=== PATIENT | male | born 1945 | race Caucasian/White ===

== ENCOUNTER 2022-12-11 10:58 | Outpatient (OUT) | payer OTHER, SELFPAY ==
[2022-12-11 12:28] LABS: Prostate Specific Antigen Dx <0.13 ng/mL (<=4.00)
== END 2022-12-11 10:59 | disposition home or self-care (01) ==
LOC: LAB 11:03
PROVIDERS: PCP Internal Medicine; Visit Provider Internal Medicine
DX: C61 Malignant neoplasm of prostate (principal)
CPT/HCPCS: 36415; 84153

== ENCOUNTER 2023-02-19 10:48 | Outpatient (OUT) | payer OTHER, SELFPAY ==
--- NOTE | 2023-02-19 | XR_ITS ---
The [address] [address] Patient Name: GRACIELA JULES MRN: [id number] date: 1945 Sex: M Assigned Patient Location: US Current Patient Location: US Accession/Order Number: [id number] Exam Date: 02/19/2023 11:08 Report Date: 02/19/2023 11:46 At the request of: SANDRA MORGAN Procedure: XR shoulder RT min 2V PROCEDURE: XR shoulder RT min 2V HISTORY: Mass Of Soft Tissue Of Shoulder M79.89 COMPARISON: None. FINDINGS: BONES:Narrowing of the acromioclavicular joint and small periarticular degenerative osteophytes. Mild degenerative changes of the glenohumeral joint. No fracture, dislocation, or bone lesion. SOFT TISSUES:No visible soft tissue swelling. EFFUSION:None visible. OTHER: Negative. XR/XR shoulder RT min 2V IMPRESSION: 1. Mild degenerative changes. No suspicious findings to account for patient's symptoms. Electronically authenticated by: JEREMIE KWONG Date: 02/19/2023 11:46
--- NOTE | 2023-02-19 10:55 | US_ITS ---
The [address] [address] Patient Name: GRACIELA JULES MRN: [id number] date: 1945 Sex: M Assigned Patient Location: US Current Patient Location: US Accession/Order Number: [id number] Exam Date: 02/19/2023 10:56 Report Date: 02/19/2023 11:41 At the request of: SANDRA MORGAN Procedure: US extremity nonvascular RT EXAMINATION: US extremity nonvascular RT HISTORY: Mass Of Soft Tissue Of Shoulder M79.89 COMPARISON: No relevant comparison available. FINDINGS: Ultrasound evaluation anterior to right shoulder in region of patient's palpable lump demonstrates a 4.2 x 3.8 x 0.6 cm fluid collection. No internal blood flow or appreciable soft tissue component. No appreciable connection to the joint capsule. US/US extremity nonvascular RT IMPRESSION: 1. Patient's palpable lump corresponds to a nonspecific fluid collection; seroma versus old hematoma versus extension from the joint capsule; no visible connection to the joint capsule. Consider MRI for further evaluation. Electronically authenticated by: JEREMIE KWONG Date: 02/19/2023 11:41
[2023-02-19 11:28] LABS: Basophils Percent Auto 0.6 % (0.2-2.0); Eosinophils Absolute Auto 0.2 10^3/uL (0.0-0.7); Eosinophils Percent Auto 4.3 % (0.9-7.0); Hematocrit 39.6 % (42.0-54.0); Immature Granulocytes Abs Auto 0.01 10^3/uL (0.00-0.03); Immature Granulocytes Pct Auto 0.2 % (0.0-0.5); Lymphocytes Absolute Auto 1.3 10^3/uL (1.2-3.8); Lymphocytes Percent Auto 23.6 % (20.5-60.0); Mean Corpuscular HGB Conc 32.8 g/dL (29.9-35.2); Mean Corpuscular Hemoglobin 30.9 pg (25.9-34.0); Mean Corpuscular Volume 94.1 fL (80.0-94.0); Mean Platelet Volume 9.6 fL (9.5-13.5); Monocytes Absolute Auto 0.5 10^3/uL (0.3-0.8); Monocytes Percent Auto 9.8 % (1.7-12.0); Neutrophils Absolute Auto 3.3 10^3/uL (1.4-6.5); Neutrophils Percent Auto 61.5 % (43.0-75.0); Platelet Count 277 10^3/uL (150-450); Red Blood Count 4.21 10^6/uL (4.70-6.10); Red Cell Distribution Width 13.3 % (11.0-15.0); White Blood Count 5.3 10^3/uL (4.0-11.0)
[2023-02-19 12:30] LABS: Anion Gap 11.9; BUN Creatinine Ratio 15.8; Calcium 8.8 mg/dL (8.5-10.1); Carbon Dioxide 29.1 mmol/L (21.0-32.0); Chloride 103 mmol/L (98-107); Estimated GFR (African America >60 (>=60); Estimated GFR (Non-African Ame >60 (>=60); Glucose 81 mg/dL (74-106); Sodium 140 mmol/L (136-145); Thyroid Stimulating Hormone 1.177 uIU/mL (0.358-3.740)
== END 2023-02-19 10:49 | disposition home or self-care (01) ==
LOC: US 10:48
PROVIDERS: PCP Internal Medicine; Visit Provider Internal Medicine
DX: M79.89 Other specified soft tissue disorders (principal); I10 Essential (primary) hypertension; R53.83 Other fatigue
CPT/HCPCS: 36415; 73030; 76882; 80048; 84443; 85025

== ENCOUNTER 2023-03-05 06:35 | Outpatient (OUT) | payer OTHER, SELFPAY ==
--- NOTE | 2023-03-05 06:40 | MR_ITS ---
The [address] [address] Patient Name: GRACIELA JULES MRN: [id number] date: 1945 Sex: M Assigned Patient Location: MRI Current Patient Location: MRI Accession/Order Number: [id number] Exam Date: 03/05/2023 07:05 Report Date: 03/05/2023 08:41 At the request of: SANDRA MORGAN Procedure: MR shoulder RT wo/w con EXAM: MR shoulder RT wo/w con REASON FOR EXAM: Mass Of Soft Tissue Of Shoulder M79.89. TECHNIQUE: Multiplanar, multisequence imaging of the right shoulder was performed before and after the uneventful intravenous administration of gadolinium contrast COMPARISON: Plain radiograph 02/19/2023. FINDINGS: The acromioclavicular joint is congruent with joint space narrowing, capsular hypertrophy and marginal osteophytes. Inferior marginal osteophytes mildly narrow the supraspinatus outlet. There is diffuse broad-based thickening and ossification the distal coracoacromial ligament consistent with subacromial spur, which also narrows the supraspinatus outlet. Moderate to large volume of fluid is present within the subacromial/subdeltoid bursa with synovial thickening consistent with synovitis. There is thickening and intermediate signal involving the supraspinatus and infraspinatus tendons consistent with tendinosis. Low-grade bursal sided fraying of the central cuff. No tear identified. The teres minor tendon is intact. The subscapularis tendon is thickened with intermediate signal consistent with tendinosis. No definite tear. The extracapsular biceps tendon is within the bicipital groove. There is significant thickening and intermediate signal involving the intracapsular and extracapsular biceps tendon. However, the biceps tendon appears thin and attenuated at the junction of the intracapsular and extracapsular tendon, given tendinopathy, this potentially reflects the intermediate to high-grade partial tear of the biceps tendon. A complete rupture is not confidently identified. Moderate amount of fluid within the extracapsular biceps tendon sheath, proportion the underlying joint likely reflects tenosynovitis. The humerus is centered on the glenoid. The articular cartilage demonstrates intermediate to high-grade chondrosis. Near circumferential labral degeneration/tearing. Small joint effusion. The bone marrow signal is without fracture. The quadrilateral space is patent. No axillary lymphadenopathy identified. No abnormal osseous or soft tissue enhancement identified. MR/MR shoulder RT wo/w con IMPRESSION: 1. Rotator cuff tendinosis without tear. 2. High-grade biceps tendinosis with intermediate to high-grade partial tear at the distal intracapsular proximal extracapsular junction. A complete rupture not identified. Probable extracapsular tenosynovitis 3. Mild acromioclavicular osteoarthritis with subacromial spur and moderate subacromial/subdeltoid bursitis. 4. 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 No acute or aggressive osseous abnormality identified. Electronically authenticated by: DEE MARTIN Date: 03/05/2023 08:41
== END 2023-03-05 06:36 | disposition home or self-care (01) ==
LOC: MRI 06:35
PROVIDERS: PCP Internal Medicine; Visit Provider Internal Medicine
DX: M79.89 Other specified soft tissue disorders (principal); M19.011 Primary osteoarthritis, right shoulder; M75.21 Bicipital tendinitis, right shoulder
CPT/HCPCS: 73223; A9575

== ENCOUNTER 2023-10-24 06:57 | Outpatient (OUT) | payer OTHER, SELFPAY ==
[2023-10-24 08:23] LABS: Prostate Specific Antigen Dx <0.13 ng/mL (<=4.00)
== END 2023-10-24 06:58 | disposition home or self-care (01) ==
LOC: LAB 06:59
PROVIDERS: PCP Internal Medicine; Visit Provider Internal Medicine
DX: C61 Malignant neoplasm of prostate (principal)
CPT/HCPCS: 36415; 84153

== ENCOUNTER 2024-01-30 07:33 | Outpatient (OUT) | payer OTHER, SELFPAY ==
--- NOTE | 2024-01-30 07:35 | CT_ITS ---
The [address] [address] Patient Name: GRACIELA JULES MRN: [id number] date: 1945 Sex: M Assigned Patient Location: CT Current Patient Location: CT Accession/Order Number: [id number] Exam Date: 01/30/2024 07:40 Report Date: 01/30/2024 08:46 At the request of: SANDRA MORGAN Procedure: CT abdomen pelvis wo con EXAM: CT abdomen pelvis wo con HISTORY: Low Back Pain, Renal Calculi COMPARISON: None. TECHNIQUE: Axial soft tissue windows of the abdomen and pelvis with coronal and sagittal reformats. CT dose reduction technique was used including Automated Exposure Control. Findings: Lack of intravenous contrast limits evaluation. ABDOMEN: The liver, gallbladder, spleen, pancreas, and adrenal glands are unremarkable. There are bilateral renal cysts. The largest is off the right kidney measuring approximately 4.3 cm. Nonobstructing bilateral renal stones. The largest is within the lower pole the right kidney measuring approximately 0.7 cm. No renal collecting system or ureteral dilatation. Evaluation of the bowel is limited given the absence of contrast. No bowel obstruction. The appendix is nondilated. The aorta is normal caliber. No enlarged abdominal lymph nodes or free abdominal fluid. Tiny fat-containing umbilicus hernia. Pelvis: Unremarkable bladder. No enlarged pelvic lymph nodes or free pelvic fluid. The prostate implants. No aggressive sclerotic or lytic osseous lesions. Multilevel degenerative spondylosis. Levoconvex scoliosis. CT/CT abdomen pelvis wo con IMPRESSION: 1. Nonobstructing bilateral renal stones. 2. Other nonemergent findings, as described above. Electronically authenticated by: SANDIE BROWN Date: 01/30/2024 08:46
--- OUTSIDE RECORDS SUMMARY | 2024-01-30 07:37 | XMS_ITS | CCD ---
Author Organization [facility] Care Team Providers Care Beverage Host Name Role Phone Joaquin Guzman DO Primary Care Provider JOAQUIN GUZMAN Primary Care Physician Joaquin Guzman Unavailable EDDIE, DR FLORES Admitting Unavailable BALL, DR FLORES Attending Unavailable BALL, DR FLORES Consulting Unavailable BALL, DR FLORES Primary Care Unavailable ENGELER, DR PEDRO Majano Admitting Unavailable ENGELER, DR PEDRO Majano Attending Unavailable ENGELER, DR PEDRO Majano Consulting Unavailable BALL, DR FLORES Primary Care Unavailable BALL, DR FLORES Admitting Unavailable BALL, DR FLORES Attending Unavailable BALL, DR FLORES Consulting Unavailable BALL, DR FLORES Primary Care Unavailable MARKER ., DR HOOD Admitting Unavailable MARKER ., DR HOOD Attending Unavailable MARKER ., DR HOOD Consulting Unavailable BALL, DR FLORES Primary Care Unavailable TIFFANIE, ESTRADA Consulting Unavailable Joaquin Guzman DO Primary Care Provider ERIKA SANCHEZ Attending Unavailable Joaquin Guzman DO Primary Care Provider GABRIELA BAH Attending Unavailab le Lydia MICHAELS Referring Unavailable JOAQUIN GUZMAN Primary Care Unavailable Lydia MICHAELS Attending Unavailable ENGELELydia Burrell Referring Unavailable JOAQUIN GUZMAN Primary Care Unavailable Lydia MICHAELS Attending Unavailable JOAQUIN GUZMAN Primary Care Unavailable Allergies Allergy Classification Reported Allergen(s) Allergy Type Date of Onset Reaction(s) Facility Sulfamethoxazole / Trimethoprim (1 source) Sulfamethoxazole / Trimethoprim Drug Allergy 12-06-19 17 Itching [facility] (12 sources) Sulfamethoxazole / Trimethoprim; Translations: [sulfamethoxazole-t rimethoprim] Drug Allergy 12-06-19 17 Itching, Itching (finding) [facility] (2 sources) Sulfamethoxazole / Trimethoprim; Translations: [Bactrim] Drug Allergy 10-31-19 16 [facility] Repository (1 source) No Known Medication Allergies; Translations: [No Known Medication Allergies] Propensity to adverse reactions (disorder) [facility] Repository (2 sources) Sulfamethoxazole Drug Allergy 08-16-19 24 Unknown Reaction [facility] (2 sources) Trimethoprim Drug Allergy 08-16-19 24 Unknown Reaction [facility] Medications Current Medications Medication Drug Class(es) Dates Sig (Normalized) Sig (Original) amLODIPine 5 mg oral tablet (20 sources) Dihydropyridine Calcium Channel Sancho Start: 06-06-2019 take 5 mg by mouth once daily Amlodipine Active 5 MG PO Daily August 15, 2023 12:00am amLODIPine Besyl ate Active Comment on above: Take 5 mg by mouth o nce daily. aspirin 81 mg delayed release oral tablet (14 sources) Platelet Aggregation Inhibitor, Nonsteroidal Anti-inflammatory Drug Start: 06-06-2019 Aspirin (Adult Low Dose Aspirin) 81 mg tablet,delayed release (DR/EC) Active 81 MG PO Daily August 15, 2023 12:00am Aspirin 81 Activ e Comment on above: Take 81 mg by mouth once daily. carvedilol 12.5 mg oral tablet (14 sources) alpha-Adrenergic Sancho, beta-Adrenergic Sancho Start: 08-15-2023 take 12.5 mg by mouth twice daily Carvedilol Active 12.5 MG PO Twice daily August 15, 2023 12:00am Start: 06-06-2019 carvedilol 6.2 5 mg, Oral, Refills(s) 0 Start Date: 06/06/19 Status: Ordered Carvedilol Activ e Comment on above: Take 12.5 mg by mout h twice daily with meals. lisinopril 20 mg oral tablet (15 sources) Angiotensin Converting Enzyme Inhibitor Start: 11-30-2023 take 20 mg by mouth once daily Lisinopril Active 20 MG PO Daily November 30, 2023 2:15pm Start: 08-15-2023 End: 11-30-2023 take 20 mg by mouth twice daily Lisinopril Discontinued 20 MG PO Twice daily August 15, 2023 12:00am November 30, 2023 2:15pm Start: 06-06-2019 take 20 mg by mouth once daily lisinopril 20 mg, Oral, Daily, Refills(s) 0 Start Date: 06/06/19 Status: Ordered Lisinopril Activ e Comment on above: Take 20 mg by mouth twice daily. Multi Vitamin+ (1 source) Start: 06-06-2019 Multi Vitamin+ Refill(s) 0 Start Date: 06/06/19 Status: Ordered Multivitamin preparation (6 sources) Multivitamin Act cristin multivitamin tablet (5 sources) take 1 tablet by mouth once daily multivitamin tablet Take 1 tablet by mouth once daily. Active take 1 tablet by mouth once vivian y multivitamin tablet Take 1 tablet by mouth once daily. 0 Active Comment on above: Take 1 tablet by eric th once daily. polyethylene glycol 3350 50404 mg powder for oral solution (14 sources) Osmotic Laxative Start: 08-15-2023 Polyethylene Glycol 3350 (Miralax) 17 gram/dose powder Active 17 GM PO August 15, 2023 12:00am Start: 06-12-2019 MiraLax gram, Oral, Daily, Refill(s) 0 Start Date: 06/12/19 Status: Ordered polyethylene gly col 3350 (MIRALAX) 17 gram/dose powder Take by mouth once daily. Active MiraLax Active Comment on above: Take by mouth once d aily. Stool Softener (6 sources) Stool Softener Active tamsulosin hydrochloride 0.4 mg oral capsule (8 sources) alpha-Adrenergic Sancho Start: 08-15-2023 take 0.4 mg by mouth once daily Tamsulosin Active 0.4 MG PO Daily August 15, 2023 12:00am Tamsulosin HCl A ctive Completed/Discontinued Medications Medication Drug Class(es) Dates Sig (Normalized) Sig (Original) hydrocortisone acetate 25 mg rectal suppository (2 sources) Corticosteroid Start: 10-25-2023 End: 12-20-2023 hydrocortisone (ANUSOL-HC) 25 mg suppository 1 Suppository by RECTAL route two times a day. 10 Suppository 2 10/25/2023 12/20/2023 Discontinued (Discontinued by another Health Care Provider) Problems Active Problems Problem Classification Problem Date Documented Da te Episodic/Chronic Abdominal pain (5 sources) Periumbilical pain; Translations: [Generalized abdominal pain] Onset: 07-25-2022 Episodic Anal and rectal conditions (20 sources) Rectal pain; Translations: [Other specified diseases of anus and rectum] Onset: 01-18-2024 Episodic Calculus of urinary tract (11 sources) History of calculus of kidney; Translations: [Personal history of urinary calculi] 08-14-2023 Episodic Cancer of prostate (20 sources) Malignant tumor of prostate; Translations: [Malignant neoplasm of prostate] Onset: 12-05-2016 Resolved: 12-14-2022 Chronic Deficiency and other anemia (8 sources) Anemia; Translations: [Anemia, unspecified] 08-15-2023 Episodic Diverticulosis and diverticulitis (9 sources) Diverticulum of duodenum; Translations: [Diverticulosis of small intestine without perforation or abscess without bleeding] Chronic Esophageal disorders (11 sources) Gastro-esophageal reflux disease with esophagitis; Translations: [Gastroesophageal reflux disease with esophagitis without hemorrhage] 08-15-2023 Chronic Essential hypertension (14 sources) Hypertensive disorder; Translations: [Essential hypertension] Onset: 07-27-2022 05-08-2019 Chronic Gastritis and duodenitis (1 source) Duodenitis without bleeding; Translations: [DUODENITIS WITHOUT BLEEDING] Onset: 07-27-2022 Episodic Gastrointestinal hemorrhage (6 sources) Rectal hemorrhage; Translations: [Hemorrhage of anus and rectum] Episodic Hyperplasia of prostate (12 sources) Benign prostatic hypertrophy with outflow obstruction; Translations: [Benign prostatic hyperplasia with lower urinary tract symptoms] Onset: 06-21-2022 Chronic Other aftercare (6 sources) H/O: high risk medication; Translations: [Other custodial (current) drug therapy] Episodic Other aftercare (1 source) Other custodial (current) drug therapy; Translations: [OTH ALF CURRENT DRUG THERAPY] Onset: 07-27-2022 Episodic Other aftercare (1 source) terminal gauger supervisor (current) use of aspirin; Translations: [SALES CLOSER CURRENT USE OF ASPIRIN] Onset: 07-27-2022 Episodic Other connective tissue disease (1 source) Other specified soft tissue disorders Episodic Other diseases of kidney and ureters (1 source) Urinary tract obstruction; Translations: [Other obstructive and reflux uropathy] Onset: 06-21-2022 Episodic Other screening for suspected conditions (not mental disorders or infectious disease) (3 sources) Raised prostate specific antigen; Translations: [Rising PSA following treatment for malignant neoplasm of prostate] Onset: 06-21-2022 Episodic Other skin disorders (5 sources) Vesicular eczema of hands and/or feet; Translations: [Dyshidrosis [pompholyx]] Episodic Other skin disorders (1 source) Dyshidrosis [pompholyx]; Translations: [Eczema, dyshidrotic] Episodic Other skin disorders (2 sources) Vesicular eczema; Translations: [Dyshidrosis [pompholyx]] 08-15-2023 Episodic Residual codes; unclassified (8 sources) Obstructive sleep apnea syndrome; Translations: [Obstructive sleep apnea (adult) (pediatric)] 08-14-2023 Chronic Residual codes; unclassified (2 sources) Obstructive sleep apnea (adult) (pediatric); Translations: [Obstructive sleep apnea (adult)(pediatric)] Chronic Residual codes; unclassified (5 sources) Family history of coronary arteriosclerosis; Translations: [Family history of ischemic heart disease and other diseases of the circulatory system] Episodic Residual codes; unclassified (1 source) Family history of ischemic heart disease and other diseases of the circulatory system; Translations: [Family history of early CAD] Episodic Spondylosis; intervertebral disc disorders; other back problems (20 sources) Lumbar spondylosis; Translations: [Spondylosis without myelopathy or radiculopathy, lumbar region] 08-14-2023 Chronic Spondylosis; intervertebral disc disorders; other back problems (2 sources) Low back pain; Translations: [Low back pain] 01-25-2024 Episodic Unclassified (1 source) Drug therapy finding 05-08-2019 Past or Other Problems Problem Classification Problem Date Documented Da te Episodic/Chronic Cancer of prostate (10 sources) History of malignant neoplasm of prostate; Translations: [Personal history of malignant neoplasm of prostate] Onset: 08-27-2017 08-27-2017 Episodic Deficiency and other anemia (4 sources) Anemia, unspecified; Translations: [ANEMIA UNSPECIFIED] Onset: 05-04-2022 Episodic Esophageal disorders (1 source) Esophageal disorders Results Test Name Value Interpretation Reference Range Facility OVon 01-18-2024 CNOV Office Visit (COAM ) MALCOLM PFEIFFER ([id number]) 1945 M Date Time Provider Department 01/18/24 9:30 AM GABRIELA BAH During your visit today, we recorded the following information about you: Pulse Blood pressure Weight Height 54/minute 118/65 68.9 kg 1.753 m Gabriela Bah MD 01/18/2024 9:49 AM Signed COLORECTAL SURGERY January 18, 2024 Malcolm Pfeiffer 78 year old This consult was requested by Dr. Miguel A Michaels and my final recommendations will be communicated to the requesting health care provider by way of the shared medical record for internal providers or letter via the [employer] for external providers. Chief Complaint: rectal pain/ rectal stricture History of Present Illness: Malcolm Pfeiffer is a 78 year old male presents to the office for evaluation of rectal pain and rectal stricture. He has a history of [id number] prostate adenocarcinoma. Colonoscopy in 2016 -normal Scan on 12/20/2023 8:16 AM by Erika Gotti: COLONOSCOPY 11/03/15 PAST MEDICAL HISTORY No date: HTN (hypertension) No date: Nephrolithiasis PAST SURGICAL HISTORY No date: F LITHOTRIPSY No date: HERNIA REPAIR HX Comment: x2 No date: SEPTOPLASTY/SUBMUCOUS RESECJ W/WO CARTILAGE GRF Current Outpatient Medications Medication Sig Dispense Refill polyethylene glycol 3350 (MIRALAX) 17 gram/dose powder Take by mouth once daily. amLODIPine (NORVASC) 5 mg tablet Take 5 mg by mouth once daily. lisinopril (ZESTRIL, PRINIVIL) 20 mg tablet Take 20 mg by mouth twice daily. carvedilol (COREG) 12.5 mg tablet Take 12.5 mg by mouth twice daily with meals. aspirin, enteric coated (ASPIRIN, ENTERIC COATED) 81 mg EC tablet Take 81 mg by mouth once daily. multivitamin tablet Take 1 tablet by mouth once daily. No current facility-administered medications for this visit. ALLERGIES Allergen Reactions Bactrim [Sulfametho* Itching FAMILY HISTORY Problem Relation Age of Onset Cancer Brother Bladder Social History Tobacco Use Smoking status: Never Smokeless tobacco: Never Physical Exam: There were no vitals taken for this visit. General Appearance: Well appearing, alert, in no acute distress, well-hydrated, well nourished. Skin: Skin color, texture, turgor normal Head: Normocephalic Oropharynx: Lips, mucosa, and tongue normal Neck: Supple Lungs: breathing unlabored on room air Extremities: No deformities, no weakness Neuro: Gait normal Abdomen: Normal abdominal exam Anorectal: External exam reveals: see below Ship Loader present: yes Assessment Assessment and Plan: Malcolm Pfeiffer is a 78 year old male with a history of prostate and rectal cancer s/p radiation. He had symptoms of an anal fissure after straining but is now better. On PE the fissure has healed and his anastomosis is narrow but soft. He will see me in 1 year for a surveillance colonoscopy. Medical Decision Making: Data Reviewed: Tests AND Documents Reviewed/ordered: Review of prior operative reports I have independently interpreted: CT Abdomen I have discussed Malcolm Pfeiffer's treatment plan and/or results with his pcp. Gabriela Bah MD Colorectal Surgery Referring Provider: Lydia MICHAELS [[id number]] Allergies As of Date: 01/18/2024 Noted Allergy Reaction BACTRIM (SULFAMETHOXAZOLE-TRIM ETH*12/05/2016 9 - Itching Date Reviewed: 01/18/2024 Reviewed by: Maryann Grajeda LPN - Fully Assessed Reason for Visit: Rectal Pain [787] Primary Visit Diagnosis:Anal or rectal pain [K62.89] Other Visit Diagnoses:Rectal stricture [K62.4] Rectal or anal pain [K62.89] Order(s):CONSULT TO COLO-RECTAL SURGERY [] Order #: [id number]: 1 COLONOSCOPY DIAGNOSTIC [GI11] Order #: [id number] FUTURE Prescriptions as of 01/18/2024 - polyethylene glycol 3350 (MIRALAX) 17 gram/dose powder Take by mouth once daily. - amLODIPine (NORVASC) 5 mg tablet Take 5 mg by mouth once daily. - lisinopril (ZESTRIL, PRINIVIL) 20 mg tablet Take 20 mg by mouth twice daily. - carvedilol (COREG) 12.5 mg tablet Take 12.5 mg by mouth twice daily with meals. - aspirin, enteric coated (ASPIRIN, ENTERIC COATED) 81 mg EC tablet Take 81 mg by mouth once daily. - multivitamin tablet Take 1 tablet by mouth once daily. Problem List As Of Date 01/18/2024 Noted Resolved Prostate cancer (HCC) [C61] 12/05/2016 12/14/2022 History of prostate cancer [Z85.46] 08/27/2017 Encounter Status:Closed by GABRIELA BAH on 01/18/24 [facility] CNOVon 12-13-2023 CNOV Office Visit (RADTSA ) MALCOLM PFEIFFER ([id number]) 1945 M Date Time Provider Department 12/13/23 10:00 AM Lydia MICHAELS During your visit today, we recorded the following information about you: Temperature Pulse Respiration Blood pressure 97.5 degrees 51/minute 16/minute 133/79 Weight 69.7 kg Nicolasa Faustin LPN 12/20/2023 12:38 PM Signed AUA= 3 Lydia Michaels MD 12/20/2023 12:38 PM Signed radiation Oncology - Follow Up Note PATIENT NAME: Malcolm Pfeiffer PATIENT DIAGNOSIS: Prostate adenocarcinoma, initial PSA 6.63, biopsy [place] score 3 + 3 = 6 (grade group 1), clinical stage T1c N0 M0. S/p I-125 brachytherapy January 24, 2017, dose 145 Gy. INTERVAL HISTORY: Patient still having on and off issues with rectal discomfort. Generally worse after he is having larger bowel movement. Still using fiber. Seems to be happening more often for him. 12/14/22:Doing well denies new problems. Denies rectal bleeding. States that he has occasional rectal discomfort less than 2 times per year. Bladder function good. 12/15/21:No further rectal complaints including bleeding. He does use MiraLAX and has had some discomfort if he stops. Appetite good. No bladder related issues. 12/16/20:No significant new problems. Still with occasional perirectal pain although less frequent. No blood per rectum. PSA 10/24/2023: <0.13 PSA (ng/mL) Date Value 04/24/2018 1.30 04/25/2017 3.49 02/28/2017 8.86 PSA. (no units) Date Value 10/24/2023 <0.13 12/11/2022 <0.13 12/13/2021 0.21 12/14/2020 0.56 07/10/19 4.05 ALLERGIES Allergen Reactions Bactrim [Sulfametho* Itching polyethylene glycol 3350 (MIRALAX) 17 gram/dose powder Take by mouth once daily. amLODIPine (NORVASC) 5 mg tablet Take 5 mg by mouth once daily. lisinopril (ZESTRIL, PRINIVIL) 20 mg tablet Take 20 mg by mouth twice daily. carvedilol (COREG) 12.5 mg tablet Take 12.5 mg by mouth twice daily with meals. aspirin, enteric coated (ASPIRIN, ENTERIC COATED) 81 mg EC tablet Take 81 mg by mouth once daily. multivitamin tablet Take 1 tablet by mouth once daily. hydrocortisone (ANUSOL-HC) 25 mg suppository 1 Suppository by RECTAL route two times a day. REVIEW OF SYSTEMS: D/N = 4-6/1-2 Hematuria: none Dysuria: Yes Incontinence: none Urgency: mild Catheter use: none Medications to aid urination: y Bowel movement frequency: 1/day Bowel movement quality: normal Blood per rectum: none Last colonoscopy: na Sexual activity: Not sexually active Androgen deprivation: Never. PHYSICAL EXAM: BP 133/79 Pulse (!) 51 Temp 36.4 ?C (97.5 ?F) Resp 16 Wt 69.7 kg (153 lb 10.6 oz) SpO2 99% BMI 22.68 kg/m? KPS: 100 General appearance: Alert and oriented. No acute distress. Rectal examna Extremities: No deformities, edema, skin discoloration, clubbing or cyanosis. Lymph Nodes: No cervical lymphadenopathy, No supraclavicular lymphadenopathy, No axillary lymphadenopathy. Skin: Skin color, texture, turgor normal, no suspicious rashes or lesions. ASSESSMENT/PLAN: Prostate cancer, with prior I-125 brachytherapy December 2016. 1. Prostate cancer doing well PSA remains undetectable. 2 Rectal discomfort. Recommend evaluation for rectal stenosis/pain. Likely related to prior treatment. Will refer patient to colorectal surgery for opinion regarding further diagnosis and management options for him. Signed by: Lydia Michaels MD cc: Joaquin Guzman MD ([facility]) [address] [place] [address] Referring Provider: Lydia MICHAELS [[id number]] Allergies As of Date: 12/13/2023 Noted Allergy Reaction BACTRIM (SULFAMETHOXAZOLE-TRIM ETH*12/05/2016 9 - Itching Date Reviewed: 12/13/2023 Reviewed by: Nicolasa Faustin LPN - Fully Assessed Reason for Visit: Prostate Cancer [590] Primary Visit Diagnosis:History of prostate cancer [Z85.46] Other Visit Diagnosis:Rectal or anal pain [K62.89] Order(s):PSA (OUTSIDE) [8824365] Order #: [id number] PROSTATE-SPECIFIC ANTIGEN DIAGNOSTIC [SQPSA] Order #: [id number] FUTURE CONSULT TO COLO-RECTAL SURGERY [] Order #: [id number]: 1 FUTURE Prescriptions as of 12/20/2023 - polyethylene glycol 3350 (MIRALAX) 17 gram/dose powder Take by mouth once daily. - amLODIPine (NORVASC) 5 mg tablet Take 5 mg by mouth once daily. - lisinopril (ZESTRIL, PRINIVIL) 20 mg tablet Take 20 mg by mouth twice daily. - carvedilol (COREG) 12.5 mg tablet Take 12.5 mg by mouth twice daily with meals. - aspirin, enteric coated (ASPIRIN, ENTERIC COATED) 81 mg EC tablet Take 81 mg by mouth once daily. - multivitamin tablet Take 1 tablet by mouth once daily. Problem List As Of Date 12/13/2023 Noted Resolved Prostate cancer (HCC) [C61] 12/05/2016 12/14/2022 History of prostate cancer [Z85.46] 08/27/2017 Visit Notes: >> Grav (more content not included)... Normal [facility] CNOVon 10-25-2023 CNOV Office Visit (RADTSA ) MALCOLM PFEIFFER ([id number]) 1945 M Date Time Provider Department 10/25/23 10:45 AM Lydia MICHAELS During your visit today, we recorded the following information about you: Temperature Pulse Respiration Blood pressure 97.6 degrees 52/minute 16/minute 147/68 Weight 70.5 kg Lydia Michaels MD 10/25/2023 11:24 AM Signed radiation Oncology - Follow Up Note PATIENT NAME: Malcolm Pfeiffer PATIENT DIAGNOSIS: Prostate adenocarcinoma, initial PSA 6.63, biopsy [place] score 3 + 3 = 6 (grade group 1), clinical stage T1c N0 M0. S/p I-125 brachytherapy January 24, 2017, dose 145 Gy. INTERVAL HISTORY: Patient still having on and off issues with rectal discomfort. Seems to occur every 3 to 4 months Lasting 1 to 3 weeks. Denies any recent bleeding. No bladder related issues. 12/14/22:Doing well denies new problems. Denies rectal bleeding. States that he has occasional rectal discomfort less than 2 times per year. Bladder function good. 12/15/21:No further rectal complaints including bleeding. He does use MiraLAX and has had some discomfort if he stops. Appetite good. No bladder related issues. 12/16/20:No significant new problems. Still with occasional perirectal pain although less frequent. No blood per rectum. PSA 10/24/2023: <0.13 PSA (ng/mL) Date Value 04/24/2018 1.30 04/25/2017 3.49 02/28/2017 8.86 PSA. (no units) Date Value 12/11/2022 <0.13 12/13/2021 0.21 12/14/2020 0.56 05/29/2020 0.77 07/10/19 4.05 ALLERGIES Allergen Reactions Bactrim [Sulfametho* Itching polyethylene glycol 3350 (MIRALAX) 17 gram/dose powder Take by mouth once daily. amLODIPine (NORVASC) 5 mg tablet Take 5 mg by mouth once daily. lisinopril (ZESTRIL, PRINIVIL) 20 mg tablet Take 20 mg by mouth twice daily. carvedilol (COREG) 12.5 mg tablet Take 12.5 mg by mouth twice daily with meals. aspirin, enteric coated (ASPIRIN, ENTERIC COATED) 81 mg EC tablet Take 81 mg by mouth once daily. multivitamin tablet Take 1 tablet by mouth once daily. REVIEW OF SYSTEMS: D/N = 4-6/1-2 Hematuria: none Dysuria: Yes Incontinence: none Urgency: mild Catheter use: none Medications to aid urination: y Bowel movement frequency: 1/day Bowel movement quality: normal Blood per rectum: none Last colonoscopy: na Sexual activity: Not sexually active Androgen deprivation: Never. PHYSICAL EXAM: BP 147/68 Pulse (!) 52 Temp 36.4 ?C (97.6 ?F) (Temporal) Resp 16 Wt 70.5 kg (155 lb 6.8 oz) SpO2 97% BMI 22.94 kg/m? KPS: 100 General appearance: Alert and oriented. No acute distress. Rectal exam no masses notable. Does appear to have mild stricture/stenosis. No obvious ulceration or bleeding. Extremities: No deformities, edema, skin discoloration, clubbing or cyanosis. Lymph Nodes: No cervical lymphadenopathy, No supraclavicular lymphadenopathy, No axillary lymphadenopathy. Skin: Skin color, texture, turgor normal, no suspicious rashes or lesions. ASSESSMENT/PLAN: Prostate cancer, with prior I-125 brachytherapy December 2016. 1. Prostate cancer doing well PSA remains undetectable. 2 rectal discomfort. Appears to have rectal stricture. Has seen GI in the past as well as general surgery. Recommend Anusol HC as needed. Discussed potential referral to colorectal surgery to see if any other interventions other than conservative interventions with stool softeners could be considered. He has planned follow-up in 1 month and we will discuss this depending on his level symptoms at that time. Signed by: Lydia Michaels MD cc: Joaquin Guzman MD ([facility]) [address] [place] [id number] Allergies As of Date: 10/25/2023 Noted Allergy Reaction BACTRIM (SULFAMETHOXAZOLE-TRIM ETH*12/05/2016 9 - Itching Date Reviewed: 10/25/2023 Reviewed by: Odilia Swain MA - Fully Assessed Reason for Visit: new problem [Other] Primary Visit Diagnosis:History of prostate cancer [Z85.46] Order(s):hydrocortison e (ANUSOL-HC) 25 mg suppository1 Suppository by RECTAL route two times a day.Disp: 10 SuppositoryRfl: 2 Prescriptions as of 10/25/2023 - hydrocortisone (ANUSOL-HC) 25 mg suppository 1 Suppository by RECTAL route two times a day. - polyethylene glycol 3350 (MIRALAX) 17 gram/dose powder Take by mouth once daily. - amLODIPine (NORVASC) 5 mg tablet Take 5 mg by mouth once daily. - lisinopril (ZESTRIL, PRINIVIL) 20 mg tablet Take 20 mg by mouth twice daily. - carvedilol (COREG) 12.5 mg tablet Take 12.5 mg by mouth twice daily with meals. - aspirin, enteric coated (ASPIRIN, ENTERIC COATED) 81 mg EC tablet Take 81 mg by mouth once daily. - multivitamin tablet Take 1 tablet by mouth once daily. Problem List As Of Date 10/25/2023 Noted Resolved Prostate cancer (HCC) [C61] 12/05/2016 12/14/2022 History of p (more content not included)... [facility] Consultation Noteon 01-24-20 Consultation Note [id number] 0CD:127 Normal [facility] AMYLASEon 07-25-2022 Amylase [Catalytic activity/Vol] 30 U/L Normal 25-115 [facility] Comment on above: Performed By: #### L IPA, CMP, EMILE, HSTROPN #### [facility] [address] [address] [address] Avery Khan CBC AUTO DIFFon 07-25-2022 BASO # 0.0 103/ul Normal 0.0-0.1 [facility] Comment on above: Performed By: #### C BC #### [facility] [address] [address] [address] Avery Khan Basophils/100 WBC (Bld) 0.3 % Normal 0.2-2.0 [facility] Comment on above: Performed By: #### C BC #### [facility] [address] [place] [address] Dr. Avery Khan EO # 0.2 103/ul Normal 0.0-0.7 [facility] Comment on above: Performed By: #### C BC #### [facility] [address] [place] [address] Dr. Avery Khan Eosinophils/100 WBC (Bld) 2.9 % Normal 0.9-7.0 [facility] Comment on above: Performed By: #### C BC #### [facility] [address] [place] [address] Dr. Avery Khan Erythrocyte distribution width (RBC) [Ratio] 13.7 % Normal 11.0-15.0 [facility] Comment on above: Performed By: #### C BC #### [facility] [address] [place] [address] Dr. Avery Khan Hematocrit (Bld) [Volume fraction] 38.5 % Critically low 42.0-54.0 [facility] Comment on above: Performed By: #### C BC #### [facility] [address] [place] [address] Dr. Avery Khan Hemoglobin (Bld) [Mass/Vol] 13.4 g/dL Critically low 14.0-18.0 [facility] Comment on above: Performed By: #### C BC #### [facility] [address] [place] [address] Dr. Avery Khan IG # 0.02 10e3/ul Normal 0.00-0.03 [facility] Comment on above: Performed By: #### C BC #### [facility] [address] [place] [address] Dr. Avery Kahn IG % 0.3 % Normal 0.0-0.5 [facility] Comment on above: Performed By: #### C BC #### [facility] [address] [place] [address] Dr. Avery Khan LYMPH # 1.3 103/ul Normal 1.2-3.8 [facility] Comment on above: Performed By: #### C BC #### [facility] [address] [place] [address] Dr. Avery Khan Lymphocytes/100 WBC (Bld) 22.8 % Normal 20.5-60.0 [facility] Comment on above: Performed By: #### C BC #### [facility] [address] [place] [address] Dr. Avery Khan MANUAL DIFF REQ NO Normal [facility] Comment on above: Performed By: #### C BC #### [facility] [address] [place] [address] Dr. Avery Khan MCH (RBC) [Entitic mass] 31.3 pg Normal 25.9-34.0 [facility] Comment on above: Performed By: #### C BC #### [facility] [address] [place] [address] Dr. Avery Khan MCHC (RBC) [Mass/Vol] 34.8 g/dL Normal 29.9-35.2 [facility] Comment on above: Performed By: #### C BC #### [facility] [address] [place] [address] Dr. Avery Khan MCV (RBC) [Entitic vol] 90.0 fL Normal 80.0-94.0 [facility] Comment on above: Performed By: #### C BC #### [facility] [address] [place] [address] Dr. Avery Khan MONO # 0.5 103/ul Normal 0.3-0.8 [facility] Comment on above: Performed By: #### C BC #### [facility] [address] [place] [address] Dr. Avery Khan Monocytes/100 WBC (Bld) 8.7 % Normal 1.7-12.0 [facility] Comment on above: Performed By: #### C BC #### [facility] [address] [place] [address] Dr. Avery Khan NEUT # 3.8 103/ul Normal 1.4-6.5 [facility] Comment on above: Performed By: #### C BC #### [facility] [address] [address] [address] Avery Khan Neutrophils/100 WBC (Bld) 65.0 % Normal 43.0-75.0 [facility] Comment on above: Performed By: #### C BC #### [facility] [address] [address] [address] Avery Khan Platelet mean volume (Bld) [Entitic vol] 9.8 fL Normal 9.5-13.5 [facility] Comment on above: Performed By: #### C BC #### [facility] [address] [place] [address] Dr. Avery Khan PLT 260 103/ul Normal 150-450 [facility] Comment on above: Performed By: #### C BC #### [facility] [address] [place] [address] Dr. Avery Khan RBC 4.28 106/ul Critically low 4.70-6.10 [facility] Comment on above: Performed By: #### C BC #### [facility] [address] [place] [address] Dr. Avery Khan WBC 5.9 103/ul Normal 4.0-11.0 [facility] Comment on above: Performed By: #### C BC #### [facility] [address] [place] [address] ABD/PELV W CONon 07-25-[address] ABD/PELV W CON EXAMINATION: CT ABD/PELV W CON HISTORY: ABDOMINAL DISTENSION (GASEOUS) . Umbilical pain and bloating since last bowel movement 24 hours ago. COMPARISON: None. TECHNIQUE: IV contrast enhanced CT imaging the abdomen and pelvis was performed using 100 mL of Omnipaque 300 intravenous contrast. Sagittal and coronal reconstructions are provided. Dose reduction techniques were achieved by using automated exposure control and/or adjustment of mA and/or kV according to patient size and/or use of iterative reconstruction technique. FINDINGS: CT ABDOMEN: There is bibasilar linear fibrotic scarring. The lung bases are otherwise clear. Cardiac size is normal. There is no pericardial effusion. The unremarkable gallbladder extends over the anterior liver, a normal variant. The liver, pancreas, spleen and adrenal glands appear within normal limits. Bilateral nonobstructing renal calculi measure up to 8 mm in the anterior lower pole of the right kidney. No hydronephrosis or ureterolithiasis is seen on either side. Bilateral renal cortical cysts measure up to 4.4 cm off the lateral mid to lower pole of the right kidney. The kidneys are otherwise unremarkable. There are minimal aortic calcifications without dissection or aneurysm. The stomach appears unremarkable. There is a 4.3 cm diverticulum off the third segment of the duodenum with mild nonspecific duodenal wall thickening. The remainder the small bowel is otherwise unremarkable. A fat-containing umbilical hernia is noted. CT PELVIS: The appendix is not visualized and may have been removed. No secondary findings of appendicitis are seen. Brachytherapy seeds are noted in the prostate. There is a dilated tortuous tubular lesion in the right seminal vesicle consistent with ectasia, not of clinical significance. There is mild wall thickening in the largely decompressed urinary bladder. The pelvic small bowel loops appear unremarkable. There is moderate stool and gas in the colon. No inflammatory fat stranding, free fluid, loculated fluid or free air is seen in the abdomen or pelvis. Multilevel spinal degenerative changes are present, with multilevel spinal canal stenosis, and a mild broad lumbar levoscoliosis. No acute osseous abnormality or suspicious bony lesion is seen. IMPRESSION: 1. Duodenal diverticulum with nonspecific mild duodenal wall thickening. Mild infectious/inflammator y duodenitis cannot be excluded. 2. Mild wall thickening in the largely decompressed bladder may reflect bladder decompression or cystitis. No other potential acute findings are seen in the abdomen or pelvis. 3. Nonobstructing bilateral renal calculi with bilateral renal cortical cysts. 4. Brachytherapy seeds in the prostate. No metastatic disease identified in the abdomen or pelvis. 5. Moderate volume of colonic stool and gas. Electronically authenticated by: ESTRADA MORENO Date: 2022-07-25 04:45 Normal [facility] URINE PROFILEon 3 Bilirubin Ql (U) Negative Normal NEGATIVE [facility] Comment on above: Performed By: #### F ETIBC, B12FOL, FERR #### [facility] [address] [place] [address] Dr. Avery Khan Clarity (U) CLEAR Normal CLEAR [facility] Comment on above: Performed By: #### F ETIBC, B12FOL, FERR #### [facility] [address] [place] [address] Dr. Avery Khan Color (U) YELLOW Normal YELLOW [facility] Comment on above: Performed By: #### F ETIBC, B12FOL, FERR #### [facility] [address] [place] [address] Dr. Avery ROMERO A micrscopic examination will be performed if indicated. Normal [facility] Comment on above: Performed By: #### F ETIBC, B12FOL, FERR #### [facility] [address] [place] [address] Dr. Avery Khan Glucose Ql (U) Negative Normal NEGATIVE [facility] Comment on above: Performed By: #### F ETIBC, B12FOL, FERR #### [facility] [address] [place] [address] Dr. Avery Khan Hemoglobin Ql (U) SMALL Abnormal NEGATIVE [facility] Comment on above: Performed By: #### F ETIBC, B12FOL, FERR #### [facility] [address] [place] [address] Dr. Avery Khan Ketones Ql (U) TRACE Abnormal NEGATIVE [facility] Comment on above: Performed By: #### F ETIBC, B12FOL, FERR #### [facility] [address] [place] [address] Dr. Avery Khan LEUKOCYTES Negative Normal NEGATIVE [facility] Comment on above: Performed By: #### F ETIBC, B12FOL, FERR #### [facility] [address] [place] [address] Dr. Avery Khan Nitrite Ql (U) Negative Normal NEGATIVE [facility] Comment on above: Performed By: #### F ETIBC, B12FOL, FERR #### [facility] [address] [place] [address] Dr. Avery Khan pH (U) 5.0 [pH] Normal 5-9 [facility] Comment on above: Performed By: #### F ETIBC, B12FOL, FERR #### [facility] [address] [place] [address] Dr. Avery Khan SPEC GRAVITY 1.020 Normal 1.005-<=1.025 [facility] Comment on above: Performed By: #### F ETIBC, B12FOL, FERR #### [facility] [address] [place] [address] Dr. Avery Khan UA PROTEIN Negative Normal NEGATIVE/ TRACE [facility] Comment on above: Performed By: #### F ETIBC, B12FOL, FERR #### [facility] [address] [place] [address] Dr. Avery Khan UR MICRO IND INDICATED Normal [facility] Comment on above: Performed By: #### F ETIBC, B12FOL, FERR #### [facility] [address] [place] [address] Dr. Avery Khan Urobilinogen Qn (U) 0.2 {Anna'U}/dL Normal 0.2 - 1. 0 [facility] Comment on above: Performed By: #### F ETIBC, B12FOL, FERR #### [facility] [address] [place] [address] Dr. Avery Khan LACTATE/LACTIC ACIDon 2022 Lactate [Moles/Vol] 1.0 mmol/L Normal 0.4-1.9 [facility] Comment on above: Performed By: #### F ETIBC, B12FOL, FERR #### [facility] [address] [place] [address] Dr. Avery Khan LIPASEon 07-25-2022 Lipase [Catalytic activity/Vol] 71.0 U/L Critically low 73.0-393.0 [facility] Comment on above: Performed By: #### L IPA, CMP, EMILE, HSTROPN #### [facility] [address] [place] [address] Dr. Avery Khan PROF 14(COMP METB)on 023 Albumin [Mass/Vol] 3.7 g/dL Normal 3.4-5.0 [facility] Comment on above: Performed By: #### L IPA, CMP, EMILE, HSTROPN #### [facility] [address] [place] [address] Dr. Avery Khan Albumin/Globulin [Mass ratio] 1.2 {ratio} Normal [facility] Comment on above: Performed By: #### L IPA, CMP, EMILE, HSTROPN #### [facility] [address] [address] [address] Avery Khan ALP [Catalytic activity/Vol] 89 U/L Normal 46-116 [facility] Comment on above: Performed By: #### L IPA, CMP, EMILE, HSTROPN #### [facility] [address] [place] [address] Dr. Avery Khan ALT [Catalytic activity/Vol] 21 U/L Normal 16-63 [facility] Comment on above: Performed By: #### L IPA, CMP, EMILE, HSTROPN #### [facility] [address] [place] [address] Dr. Avery Khan Anion gap [Moles/Vol] 11.2 mmol/L Normal [facility] Comment on above: Performed By: #### L IPA, CMP, EMILE, HSTROPN #### [facility] [address] [place] [address] Dr. Avery Khan AST [Catalytic activity/Vol] 21 U/L Normal 15-37 [facility] Comment on above: Performed By: #### L IPA, CMP, EMILE, HSTROPN #### [facility] [address] [place] [address] Dr. Avery Khan Bilirubin [Mass/Vol] 0.6 mg/dL Normal 0.2-1.0 [facility] Comment on above: Performed By: #### L IPA, CMP, EMILE, HSTROPN #### [facility] [address] [address] [address] Avery Khan Calcium [Mass/Vol] 8.7 mg/dL Normal 8.5-10.1 [facility] Comment on above: Performed By: #### L IPA, CMP, EMILE, HSTROPN #### [facility] [address] [address] [address] Avery Khan Chloride [Moles/Vol] 103 mmol/L Normal 98-107 [facility] Comment on above: Performed By: #### L IPA, CMP, EMILE, HSTROPN #### [facility] [address] [address] [address] Avery Khan CO2 [Moles/Vol] 27.7 mmol/L Normal 21.0-32.0 [facility] Comment on above: Performed By: #### L IPA, CMP, EMILE, HSTROPN #### [facility] [address] [place] [address] Dr. Avery Khan Creatinine [Mass/Vol] 1.03 mg/dL Normal 0.70-1.30 [facility] Comment on above: Performed By: #### L IPA, CMP, EMILE, HSTROPN #### [facility] [address] [place] [address] Dr. Avery Khan EGFR-AF NIGERIAN >60 Normal >=60 [facility] Comment on above: Performed By: #### L IPA, CMP, EMILE, HSTROPN #### [facility] [address] [place] [address] Dr. Avery Khan EGFR-NON AF NIGERIAN >60 Normal >=60 [facility] Comment on above: Performed By: #### L IPA, CMP, EMILE, HSTROPN #### [facility] [address] [place] [address] Dr. Avery Khan Globulin (S) [Mass/Vol] 3.0 g/dL Normal [facility] Comment on above: Performed By: #### L IPA, CMP, EMILE, HSTROPN #### [facility] [address] [place] [address] Dr. Avery Khan Glucose [Mass/Vol] 122 mg/dL Critically high 74-106 [facility] Comment on above: Performed By: #### L IPA, CMP, EMILE, HSTROPN #### [facility] [address] [place] [address] Dr. Avery Khan Potassium [Moles/Vol] 3.9 mmol/L Normal 3.5-5.1 [facility] Comment on above: Performed By: #### L IPA, CMP, EMILE, HSTROPN #### [facility] [address] [address] [address] Avery Khan Protein [Mass/Vol] 6.7 g/dL Normal 6.4-8.2 [facility] Comment on above: Performed By: #### L IPA, CMP, EMILE, HSTROPN #### [facility] [address] [address] [address] Avery Khan Sodium [Moles/Vol] 138 mmol/L Normal 136-145 [facility] Comment on above: Performed By: #### L IPA, CMP, EMILE, HSTROPN #### [facility] [address] [place] [address] Dr. Avery Khan Urea nitrogen [Mass/Vol] 17.0 mg/dL Normal 7.0-18.0 [facility] Comment on above: Performed By: #### L IPA, CMP, EMILE, HSTROPN #### [facility] [address] [place] [address] Dr. Avery Khan Urea nitrogen/Creatinine [Mass ratio] 16.5 mg/mg Normal [facility] Comment on above: Performed By: #### L IPA, CMP, EMILE, HSTROPN #### [facility] [address] [place] [address] Dr. Avery Khan TROPONIN, HIGH SENSITIVITYon 07-25-2022 HSTROP 9.0 pg/mL Normal 4.0-76.1 [facility] Comment on above: Result Comment: CUT- OFF POINTS HAVE BEEN ESTABLISHED BASED ON THE FOURTH UNIVERSAL DEFINITIONS OF MYOCARDIAL INFARCTION. THE UPPER REFERENCE LIMIT (URL) OF TROPONIN, DEFINED THE 99TH PERCENTILE OF cTnI DISTRIBUTION IN A REFERENCE POPULATION, HAS BEEN CONFIRMED THE DECISION THRESHOLD FOR [place] DIAGNOSIS. Performed By: #### L IPA, CMP, EMILE, HSTROPN #### [facility] [address] [place] [address] Dr. Avery Khan URINE MICROSCOPIC ONLYon BACTERIA TRACE Abnormal NONE SEEN [facility] Comment on above: Performed By: #### F ETIBC, B12FOL, FERR #### [facility] [address] [place] [address] Dr. Avery Khan Bacteria identified Cx Nom (U) NOT INDICATED Normal [facility] Comment on above: Performed By: #### F ETIBC, B12FOL, FERR #### [facility] [address] [place] [address] Dr. Avery Khan CAST NONE SEEN Normal NONE SEEN [facility] Comment on above: Performed By: #### F ETIBC, B12FOL, FERR #### [facility] [address] [place] [address] Dr. Avery Khan Crystals LM Nom (Urine sed) NONE SEEN Normal NONE SEEN [facility] Comment on above: Performed By: #### F ETIBC, B12FOL, FERR #### [facility] [address] [place] [address] Dr. Avery Khan Epithelial cells LM Ql (Urine sed) RARE Normal NONE SEEN /RARE [facility] Comment on above: Performed By: #### F ETIBC, B12FOL, FERR #### [facility] [address] [place] [address] Dr. Avery Khan MUCOUS NONE SEEN Normal NONE SEEN [facility] Comment on above: Performed By: #### F ETIBC, B12FOL, FERR #### [facility] [address] [place] [address] Dr. Avery Khan RBC 0-2 Normal 0-2 [facility] Comment on above: Performed By: #### F ETIBC, B12FOL, FERR #### [facility] [address] [place] [address] Dr. Avery Khan WBC NONE SEEN Normal NONE SEEN [facility] Comment on above: Performed By: #### F ETIBC, B12FOL, FERR #### [facility] [address] [place] [address] Dr. Avery Khan Screenson 06-22-2022 Screens [id number]. 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1945 Visit Date:06/21/2022 Ambulatory Visit Instructions Your Diagnosis Rising PSA following treatment for malignant neoplasm of prostate History of prostate cancer Tests Performed Urnls Dip Stick Auto w/o Microscopy POC 43521 Your Care Team Attending Physician - ERIKA SANCHEZ PA-C Primary Care Physician - JOAQUIN GUZMAN DO This Is Your Medications List Contact prescribing physician if questions or concerns amlodipine aspirin (aspirin 81 mg Oral EC Tab) carvedilol lisinopril multivitamin (Multi Vitamin+) polyethylene glycol 3350 (MiraLax) Procedures Performed Brachytherapy (01/24/2017), Transrectal biopsy of prostate using ultrasound (US) guidance (11/01/2016), Transrectal biopsy of prostate using ultrasound (US) guidance (02/20/2011), Repair of inguinal hernia. Discharge Vitals Heart Rate (Peripheral) 86 Respiratory Rate 16 Blood Pressure 128/74 Height 174 cm Height 69 in Weight 70 kg Weight 154 lb BMI 23.12 What to do next You Need to Schedule the Following Appointments Follow Up with ERIKA SANCHEZ PA-C, URL When: Only if needed Where: [address] [place] [address] Medications What How Much When Instructions Unchanged amlodipine 5 Milligram By Mouth Every day Contact prescribing physician if questions or concerns Unchanged aspirin (aspirin 81 mg Oral EC Tab) By Mouth Every day Contact prescribing physician if questions or concerns Unchanged carvedilol 6.25 Milligram By Mouth Contact prescribing physician if questions or concerns Unchanged lisinopril 20 Milligram By Mouth Every day Contact prescribing physician if questions or concerns Unchanged multivitamin (Multi Vitamin+) Contact prescribing physician if questions or concerns Unchanged polyethylene glycol 3350 (MiraLax) By Mouth Every day Contact prescribing physician if questions or concerns Test Results Urnls Dip Stick Auto w/o Microscopy POC 40304 (06/21/2022) Bilirubin Urine Dipstick - Negative Blood Urine Dipstick - Trace-intact Glucose Urine Dipstick - Negative Ketones Urine Dipstick - Negative Leukocytes Urine Dipstick - Negative Nitrite Urine Dipstick - Negative Protein Urine Dipstick - Negative Specific [place] Urine Dipstick - 1.020 Urine Appearance Urine Dipstick - Clear Urine Color Urine Dipstick - Yellow Urobilinogen Urine Dipstick - Normal 0.2-1 EU/dl pH Urine Dipstick - 5 Allergies Bactrim (Itching) Problems Ongoing - Any problem that you are currently receiving treatment for. Anticoagulated History of prostate cancer Hypertension Rising PSA following treatment for malignant neoplasm of prostate Historical - Any problem that you are no longer receiving treatment for. BPH - benign prostatic hyperplasia BPH with urinary obstruction Cancer of prostate Elevated PSA Education Materials Testicular Self-Exam A self-exam of your testicles (testicular self-exam) is looking at and feeling your testicles for unusual lumps or swelling. Swelling, lumps, or pain can be caused by: ? Injuries. ? Puffiness, redness, and soreness (inflammation). ? Infection. ? Extra fluids around your testicle (hydrocele). ? Twisted testicles (testicular torsion). ? Cancer of the testicle (testicular cancer). Why is it important to do a self-exam of testicles? You may need to do self-exams if you are at risk for cancer of the testicles. You may be at risk if you have: ? A testicle that has not descended (cryptorchidism). ? A history of cancer of the testicle. ? A family history of cancer of the testicle. How to do a self-exam of testicles It is easiest to do a self-exam after a warm bath or shower. Testicles are harder to examine when you are cold. A normal testicle is egg-shaped and feels firm. It is smooth, and it is not tender. At the back of your testicles, there is a firm cord that feels like spaghetti (spermatic cord). Look and feel for changes ? Stand and hold your penis away from your body. ? Look at each testicle to check for lumps or swelling. ? Roll each testicle between your thumb and finger. Feel the whole testicle. Feel for: ? Lumps. ? Swelling. ? Discomfort. ? Check for swelling or tender bumps in the groin area. Your groin is where your lower belly (abdomen) meets your upper thighs. Contact a health care provider if: ? You find a bump or lump. This may be like a small, hard bump that is the size of a pea. ? You find swelling. ? You find pain. ? You find soreness. ? You see or feel any other changes. Summary ? A self-exam of your testicles is looking at and feeling your testicles for lumps or swelling. ? You may need to do self-exams if you are at risk for cancer of the testicle. ? You should check each of your testicles for lumps, swelling, or discomfort. ? You should check f (more content not included)... Normal [facility] Patient Educationon 06-21-19 Patient Education Urology Testicular Self-Exam A self-exam of your testicles (testicular self-exam) is looking at and feeling your testicles for unusual lumps or swelling. Swelling, lumps, or pain can be caused by: ? Injuries. ? Puffiness, redness, and soreness (inflammation). ? Infection. ? Extra fluids around your testicle (hydrocele). ? Twisted testicles (testicular torsion). ? Cancer of the testicle (testicular cancer). Why is it important to do a self-exam of testicles? You may need to do self-exams if you are at risk for cancer of the testicles. You may be at risk if you have: ? A testicle that has not descended (cryptorchidism). ? A history of cancer of the testicle. ? A family history of cancer of the testicle. How to do a self-exam of testicles It is easiest to do a self-exam after a warm bath or shower. Testicles are harder to examine when you are cold. A normal testicle is egg-shaped and feels firm. It is smooth, and it is not tender. At the back of your testicles, there is a firm cord that feels like spaghetti (spermatic cord). Look and feel for changes ? Stand and hold your penis away from your body. ? Look at each testicle to check for lumps or swelling. ? Roll each testicle between your thumb and finger. Feel the whole testicle. Feel for: ? Lumps. ? Swelling. ? Discomfort. ? Check for swelling or tender bumps in the groin area. Your groin is where your lower belly (abdomen) meets your upper thighs. Contact a health care provider if: ? You find a bump or lump. This may be like a small, hard bump that is the size of a pea. ? You find swelling. ? You find pain. ? You find soreness. ? You see or feel any other changes. Summary ? A self-exam of your testicles is looking at and feeling your testicles for lumps or swelling. ? You may need to do self-exams if you are at risk for cancer of the testicle. ? You should check each of your testicles for lumps, swelling, or discomfort. ? You should check for swelling or tender bumps in the groin area. Your groin is where your lower belly (abdomen) meets your upper thighs. This information is not intended to replace advice given to you by your health care provider. Make sure you discuss any questions you have with your health care provider. Document Released: 08/10/2009 Document Revised: 09/04/2019 Document Reviewed: 04/09/2017 Phone2Action Patient Education ? 2019 [employer]. Damir Ann [facility] Urology Office/Clinic Noteon 06-21-2022 Urology Office/Clinic Note Chief Complaint 16m PSA HPI Staff 16m to rising PSA following Tx & Hx of Prostate Cancer. S/P Brachytherapy done 12/2016. Last PSA done 12/13/21- 0.[address] Michaels 12/15/21. Denies all urinary complaints at this time. History of Present Illness Pt is here for 16 month follow up w/PSA due to Hx of Prostate Cancer Reviewed UA, PSA and IPSS (2) Pt has no associated symptoms, no fever, no chills, no flank pain. I have reviewed the previous health record information and history for this patient from Erika Sanchez Review of Systems PHQ Score Initial Depression Screen Score: 0 no fever, chills, malaise, myalgia. no rash/lesions. no chest pain, palpitations, or SOB. no abdominal pain, nausea, vomiting. no unilateral calf swelling, redness, pain Physical Exam Vitals & Measurements HR: 86(Peripheral) RR: 16 BP: 128/74 HT: 69 in HT: 174 cm WT: 70 kg WT: 154 lb BMI: 23.12 General: nontoxic, NAD Mouth: moist mucosa Lungs: normal respiratory effort Cardio: regular rate, good distal perfusion Abdomen: nondistended, no suprapubic distention or tenderness, no CVA tenderness Neurologic: Grossly normal Skin: No rashes or suspicious lesions Assessment/Plan 1. Rising PSA following treatment for malignant neoplasm of prostate (R97.21: Rising PSA following treatment for malignant neoplasm of prostate) [facility] 6, initial PSA 6.63, treated with Brachytherapy Dec 2016, follows with Dr Michelle who does PSA q6mos. PSA did jump in Mar 2019 but has steadily decreased since that time (with no additional treatment). Nov 2021 - 0.15 Dec 2020 - 0.May - 0.Oct - 1.Jun - 4.01 Apr 2019 - 4.Mar - 1.26 Apr 2017 - 3.49 Ordered: E&M of Est. Patient Low 20-29 Min 88255 2. History of prostate cancer (Z85.46: Personal history of malignant neoplasm of prostate) Pt is S/P Brachytherapy 12/2016 Ordered: E&M of Est. Patient Low 20-29 Min 89621 Urnls Dip Stick Auto w/o Microscopy POC 90632 3. BPH with urinary obstruction (N40.1: Benign prostatic hyperplasia with lower urinary tract symptoms) IPSS (4). Pt is currently taking no bladder/prostate medication and is highly satisfied with overall symptom control. No indication for treatment at this time. Continue to monitor. UA completed in office today shows no microhematuria or signs of infection. Ordered: E&M of Est. Patient Low 20-29 Min 53301 Other obstructive and reflux uropathy (N13.8: Other obstructive and reflux uropathy) offered annual f/u. pt is 5 yrs out from [facility] and continues to see Dr Michaels annually. prefers to f/u w our office PRN. Follow-up With When Contact Information ERIKA SANCHEZ PA-C, URL Only if needed [id number] [place] [address] Additional Instructions: Patient Education Testicular Self-Exam, [id number] Documentation recorded by the scribblessing Aleman accurately reflects the services(s) I performed and decisions made by me. Authenticated by Erika Sanchez PA-C on 06/21/2022 13:51:53. Huma Romano, personally scribed for Erika Sanchez PA-C on 06/21/2022 13:37:54. . Problem List/Past Medical History Ongoing Anticoagulated History of prostate cancer Hypertension Rising PSA following treatment for malignant neoplasm of prostate Historical BPH - benign prostatic hyperplasia BPH with urinary obstruction Cancer of prostate Elevated PSA Procedure/Surgical History Brachytherapy (01/24/2017), Transrectal biopsy of prostate using ultrasound (US) guidance (11/01/2016), Transrectal biopsy of prostate using ultrasound (US) guidance (02/20/2011), Repair of inguinal hernia. Medications amlodipine, 5 mg, Oral, Daily aspirin 81 mg Oral EC Tab, Oral, Daily carvedilol, 6.25 mg, Oral lisinopril, 20 mg, Oral, Daily MiraLax, Oral, Daily Multi Vitamin+ Allergies Bactrim (Itching) Social History Tobacco Never (less than 100 in lifetime) Tobacco Use:. Never Smokeless Tobacco Use:., 06/21/2022 Family History Hypertension: Father. Leukemia: Father. Stroke: Father. Immunizations Vaccine Date Status Comments influenza virus vaccine, inactivated 02/13/2022 Recorded SARS-CoV-2 (COVID-19) mRNA-1273 vaccine 03/23/2021 Recorded influenza virus vaccine, inactivated 02/10/2021 Recorded SARS-CoV-2 (COVID-19) mRNA-1273 vaccine 07/21/2020 Given Other (see comment) SARS-CoV-2 (COVID-19) mRNA-1273 vaccine 06/23/2020 Given Other (see comment) influenza virus vaccine, live, trivalent 03/07/2019 Recorded influenza virus vaccine, inactivated 02/05/2019 Recorded influenza virus vaccine, inactivated 02/20/2018 Recorded influenza virus vaccine, inactivated 02/26/2017 Recorded zoster vaccine live 09/04/2016 Recorded influenza virus vaccine, inactivated 03/30/2016 Recorded pneumococcal 23-valent vaccine 09/12/2012 Recorded Lab Results Ambulatory Point of Care Results Bilirub (more content not included)... Normal [facility] Comment on above: Result Comment: Elec tronically Signed By: ERIKA SANCHEZ PA-C\.br\Date and Time Signed: 06/21/22 13:52 EST\.br\Electronically Co-Signed By: Ortman, Huma D\.br\Date and Time Co-Signed: 06/21/22 13:38 EST\.br\Electronically Co-Signed By: Marichuy Wallace MD CBC AUTO DIFFon 05-04-2022 BASO # 0.0 103/ul Normal 0.0-0.1 [facility] Comment on above: Performed By: #### C BC #### [facility] [address] [address] [address] Avery Khan Basophils/100 WBC (Bld) 0.7 % Normal 0.2-2.0 [facility] Comment on above: Performed By: #### C BC #### [facility] [address] [address] [address] Avery Khan EO # 0.3 103/ul Normal 0.0-0.7 [facility] Comment on above: Performed By: #### C BC #### [facility] [address] [address] [address] Avery Khan Eosinophils/100 WBC (Bld) 5.0 % Normal 0.9-7.0 [facility] Comment on above: Performed By: #### C BC #### [facility] [address] [address] [address] Avery Khan Erythrocyte distribution width (RBC) [Ratio] 13.8 % Normal 11.0-15.0 [facility] Comment on above: Performed By: #### C BC #### [facility] [address] [address] [address] Avery Khan Hematocrit (Bld) [Volume fraction] 36.9 % Critically low 42.0-54.0 [facility] Comment on above: Performed By: #### C BC #### [facility] [address] [address] [address] Avery Khan Hemoglobin (Bld) [Mass/Vol] 12.6 g/dL Critically low 14.0-18.0 [facility] Comment on above: Performed By: #### C BC #### [facility] [address] [address] [address] Avery Khan IG # 0.01 10e3/ul Normal 0.00-0.03 [facility] Comment on above: Performed By: #### C BC #### [facility] [address] [place] [address] Dr. Avery Khan IG % 0.2 % Normal 0.0-0.5 [facility] Comment on above: Performed By: #### C BC #### [facility] [address] [place] [address] Dr. Avery Khan LYMPH # 1.5 103/ul Normal 1.2-3.8 [facility] Comment on above: Performed By: #### C BC #### [facility] [address] [place] [address] Dr. Avery Khan Lymphocytes/100 WBC (Bld) 27.3 % Normal 20.5-60.0 [facility] Comment on above: Performed By: #### C BC #### [facility] [address] [place] [address] Dr. Avery Khan MANUAL DIFF REQ NO Normal [facility] Comment on above: Performed By: #### C BC #### [facility] [address] [place] [address] Dr. Avery Khan MCH (RBC) [Entitic mass] 31.3 pg Normal 25.9-34.0 [facility] Comment on above: Performed By: #### C BC #### [facility] [address] [place] [address] Dr. Avery Khan MCHC (RBC) [Mass/Vol] 34.1 g/dL Normal 29.9-35.2 [facility] Comment on above: Performed By: #### C BC #### [facility] [address] [place] [address] Dr. Avery Khan MCV (RBC) [Entitic vol] 91.6 fL Normal 80.0-94.0 [facility] Comment on above: Performed By: #### C BC #### [facility] [address] [place] [address] Dr. Avery Khan MONO # 0.6 103/ul Normal 0.3-0.8 [facility] Comment on above: Performed By: #### C BC #### [facility] [address] [place] [address] Dr. Avery Khan Monocytes/100 WBC (Bld) 10.4 % Normal 1.7-12.0 [facility] Comment on above: Performed By: #### C BC #### [facility] [address] [place] [address] Dr. Avery Khan NEUT # 3.0 103/ul Normal 1.4-6.5 [facility] Comment on above: Performed By: #### C BC #### [facility] [address] [place] [address] Dr. Avery Khan Neutrophils/100 WBC (Bld) 56.4 % Normal 43.0-75.0 [facility] Comment on above: Performed By: #### C BC #### [facility] [address] [place] [address] Dr. Avery Khan Platelet mean volume (Bld) [Entitic vol] 9.9 fL Normal 9.5-13.5 [facility] Comment on above: Performed By: #### C BC #### [facility] [address] [place] [address] Dr. Avery Khan PLT 281 103/ul Normal 150-450 [facility] Comment on above: Performed By: #### C BC #### [facility] [address] [place] [address] Dr. Avery Khan RBC 4.03 106/ul Critically low 4.70-6.10 [facility] Comment on above: Performed By: #### C BC #### [facility] [address] [place] [address] Dr. Avery Khan WBC 5.4 103/ul Normal 4.0-11.0 [facility] Comment on above: Performed By: #### C BC #### [facility] [address] [place] [address] Dr. Avery Khan FERRITINon 05-04-2022 Ferritin [Mass/Vol] 72.0 ng/mL Normal 26.0-388.0 [facility] Comment on above: Performed By: #### F ETIBC, B12FOL, FERR #### [facility] [address] [place] [address] Dr. Avery Khan IRON AND TIBCon 05-04-2022 % SATURATION 30.9 % Normal [facility] Comment on above: Performed By: #### F ETIBC, B12FOL, FERR #### [facility] [address] [place] [address] Dr. Avery Khan Iron [Mass/Vol] 92.0 ug/dL Normal 65.0-175.0 [facility] Comment on above: Performed By: #### F ETIBC, B12FOL, FERR #### [facility] [address] [place] [address] Dr. Avery Khan TIBC DIRECT 298.0 ug/dL Normal 250.0-450.0 [facility] Comment on above: Performed By: #### F ETIBC, B12FOL, FERR #### [facility] [address] [place] [address] Dr. Avery Khan VIT B12 AND FOLATEon 022 Cobalamin (Vitamin B12) [Mass/Vol] 524.0 pg/mL Normal 193.0-986.0 [facility] Comment on above: Performed By: #### F ETIBC, B12FOL, FERR #### [facility] [address] [place] [address] Dr. Avery Khan FOLATE 15.70 ng/mL Normal 8.60-58.90 [facility] Comment on above: Performed By: #### F ETIBC, B12FOL, FERR #### [facility] [address] [place] [address] Dr. Avery Khan CBC AUTO DIFFon 02-14-2022 BASO # 0.0 103/ul Normal 0.0-0.1 [facility] Comment on above: Performed By: #### F ETIBC, B12FOL, FERR #### [facility] [address] [place] [address] Dr. vAery Khan Basophils/100 WBC (Bld) 0.6 % Normal 0.2-2.0 [facility] Comment on above: Performed By: #### F ETIBC, B12FOL, FERR #### [facility] [address] [place] [address] Dr. Avery Khan EO # 0.3 103/ul Normal 0.0-0.7 [facility] Comment on above: Performed By: #### F ETIBC, B12FOL, FERR #### [facility] [address] [place] [address] Dr. Avery Khan Eosinophils/100 WBC (Bld) 4.2 % Normal 0.9-7.0 [facility] Comment on above: Performed By: #### F ETIBC, B12FOL, FERR #### [facility] [address] [place] [address] Dr. Avery Khan Erythrocyte distribution width (RBC) [Ratio] 14.3 % Normal 11.0-15.0 [facility] Comment on above: Performed By: #### F ETIBC, B12FOL, FERR #### [facility] [address] [place] [address] Dr. Avery Khan Hematocrit (Bld) [Volume fraction] 38.2 % Critically low 42.0-54.0 [facility] Comment on above: Performed By: #### F ETIBC, B12FOL, FERR #### [facility] [address] [place] [address] Dr. Avery Khan Hemoglobin (Bld) [Mass/Vol] 12.6 g/dL Critically low 14.0-18.0 [facility] Comment on above: Performed By: #### F ETIBC, B12FOL, FERR #### [facility] [address] [place] [address] Dr. Avery Khan IG # 0.02 10e3/ul Normal 0.00-0.03 [facility] Comment on above: Performed By: #### F ETIBC, B12FOL, FERR #### [facility] [address] [place] [address] Dr. Avery Khan IG % 0.3 % Normal 0.0-0.5 [facility] Comment on above: Performed By: #### F ETIBC, B12FOL, FERR #### [facility] [address] [place] [address] Dr. Avery Khan LYMPH # 1.3 103/ul Normal 1.2-3.8 [facility] Comment on above: Performed By: #### F ETIBC, B12FOL, FERR #### [facility] [address] [place] [address] Dr. Avery Khan Lymphocytes/100 WBC (Bld) 20.1 % Critically low 20.5-60.0 [facility] Comment on above: Performed By: #### F ETIBC, B12FOL, FERR #### [facility] [address] [place] [address] Dr. Avery Khan MANUAL DIFF REQ NO Normal [facility] Comment on above: Performed By: #### F ETIBC, B12FOL, FERR #### [facility] [address] [place] [address] Dr. Avery Khan MCH (RBC) [Entitic mass] 30.4 pg Normal 25.9-34.0 [facility] Comment on above: Performed By: #### F ETIBC, B12FOL, FERR #### [facility] [address] [place] [address] Dr. Avery Khan MCHC (RBC) [Mass/Vol] 33.0 g/dL Normal 29.9-35.2 [facility] Comment on above: Performed By: #### F ETIBC, B12FOL, FERR #### [facility] [address] [place] [address] Dr. Avery Khan MCV (RBC) [Entitic vol] 92.3 fL Normal 80.0-94.0 [facility] Comment on above: Performed By: #### F ETIBC, B12FOL, FERR #### [facility] [address] [place] [address] Dr. Avery Khan MONO # 0.5 103/ul Normal 0.3-0.8 [facility] Comment on above: Performed By: #### F ETIBC, B12FOL, FERR #### [facility] [address] [place] [address] Dr. Avery Khan Monocytes/100 WBC (Bld) 8.7 % Normal 1.7-12.0 [facility] Comment on above: Performed By: #### F ETIBC, B12FOL, FERR #### [facility] [address] [address] [address] Avery Khan NEUT # 4.1 103/ul Normal 1.4-6.5 [facility] Comment on above: Performed By: #### F ETIBC, B12FOL, FERR #### [facility] [address] [place] [address] Dr. Avery Khan Neutrophils/100 WBC (Bld) 66.1 % Normal 43.0-75.0 [facility] Comment on above: Performed By: #### F ETIBC, B12FOL, FERR #### [facility] [address] [place] [address] Dr. Avery Khan Platelet mean volume (Bld) [Entitic vol] 9.4 fL Critically low 9.5-13.5 [facility] Comment on above: Performed By: #### F ETIBC, B12FOL, FERR #### [facility] [address] [place] [address] Dr. Avery Khan PLT 265 103/ul Normal 150-450 [facility] Comment on above: Performed By: #### F ETIBC, B12FOL, FERR #### [facility] [address] [place] [address] Dr. Avery Khan RBC 4.14 106/ul Critically low 4.70-6.10 [facility] Comment on above: Performed By: #### F ETIBC, B12FOL, FERR #### [facility] [address] [place] [address] Dr. Avery Khan WBC 6.2 103/ul Normal 4.0-11.0 [facility] Comment on above: Performed By: #### F ETIBC, B12FOL, FERR #### [facility] [address] [place] [address] Dr. Avery Khan PROF 14(COMP METB)on 022 Albumin [Mass/Vol] 3.6 g/dL Normal 3.4-5.0 [facility] Comment on above: Performed By: #### F ETIBC, B12FOL, FERR #### [facility] [address] [place] [address] Dr. Avery Khan Albumin/Globulin [Mass ratio] 1.1 {ratio} Normal [facility] Comment on above: Performed By: #### F ETIBC, B12FOL, FERR #### [facility] [address] [place] [address] Dr. Avery Khan ALP [Catalytic activity/Vol] 80 U/L Normal 46-116 [facility] Comment on above: Performed By: #### F ETIBC, B12FOL, FERR #### [facility] [address] [place] [address] Dr. Avery Khan ALT [Catalytic activity/Vol] 28 U/L Normal 16-63 [facility] Comment on above: Performed By: #### F ETIBC, B12FOL, FERR #### [facility] [address] [place] [address] Dr. Avery Khan Anion gap [Moles/Vol] 7.7 mmol/L Normal [facility] Comment on above: Performed By: #### F ETIBC, B12FOL, FERR #### [facility] [address] [place] [address] Dr. Avery Khan AST [Catalytic activity/Vol] 21 U/L Normal 15-37 [facility] Comment on above: Performed By: #### F ETIBC, B12FOL, FERR #### [facility] [address] [place] [address] Dr. Avery Khan Bilirubin [Mass/Vol] 0.6 mg/dL Normal 0.2-1.0 [facility] Comment on above: Performed By: #### F ETIBC, B12FOL, FERR #### [facility] [address] [place] [address] Dr. Avery Khan Calcium [Mass/Vol] 8.4 mg/dL Critically low 8.5-10.[address] [facility] Comment on above: Performed By: #### F ETIBC, B12FOL, FERR #### [facility] [address] [address] [address] Avery Khan Chloride [Moles/Vol] 106 mmol/L Normal 98-107 [facility] Comment on above: Performed By: #### F ETIBC, B12FOL, FERR #### [facility] [address] [address] [address] Avery Khan CO2 [Moles/Vol] 30.4 mmol/L Normal 21.0-32.0 [facility] Comment on above: Performed By: #### F ETIBC, B12FOL, FERR #### [facility] [address] [address] [address] Avery Khan Creatinine [Mass/Vol] 1.02 mg/dL Normal 0.70-1.30 [facility] Comment on above: Performed By: #### F ETIBC, B12FOL, FERR #### [facility] [address] [place] [address] Dr. Avery Khan EGFR-AF NIGERIAN >60 Normal >=60 [facility] Comment on above: Performed By: #### F ETIBC, B12FOL, FERR #### [facility] [address] [address] [address] Avery Khan EGFR-NON AF NIGERIAN >60 Normal >=60 [facility] Comment on above: Performed By: #### F ETIBC, B12FOL, FERR #### [facility] [address] [place] [address] Dr. Avery Khan Globulin (S) [Mass/Vol] 3.4 g/dL Normal [facility] Comment on above: Performed By: #### F ETIBC, B12FOL, FERR #### [facility] [address] [address] [address] Avery Khan Glucose [Mass/Vol] 91 mg/dL Normal 74-106 [facility] Comment on above: Performed By: #### F ETIBC, B12FOL, FERR #### [facility] [address] [place] [address] Dr. Avery Khan Potassium [Moles/Vol] 4.1 mmol/L Normal 3.5-5.1 [facility] Comment on above: Performed By: #### F ETIBC, B12FOL, FERR #### [facility] [address] [address] [address] Avery Khan Protein [Mass/Vol] 7.0 g/dL Normal 6.4-8.2 [facility] Comment on above: Performed By: #### F ETIBC, B12FOL, FERR #### [facility] [address] [address] [address] Avery Khan Sodium [Moles/Vol] 140 mmol/L Normal 136-145 [facility] Comment on above: Performed By: #### F ETIBC, B12FOL, FERR #### [facility] [address] [place] [address] Dr. Avery Khan Urea nitrogen [Mass/Vol] 14.0 mg/dL Normal 7.0-18.0 [facility] Comment on above: Performed By: #### F ETIBC, B12FOL, FERR #### [facility] [address] [place] [address] Dr. Avery Khan Urea nitrogen/Creatinine [Mass ratio] 13.7 mg/mg Normal [facility] Comment on above: Performed By: #### F ETIBC, B12FOL, FERR #### [facility] [address] [place] [address] Dr. Avery Khan Provider Letteron 02-02-2022 Provider Letter February 02, 2022 MALCOLM PFEIFFER [address] [place], [place] [id number] MALCOLM PFEIFFER 1945 Dear Kimber Pfeiffer, We have been trying to reach you with no success. You have an appointment with Erika Sanchez PA-C on 02/16/2022 which will need to be rescheduled since she will not be in the [place] office that day. Please contact the office at the number listed below to get this appointment rescheduled at your earliest convenience. Thank you for your prompt attention to this matter. Sincerely, [facility] [address], [place] [address] Normal [facility] Vital Signs Date Time Vital Sign Value Performing Clinician Facility 01-25-2024 14:19-0400 Body height 175.26 cm [facility] 01-25-2024 14:19-0400 Body mass index (BMI) [Ratio] 22.9 kg/m2 [facility] 01-25-2024 14:19-0400 Body weight 70.47 kg [facility] 01-25-2024 14:19-0400 Diastolic blood pressure 64 mm[Hg] [facility] 01-25-2024 14:19-0400 Heart rate 59 /min [facility] 01-25-2024 14:19-0400 Respiratory rate 12 /min [facility] 01-25-2024 14:19-0400 Systolic blood pressure 133 mm[Hg] [facility] 01-18-2024 09:00-0400 Body height 175.3 cm Gabriela Bah MD Work Phone: [facility] 01-18-2024 09:00-0400 Body mass index (BMI) [Ratio] 22.43 kg/m2 Gabriela Bah MD Work Phone: [facility] 01-18-2024 09:00-0400 Body weight 68.9 kg Gabriela Bah MD Work Phone: [facility] 01-18-2024 09:00-0400 Diastolic blood pressure 65 mm[Hg] Gabriela Bah MD Work Phone: [facility] 01-18-2024 09:00-0400 Heart rate 54 /min Gabriela Bah MD Work Phone: [facility] 01-18-2024 09:00-0400 Systolic blood pressure 118 mm[Hg] Gabriela Bah MD Work Phone: [facility] 12-13-2023 09:32-0400 Body mass index (BMI) [Ratio] 22.68 kg/m2 MIHIR Michaels MD Work Phone: [facility] 12-13-2023 09:32-0400 Body temperature 97.5 [degF] MIHIR Michaels MD Work Phone: [facility] 12-13-2023 09:32-0400 Body weight 69.7 kg MIHIR Michaels MD Work Phone: [facility] 12-13-2023 09:32-0400 Diastolic blood pressure 79 mm[Hg] MIHIR Michaels MD Work Phone: [facility] 12-13-2023 09:32-0400 Heart rate 51 /min MIHIR Michaels MD Work Phone: [facility] 12-13-2023 09:32-0400 Respiratory rate 16 /min MIHIR Michaels MD Work Phone: [facility] 12-13-2023 09:32-0400 SaO2% (BldA) [Mass fraction] 99 % MIHIR Michaels MD Work Phone: [facility] 12-13-2023 09:32-0400 Systolic blood pressure 133 mm[Hg] MIHIR Michaels MD Work Phone: [facility] 10-25-2023 10:30-0400 Body mass index (BMI) [Ratio] 22.94 kg/m2 MIHIR Michaels MD Work Phone: [facility] 10-25-2023 10:30-0400 Body temperature 97.59 [degF] MIHIR Michaels MD Work Phone: [facility] 10-25-2023 10:30-0400 Body weight 70.5 kg MIHIR Michaels MD Work Phone: [facility] 10-25-2023 10:30-0400 Diastolic blood pressure 68 mm[Hg] MIHIR Michaels MD Work Phone: [facility] 10-25-2023 10:30-0400 Heart rate 52 /min MIHIR Michaels MD Work Phone: [facility] 10-25-2023 10:30-0400 Respiratory rate 16 /min MIHIR Michaels MD Work Phone: [facility] 10-25-2023 10:30-0400 SaO2% (BldA) [Mass fraction] 97 % MIHIR Michaels MD Work Phone: [facility] 10-25-2023 10:30-0400 Systolic blood pressure 147 mm[Hg] MIHIR Michaels MD Work Phone: [facility] 08-16-2023 08:32-0400 Body height 175.26 cm [facility] 08-16-2023 08:32-0400 Body mass index (BMI) [Ratio] 22.9 kg/m2 [facility] 08-16-2023 08:32-0400 Body weight 70.53 kg [facility] 08-16-2023 08:32-0400 Diastolic blood pressure 76 mm[Hg] [facility] 08-16-2023 08:32-0400 Heart rate 54 /min [facility] 08-16-2023 08:32-0400 Respiratory rate 12 /min [facility] 08-16-2023 08:32-0400 Systolic blood pressure 124 mm[Hg] [facility] 12-14-2022 08:48-0400 Body temperature 96.8 [degF] MIHIR Michaels MD Work Phone: [facility] 12-14-2022 08:48-0400 Body weight 68.86 kg MIHIR Michaels MD Work Phone: [facility] 12-14-2022 08:48-0400 Diastolic blood pressure 68 mm[Hg] MIHIR Michaels MD Work Phone: [facility] 12-14-2022 08:48-0400 Heart rate 54 /min MIHIR Michaels MD Work Phone: [facility] 12-14-2022 08:48-0400 Respiratory rate 18 /min MIHIR Michaels MD Work Phone: [facility] 12-14-2022 08:48-0400 SaO2% (BldA) [Mass fraction] 97 % MIHIR Michaels MD Work Phone: [facility] 12-14-2022 08:48-0400 Systolic blood pressure 103 mm[Hg] MIHIR Michaels MD Work Phone: [facility] 07-31-2022 08:30-0500 Body height 175.26 cm Joaquin Ball Other [employer] Other 07-31-2022 08:30-0500 Body mass index (BMI) [Ratio] 23.27 kg/m2 Joaquin Ball Other [employer] Other 07-31-2022 08:30-0500 Body weight 71.49 kg Joaquin Ball Other [employer] Other 07-31-2022 08:30-0500 Diastolic blood pressure 86 mm[Hg] Joaquin Ball Other [employer] Other 07-31-2022 08:30-0500 Respiratory rate 12 /min Joaquin Ball Other [employer] Other 07-31-2022 08:30-0500 Systolic blood pressure 122 mm[Hg] Joaquin Ball Other [employer] Other 07-26-2022 11:30-0500 Body height 175.26 cm Joaquin Ball Other [employer] Other 07-26-2022 11:30-0500 Body mass index (BMI) [Ratio] 23.48 kg/m2 Joaquin Ball Other [employer] Other 07-26-2022 11:30-0500 Body weight 72.12 kg Joaquin Ball Other [employer] Other 07-26-2022 11:30-0500 Diastolic blood pressure 82 mm[Hg] Joaquin Ball Other [employer] Other 07-26-2022 11:30-0500 Respiratory rate 12 /min Joaquin Ball Other [facility] Other 07-26-2022 11:30-0500 Systolic blood pressure 122 mm[Hg] Joaquin Ball Other [facility] Other 06-21-2022 13:20-0500 Blood Pressure Location ERIKA DANIEL [facility] 06-21-2022 13:20-0500 Diastolic blood pressure 74 mm[Hg] ERIKA DANIEL [facility] 06-21-2022 13:20-0500 Heart rate 86 /min ERIKA DANIEL [facility] 06-21-2022 13:20-0500 Respiratory rate 16 /min ERIKA DANIEL [facility] 06-21-2022 13:20-0500 Systolic blood pressure 128 mm[Hg] ERIKA DANIEL [facility] 12-15-2021 09:02-0400 Body temperature 97.11 [degF] MIHIR Michaels MD Work Phone: [facility] 12-15-2021 09:02-0400 Body weight 69.22 kg MIHIR Michaels MD Work Phone: [facility] 12-15-2021 09:02-0400 Diastolic blood pressure 65 mm[Hg] MIHIR Michaels MD Work Phone: [facility] 12-15-2021 09:02-0400 Heart rate 59 /min MIHIR Michaels MD Work Phone: [facility] 12-15-2021 09:02-0400 Respiratory rate 16 /min MIHIR Michaels MD Work Phone: [facility] 12-15-2021 09:02-0400 SaO2% (BldA) [Mass fraction] 99 % MIHIR Michaels MD Work Phone: [facility] 12-15-2021 09:02-0400 Systolic blood pressure 130 mm[Hg] MIHIR Michaels MD Work Phone: [facility] Encounters Encounter Date Encounter Type Care Provider Facility Start: 01-25-2024 End: 01-25-2024 ambulatory [facility] Work Phone: Start: 01-25-2024 End: 01-25-2024 Patient encounter procedure [facility] Work Phone: Start: 01-18-2024 End: 01-18-2024 ambulatory GABRIELA BAH Facility:[facility] Start: 01-18-2024 End: 01-18-2024 Patient encounter procedure Gabriela Bah MD Work Phone: Colorectal Surgery Comment on above: Anal or rectal pain (Primary Dx); Rectal stricture; Rectal or anal pain Start: 12-13-2023 End: 12-13-2023 Patient encounter procedure Lydia Michaels MD Work Phone: Radiation Oncology Comment on above: History of prostate cancer (Primary Dx); Rectal or anal pain Start: 12-13-2023 End: 12-13-2023 ambulatory Lydia MICHAELS Facility:[facility] Start: 10-25-2023 End: 10-25-2023 ambulatory Lydia MICHAELS Facility:[facility] Start: 10-25-2023 End: 10-25-2023 Patient encounter procedure Lydia Michaels MD Work Phone: Radiation Oncology Comment on above: History of prostate cancer (Primary Dx) Start: 08-16-2023 End: 08-16-2023 ambulatory [facility] Work Phone: Start: 08-16-2023 End: 08-16-2023 Patient encounter procedure [facility] Work Phone: Start: 02-20-2023 End: 02-20-2023 ambulatory Joaquin Guzman Other [employer] Other Start: 02-20-2023 Telephone encounter Joaquin GONZALEZ [facility] Start: 12-14-2022 End: 12-14-2022 Patient encounter procedure Lydia Michaels MD Work Phone: Radiation Oncology Comment on above: History of prostate cancer (Primary Dx); Proctitis, radiation Start: 12-13-2022 End: 12-13-2022 ambulatory Joaquin Guzman Other [employer] Other Start: 12-13-2022 Telephone encounter Joaquin GONZALEZ [facility] Start: 12-11-2022 End: 12-11-2022 ambulatory Joaquin Guzman Other [employer] Other Start: 12-11-2022 Telephone encounter Joaquin GONZALEZ [facility] Start: 07-31-2022 End: 07-31-2022 ambulatory Joaquin Guzman Other [employer] Other Start: 07-31-2022 Office outpatient vi sit 25 minutes Joaquin Guzman [facility] Start: 07-26-2022 End: 07-26-2022 ambulatory Joaquin Guzman Other [employer] Other Start: 07-26-2022 Office outpatient vi sit 15 minutes Joaquin Guzman [facility] Start: 07-25-2022 End: 07-25-[address] SANA BARRERA . Facility: Start: 07-18-2022 End: 07-18-2022 ambulatory Joaquin Guzman Other [employer] Other Start: 07-18-2022 Telephone encounter Joaquin Guzman FP [facility] Start: 06-21-2022 End: 06-22-2022 ambulatory ERIKA SANCHEZ Facility:[facility] Start: 06-21-2022 End: 06-21-2022 Patient encounter procedure ERIKA SANCHEZ [facility] Start: 05-04-2022 End: 05-05-[address] JOAQUIN GUZMAN Facility:[facility] Start: 02-15-2022 Encounter for genera l adult medical examination without abnormal findings DR JOAQUIN GUZMAN [facility] Start: 02-14-2022 End: 02-15-[address] JOAQUIN GUZMAN Facility:[facility] Start: 02-14-2022 End: 02-15-2022 Encounter for general adult medical examination without abnormal findings DR JOAQUIN GUZMAN Facility:[facility] Start: 12-15-2021 End: 12-15-2021 Patient encounter procedure Lydia Michaels MD Work Phone: Radiation Oncology Comment on above: Malignant neoplasm o f prostate (HCC) (Primary Dx) Start: 12-13-2021 End: 12-14-[address] PEDRO MICHAELS Facility:[facility] Procedures Date Procedure Procedure Detail Performing Clinician Start: 10-24-2023 PSA screening [facility] karlene Start: 12-11-2022 PSA screening [facility] Start: 12-13-2021 End: 12-13-2021 PSA screening [facility] Provider Comment on above: Performed By: #### F ETIBC, [id number], FERR #### [facility] [address] [place] [address] Dr. Avery Khan Start: 12-13-2021 Adult depression scr eening assessment MIHIR Michaels MD Work Phone: Start: 01-24-2017 Brachytherapy ERIKA SANCHEZ Start: 11-01-2016 Transrectal biopsy o f prostate using ultrasound guidance ERIKA SANCHEZ Start: 02-20-2011 Transrectal biopsy o f prostate using ultrasound guidance ERIKA SANCHEZ Repair of inguinal hernia LD SANCHEZ Plan of Treatment Date Care Activity Detail Author Start: 12-12-2024 End: 03-13-2025 Prostate specific Ag [Mass/volume] in Serum or Plasma PROSTATE-SPECIFIC ANTIGEN DIAGNOSTIC Lab Routine History of prostate cancer Expected: 12/12/2024, Expires: 03/13/2025 [facility] Work Phone: Comment on above: Expected: 12/12/2024 , Expires: 03/13/2025 Start: 03-13-2024 End: 03-13-2024 Patient encounter procedure 03/13/2024 9:15 AM EDT Office Visit Radiation Oncology [address] [place] [address] Lydia Michaels MD [address] [place] [place] [address] 3 month rv Radiation Oncology Comment on above: 3 month rv Start: 01-27-2024 Influenza vaccination C [facility] Start: 12-21-2023 End: 12-21-2023 Patient encounter procedure 12/21/2023 12:30 PM EDT Office Visit Colorectal Surgery [address] [place] [address] [place] [address] [place] [address] new patient, Rectal Pain, colonoscopy was 11/03/15, results scanned into [facility] Colorectal Surgery Comment on above: new patient, Rectal Pain, colonoscopy was 11/03/15, results scanned into [facility] Start: 12-13-2023 End: 12-13-2023 Patient encounter procedure 12/13/2023 10:00 AM EDT Office Visit Radiation Oncology [address] [place] [address] Lydia Michaels MD [address] [place] [address] 1 Yr Follow Up PSA done at [facility] Radiation Oncology Comment on above: 1 Yr Follow Up PSA d one at [facility] Start: 05-28-2023 Advance Directive Discussion Advance Directive Discussion [facility] Start: 05-28-2023 Behavioral Health Screening Behavioral Health Screening [facility] Start: 01-26-2023 Covid-19 Vaccine ( season) Covid-19 Vaccine ( season) [facility] Start: 01-26-2023 Influenza vaccination INFLUENZA (#1) [facility] Start: 12-15-2022 End: 02-14-2023 Prostate specific Ag [Mass/volume] in Serum or Plasma PSA/PROSTSPECAG DIAG Lab Routine Malignant neoplasm of prostate (HCC) Expected: 12/15/2022, Expires: 02/14/2023 [facility] Work Phone: Comment on above: Expected: 12/15/2022 , Expires: 02/14/2023 Start: 12-14-2022 End: 02-13-2023 Prostate specific Ag [Mass/volume] in Serum or Plasma PSA/PROSTSPECAG DIAG Lab Routine History of prostate cancer Expected: 12/14/2022, Expires: 02/13/2023 [facility] Work Phone: Comment on above: Expected: 12/14/2022 , Expires: 02/13/2023 Start: 12-13-2022 Adult depression screening assessment DEPRESSION SCREENING [facility] Start: 05-28-2022 ADVANCE DIRECTIVE DISCUSSION ADVANCE DIRECTIVE DISCUSSION [facility] Start: 05-28-2022 DEPRESSION ASSESSMENT DEPRESSION ASS ESSMENT [facility] Start: 01-26-2022 Influenza vaccination INFLUENZA (#1) [facility] Start: 07-24-2021 COVID-19 VACCINE (4 - Booster for Moderna series) COVID-19 VACCINE (4 - Booster for Moderna series) [facility] Start: 05-28-2021 ADVANCE DIRECTIVE DISCUSSION ADVANCE DIRECTIVE DISCUSSION [facility] Start: 05-18-2021 COVID-19 VACCINE (4 - Moderna series) COVID-19 VACCINE (4 - Moderna series) [facility] Start: 10-30-2016 SHINGRIX VACCINE (2 of 3) SHINGRIX VACCINE (2 of 3) [facility] Start: 09-12-2013 Pneumococcal Vaccine : 65+ (2 of 2 - PCV) Pneumococcal Vaccine: 65+ (2 of 2 - PCV) [facility] Start: 09-12-2013 PNEUMOCOCCAL: 65+ (2 - PCV) PNEUMOCOCCAL: 65+ (2 - PCV) [facility] Start: 2004 RSV Vaccine (1 - 1-d ose 60+ series) RSV Vaccine (1 - 1-dose 60+ series) [facility] Start: 1989 DIABET[facility] SCREEN [facility] Start: 1989 Diabetes Screening Diabetes Screenin g [facility] Start: 1963 Urine microalbumin profile [facility] Start: 1962 Anxiety Screening Anxiety Screening [facility] Start: 1962 Depression Screening Depression Scre ening [facility] Start: 1962 HEPATITIS C SCREENING HEPATITIS C [facility] CT Abdomen and Pelvi s WO contrast [facility] End: 01-17-2025 Flexible sigmoidoscopy study COLONOSCOPY DIAGNOSTIC Endoscopy Routine Rectal stricture 1 Occurrences starting 01/18/2024 until 01/17/2025 [facility] Work Phone: Comment on above: 1 Occurrences starti ng 01/18/2024 until 01/17/2025 Patient Education Low back pain in adults [facility] Work Phone: [facility] Immunizations Immunization Date Immunization Notes Care Provider Fa [facility] 02-14-2023 influenza virus vaccine, unspecified formulation [facility] 02-14-2023 influenza, high dose seasonal, preservative-free Joaquin Guzman Other [employer] Other 02-13-2022 influenza (aIIV4) vaccine, age 65+ yr, quadrivalent, PF (FLUAD QUAD) MIHIR Michaels MD Work Phone: [facility] 02-13-2022 influenza virus vaccine, split virus (incl. purified surface antigen) Joaquin Guzman Other [employer] Other 02-13-2022 influenza virus vaccine, unspecified formulation ERIKA SANCHEZ [facility] 03-23-2021 SARS-CoV-2 (COVID-19 ) [id number] vaccine ERIKA SANCHEZ [facility] 02-10-2021 influenza nasal, unspecified formulation MIHIR Michaels MD Work Phone: [facility] 02-10-2021 influenza virus vaccine, split virus (incl. purified surface antigen) Joaquin Guzman Other [employer] Other 02-10-2021 influenza virus vaccine, unspecified formulation ERIKA DANIEL [facility] 02-10-2021 Seasonal trivalent influenza vaccine, adjuvanted, preservative free MIHIR Michaels MD Work Phone: [facility] 07-21-2020 COVID-19, mRNA, LNP- S, PF, 100 mcg or 50 mcg dose ERIKA DANIEL [facility] Comment on above: Reason for Medicatio n: Other (see comment) 06-23-2020 COVID-19, mRNA, LNP- S, PF, 100 mcg or 50 mcg dose ERIKA DANIEL [facility] Comment on above: Reason for Medicatio n: Other (see comment) 02-10-2020 influenza virus vaccine, split virus (incl. purified surface antigen) Joaquin Guzman Other [employer] Other 02-10-2020 influenza virus vaccine, unspecified formulation [facility] 03-07-2019 influenza virus vaccine, live, attenuated, for intranasal use ERIKA DANIEL [facility] 02-05-2019 influenza nasal, unspecified formulation MIHIR Michaels MD Work Phone: [facility] 02-05-2019 influenza virus vaccine, unspecified formulation ERIKA DANIEL [facility] 02-05-2019 Seasonal trivalent influenza vaccine, adjuvanted, preservative free MIHIR Michaels MD Work Phone: [facility] 02-20-2018 influenza nasal, unspecified formulation MIHIR Michaels MD Work Phone: [facility] 02-20-2018 influenza virus vaccine, split virus (incl. purified surface antigen) Joaquin Guzman Other [employer] [facility] [employer] Other 02-20-2018 influenza virus vaccine, unspecified formulation ERIKA SANCHEZ [facility] 02-20-2018 Influenza, injectabl e, Madin Britt Canine Kidney, quadrivalent with preservative MIHIR Michaels MD Work Phone: [facility] 02-26-2017 influenza nasal, unspecified formulation MIHIR Michaels MD Work Phone: [facility] 02-26-2017 influenza virus vaccine, split virus (incl. purified surface antigen) Joaquin Guzman Other [facility] [employer] Other 02-26-2017 influenza virus vaccine, unspecified formulation ERIKA SANCHEZ [facility] 02-26-2017 influenza, high dose seasonal, preservative-free MIHIR Michaels MD Work Phone: [facility] 09-04-2016 zoster vaccine, live NA Hetal hernadez MD Work Phone: [facility] 08-30-2016 zoster vaccine, live Benjbinu Guzman Other [facility] 03-30-2016 influenza nasal, unspecified formulation MIHIR Michaels MD Work Phone: [facility] 03-30-2016 influenza virus vaccine, unspecified formulation ERIKA SANCHEZ [facility] 03-30-2016 influenza, injectabl e, quadrivalent, contains preservative MIHIR Michaels MD Work Phone: [facility] 03-08-2016 influenza virus vaccine, split virus (incl. purified surface antigen) Joaquin Guzman Other [employer] Other 03-08-2016 influenza virus vaccine, unspecified formulation [facility] 09-02-2015 pneumococcal conjuga te vaccine, 13 valent Joaquin Guzman Other [facility] 09-12-2012 pneumococcal polysaccharide vaccine, 23 valent MIHIR Michaels MD Work Phone: [facility] 07-28-1998 pneumococcal polysaccharide vaccine, 23 valent Joaquin Guzman Other [facility] Payers Date Payer Category Payer Medicare [employer] [facility] H[facility] [id number] 2022-Present [phone] [address] [place] [address] HMO [id number] 2022 Medicare [id number] 2022 Unknown [id number] 2020 Unknown [id number] 2016 Unknown [employer] MEDICARE SUPPLEMENT [id number] 2016-Present [phone] [id number] [employer] [place] [address] Indemnity [id number] 2009 Medicare MEDICARE MEDICAR E A AND B [id number] 2009-Present [phone] [address] [address] [place] [address] Medicare [id number] 1959 Medicare [id number] 1959 Unknown [id number] 1944 Unknown [id number] 3 1944 Unknown [id number] 3 1944 Unknown [id number] 3 1944 Unknown [id number] 3 1944 Unknown [id number] Social History Date Type Detail Facility Start: 12-05-2016 End: 08-16-2023 Tobacco smoking status WYIS Never smoked tobacco [facility] Start: 12-05-2016 End: 12-14-2022 Tobacco use and exposure Smokeless tobacco non-user [facility] Start: 1945 Sex Assigned At Not on file [facility] Tobacco smoking status Never [facility] Start: 12-14-2022 End: 10-23-2023 Sex Assigned At Male [facility] Start: 12-14-2022 End: 10-23-2023 History of Social function [facility] Start: 1945 Sex Assigned At Male F [facility] Functional Status Date Assessment Result Facility 06-21-2022 Functional Status N/A [facility] Clinical Notes 12-05-2016 to 01-18-2024 Gabriela Bah MD - 01/18/2024 9:30 AM Lydia Munoz MD - 12/13/2023 10:00 AM Nicolasa Whitehead LPN - 12/13/2023 9:34 AM Nicolasa Whitehead LPN - 12/13/2023 9:34 AM EDT Note Date & Type Note Facility 01-18-2024 History of Present illness Narrative COLORECTAL SURGERY January 18, 2024 Malcolm Pfeiffer 78 year old This consult was requested by Dr. Miguel A Michaels and my final recommendations will be communicated to the requesting health care provider by way of the shared medical record for internal providers or letter via the [employer] for external providers. Chief Complaint: rectal pain/ rectal stricture History of Present Illness: Malcolm Pfeiffer is a 78 year old male presents to the office for evaluation of rectal pain and rectal stricture. He has a history of [id number] prostate adenocarcinoma. Colonoscopy in 2016 -normal Scan on 12/20/2023 8:16 AM by Erika Gotti: COLONOSCOPY 11/03/15 PAST MEDICAL HISTORY No date: HTN (hypertension) No date: Nephrolithiasis PAST SURGICAL HISTORY No date: F LITHOTRIPSY No date: HERNIA REPAIR HX Comment: x2 No date: SEPTOPLASTY/SUBMUCOUS RESECJ W/WO CARTILAGE GRF Current Outpatient Medications Medication Sig Dispense Refill polyethylene glycol 3350 (MIRALAX) 17 gram/dose powder Take by mouth once daily. amLODIPine (NORVASC) 5 mg tablet Take 5 mg by mouth once daily. lisinopril (ZESTRIL, PRINIVIL) 20 mg tablet Take 20 mg by mouth twice daily. carvedilol (COREG) 12.5 mg tablet Take 12.5 mg by mouth twice daily with meals. aspirin, enteric coated (ASPIRIN, ENTERIC COATED) 81 mg EC tablet Take 81 mg by mouth once daily. multivitamin tablet Take 1 tablet by mouth once daily. No current facility-administered medications for this visit. ALLERGIES Allergen Reactions Bactrim [Sulfametho* Itching FAMILY HISTORY Problem Relation Age of Onset Cancer Brother Bladder Social History Tobacco Use Smoking status: Never Smokeless tobacco: Never Physical Exam: There were no vitals taken for this visit. General Appearance: Well appearing, alert, in no acute distress, well-hydrated, well nourished. Skin: Skin color, texture, turgor normal Head: Normocephalic Oropharynx: Lips, mucosa, and tongue normal Neck: Supple Lungs: breathing unlabored on room air Extremities: No deformities, no weakness Neuro: Gait normal Abdomen: Normal abdominal exam Anorectal: External exam reveals: see below Ship Loader present: yes Assessment Assessment and Plan: Malcolm Pfeiffer is a 78 year old male with a history of prostate and rectal cancer s/p radiation. He had symptoms of an anal fissure after straining but is now better. On PE the fissure has healed and his anastomosis is narrow but soft. He will see me in 1 year for a surveillance colonoscopy. Medical Decision Making: Data Reviewed: Tests & Documents Reviewed/ordered: Review of prior operative reports I have independently interpreted: CT Abdomen I have discussed Malcolm Pfeiffer's treatment plan and/or results with his pcp. Gabriela Bah MD Colorectal Surgery documented in this encounter [facility] 01-18-2024 Note HNO ID: [id number] Author: GABRIELA BAH MD Service: ? Author Type: Physician Type: Progress Notes Filed: 01/18/2024 09:49 Note Text: COLORECTAL SURGERY January 18, 2024 Malcolm Pfeiffer 78 year old This consult was requested by Dr. Miguel A Michaels and my final recommendations will be communicated to the requesting health care provider by way of the shared medical record for internal providers or letter via the [employer] for external providers. Chief Complaint: rectal pain/ rectal stricture History of Present Illness: Malcolm Pfeiffer is a 78 year old male presents to the office for evaluation of rectal pain and rectal stricture. He has a history of [id number] prostate adenocarcinoma. Colonoscopy in 2016 -normal Scan on 12/20/2023 8:16 AM by Erika Gotti: COLONOSCOPY 11/03/15 PAST MEDICAL HISTORY No date: HTN (hypertension) No date: Nephrolithiasis PAST SURGICAL HISTORY No date: F LITHOTRIPSY No date: HERNIA REPAIR HX Comment: x2 No date: SEPTOPLASTY/SUBMUCOUS RESECJ W/WO CARTILAGE GRF Current Outpatient Medications Medication Sig Dispense Refill polyethylene glycol 3350 (MIRALAX) 17 gram/dose powder Take by mouth once daily. amLODIPine (NORVASC) 5 mg tablet Take 5 mg by mouth once daily. lisinopril (ZESTRIL, PRINIVIL) 20 mg tablet Take 20 mg by mouth twice daily. carvedilol (COREG) 12.5 mg tablet Take 12.5 mg by mouth twice daily with meals. aspirin, enteric coated (ASPIRIN, ENTERIC COATED) 81 mg EC tablet Take 81 mg by mouth once daily. multivitamin tablet Take 1 tablet by mouth once daily. No current facility-administered medications for this visit. ALLERGIES Allergen Reactions Bactrim [Sulfametho* Itching FAMILY HISTORY Problem Relation Age of Onset Cancer Brother Bladder Social History Tobacco Use Smoking status: Never Smokeless tobacco: Never Physical Exam: There were no vitals taken for this visit. General Appearance: Well appearing, alert, in no acute distress, well-hydrated, well nourished. Skin: Skin color, texture, turgor normal Head: Normocephalic Oropharynx: Lips, mucosa, and tongue normal Neck: Supple Lungs: breathing unlabored on room air Extremities: No deformities, no weakness Neuro: Gait normal Abdomen: Normal abdominal exam Anorectal: External exam reveals: see below Ship Loader present: yes Assessment Assessment and Plan: Malcolm Pfeiffer is a 78 year old male with a history of prostate and rectal cancer s/p radiation. He had symptoms of an anal fissure after straining but is now better. On PE the fissure has healed and his anastomosis is narrow but soft. He will see me in 1 year for a surveillance colonoscopy. Medical Decision Making: Data Reviewed: Tests AND Documents Reviewed/ordered: Review of prior operative reports I have independently interpreted: CT Abdomen I have discussed Malcolm Pfeiffer's treatment plan and/or results with his pcp. Gabriela Bah MD Colorectal Surgery [facility] 12-13-2023 History of Present illness Narrative radiation Oncology - Follow Up Note PATIENT NAME: Malcolm Pfeiffer PATIENT DIAGNOSIS: Prostate adenocarcinoma, initial PSA 6.63, biopsy [place] score 3 + 3 = 6 (grade group 1), clinical stage T1c N0 M0. S/p I-125 brachytherapy January 24, 2017, dose 145 Gy. INTERVAL HISTORY: Patient still having on and off issues with rectal discomfort. Generally worse after he is having larger bowel movement. Still using fiber. Seems to be happening more often for him. 12/14/22:Doing well denies new problems. Denies rectal bleeding. States that he has occasional rectal discomfort less than 2 times per year. Bladder function good. 12/15/21:No further rectal complaints including bleeding. He does use MiraLAX and has had some discomfort if he stops. Appetite good. No bladder related issues. 12/16/20:No significant new problems. Still with occasional perirectal pain although less frequent. No blood per rectum. PSA 10/24/2023: <0.13 PSA (ng/mL) Date Value 04/24/2018 1.30 04/25/2017 3.49 02/28/2017 8.86 PSA. (no units) Date Value 10/24/2023 <0.13 12/11/2022 <0.13 12/13/2021 0.21 12/14/2020 0.56 07/10/19 4.05 ALLERGIES Allergen Reactions Bactrim [Sulfametho* Itching polyethylene glycol 3350 (MIRALAX) 17 gram/dose powder Take by mouth once daily. amLODIPine (NORVASC) 5 mg tablet Take 5 mg by mouth once daily. lisinopril (ZESTRIL, PRINIVIL) 20 mg tablet Take 20 mg by mouth twice daily. carvedilol (COREG) 12.5 mg tablet Take 12.5 mg by mouth twice daily with meals. aspirin, enteric coated (ASPIRIN, ENTERIC COATED) 81 mg EC tablet Take 81 mg by mouth once daily. multivitamin tablet Take 1 tablet by mouth once daily. hydrocortisone (ANUSOL-HC) 25 mg suppository 1 Suppository by RECTAL route two times a day. REVIEW OF SYSTEMS: D/N = 4-6/1-2 Hematuria: none Dysuria: Yes Incontinence: none Urgency: mild Catheter use: none Medications to aid urination: y Bowel movement frequency: 1/day Bowel movement quality: normal Blood per rectum: none Last colonoscopy: na Sexual activity: Not sexually active Androgen deprivation: Never. PHYSICAL EXAM: BP 133/79 Pulse (!) 51 Temp 36.4 C (97.5 F) Resp 16 Wt 69.7 kg (153 lb 10.6 oz) SpO2 99% BMI 22.68 kg/m KPS: 100 General appearance: Alert and oriented. No acute distress. Rectal examna Extremities: No deformities, edema, skin discoloration, clubbing or cyanosis. Lymph Nodes: No cervical lymphadenopathy, No supraclavicular lymphadenopathy, No axillary lymphadenopathy. Skin: Skin color, texture, turgor normal, no suspicious rashes or lesions. ASSESSMENT/PLAN: Prostate cancer, with prior I-125 brachytherapy December 2016. 1. Prostate cancer doing well PSA remains undetectable. 2 Rectal discomfort. Recommend evaluation for rectal stenosis/pain. Likely related to prior treatment. Will refer patient to colorectal surgery for opinion regarding further diagnosis and management options for him. Signed by: Lydia Michaels MD cc: Joaquin Guzman MD ([facility]) [address] [place] [address] documented in this encounter [facility] 12-13-2023 Note HNO ID: [id number] Author: Lydia MICHAELS MD Service: ? Author Type: Physician Type: Progress Notes Filed: 12/20/2023 12:38 Note Text: radiation Oncology - Follow Up Note PATIENT NAME: Malcolm Pfeiffer PATIENT DIAGNOSIS: Prostate adenocarcinoma, initial PSA 6.63, biopsy [place] score 3 + 3 = 6 (grade group 1), clinical stage T1c N0 M0. S/p I-125 brachytherapy January 24, 2017, dose 145 Gy. INTERVAL HISTORY: Patient still having on and off issues with rectal discomfort. Generally worse after he is having larger bowel movement. Still using fiber. Seems to be happening more often for him. 12/14/22:Doing well denies new problems. Denies rectal bleeding. States that he has occasional rectal discomfort less than 2 times per year. Bladder function good. 12/15/21:No further rectal complaints including bleeding. He does use MiraLAX and has had some discomfort if he stops. Appetite good. No bladder related issues. 12/16/20:No significant new problems. Still with occasional perirectal pain although less frequent. No blood per rectum. PSA 10/24/2023: <0.13 PSA (ng/mL) Date Value 04/24/2018 1.30 04/25/2017 3.49 02/28/2017 8.86 PSA. (no units) Date Value 10/24/2023 <0.13 12/11/2022 <0.13 12/13/2021 0.21 12/14/2020 0.56 07/10/19 4.05 ALLERGIES Allergen Reactions Bactrim [Sulfametho* Itching polyethylene glycol 3350 (MIRALAX) 17 gram/dose powder Take by mouth once daily. amLODIPine (NORVASC) 5 mg tablet Take 5 mg by mouth once daily. lisinopril (ZESTRIL, PRINIVIL) 20 mg tablet Take 20 mg by mouth twice daily. carvedilol (COREG) 12.5 mg tablet Take 12.5 mg by mouth twice daily with meals. aspirin, enteric coated (ASPIRIN, ENTERIC COATED) 81 mg EC tablet Take 81 mg by mouth once daily. multivitamin tablet Take 1 tablet by mouth once daily. hydrocortisone (ANUSOL-HC) 25 mg suppository 1 Suppository by RECTAL route two times a day. REVIEW OF SYSTEMS: D/N = 4-6/1-2 Hematuria: none Dysuria: Yes Incontinence: none Urgency: mild Catheter use: none Medications to aid urination: y Bowel movement frequency: 1/day Bowel movement quality: normal Blood per rectum: none Last colonoscopy: na Sexual activity: Not sexually active Androgen deprivation: Never. PHYSICAL EXAM: BP 133/79 Pulse (!) 51 Temp 36.4 ?C (97.5 ?F) Resp 16 Wt 69.7 kg (153 lb 10.6 oz) SpO2 99% BMI 22.68 kg/m? KPS: 100 General appearance: Alert and oriented. No acute distress. Rectal examna Extremities: No deformities, edema, skin discoloration, clubbing or cyanosis. Lymph Nodes: No cervical lymphadenopathy, No supraclavicular lymphadenopathy, No axillary lymphadenopathy. Skin: Skin color, texture, turgor normal, no suspicious rashes or lesions. ASSESSMENT/PLAN: Prostate cancer, with prior I-125 brachytherapy December 2016. 1. Prostate cancer doing well PSA remains undetectable. 2 Rectal discomfort. Recommend evaluation for rectal stenosis/pain. Likely related to prior treatment. Will refer patient to colorectal surgery for opinion regarding further diagnosis and management options for him. Signed by: Lydia Michaels MD cc: Joaquin Guzman MD ([facility]) [address] [place] [id number] [facility] 12-13-2023 Nurse Note AUA= 3 [facility] 12-13-2023 Nurse Note AUA= 3 documented in this encounter [facility] 10-25-2023 History of Present illness Narrative radiation Oncology - Follow Up Note PATIENT NAME: Malcolm Pfeiffer PATIENT DIAGNOSIS: Prostate adenocarcinoma, initial PSA 6.63, biopsy [place] score 3 + 3 = 6 (grade group 1), clinical stage T1c N0 M0. S/p I-125 brachytherapy January 24, 2017, dose 145 Gy. INTERVAL HISTORY: Patient still having on and off issues with rectal discomfort. Seems to occur every 3 to 4 months Lasting 1 to 3 weeks. Denies any recent bleeding. No bladder related issues. 12/14/22:Doing well denies new problems. Denies rectal bleeding. States that he has occasional rectal discomfort less than 2 times per year. Bladder function good. 12/15/21:No further rectal complaints including bleeding. He does use MiraLAX and has had some discomfort if he stops. Appetite good. No bladder related issues. 12/16/20:No significant new problems. Still with occasional perirectal pain although less frequent. No blood per rectum. PSA 10/24/2023: <0.13 PSA (ng/mL) Date Value 04/24/2018 1.30 04/25/2017 3.49 02/28/2017 8.86 PSA. (no units) Date Value 12/11/2022 <0.13 12/13/2021 0.21 12/14/2020 0.56 05/29/2020 0.77 07/10/19 4.05 ALLERGIES Allergen Reactions Bactrim [Sulfametho* Itching polyethylene glycol 3350 (MIRALAX) 17 gram/dose powder Take by mouth once daily. amLODIPine (NORVASC) 5 mg tablet Take 5 mg by mouth once daily. lisinopril (ZESTRIL, PRINIVIL) 20 mg tablet Take 20 mg by mouth twice daily. carvedilol (COREG) 12.5 mg tablet Take 12.5 mg by mouth twice daily with meals. aspirin, enteric coated (ASPIRIN, ENTERIC COATED) 81 mg EC tablet Take 81 mg by mouth once daily. multivitamin tablet Take 1 tablet by mouth once daily. REVIEW OF SYSTEMS: D/N = 4-6/1-2 Hematuria: none Dysuria: Yes Incontinence: none Urgency: mild Catheter use: none Medications to aid urination: y Bowel movement frequency: 1/day Bowel movement quality: normal Blood per rectum: none Last colonoscopy: na Sexual activity: Not sexually active Androgen deprivation: Never. PHYSICAL EXAM: BP 147/68 Pulse (!) 52 Temp 36.4 C (97.6 F) (Temporal) Resp 16 Wt 70.5 kg (155 lb 6.8 oz) SpO2 97% BMI 22.94 kg/m KPS: 100 General appearance: Alert and oriented. No acute distress. Rectal exam no masses notable. Does appear to have mild stricture/stenosis. No obvious ulceration or bleeding. Extremities: No deformities, edema, skin discoloration, clubbing or cyanosis. Lymph Nodes: No cervical lymphadenopathy, No supraclavicular lymphadenopathy, No axillary lymphadenopathy. Skin: Skin color, texture, turgor normal, no suspicious rashes or lesions. ASSESSMENT/PLAN: Prostate cancer, with prior I-125 brachytherapy December 2016. 1. Prostate cancer doing well PSA remains undetectable. 2 rectal discomfort. Appears to have rectal stricture. Has seen GI in the past as well as general surgery. Recommend Anusol HC as needed. Discussed potential referral to colorectal surgery to see if any other interventions other than conservative interventions with stool softeners could be considered. He has planned follow-up in 1 month and we will discuss this depending on his level symptoms at that time. Signed by: Lydia Michaels MD cc: Joaquin Guzman MD ([facility]) [address] [place] [address] documented in this encounter [facility] 10-25-2023 Note HNO ID: [id number] Author: Lydia MICHAELS MD Service: ? Author Type: Physician Type: Progress Notes Filed: 10/25/2023 11:24 Note Text: radiation Oncology - Follow Up Note PATIENT NAME: Malcolm Pfeiffer PATIENT DIAGNOSIS: Prostate adenocarcinoma, initial PSA 6.63, biopsy [place] score 3 + 3 = 6 (grade group 1), clinical stage T1c N0 M0. S/p I-125 brachytherapy January 24, 2017, dose 145 Gy. INTERVAL HISTORY: Patient still having on and off issues with rectal discomfort. Seems to occur every 3 to 4 months Lasting 1 to 3 weeks. Denies any recent bleeding. No bladder related issues. 12/14/22:Doing well denies new problems. Denies rectal bleeding. States that he has occasional rectal discomfort less than 2 times per year. Bladder function good. 12/15/21:No further rectal complaints including bleeding. He does use MiraLAX and has had some discomfort if he stops. Appetite good. No bladder related issues. 12/16/20:No significant new problems. Still with occasional perirectal pain although less frequent. No blood per rectum. PSA 10/24/2023: <0.13 PSA (ng/mL) Date Value 04/24/2018 1.30 04/25/2017 3.49 02/28/2017 8.86 PSA. (no units) Date Value 12/11/2022 <0.13 12/13/2021 0.21 12/14/2020 0.56 05/29/2020 0.77 07/10/19 4.05 ALLERGIES Allergen Reactions Bactrim [Sulfametho* Itching polyethylene glycol 3350 (MIRALAX) 17 gram/dose powder Take by mouth once daily. amLODIPine (NORVASC) 5 mg tablet Take 5 mg by mouth once daily. lisinopril (ZESTRIL, PRINIVIL) 20 mg tablet Take 20 mg by mouth twice daily. carvedilol (COREG) 12.5 mg tablet Take 12.5 mg by mouth twice daily with meals. aspirin, enteric coated (ASPIRIN, ENTERIC COATED) 81 mg EC tablet Take 81 mg by mouth once daily. multivitamin tablet Take 1 tablet by mouth once daily. REVIEW OF SYSTEMS: D/N = 4-6/1-2 Hematuria: none Dysuria: Yes Incontinence: none Urgency: mild Catheter use: none Medications to aid urination: y Bowel movement frequency: 1/day Bowel movement quality: normal Blood per rectum: none Last colonoscopy: na Sexual activity: Not sexually active Androgen deprivation: Never. PHYSICAL EXAM: BP 147/68 Pulse (!) 52 Temp 36.4 ?C (97.6 ?F) (Temporal) Resp 16 Wt 70.5 kg (155 lb 6.8 oz) SpO2 97% BMI 22.94 kg/m? KPS: 100 General appearance: Alert and oriented. No acute distress. Rectal exam no masses notable. Does appear to have mild stricture/stenosis. No obvious ulceration or bleeding. Extremities: No deformities, edema, skin discoloration, clubbing or cyanosis. Lymph Nodes: No cervical lymphadenopathy, No supraclavicular lymphadenopathy, No axillary lymphadenopathy. Skin: Skin color, texture, turgor normal, no suspicious rashes or lesions. ASSESSMENT/PLAN: Prostate cancer, with prior I-125 brachytherapy December 2016. 1. Prostate cancer doing well PSA remains undetectable. 2 rectal discomfort. Appears to have rectal stricture. Has seen GI in the past as well as general surgery. Recommend Anusol HC as needed. Discussed potential referral to colorectal surgery to see if any other interventions other than conservative interventions with stool softeners could be considered. He has planned follow-up in 1 month and we will discuss this depending on his level symptoms at that time. Signed by: Lydia Michaels MD cc: Joaquin Guzman MD ([facility]) [address] [place] [address] [facility] 02-20-2023 Evaluation note Encounter Date Diagnosis Assessment Notes Jan, Mass of soft tissue of shoulder (ICD-10 - M79.89) [facility] Other 07-20-2023 History of Present illness Narrative* Lydia Michaels MD - 12/14/2022 9:00 AM EDT Radiation Oncology - Follow Up Note PATIENT NAME: Malcolm Pfeiffer PATIENT DIAGNOSIS: 71 year old male with prostate adenocarcinoma, initial PSA 6.63, biopsy [place] score 3 + 3 = 6 (grade group 1), clinical stage T1c N0 M0. S/p I-125 brachytherapy January 24, 2017, dose 145 Gy. INTERVAL HISTORY: Doing well denies new problems. Denies rectal bleeding. States that he has occasional rectal discomfort less than 2 times per year. Bladder function good. 12/15/21:No further rectal complaints including bleeding. He does use MiraLAX and has had some discomfort if he stops. Appetite good. No bladder related issues. 7/22/21:No significant new problems. Still with occasional perirectal pain although less frequent. No blood per rectum. PSA (ng/mL) Date Value 04/24/2018 1.30 04/25/2017 3.49 02/28/2017 8.86 PSA. (no units) Date Value 12/11/2022 <0.13 12/13/2021 0.21 12/14/2020 0.56 05/29/2020 0.77 07/10/19 4.05 ALLERGIES Allergen Reactions Bactrim [Sulfametho* Itching polyethylene glycol 3350 (MIRALAX) 17 gram/dose powder Take by mouth once daily. amLODIPine (NORVASC) 5 mg tablet Take 5 mg by mouth once daily. lisinopril (ZESTRIL, PRINIVIL) 20 mg tablet Take 20 mg by mouth twice daily. carvedilol (COREG) 12.5 mg tablet Take 12.5 mg by mouth twice daily with meals. aspirin, enteric coated (ASPIRIN, ENTERIC COATED) 81 mg EC tablet Take 81 mg by mouth once daily. multivitamin tablet Take 1 tablet by mouth once daily. REVIEW OF SYSTEMS: D/N = 4-6/1-2 Hematuria: none Dysuria: Yes Incontinence: none Urgency: mild Catheter use: none Medications to aid urination: y - Total AUA Score: 2 Bowel movement frequency: 1/day Bowel movement quality: normal Blood per rectum: none Last colonoscopy: na Sexual activity: Not sexually active Androgen deprivation: Never. PHYSICAL EXAM: BP 103/68 Pulse (!) 54 Temp 36 C (96.8 F) (Temporal) Resp 18 Wt 68.9 kg (151 lb 12.8 oz) SpO2 97% BMI 22.41 kg/m KPS: 100 General appearance: Alert and oriented. No acute distress. Rectal exam def Extremities: No deformities, edema, skin discoloration, clubbing or cyanosis. Lymph Nodes: No cervical lymphadenopathy, No supraclavicular lymphadenopathy, No axillary lymphadenopathy. Skin: Skin color, texture, turgor normal, no suspicious rashes or lesions. ASSESSMENT/PLAN: Prostate cancer, with prior I-125 brachytherapy December 2016. Patient is doing well with now undetectable PSA. No significant post radiation issues and mild intermittent proctitis which has improved. Plan follow-up in 1 year with repeat PSA. Signed by: Lydia Michaels MD cc: Joaquin Guzman MD ([facility]) [address] [place] [address] Dr. Swain [facility]* Encounter Date Diagnosis Assessment Notes Treatment Notes Treatment Clinical Notes Nov, Adenocarcinoma of prostate (ICD-10 - C61) [facility] Other 04-20-2023 Nurse Note* Wiliam August - 12/14/2022 8:51 AM EDT AUA=2 [facility]* Encounter Date Diagnosis Assessment Notes Treatment Notes Treatment Clinical Notes Jul, Essential hypertensi on (ICD-10 - I10) This patient is instructed to consume a healthy, low-fat, low-salt diet. They are also encouraged to continue exercise to achieve/maintain a normal BMI. Jul, Enlarged prostate wi th lower urinary tract symptoms (LUTS) (ICD-10 - N40.1) Symptoms tolerable Jul, Obstructive sleep apnea (ICD-10 - G47.33) This patient is aware of the benefits associated with KATHERIN: With continued use, the patient reduces the risk for MN, CVA, HTN, cardiac dysrhythmias and sudden cardiac deaths.The patient is also aware of the association between KATHERIN and morning headaches, daytime somnolence, fatigue and obesity Noncompliant AHI 5-6 Denies morning headaches, daytime somnolence Jul, Gastroesophageal reflux disease with esophagitis without hemorrhage (ICD-10 - K21.00) Diet instructions: Smaller portions, avoid eating and laying flat, avoid eating or drinking prior to bedtime. Continue Tums as needed. Call if increases frequency or associated w/ dysphagia Jul, Adenocarcinoma of prostate (ICD-10 - C61) Yearly evaluation w/ Radiation Oncology. s/p Brachytherapy. 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 Monitor for now. Continue healthy, high fiber diet. Notify office w/ any recurrence of pain Jul, Duodenal diverticulu m (ICD-10 - K57.10) Unlikely etiology for pain. No treatment necessary. Jul, Adenocarcinoma of prostate (ICD-10 - C61) Stable w/o s/s recurrence. [facility]tentive Other 01-25-2023 Hospital Discharge instructions Patient Education 06/21/2022 13:37:37 Testicular Self-Exam, [id number] Testicular Self-Exam A self-exam of your testicles (testicular self-exam) is looking at and feeling your testicles for unusual lumps or swelling. Swelling, lumps, or pain can be caused by: Injuries. Puffiness, redness, and soreness (inflammation). Infection. Extra fluids around your testicle (hydrocele). Twisted testicles (testicular torsion). Cancer of the testicle (testicular cancer). Why is it important to do a self-exam of testicles? You may need to do self-exams if you are at risk for cancer of the testicles. You may be at risk ifyou have: A testicle that has not descended (cryptorchidism). A history of cancer of the testicle. A family history of cancer of the testicle. How to do a self-exam of testicles It is easiest to do a self-exam after a warm bath or shower. Testicles are harder to examine when you are cold. A normal testicle is egg-shaped and feels firm. It is smooth, and it is not tender. At the back of your testicles, there is a firm cord that feels like spaghetti (spermatic cord). Look and feel for changes Stand and hold your penis away from your body. Look at each testicle to check for lumps or swelling. Roll each testicle between your thumb and finger. Feel the whole testicle. Feel for: ?Lumps. ?Swelling. ?Discomfort. Check for swelling or tender bumps in the groin area. Your groin is where your lower belly (abdomen) meets your upper thighs. Contact a health care provider if: You find a bump or lump. This may be like a small, hard bump that is the size of a pea. You find swelling. You find pain. You find soreness. You see or feel any other changes. Summary A self-exam of your testicles is looking at and feeling your testicles for lumps or swelling. You may need to do self-exams if you are at risk for cancer of the testicle. You should check each of your testicles for lumps, swelling, or discomfort. You should check for swelling or tender bumps in the groin area. Your groin is where your lower belly (abdomen) meets your upper thighs. This information is not intended to replace advice given to you by your health care provider. Make sure you discuss any questions you have with your health care provider. Document Released: 08/10/2009 Document Revised: 09/04/2019 Document Reviewed: 04/09/2017 [employer] Patient Education 2020 [employer]. Follow Up Care 02/15/2021 08:56:21 With:DANIEL FLORES, ERIKA Jon, URL Address: [facility] Mario Calderon [facility] [place] [address] When: only if needed [facility] 07-21-2022 History of Present illness Narrative* G Miguel A Michaels MD - 12/15/2021 8:49 AM EDT Radiation Oncology - Follow Up Note PATIENT NAME: Malcolm Pfeiffer PATIENT DIAGNOSIS: 71 year old male with prostate adenocarcinoma, initial PSA 6.63, biopsy [place] score 3 + 3 = 6 (grade group 1), clinical stage T1c N0 M0. S/p I-125 brachytherapy January 24, 2017, dose 145 Gy. INTERVAL HISTORY: No further rectal complaints including bleeding. He does use MiraLAX and has had some discomfort if he stops. Appetite good. No bladder related issues. 12/16/20:No significant new problems. Still with occasional perirectal pain although less frequent. No blood per rectum. PSA (ng/mL) Date Value 04/24/2018 1.30 04/25/2017 3.49 02/28/2017 8.86 PSA. (no units) Date Value 12/13/2021 0.21 12/14/2020 0.56 05/29/2020 0.77 11/12/2019 1.51 07/10/19 4.05 ALLERGIES Allergen Reactions Bactrim [Sulfametho* Itching polyethylene glycol 3350 (MIRALAX) 17 gram/dose powder Take by mouth once daily. amLODIPine (NORVASC) 5 mg tablet Take 5 mg by mouth once daily. lisinopril (ZESTRIL, PRINIVIL) 20 mg tablet Take 20 mg by mouth twice daily. carvedilol (COREG) 12.5 mg tablet Take 12.5 mg by mouth twice daily with meals. aspirin, enteric coated (ASPIRIN, ENTERIC COATED) 81 mg EC tablet Take 81 mg by mouth once daily. multivitamin tablet Take 1 tablet by mouth once daily. REVIEW OF SYSTEMS: D/N = 4-6/1-2 Hematuria: none Dysuria: Yes Incontinence: none Urgency: mild Catheter use: none Medications to aid urination: y - Total AUA Score: 1 Bowel movement frequency: 1/day Bowel movement quality: normal Blood per rectum: none Last colonoscopy: na Sexual activity: Not sexually active Androgen deprivation: Never. PHYSICAL EXAM: BP 130/65 Pulse (!) 59 Temp 36.2 C (97.1 F) (Temporal) Resp 16 Wt 69.2 kg (152 lb 9.6 oz) SpO2 99% BMI 22.52 kg/m KPS: 100 General appearance: Alert and oriented. No acute distress. Rectal exam def Extremities: No deformities, edema, skin discoloration, clubbing or cyanosis. Lymph Nodes: No cervical lymphadenopathy, No supraclavicular lymphadenopathy, No axillary lymphadenopathy. Skin: Skin color, texture, turgor normal, no suspicious rashes or lesions. ASSESSMENT/PLAN: Prostate cancer, with prior I-125 brachytherapy December 2016. Patient is doing well without evidence of recurrence and a stable low PSA. Recommend repeat PSA in 1 year. Signed by: Lydia Michaels MD cc: Joaquin Guzman MD ([facility]) [address] [place] [address] Dr. Swain [facility]* Odilia Swain - 12/15/2021 9:03 AM EDT AUA=1 [facility] History of Past illness Narrative* Problem Noted Date Diagnosed Date Resolved Date Prostate cancer 12/05/2016 12/14/2022 documented as of this encounter (statuses as of 12/14/2022) [facility] + Plan note No data available for this section [facility] evaluation note* Diagnosis Malignant neoplasm of prostate (HCC)- Primary Malignant neoplasm of prostate documented in this encounter [facility] noteNo [employer] Other Evaluation note* Diagnosis History of prostate cancer- Primary Personal history of malignant neoplasm of prostate Proctitis, radiation Other specified disorder of rectum and anus documented in this encounter [facility] note* Diagnosis Onset Date Resolution Status Cervical spondylosis acute GERD (gastroesophageal reflux disease) acute Hypertension acute Lumbar spondylosis acute Nephrolithiasis acute KATHERIN (obstructive sleep apnea) acute Prostate cancer acute Radiation proctitis acute [facility] Work Phone: Evaluation note* Diagnosis History of prostate cancer- Primary Personal history of malignant neoplasm of prostate documented in this encounter [facility] note* Diagnosis History of prostate cancer- Primary Personal history of malignant neoplasm of prostate Rectal or anal pain Anal or rectal pain Anal or rectal pain- Primary documented in this encounter [facility] note* Diagnosis Anal or rectal pain- Primary Rectal stricture Stenosis of rectum and anus Rectal or anal pain Anal or rectal pain documented in this encounter [facility] note* Diagnosis Onset Date Resolution Status History of nephrolithiasis a cute Low back pain acute Lumbar spondylosis acute [facility] Work Phone: History general Narrative - Reported* Type Description Date Medical History Rectal bleeding Medical History Rectal pain Medical History Adenocarcinoma of prostate Medical History Anemia Medical History High risk medication use Medical History Radiation proctitis Medical History Lumbar spondylosis Medical History Obstructive sleep apnea Medical History Essential hypertension Medical History Eczema, dyshidrotic Medical History History of nephrolithiasis Medical History Family history of early CAD Medical History Enlarged prostate wi th lower urinary tract symptoms (LUTS) Medical History Cervical spondylosis Surgical History HERNIA REPAIR Surgical History LEFT RETROGRADE URETEROSCOPY/ST ENT 1967 Surgical History ESWL 1995 Surgical History COLONOSCOPY 1995 Surgical History LHC 2009,2015 Surgical History CYSTOSCOPY 2016 Surgical History TRUS/BX Surgical History SEPTOPLASTY 2009 Hospitalization History SEE SURGICAL HX Apptentive Other Progress note No data available for this section [facility] Kyle reason for referral (narrative)* Outpatient Procedure (Routine) - New Request Specialty Diagnoses / Procedures Referred By Annalee t Referred To Contact [facility] Diagnoses Rectal stricture Procedures COLONOSCOPY DIAGNOSTIC COLONOSCOPY FLX DX W/COLLJ SPEC WHEN PFRMPricila Bah, [place] [address] [place] [address] [facility] [address] [place] [address] Referral ID Status Reason Start Date Expiration Date Visits Requested Visits Authorized [id number] New Request Auto-Generat ed Referral 01/18/2024 01/17/2025 1 1 [facility] Summary Purpose Family History Relationship Condition Age at Onset Recorded Date/T deni brother Malignant neoplasm Unknown Hypertension Unknown father Unknown Not Specified Unknown Relationship Condition Age at Onset Recorded Date/T deni brother Malignant neoplasm Unknown Hypertension Unknown father Unknown mother Unknown Advance Directives Advance Directive Response Recorded Date/ Time Advance Directives No June 19, 2023 4:03pm Chief Complaint and Reason for Visit Chief Complaint 6 MONTH FOLLOW UP Reason for Visit Cervical spondylosis GERD (gastroesophageal reflux disease) Hypertension Lumbar spondylosis Nephrolithiasis KATHERIN (obstructive sleep apnea) Prostate cancer Radiation proctitis Chief Complaint lower left back pain Reason for Visit History of nephrolit hiasis Low back pain Lumbar spondylosis Reason for Referral Specialty Diagnoses / Procedures Referred By Contsubhash t Referred To Contact Colon and Rectal Surgery Diagnoses Rectal or anal pain Procedures CONSULT TO COLO-RECTAL SURGERY OFFICE/OUTPATIENT [facility] 60 MINUTES Lydia Michaels MD [address] [place] [address] [place] [address] Referral ID Status Reason Start Date Expiration Date Visits Requested Visits Authorized [id number] Authorized PCP Requested Referral 12/13/2023 12/12/2024 1 1 Additional Source Comments Source Comments (unrecognize d section and content) In the event this informatio n is protected by the Federal Confidentiality of Alcohol and Drug Abuse Patient Records regulations: The Federal rules restrict any use of the information to criminally investigate or prosecute any alcohol or drug abuse patient.[facility] the event this information is protected by the Federal Confidentiality of Alcohol and Drug Abuse Patient Records regulations: The Federal rules restrict any use of the information to criminally investigate or prosecute any alcohol or drug abuse patient.[facility] Hospital[facility] the event this information is protected by the Federal Confidentiality of Alcohol and Drug Abuse Patient Records regulations: The Federal rules restrict any use of the information to criminally investigate or prosecute any alcohol or drug abuse patient.[facility] Hospital[facility] the event this information is protected by the Federal Confidentiality of Alcohol and Drug Abuse Patient Records regulations: The Federal rules restrict any use of the information to criminally investigate or prosecute any alcohol or drug abuse patient.[facility] Hospital[facility] the event this information is protected by the Federal Confidentiality of Alcohol and Drug Abuse Patient Records regulations: The Federal rules restrict any use of the information to criminally investigate or prosecute any alcohol or drug abuse patient.[facility] Reason for Visit (unrecogniz ed section and content) Reason Comments Prostate Cancer follow up Reason Comments Prostate Cancer Follow up Reason Comments new problem Reason Comments Prostate Cancer Reason Comments Rectal Pain Specialty Diagnoses / Procedures Referred By Contac t Referred To Contact Colon and Rectal Surgery Diagnoses Rectal or anal pain Procedures CONSULT TO COLO-RECTAL SURGERY OFFICE/OUTPATIENT NEW HIGH MDM 60 MINUTES Lydia Michaels MD [address] [place] [address] [place] [address] Referral ID Status Reason Start Date Expiration Date V isits Requested Visits Authorized [id number] Closed PCP Requested Referral 12/13/2023 12/12/2024 1 1 Care Teams (unrecognized sec tion and content) Beverage Host Relationship Specialty Start Date End Date Joaquin Guzman DO PCP - General Internal Medicine 11/24/16 Beverage Host Relationship Specialty Start Date End Date Joaquin Guzman DO PCP - General Internal Medicine 11/24/16 Team Status: Active Member Role Status Dates Joaquin Guzman DO Primary Care Provider Active Team Status: Inactive Member Role Status Dates Joaquin Guzman DO Primary Care Provide r, Attending Provider Active Start: August 16, 2023 End: August 16, 2023 Beverage Host Relationship Specialty Start Date End Date Joaquin Guzman DO PCP - General Internal Medicine 11/24/16 Beverage Host Relationship Specialty Start Date End Date Joaquin Guzman DO PCP - General Internal Medicine 11/24/16 Beverage Host Relationship Specialty Start Date End Date Joaquin Guzman DO PCP - General Internal Medicine 11/24/16 Team Status: Inactive Member Role Status Dates Joaquin Guzman DO Primary Care Provide r, Attending Provider Active Start: January 25, 2024 End: January 25, 2024 (unrecognized sect ion and content) No Status Records FoundNo Status Records FoundNo Status Records Found INFORMATION SOURCE (unrecogn ized section and content) DATE CREATED AUTHOR 08/26/2022 [facility]issa [facility] DATE CREATED AUTHOR AUTHOR'S ORGANIZ ATION 01/24/2023 [facility] DATE CREATED AUTHOR AUTHOR'S ORGANIZ ATION 01/20/2024 [facility] Goals (unrecognized section and content) Goals may be documented in a n alternate section FOR RECORDS PERTAINING TO PATIENTS WHO ARE OR HAVE BEEN ENROLLED IN A CHEMICAL DEPENDENCY/SUBSTANCEABUSE PROGRAM, SOME INFORMATION MAY BE OMITTED. This clinical summary was aggregated from multiple sources. Caution should be exercised in using it in the provision of clinical care. This summary normalizes information from multiple sources, and as a consequence, information in this document may materially change the coding, format and clinical context of patient data. In addition, data may be omitted in some cases. CLINICAL DECISIONS SHOULD BE BASED ON THE PRIMARY CLINICAL RECORDS. [facility] [employer] provides no warranty or guarantee of the accuracy or completeness of information in this document.
== END 2024-01-30 07:34 | disposition home or self-care (01) ==
LOC: CT 07:34
PROVIDERS: PCP Internal Medicine; Visit Provider Internal Medicine
DX: M54.50 Low back pain, unspecified (principal); Z87.442 Personal history of urinary calculi; N20.0 Calculus of kidney
CPT/HCPCS: 74176

== ENCOUNTER 2024-02-06 08:11 | Outpatient (RCR) | payer OTHER, SELFPAY | END 2024-02-28 08:38 | disposition home or self-care (01) | LOC: PT 08:11 | PROVIDERS: PCP Internal Medicine; Visit Provider Internal Medicine | DX: M54.50 Low back pain, unspecified (principal); M47.9 Spondylosis, unspecified | CPT/HCPCS: 97012; 97110; 97161 ==

== ENCOUNTER 2024-02-18 09:19 | Outpatient (OUT) | payer OTHER, SELFPAY ==
--- OUTSIDE RECORDS SUMMARY | 2024-02-18 09:28 | XMS_ITS | CCD ---
Author Organization [facility] Care Team Providers Care Telephone Worker Name Role Phone Joaquin Guzman DO Primary Care Provider JOAQUIN GUZMAN Primary Care Physician [phone] Joaquin Guzman Unavailable EDDIE, DR FLORES Admitting [...] / Trimethoprim Drug Allergy 12-06-19 17 Itching [facility] (12 sources) Sulfamethoxazole / Trimethoprim; Translations: [sulfamethoxazole-t rimethoprim] Drug Allergy 12-06-19 17 Itching, Itching (finding) [facility] (2 sources) Sulfamethoxazole / Trimethoprim; Translations: [Bactrim] Drug Allergy 10-31-19 16 [facility] Repository (1 source) No Known Medication Allergies; Translations: [No Known Medication Allergies] Propensity to adverse reactions (disorder) [facility] Repository (2 sources) Sulfamethoxazole Drug Allergy 08-16-19 Unknown Reaction [facility] (2 sources) Trimethoprim Drug Allergy 08-16-19 Unknown Reaction [facility] Medications Current Medications Medication Drug Class(es) [...] aspirin 81 mg delayed release oral tablet (15 sources) Platelet Aggregation Inhibitor, Nonsteroidal Anti-inflammatory Drug Start: 06-06-2019 Aspirin (Adult Low Dose Aspirin) 81 mg tablet,delayed release (DR/EC) Active 81 MG PO Daily August 15, 2023 12:00am Aspirin 81 Activ e Comment on above: Take 81 mg by mouth once daily. carvedilol 12.5 mg oral tablet (16 sources) alpha-Adrenergic Sancho, beta-Adrenergic Sancho Start: 01-28-2024 take 1 tablet by mouth twice daily Carvedilol Active 0 .ROUTE .COMPLEX 180 January 28, 2024 8:40am TAKE 1 TABLET BY MOUTH TWICE A DAY Start: 08-15-2023 End: 01-28-2024 take 12.5 mg by mouth twice daily Carvedilol Discontinued 12.5 MG PO Twice daily August 15, 2023 12:00am January 28, 2024 8:40am Start: 06-06-2019 carvedilol 6.2 5 mg, Oral, Refills(s) 0 Start Date: 06/06/19 Status: Ordered Carvedilol Activ e Comment on above: Take 12.5 mg by mout h twice daily with meals. lisinopril 20 mg oral tablet (19 sources) Angiotensin Converting Enzyme Inhibitor Start: 02-18-2024 take 20 mg by mouth once daily Lisinopril Active 20 MG PO Daily February 18, 2024 8:31am Start: 01-28-2024 End: 02-18-2024 take 1 tablet by mouth twice daily Lisinopril Discontinued 0 .ROUTE .COMPLEX 180 January 28, 2024 8:40am February 18, 2024 8:32am TAKE 1 TABLET BY MOUTH TWICE A DAY Start: 11-30-2023 End: 01-28-2024 take 20 mg by mouth once daily Lisinopril Discontinued 20 MG PO Daily November 30, 2023 2:15pm January 28, 2024 8:40am Start: 08-15-2023 End: 11-30-2023 take 20 mg by mouth twice daily Lisinopril Discontinue d 20 MG PO Twice daily August 15, [...] on above: Take 1 tablet by eric once daily. polyethylene glycol 3350 [id number] mg powder for oral solution (15 sources) Osmotic Laxative Start: 08-15-2023 Polyethylene Glycol [...] aily. Stool Softener (6 sources) Stool Softener A ctive Completed/Discontinued Medications Medication Drug Class(es) Dates Sig (Normalized) Sig (Original) hydrocortisone acetate 25 mg rectal suppository (2 sources) Corticosteroid Start: 10-25-2023 End: 12-20-2023 hydrocortisone (ANUSOL-HC) 25 mg suppository 1 Suppository by RECTAL route two times a day. 10 Suppository 2 10/25/2023 12/20/2023 Discontinued (Discontinued by another Health Care Provider) tamsulosin hydrochloride 0.4 mg oral capsule (9 sources) alpha-Adrenergic Sancho Start: 08-15-2023 End: 02-18-2024 take 0.4 mg by mouth once daily Tamsulosin Discontinued 0.4 MG PO Daily August 15, 2023 12:00am February 18, 2024 8:31am Tamsulosin HCl A ctive Problems Active Problems Problem Classification Problem Date Documented Da te Episodic/Chronic Abdominal pain (5 sources) Periumbilical pain; Translations: [Generalized abdominal pain] Onset: 07-25-2022 Episodic Anal and rectal conditions (20 sources) Rectal pain; Translations: [Other specified diseases of anus and rectum] Onset: 01-18-2024 Episodic Calculus of urinary tract (15 sources) History of calculus of kidney; Translations: [Personal history of urinary calculi] 08-14-2023 Episodic Cancer of prostate (20 sources) Malignant tumor of prostate; Translations: [Malignant neoplasm of prostate] Onset: 12-05-2016 Resolved: 12-14-2022 Chronic Deficiency and other anemia (9 sources) Anemia; Translations: [Anemia, unspecified] 08-15-2023 Episodic Disorders of lipid metabolism (1 source) Hypercholesterolemi a; Translations: [Pure hypercholesterolemi a, unspecified] 02-18-2024 Chronic Diverticulosis and diverticulitis (10 sources) Diverticulum of duodenum; Translations: [Diverticulosis of small intestine without perforation or abscess without bleeding] Chronic Esophageal disorders (14 sources) Gastro-esophageal reflux disease with esophagitis; Translations: [Gastroesophageal reflux disease with esophagitis without hemorrhage] 08-15-2023 Chronic Essential hypertension (17 sources) Hypertensive disorder; Translations: [Essential hypertension] Onset: 07-27-2022 05-08-2019 Chronic Gastritis and duodenitis (1 source) Duodenitis without bleeding; Translations: [DUODENITIS WITHOUT BLEEDING] Onset: 07-27-2022 Episodic Gastrointestinal hemorrhage (6 sources) Rectal hemorrhage; Translations: [Hemorrhage of anus and rectum] Episodic Hyperplasia of prostate (13 sources) Benign prostatic hypertrophy with outflow obstruction; Translations: [Benign prostatic hyperplasia with lower urinary tract symptoms] Onset: 06-21-2022 Chronic Other aftercare (6 sources) H/O: high risk medication; Translations: [Other [facility] (current[facility] drug therapy] Episodic Other aftercare (1 source) Other long term care phlebotomist (current) drug therapy; Translations: [OTH HALF-WAY CURRENT DRUG THERAPY] Onset: 07-27-2022 Episodic Other aftercare (1 source) [facility] (current) use of aspirin; Translations: [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] Onset: 07-27-2022 Episodic [...] Translations: [Eczema, dyshidrotic] Episodic Other skin disorders (3 sources) Vesicular eczema; Translations: [Dyshidrosis [pompholyx]] 08-15-2023 Episodic Residual codes; unclassified (9 sources) Obstructive sleep apnea syndrome; Translations: [Obstructive sleep apnea (adult) (pediatric)] 08-14-2023 Chronic Residual codes; unclassified (3 sources) Obstructive sleep apnea (adult) (pediatric); Translations: [...] Spondylosis; intervertebral disc disorders; other back problems (4 sources) Low back pain; Translations: [Low back pain] 08-30-2024 Episodic Unclassified (1 source) Drug therapy finding [...] Test Name Value Interpretation Reference Range Facility CNOVon 01-18-2024 CNOV Office Visit (COFHAM ) MALCOLM PFEIFFER ([id number]) 1945 M Date Time Provider Department 01/18/24 9:30 AM GABRIELA BAH [facility] During your visit today, we recorded the [...] for internal providers or letter via the [employer] for external providers. Chief Complaint: rectal pain/ rectal stricture History of Present Illness: Malcolm Pfeiffer is a 78 year old male presents to the office for evaluation of rectal pain and rectal stricture. He has a history of [id number] prostate adenocarcinoma. Colonoscopy in 2016 -normal Scan [...] exam Anorectal: External exam reveals: see below Video Editor present: yes Assessment Assessment and Plan: Malcolm [...] MD Colorectal Surgery Referring Provider: Lydia MICHAELS [[id number]] Allergies As of Date: 01/18/2024 Noted Allergy Reaction BACTRIM (SULFAMETHOXAZOLE-TRIM ETH*12/05/2016 9 - Itching Date Reviewed: 01/18/2024 Reviewed by: Maryann Grajeda LPN - Fully Assessed Reason for Visit: Rectal Pain [787] Primary Visit Diagnosis:Anal or rectal pain [K62.89] Other Visit Diagnoses:Rectal stricture [K62.4] Rectal or anal pain [K62.89] Order(s):CONSULT TO COLO-RECTAL SURGERY [] Order #: [id number]: 1 COLONOSCOPY DIAGNOSTIC [GI11] Order #: [id number] FUTURE Prescriptions as of 01/18/2024 - polyethylene [...] Encounter Status:Closed by GABRIELA BAH on 01/18/24 [facility] Kristyn 12-13-2023 CNOV Office Visit (RADTSA ) MALCOLM PFEIFFER ([id number]) 1945 M Date Time Provider Department 12/13/23 [...] Lydia Michaels MD cc: Joaquin Guzman MD ([facility]) [address] [place] [address] Referring Provider: Lydia MICHAELS [[id number]] Allergies As of Date: 12/13/2023 Noted Allergy Reaction BACTRIM (SULFAMETHOXAZOLE-TRIM ETH*12/05/2016 9 - Itching Date Reviewed: 12/13/2023 Reviewed by: Nicolasa Faustin LPN - Fully Assessed Reason for Visit: Prostate Cancer [590] Primary Visit Diagnosis:History of prostate cancer [Z85.46] Other Visit Diagnosis:Rectal or anal pain [K62.89] Order(s):PSA (OUTSIDE) [[id number]] Order #: [id number] PROSTATE-SPECIFIC ANTIGEN DIAGNOSTIC [SQPSA] Order #: [id number] FUTURE CONSULT TO COLO-RECTAL SURGERY [] Order #: [id number]: 1 FUTURE Prescriptions as of 12/20/2023 - [...] >> Grav (more content not included)... Normal [facility] CNOVon 10-25-2023 CNOV Office Visit (RADTSA ) MALCOLM PFEIFFER ([id number]) 1945 M Date Time Provider Department 10/25/23 [...] Lydia Michaels MD cc: Joaquin Guzman MD ([facility]) [address] [place] [address] Allergies As of Date: 10/25/2023 Noted Allergy [...] of p (more content not included)... Normal [facility] PSA (OUTSIDE)on 10-24-2023 [facility] Consultation Noteon 01-24-20 Consultation Note [id number]:[id number] [facility] AMYLASEon 07-25-2022 Amylase [Catalytic activity/Vol] 30 U/L Normal 25-115 [facility] Comment on above: Performed By: #### L IPA, CMP, EMILE, HSTROPN #### [facility] [address] [place] [address] Dr. Avery Khan CBC AUTO DIFFon 07-25-2022 BASO # 0.0 103/ul Normal 0.0-0.1 [facility] Comment on above: Performed By: #### C BC #### [facility] [address] [place] [address] Dr. Avery Khan Basophils/100 WBC (Bld) 0.3 % Normal 0.2-2.0 [facility] Comment on above: Performed By: #### C BC #### [facility] [address] [place] [address] Dr. Avery Khan EO # 0.2 103/ul Normal 0.0-0.7 [facility] Comment on above: Performed By: #### C BC #### [facility] [address] [place] [address] Dr. Avery Khan Eosinophils/100 WBC (Bld) 2.9 % Normal 0.9-7.0 [facility] Comment on above: Performed By: #### C BC #### [facility] [address] [place] [address] Dr. Avery Khan Erythrocyte distribution width (RBC) [Ratio] 13.7 % Normal 11.0-15.0 [facility] Comment on above: Performed By: #### C BC #### [facility] [address] [place] [address] Dr. Avery Khan Hematocrit (Bld) [Volume fraction] 38.5 % Critically low 42.0-54.0 [facility] Comment on above: Performed By: #### C BC #### [facility] [address] [place] [address] Dr. Avery Khan Hemoglobin (Bld) [Mass/Vol] 13.4 g/dL Critically low 14.0-18.0 [facility] Comment on above: Performed By: #### C BC #### [facility] [address] [address] [address] Avery Khan IG # 0.02 10e3/ul Normal 0.00-0.03 [facility] Comment on above: Performed By: #### C BC #### [facility] [address] [place] [address] Dr. Avery Khan IG % 0.3 % Normal 0.0-0.5 [facility] Comment on above: Performed By: #### C BC #### [facility] [address] [place] [address] Dr. Avery Khan LYMPH # 1.3 103/ul Normal 1.2-3.8 [facility] Comment on above: Performed By: #### C BC #### [facility] [address] [place] [address] Dr. Avery Khan Lymphocytes/100 WBC (Bld) 22.8 % Normal 20.5-60.0 [facility] Comment on above: Performed By: #### C BC #### [facility] [address] [place] [address] Dr. Avery Khan MANUAL DIFF REQ NO Normal [facility] Comment on above: Performed By: #### C BC #### [facility] [address] [place] [address] Dr. Avery Khan MCH (RBC) [Entitic mass] 31.3 pg Normal 25.9-34.0 [facility] Comment on above: Performed By: #### C BC #### [facility] [address] [place] [address] Dr. Avery Khan MCHC (RBC) [Mass/Vol] 34.8 g/dL Normal 29.9-35.2 [facility] Comment on above: Performed By: #### C BC #### [facility] [address] [place] [address] Dr. Avery Khan MCV (RBC) [Entitic vol] 90.0 fL Normal 80.0-94.0 [facility] Comment on above: Performed By: #### C BC #### [facility] [address] [place] [address] Dr. Avery Khan MONO # 0.5 103/ul Normal 0.3-0.8 [facility] Comment on above: Performed By: #### C BC #### [facility] [address] [place] [address] Dr. Avery Khan Monocytes/100 WBC (Bld) 8.7 % Normal 1.7-12.0 [facility] Comment on above: Performed By: #### C BC #### [facility] [address] [place] [address] Dr. Avery Khan NEUT # 3.8 103/ul Normal 1.4-6.5 [facility] Comment on above: Performed By: #### C BC #### [facility] [address] [place] [address] Dr. Avery Khan Neutrophils/100 WBC (Bld) 65.0 % Normal 43.0-75.0 [facility] Comment on above: Performed By: #### C BC #### [facility] [address] [place] [address] Dr. Avery Khan Platelet mean volume (Bld) [Entitic vol] 9.8 fL Normal 9.5-13.5 [facility] Comment on above: Performed By: #### C BC #### [facility] [address] [place] [address] Dr. Avery Khan PLT 260 103/ul Normal 150-450 [facility] Comment on above: Performed By: #### C BC #### [facility] [address] [place] [address] Dr. Avery Khan RBC 4.28 106/ul Critically low 4.70-6.10 [facility] Comment on above: Performed By: #### C BC #### [facility] [address] [place] [address] Dr. Avery Khan WBC 5.9 103/ul Normal 4.0-11.0 [facility] Comment on above: Performed By: #### C #### [facility] [address] [address] [address] ABD/PELV W CONon 07-25-19 CT ABD/PELV W CON EXAMINATION: CT ABD/PELV [...] ESTRADA MORENO Date: 2022-07-25 04:45 Normal [facility] ER URINE PROFILEon 3 Bilirubin Ql (U) Negative Normal NEGATIVE [facility] Comment on above: Performed By: #### F ETIBC, B12FOL, FERR #### [facility] [address] [place] [address] Dr. Avery Khan Clarity (U) CLEAR Normal CLEAR [facility] Comment on above: Performed By: #### F ETIBC, B12FOL, FERR #### [facility] [address] [place] [address] Dr. Avery Khan Color (U) YELLOW Normal YELLOW [facility] Comment on above: Performed By: #### F ETIBC, B12FOL, FERR #### [facility] [address] [place] [address] Dr. Avery Khan ERUONEALD A micrscopic examination will be performed if indicated. Normal [facility] Comment on above: Performed By: #### F ETIBC, B12FOL, FERR #### [facility] [address] [place] [address] Dr. Avery Khan Glucose Ql (U) Negative Normal NEGATIVE [facility] Comment on above: Performed By: #### F ETIBC, B12FOL, FERR #### [facility] [address] [place] [address] Dr. Avery Khan Hemoglobin Ql (U) SMALL Abnormal NEGATIVE [facility] Comment on above: Performed By: #### F ETIBC, B12FOL, FERR #### [facility] [address] [place] [address] Dr. Avery Khan Ketones Ql (U) TRACE Abnormal NEGATIVE [facility] Comment on above: Performed By: #### F ETIBC, B12FOL, FERR #### [facility] [address] [address] [address] Avery Khan LEUKOCYTES Negative Normal NEGATIVE [facility] Comment on above: Performed By: #### F ETIBC, B12FOL, FERR #### [facility] [address] [address] [address] Avery Khan Nitrite Ql (U) Negative Normal NEGATIVE [facility] Comment on above: Performed By: #### F ETIBC, B12FOL, FERR #### [facility] [address] [address] [address] Avery Khan pH (U) 5.0 [pH] Normal 5-9 [facility] Comment on above: Performed By: #### F ETIBC, B12FOL, FERR #### [facility] [address] [place] [address] Dr. Avery Khan SPEC GRAVITY 1.020 Normal 1.005-<=1.025 [facility] Comment on above: Performed By: #### F ETIBC, B12FOL, FERR #### [facility] [address] [address] [address] Avery Khan UA PROTEIN Negative Normal NEGATIVE/ TRACE [facility] Comment on above: Performed By: #### F ETIBC, B12FOL, FERR #### [facility] [address] [place] [address] Dr. Avery Khan UR MICRO IND INDICATED Normal [facility] Comment on above: Performed By: #### F ETIBC, B12FOL, FERR #### [facility] [address] [address] [address] Avery Khan Urobilinogen Qn (U) 0.2 {Anna'U}/dL Normal 0.2 - 1. 0 [facility] Comment on above: Performed By: #### F ETIBC, B12FOL, FERR #### [facility] [address] [place] [address] Dr. Avery Khan LACTATE/LACTIC ACIDon 2022 Lactate [Moles/Vol] 1.0 mmol/L Normal 0.4-1.9 [facility] Comment on above: Performed By: #### F ETIBC, B12FOL, FERR #### [facility] [address] [place] [address] Dr. Avery Khan LIPASEon 07-25-2022 Lipase [Catalytic activity/Vol] 71.0 U/L Critically low 73.0-393.0 [facility] Comment on above: Performed By: #### L IPA, CMP, EMILE, HSTROPN #### [facility] [address] [place] [address] Dr. Avery Khan PROF 14(COMP METB)on 023 Albumin [Mass/Vol] 3.7 g/dL Normal 3.4-5.0 [facility] Comment on above: Performed By: #### L IPA, CMP, EMILE, HSTROPN #### [facility] [address] [place] [address] Dr. vAery Khan Albumin/Globulin [Mass ratio] 1.2 {ratio} Normal [facility] Comment on above: Performed By: #### L IPA, CMP, EMILE, HSTROPN #### [facility] [address] [place] [address] Dr. Avery Khan ALP [Catalytic activity/Vol] 89 U/L Normal 46-116 [facility] Comment on above: Performed By: #### L IPA, CMP, EMILE, HSTROPN #### [facility] [address] [place] [address] Dr. Avery Khan ALT [Catalytic activity/Vol] 21 U/L Normal 16-63 [facility] Comment on above: Performed By: #### L IPA, CMP, EMILE, HSTROPN #### [facility] [address] [place] [address] Dr. Avery Khan Anion gap [Moles/Vol] 11.2 mmol/L Normal [facility] Comment on above: Performed By: #### L IPA, CMP, EMILE, HSTROPN #### [facility] [address] [place] [address] Dr. Avery Khan AST [Catalytic activity/Vol] 21 U/L Normal 15-37 [facility] Comment on above: Performed By: #### L IPA, CMP, EMILE, HSTROPN #### [facility] [address] [address] [address] Avery Khan Bilirubin [Mass/Vol] 0.6 mg/dL Normal 0.2-1.0 [facility] Comment on above: Performed By: #### L IPA, CMP, EMILE, HSTROPN #### [facility] [address] [address] [address] Avery Khan Calcium [Mass/Vol] 8.7 mg/dL Normal 8.5-10.1 [facility] Comment on above: Performed By: #### L IPA, CMP, EMILE, HSTROPN #### [facility] [address] [place] [address] Dr. Avery Khan Chloride [Moles/Vol] 103 mmol/L Normal 98-107 [facility] Comment on above: Performed By: #### L IPA, CMP, EMILE, HSTROPN #### [facility] [address] [address] [address] Avery Khan CO2 [Moles/Vol] 27.7 mmol/L Normal 21.0-32.0 [facility] Comment on above: Performed By: #### L IPA, CMP, EMILE, HSTROPN #### [facility] [address] [address] [address] Avery Khan Creatinine [Mass/Vol] 1.03 mg/dL Normal 0.70-1.30 [facility] Comment on above: Performed By: #### L IPA, CMP, EMILE, HSTROPN #### [facility] [address] [address] [address] Avery Khan EGFR-AF ANDORRAN >60 Normal >=60 [facility] Comment on above: Performed By: #### L IPA, CMP, EMILE, HSTROPN #### [facility] [address] [address] [address] Avery Khan EGFR-NON AF ANDORRAN >60 Normal >=60 [facility] Comment on above: Performed By: #### L IPA, CMP, EMILE, HSTROPN #### [facility] [address] [address] [address] Avery Khan Globulin (S) [Mass/Vol] 3.0 g/dL Normal [facility] Comment on above: Performed By: #### L IPA, CMP, EMILE, HSTROPN #### [facility] [address] [address] [address] Avery Khan Glucose [Mass/Vol] 122 mg/dL Critically high 74-106 [facility] Comment on above: Performed By: #### L IPA, CMP, EMILE, HSTROPN #### [facility] [address] [place] [address] Dr. Avery Khan Potassium [Moles/Vol] 3.9 mmol/L Normal 3.5-5.1 [facility] Comment on above: Performed By: #### L IPA, CMP, EMILE, HSTROPN #### [facility] [address] [place] [address] Dr. Avery Khan Protein [Mass/Vol] 6.7 g/dL Normal 6.4-8.2 [facility] Comment on above: Performed By: #### L IPA, CMP, EMILE, HSTROPN #### [facility] [address] [place] [address] Dr. Avery Khan Sodium [Moles/Vol] 138 mmol/L Normal 136-145 [facility] Comment on above: Performed By: #### L IPA, CMP, EMILE, HSTROPN #### [facility] [address] [place] [address] Dr. Avery Khan Urea nitrogen [Mass/Vol] 17.0 mg/dL Normal 7.0-18.0 [facility] Comment on above: Performed By: #### L IPA, CMP, EMILE, HSTROPN #### [facility] [address] [place] [address] Dr. Avery Khan Urea nitrogen/Creatinine [Mass ratio] 16.5 mg/mg Normal [facility] Comment on above: Performed By: #### L IPA, CMP, EMILE, HSTROPN #### [facility] [address] [place] [address] Dr. Avery Khan TROPONIN, HIGH SENSITIVITYon 07-25-2022 HSTROP 9.0 pg/mL Normal 4.0-76.1 [facility] Comment on above: Result Comment: CUT- OFF POINTS HAVE BEEN ESTABLISHED BASED ON THE FOURTH UNIVERSAL DEFINITIONS OF MYOCARDIAL INFARCTION. THE UPPER REFERENCE LIMIT (URL) OF TROPONIN, DEFINED THE 99TH PERCENTILE OF cTnI DISTRIBUTION IN A REFERENCE POPULATION, HAS BEEN CONFIRMED THE DECISION THRESHOLD FOR [place] DIAGNOSIS. Performed By: #### L IPA, CMP, EMILE, HSTROPN #### [facility] [address] [place] [address] Dr. Avery Khan URINE MICROSCOPIC ONLYon BACTERIA TRACE Abnormal NONE SEEN [facility] Comment on above: Performed By: #### F ETIBC, B12FOL, FERR #### [facility] [address] [place] [address] Dr. Avery Khan Bacteria identified Cx Nom (U) NOT INDICATED Normal [facility] Comment on above: Performed By: #### F ETIBC, B12FOL, FERR #### [facility] [address] [place] [address] Dr. Avery Khan CAST NONE SEEN Normal NONE SEEN [facility] Comment on above: Performed By: #### F ETIBC, B12FOL, FERR #### [facility] [address] [place] [address] Dr. Avery Khan Crystals LM Nom (Urine sed) NONE SEEN Normal NONE SEEN [facility] Comment on above: Performed By: #### F ETIBC, B12FOL, FERR #### [facility] [address] [place] [address] Dr. Avery Khan Epithelial cells LM Ql (Urine sed) RARE Normal NONE SEEN /RARE [facility] Comment on above: Performed By: #### F ETIBC, B12FOL, FERR #### [facility] [address] [place] [address] Dr. Avery Khan MUCOUS NONE SEEN Normal NONE SEEN [facility] Comment on above: Performed By: #### F ETIBC, B12FOL, FERR #### [facility] [address] [place], [place] [address] Dr. Avery Khan RBC 0-2 Normal 0-2 [facility] Comment on above: Performed By: #### F ETIBC, B12FOL, FERR #### [facility] [address] [place], [place] [address] Dr. Avery Khan WBC NONE SEEN Normal NONE SEEN [facility] Comment on above: Performed By: #### F ETIBC, B12FOL, FERR #### [facility] [address] [place], [place] [address] Dr. Avery Khan Screenson 06-22-2022 Screens [id number]. [id number] [facility] Ambulatory Visit Summaryon 0 06-21-2022 Ambulatory Visit Summary MALCOLM PFEIFFER :1945 Visit Date:06/21/2022 Ambulatory Visit Instructions Your Diagnosis Rising PSA following treatment for malignant neoplasm of prostate History of prostate cancer Tests Performed Urnls Dip Stick Auto w/o Microscopy POC 55350 Your Care Team Attending Physician - ERIKA [...] URL When: Only if needed Where: [address] [place] [address] Medications What How Much When Instructions Unchanged [...] Urnls Dip Stick Auto w/o Microscopy POC 36678 (06/21/2022) Bilirubin Urine Dipstick - Negative Blood Urine Dipstick - Trace-intact Glucose Urine Dipstick - Negative Ketones Urine Dipstick - Negative Leukocytes Urine Dipstick - Negative Nitrite Urine Dipstick - Negative Protein Urine Dipstick - Negative Specific [place] Urine Dipstick - 1.020 Urine Appearance Urine [...] f (more content not included)... Normal [facility] Patient Educationon 06-21-19 Patient Education Urology Testicular [...] 08/10/2009 Document Revised: 09/04/2019 Document Reviewed: 04/09/2017 Elsevier Patient Education ? 2019 [employer] Normal [facility] Urology Office/Clinic Noteon 06-21-2022 Urology Office/Clinic Note [...] following treatment for malignant neoplasm of prostate) [place] 6, initial PSA 6.63, treated with Brachytherapy [...] E&M of Est. Patient Low 20-29 Min 38222 2. History of prostate cancer (Z85.46: Personal history of malignant neoplasm of prostate) Pt is S/P Brachytherapy 12/2016 Ordered: E&M of Est. Patient Low 20-29 Min 85360 Urnls Dip Stick Auto w/o Microscopy POC 58920 3. BPH with urinary obstruction (N40.1: Benign prostatic hyperplasia with lower urinary tract symptoms) IPSS (4). Pt is currently taking no bladder/prostate medication and is highly satisfied with overall symptom control. No indication for treatment at this time. Continue to monitor. UA completed in office today shows no microhematuria or signs of infection. Ordered: E&M of Est. Patient Low 20-29 Min 67655 Other obstructive and reflux uropathy (N13.8: Other obstructive and reflux uropathy) offered annual f/u. pt is 5 yrs out from [facility] and continues to see Dr Michaels annually. prefers to f/u w our office PRN. Follow-up With When Contact Information DANIEL FLORES, ERIKA Jon, URL Only if needed [address] [place] [address] Additional Instructions: Patient Education Testicular Self-Exam, [id number] Documentation recorded by the scribblessing Aleman accurately reflects the services(s) I performed and decisions made by me. Authenticated by Erika Sanchez PA-C on 06/21/2022 13:51:53. IHuma, personally scribed for Erika Sanchez PA-C on [...] Results Bilirub (more content not included)... Normal [facility] Comment on above: Result Comment: Elec tronically Signed By: ERIKA SANCHEZ PA-C\.br\Date and Time Signed: 06/21/22 13:52 EST\.br\Electronically Co-Signed By: Huma Aleman\.br\Date and Time Co-Signed: 06/21/22 13:38 EST\.br\Electronically Co-Signed By: Rodrigo MCINTYRE, Marichuy Chung CBC AUTO DIFFon 05-04-2022 BASO # 0.0 103/ul Normal 0.0-0.1 [facility] Comment on above: Performed By: #### C BC #### [facility] [address] [place] [address] Dr. Avery Khan Basophils/100 WBC (Bld) 0.7 % Normal 0.2-2.0 [facility] Comment on above: Performed By: #### C BC #### [facility] [address] [place] [address] Dr. Avery Khan EO # 0.3 103/ul Normal 0.0-0.7 [facility] Comment on above: Performed By: #### C BC #### [facility] [address] [place] [address] Dr. Avery Khan Eosinophils/100 WBC (Bld) 5.0 % Normal 0.9-7.0 [facility] Comment on above: Performed By: #### C BC #### [facility] [address] [place] [address] Dr. Avery Khan Erythrocyte distribution width (RBC) [Ratio] 13.8 % Normal 11.0-15.0 [facility] Comment on above: Performed By: #### C BC #### [facility] [address] [place] [address] Dr. Avery Khan Hematocrit (Bld) [Volume fraction] 36.9 % Critically low 42.0-54.0 [facility] Comment on above: Performed By: #### C BC #### [facility] [address] [place] [address] Dr. Avery Khan Hemoglobin (Bld) [Mass/Vol] 12.6 g/dL Critically low 14.0-18.0 [facility] Comment on above: Performed By: #### C BC #### [facility] [address] [place] [address] Dr. Avery Khan IG # 0.01 10e3/ul Normal 0.00-0.03 [facility] Comment on above: Performed By: #### C BC #### [facility] [address] [place] [address] Dr. Avery Khan IG % 0.2 % Normal 0.0-0.5 [facility] Comment on above: Performed By: #### C BC #### [facility] [address] [place] [address] Dr. Avery Khan LYMPH # 1.5 103/ul Normal 1.2-3.8 [facility] Comment on above: Performed By: #### C BC #### [facility] [address] [place] [address] Dr. Avery Khan Lymphocytes/100 WBC (Bld) 27.3 % Normal 20.5-60.0 [facility] Comment on above: Performed By: #### C BC #### [facility] [address] [place] [address] Dr. Avery Khan MANUAL DIFF REQ NO Normal [facility] Comment on above: Performed By: #### C BC #### [facility] [address] [place] [address] Dr. Avery Khan MCH (RBC) [Entitic mass] 31.3 pg Normal 25.9-34.0 [facility] Comment on above: Performed By: #### C BC #### [facility] [address] [place] [address] Dr. Avery Khan MCHC (RBC) [Mass/Vol] 34.1 g/dL Normal 29.9-35.2 [facility] Comment on above: Performed By: #### C BC #### [facility] [address] [place] [address] Dr. Avery Khan MCV (RBC) [Entitic vol] 91.6 fL Normal 80.0-94.0 [facility] Comment on above: Performed By: #### C BC #### [facility] [address] [place] [address] Dr. Avery Khan MONO # 0.6 103/ul Normal 0.3-0.8 [facility] Comment on above: Performed By: #### C BC #### [facility] [address] [place] [address] Dr. Avery Khan Monocytes/100 WBC (Bld) 10.4 % Normal 1.7-12.0 [facility] Comment on above: Performed By: #### C BC #### [facility] [address] [place] [address] Dr. Avery Khan NEUT # 3.0 103/ul Normal 1.4-6.5 [facility] Comment on above: Performed By: #### C BC #### [facility] [address] [place] [address] Dr. Avery Kahn Neutrophils/100 WBC (Bld) 56.4 % Normal 43.0-75.0 [facility] Comment on above: Performed By: #### C BC #### [facility] [address] [place] [address] Dr. Avery Khan Platelet mean volume (Bld) [Entitic vol] 9.9 fL Normal 9.5-13.5 [facility] Comment on above: Performed By: #### C BC #### [facility] [address] [place] [address] Dr. Avery Khan PLT 281 103/ul Normal 150-450 [facility] Comment on above: Performed By: #### C BC #### [facility] [address] [place] [address] Dr. Avery Khan RBC 4.03 106/ul Critically low 4.70-6.10 [facility] Comment on above: Performed By: #### C BC #### [facility] [address] [place] [address] Dr. Avery Khan WBC 5.4 103/ul Normal 4.0-11.0 [facility] Comment on above: Performed By: #### C BC #### [facility] [address] [place] [address] Dr. Avery Khan FERRITINon 05-04-2022 Ferritin [Mass/Vol] 72.0 ng/mL Normal 26.0-388.0 [facility] Comment on above: Performed By: #### F ETIBC, B12FOL, FERR #### [facility] [address] [place] [address] Dr. Avery Khan IRON AND TIBCon 05-04-2022 % SATURATION 30.9 % Normal [facility] Comment on above: Performed By: #### F ETIBC, B12FOL, FERR #### [facility] [address] [place] [address] Dr. Avery Khan Iron [Mass/Vol] 92.0 ug/dL Normal 65.0-175.0 [facility] Comment on above: Performed By: #### F ETIBC, B12FOL, FERR #### [facility] [address] [place] [address] Dr. Avery Khan TIBC DIRECT 298.0 ug/dL Normal 250.0-450.0 [facility] Comment on above: Performed By: #### F ETIBC, B12FOL, FERR #### [facility] [address] [place] [address] Dr. Avery Khan VIT B12 AND FOLATEon 022 Cobalamin (Vitamin B12) [Mass/Vol] 524.0 pg/mL Normal 193.0-986.0 [facility] Comment on above: Performed By: #### F ETIBC, B12FOL, FERR #### [facility] [address] [place] [address] Dr. Avery Khan FOLATE 15.70 ng/mL Normal 8.60-58.90 [facility] Comment on above: Performed By: #### F ETIBC, B12FOL, FERR #### [facility] [address] [place] [address] Dr. Avery Khan CBC AUTO DIFFon 02-14-2022 BASO # 0.0 103/ul Normal 0.0-0.1 [facility] Comment on above: Performed By: #### F ETIBC, B12FOL, FERR #### [facility] [address] [place] [address] Dr. Avery Khan Basophils/100 WBC (Bld) 0.6 % Normal 0.2-2.0 [facility] Comment on above: Performed By: #### F ETIBC, B12FOL, FERR #### [facility] [address] [place] [address] Dr. Avery Khan EO # 0.3 103/ul Normal 0.0-0.7 [facility] Comment on above: Performed By: #### F ETIBC, B12FOL, FERR #### [facility] [address] [place] [address] Dr. Avery Khan Eosinophils/100 WBC (Bld) 4.2 % Normal 0.9-7.0 [facility] Comment on above: Performed By: #### F ETIBC, B12FOL, FERR #### [facility] [address] [place] [address] Dr. Avery Khan Erythrocyte distribution width (RBC) [Ratio] 14.3 % Normal 11.0-15.0 [facility] Comment on above: Performed By: #### F ETIBC, B12FOL, FERR #### [facility] [address] [place] [address] Dr. Avery Khan Hematocrit (Bld) [Volume fraction] 38.2 % Critically low 42.0-54.0 [facility] Comment on above: Performed By: #### F ETIBC, B12FOL, FERR #### [facility] [address] [place] [address] Dr. Avery Khan Hemoglobin (Bld) [Mass/Vol] 12.6 g/dL Critically low 14.0-18.0 [facility] Comment on above: Performed By: #### F ETIBC, B12FOL, FERR #### [facility] [address] [place] [address] Dr. Avery Khan IG # 0.02 10e3/ul Normal 0.00-0.03 [facility] Comment on above: Performed By: #### F ETIBC, B12FOL, FERR #### [facility] [address] [place] [address] Dr. Avery Khan IG % 0.3 % Normal 0.0-0.5 [facility] Comment on above: Performed By: #### F ETIBC, B12FOL, FERR #### [facility] [address] [place] [address] Dr. Avery Khan LYMPH # 1.3 103/ul Normal 1.2-3.8 [facility] Comment on above: Performed By: #### F ETIBC, B12FOL, FERR #### [facility] [address] [place] [address] Dr. Avery Khan Lymphocytes/100 WBC (Bld) 20.1 % Critically low 20.5-60.0 [facility] Comment on above: Performed By: #### F ETIBC, B12FOL, FERR #### [facility] [address] [place] [address] Dr. Avery Khan MANUAL DIFF REQ NO Normal [facility] Comment on above: Performed By: #### F ETIBC, B12FOL, FERR #### [facility] [address] [place] [address] Dr. Avery Khan MCH (RBC) [Entitic mass] 30.4 pg Normal 25.9-34.0 [facility] Comment on above: Performed By: #### F ETIBC, B12FOL, FERR #### [facility] [address] [place] [address] Dr. Avery Khan MCHC (RBC) [Mass/Vol] 33.0 g/dL Normal 29.9-35.2 [facility] Comment on above: Performed By: #### F ETIBC, B12FOL, FERR #### [facility] [address] [place] [address] Dr. Avery Khan MCV (RBC) [Entitic vol] 92.3 fL Normal 80.0-94.0 [facility] Comment on above: Performed By: #### F ETIBC, B12FOL, FERR #### [facility] [address] [place] [address] Dr. Avery Khan MONO # 0.5 103/ul Normal 0.3-0.8 [facility] Comment on above: Performed By: #### F ETIBC, B12FOL, FERR #### [facility] [address] [place] [address] Dr. Avery Khan Monocytes/100 WBC (Bld) 8.7 % Normal 1.7-12.0 [facility] Comment on above: Performed By: #### F ETIBC, B12FOL, FERR #### [facility] [address] [place] [address] Dr. Avery Khan NEUT # 4.1 103/ul Normal 1.4-6.5 [facility] Comment on above: Performed By: #### F ETIBC, B12FOL, FERR #### [facility] [address] [place] [address] Dr. Avery Khan Neutrophils/100 WBC (Bld) 66.1 % Normal 43.0-75.0 [facility] Comment on above: Performed By: #### F ETIBC, B12FOL, FERR #### [facility] [address] [place] [address] Dr. Avery Khan Platelet mean volume (Bld) [Entitic vol] 9.4 fL Critically low 9.5-13.5 [facility] Comment on above: Performed By: #### F ETIBC, B12FOL, FERR #### [facility] [address] [place] [address] Dr. Avery Khan PLT 265 103/ul Normal 150-450 [facility] Comment on above: Performed By: #### F ETIBC, B12FOL, FERR #### [facility] [address] [place] [address] [address] Avery Khan RBC 4.14 106/ul Critically low 4.70-6.10 [facility] Comment on above: Performed By: #### F ETIBC, B12FOL, FERR #### [facility] [address] [place] [address] [address] Avery Khan WBC 6.2 103/ul Normal 4.0-11.0 [facility] Comment on above: Performed By: #### F ETIBC, B12FOL, FERR #### [facility] [address] [place] [address] Dr. Avery Khan PROF 14(COMP METB)on 022 Albumin [Mass/Vol] 3.6 g/dL Normal 3.4-5.0 [facility] Comment on above: Performed By: #### F ETIBC, B12FOL, FERR #### [facility] [address] [place] [address] Dr. Avery Khan Albumin/Globulin [Mass ratio] 1.1 {ratio} Normal [facility] Comment on above: Performed By: #### F ETIBC, B12FOL, FERR #### [facility] [address] [place] [address] Dr. Avery Khan ALP [Catalytic activity/Vol] 80 U/L Normal 46-116 [facility] Comment on above: Performed By: #### F ETIBC, B12FOL, FERR #### [facility] [address] [place] [address] Dr. Avery Khan ALT [Catalytic activity/Vol] 28 U/L Normal 16-63 [facility] Comment on above: Performed By: #### F ETIBC, B12FOL, FERR #### [facility] [address] [place] [address] Dr. Avery Khan Anion gap [Moles/Vol] 7.7 mmol/L Normal [facility] Comment on above: Performed By: #### F ETIBC, B12FOL, FERR #### [facility] [address] [place] [address] Dr. Avery Khan AST [Catalytic activity/Vol] 21 U/L Normal 15-37 [facility] Comment on above: Performed By: #### F ETIBC, B12FOL, FERR #### [facility] [address] [place] [address] Dr. Avery Khan Bilirubin [Mass/Vol] 0.6 mg/dL Normal 0.2-1.0 [facility] Comment on above: Performed By: #### F ETIBC, B12FOL, FERR #### [facility] [address] [place] [address] Dr. Avery Khan Calcium [Mass/Vol] 8.4 mg/dL Critically low 8.5-10.[address] [facility] Comment on above: Performed By: #### F ETIBC, B12FOL, FERR #### [facility] [address] [place] [address] Dr. Avery Khan Chloride [Moles/Vol] 106 mmol/L Normal 98-107 [facility] Comment on above: Performed By: #### F ETIBC, B12FOL, FERR #### [facility] [address] [place] [address] Dr. Avery Khan CO2 [Moles/Vol] 30.4 mmol/L Normal 21.0-32.0 [facility] Comment on above: Performed By: #### F ETIBC, B12FOL, FERR #### [facility] [address] [place] [address] Dr. Avery Khan Creatinine [Mass/Vol] 1.02 mg/dL Normal 0.70-1.30 [facility] Comment on above: Performed By: #### F ETIBC, B12FOL, FERR #### [facility] [address] [place] [address] Dr. Avery Khan EGFR-AF ANDORRAN >60 Normal >=60 [facility] Comment on above: Performed By: #### F ETIBC, B12FOL, FERR #### [facility] [address] [place] [address] [address] Avery Khan EGFR-NON AF ANDORRAN >60 Normal >=60 [facility] Comment on above: Performed By: #### F ETIBC, B12FOL, FERR #### [facility] [address] [place] [address] Dr. Avery Khan Globulin (S) [Mass/Vol] 3.4 g/dL Normal [facility] Comment on above: Performed By: #### F ETIBC, B12FOL, FERR #### [facility] [address] [place] [address] Dr. Avery Kahn Glucose [Mass/Vol] 91 mg/dL Normal 74-106 [facility] Comment on above: Performed By: #### F ETIBC, B12FOL, FERR #### [facility] [address] [place] [address] Dr. Avery Khan Potassium [Moles/Vol] 4.1 mmol/L Normal 3.5-5.1 [facility] Comment on above: Performed By: #### F ETIBC, B12FOL, FERR #### [facility] [address] [place] [address] Dr. Avery Khan Protein [Mass/Vol] 7.0 g/dL Normal 6.4-8.2 [facility] Comment on above: Performed By: #### F ETIBC, B12FOL, FERR #### [facility] [address] [place] [address] Dr. Avery Khan Sodium [Moles/Vol] 140 mmol/L Normal 136-145 [facility] Comment on above: Performed By: #### F ETIBC, B12FOL, FERR #### [facility] [address] [address] [address] Avery Khan Urea nitrogen [Mass/Vol] 14.0 mg/dL Normal 7.0-18.0 [facility] Comment on above: Performed By: #### F ETIBC, B12FOL, FERR #### [facility] [address] [place] [address] Dr. Avery Khan Urea nitrogen/Creatinine [Mass ratio] 13.7 mg/mg Normal [facility] Comment on above: Performed By: #### F ETIBC, B12FOL, FERR #### [facility] [address] [address] [address] Avery Khan Provider Letteron 02-02-2022 Provider Letter February 02, 2022 MALCOLM PFEIFFER [address] [place], [place] [id number] MALCOLM PFEIFFER 1945 Dear Mr. Pfeiffer, We have been trying to reach you with no success. You have an appointment with Erika Sanchez PA-C on 02/16/2022 which will need to be rescheduled since she will not be in the [place] office that day. Please contact the office at the number listed below to get this appointment rescheduled at your earliest convenience. Thank you for your prompt attention to this matter. Sincerely, [facility] [address] [place] [address] [facility] Vital Signs Date Time Vital Sign Value Performing Clinician Facility 02-18-2024 08:29-0400 Body height 175.26 cm [facility] 02-18-2024 08:29-0400 Body mass index (BMI) [Ratio] 22.7 kg/m2 [facility] 02-18-2024 08:290400 Body weight 69.85 kg [facility] 02-18-2024 08:29-0400 Diastolic blood pressure 78 mm[Hg] [facility] 02-18-2024 08:29-0400 Heart rate 55 /min [facility] 02-18-2024 08:29-0400 SaO2% (BldA) [Mass fraction] 97 % [facility] 02-18-2024 08:29-0400 Systolic blood pressure 124 mm[Hg] [facility] 01-25-2024 14:190400 Body height 175.26 cm [facility] 01-25-2024 14:19-0400 Body mass index (BMI) [Ratio] 22.9 kg/m2 [facility] 01-25-2024 14:190400 Body weight 70.47 kg [facility] 01-25-2024 14:19-0400 Diastolic blood pressure 64 mm[Hg] [facility] 01-25-2024 14:19-0400 Heart rate 59 /min [facility] 01-25-2024 14:19-0400 Respiratory rate 12 /min [facility] 01-25-2024 14:19-0400 Systolic blood pressure 133 mm[Hg] [facility] 01-18-2024 09:00-0400 Body height 175.3 cm Gabriela Bah MD Work Phone: [facility] 01-18-2024 09:00-0400 Body mass index (BMI) [Ratio] 22.43 kg/m2 Gabriela Bah MD Work Phone: [facility] 01-18-2024 09:00-0400 Body weight 68.9 kg Gabriela Bah MD Work Phone: [facility] 01-18-2024 09:00-0400 Diastolic blood pressure 65 mm[Hg] Gabriela Bah MD Work Phone: [facility] 01-18-2024 09:00-0400 Heart rate 54 /min Gabriela Bah MD Work Phone: [facility] 01-18-2024 09:00-0400 Systolic blood pressure 118 mm[Hg] Gabriela Bah MD Work Phone: [facility] 12-13-2023 09:32-0400 Body mass index (BMI) [Ratio] 22.68 kg/m2 [facility] Michaels MD Work Phone: [facility] 12-13-2023 09:32-0400 Body temperature 97.5 [degF] MIHIR Michaels MD Work Phone: [facility] 12-13-2023 09:32-0400 Body weight 69.7 kg MIHIR Michaels MD Work Phone: [facility] 12-13-2023 09:32-0400 Diastolic blood pressure 79 mm[Hg] MIHIR Michaels MD Work Phone: [facility] 12-13-2023 09:32-0400 Heart rate 51 /min MIHIR Michaels MD Work Phone: [facility] 12-13-2023 09:32-0400 Respiratory rate 16 /min MIHIR Michaels MD Work Phone: [facility] 12-13-2023 09:32-0400 SaO2% (BldA) [Mass fraction] 99 % MIHIR Michaels MD Work Phone: [facility] 12-13-2023 09:32-0400 Systolic blood pressure 133 mm[Hg] MIHIR Michaels MD Work Phone: [facility] 10-25-2023 10:30-0400 Body mass index (BMI) [Ratio] 22.94 kg/m2 MIHIR Michaels MD Work Phone: [facility] 10-25-2023 10:30-0400 Body temperature 97.59 [degF] MIHIR Michaels MD Work Phone: [facility] 10-25-2023 10:30-0400 Body weight 70.5 kg MIHIR Michaels MD Work Phone: [facility] 10-25-2023 10:30-0400 Diastolic blood pressure 68 mm[Hg] MIHIR Michaels MD Work Phone: [facility] 10-25-2023 10:30-0400 Heart rate 52 /min MIHIR Michaels MD Work Phone: [facility] 10-25-2023 10:30-0400 Respiratory rate 16 /min MIHIR Michaels MD Work Phone: [facility] 10-25-2023 10:30-0400 SaO2% (BldA) [Mass fraction] 97 % MIHIR Michaels MD Work Phone: [facility] 10-25-2023 10:30-0400 Systolic blood pressure 147 mm[Hg] MIHIR Michaels MD Work Phone: [facility] 08-16-2023 08:32-0400 Body height 175.26 cm [facility] 08-16-2023 08:32-0400 Body mass index (BMI) [Ratio] 22.9 kg/m2 [facility] 08-16-2023 08:32-0400 Body weight 70.53 kg [facility] 08-16-2023 08:32-0400 Diastolic blood pressure 76 mm[Hg] [facility] 08-16-2023 08:32-0400 Heart rate 54 /min [facility] 08-16-2023 08:32-0400 Respiratory rate 12 /min [facility] 08-16-2023 08:32-0400 Systolic blood pressure 124 mm[Hg] [facility] 12-14-2022 08:48-0400 Body temperature 96.8 [degF] MIHIR Michaels MD Work Phone: [facility] 12-14-2022 08:48-0400 Body weight 68.86 kg MIHIR Michaels MD Work Phone: [facility] 12-14-2022 08:48-0400 Diastolic blood pressure 68 mm[Hg] MIHIR Michaels MD Work Phone: [facility] 12-14-2022 08:48-0400 Heart rate 54 /min MIHIR Michaels MD Work Phone: [facility] 12-14-2022 08:48-0400 Respiratory rate 18 /min MIHIR Michaels MD Work Phone: [facility] 12-14-2022 08:48-0400 SaO2% (BldA) [Mass fraction] 97 % MIHIR Michaels MD Work Phone: [facility] 12-14-2022 08:48-0400 Systolic blood pressure 103 mm[Hg] MIHIR Michaels MD Work Phone: [facility] 07-31-2022 08:30-0500 Body height 175.26 cm Joaquin Ball Other [facility] Other 07-31-2022 08:30-0500 Body mass index (BMI) [Ratio] 23.27 kg/m2 Joaquin Ball Other [facility] Other 07-31-2022 08:30-0500 Body weight 71.49 kg Joaquin Ball Other [facility] Other 07-31-2022 08:30-0500 Diastolic blood pressure 86 mm[Hg] Joaquin Ball Other [facility] Other 07-31-2022 08:30-0500 Respiratory rate 12 /min Joaquin Ball Other [facility] Other 07-31-2022 08:30-0500 Systolic blood pressure 122 mm[Hg] Joaquin Ball Other [facility] Other 07-26-2022 11:30-0500 Body height 175.26 cm Joaquin Ball Other [facility] Other 07-26-2022 11:30-0500 Body mass index (BMI) [Ratio] 23.48 kg/m2 Joaquin Ball Other [facility] Other 07-26-2022 11:30-0500 Body weight 72.12 kg Joaquin Ball Other [facility] Other 07-26-2022 11:30-0500 Diastolic blood pressure 82 mm[Hg] Joaquin Ball Other [facility] Other 07-26-2022 11:30-0500 Respiratory rate 12 /min Joaquin Ball Other [facility] Other 07-26-2022 11:30-0500 Systolic blood pressure 122 mm[Hg] Joaquin Ball Other [facility] Other 06-21-2022 13:20-0500 Blood Pressure Location ERIKA SANCHEZ [facility] 06-21-2022 13:20-0500 Diastolic blood pressure 74 mm[Hg] ERIKA SANCEHZ [facility] 06-21-2022 13:20-0500 Heart rate 86 /min ERIKA SANCHEZ [facility] 06-21-2022 13:20-0500 Respiratory rate 16 /min ERIKA SANCHEZ [facility] 06-21-2022 13:20-0500 Systolic blood pressure 128 mm[Hg] ERIKA SANCHEZ [facility] 12-15-2021 09:02-0400 Body temperature 97.11 [degF] MIHIR Michaels MD Work Phone: [facility] 12-15-2021 09:02-0400 Body weight 69.22 kg MIHIR Michaels MD Work Phone: [facility] 12-15-2021 09:02-0400 Diastolic blood pressure 65 mm[Hg] MIHIR Michaels MD Work Phone: [facility] 12-15-2021 09:02-0400 Heart rate 59 /min MIHIR Michaels MD Work Phone: [facility] 12-15-2021 09:02-0400 Respiratory rate 16 /min MIHIR Michaels MD Work Phone: [facility] 12-15-2021 09:02-0400 SaO2% (BldA) [Mass fraction] 99 % MIHIR Michaels MD Work Phone: [facility] 12-15-2021 09:02-0400 Systolic blood pressure 130 mm[Hg] MIHIR Michaels MD Work Phone: [facility] Encounters Encounter Date Encounter Type Care Provider Facility Start: 02-18-2024 End: 02-18-2024 ambulatory [facility] Work Phone: Start: 02-18-2024 End: 02-18-2024 Patient encounter procedure [facility] Work Phone: Start: 02-14-2024 Patient encounter procedure [facility] Start: 01-25-2024 End: 01-25-2024 ambulatory [facility] Work Phone: Start: 01-25-2024 End: 01-25-2024 Patient encounter procedure [facility] Work Phone: Start: 01-18-2024 End: 01-18-2024 ambulatory GABRIELA BAH Facility:[facility] Start: 01-18-2024 End: 01-18-2024 Patient encounter procedure Gabriela Bah MD Work Phone: Colorectal Surgery Comment on above: Anal or rectal pain (Primary Dx); Rectal stricture; Rectal or anal pain Start: 12-13-2023 End: 12-13-2023 Patient encounter procedure Lydia Michaels MD Work Phone: Radiation Oncology Comment on above: History of prostate cancer (Primary Dx); Rectal or anal pain Start: 12-13-2023 End: 12-13-2023 ambulatory Lydia MICHAELS Facility:[facility] Start: 10-25-2023 End: 10-25-2023 ambulatory Lydia MICHAELS Facility:[facility] Start: 10-25-2023 End: 10-25-2023 Patient encounter procedure Lydia Michaels MD Work Phone: Radiation Oncology Comment on above: History of prostate cancer (Primary Dx) Start: 08-16-2023 End: 08-16-2023 ambulatory [facility] Work Phone: Start: 08-16-2023 End: 08-16-2023 Patient encounter procedure [facility] Work Phone: Start: 02-20-2023 End: 02-20-2023 ambulatory Joaquin Guzman Other [facility] Other Start: 02-20-2023 Telephone encounter Joaquin GONZALEZ [facility] Start: 12-14-2022 End: 12-14-2022 Patient encounter procedure Lydia Michaels MD Work Phone: Radiation Oncology Comment on above: History of prostate cancer (Primary Dx); Proctitis, radiation Start: 12-13-2022 End: 12-13-2022 ambulatory Joaquin Guzman Other [facility] Other Start: 12-13-2022 Telephone encounter Joaquin GONZALEZ [facility] Start: 12-11-2022 End: 12-11-2022 ambulatory Joaquin Guzman Other [facility] Other Start: 12-11-2022 Telephone encounter Joaquin GONZALEZ [facility] Start: 07-31-2022 End: 07-31-2022 ambulatory Joaquin Guzman Other [facility] Other Start: 07-31-2022 Office outpatient vi sit 25 minutes Joaquin Guzman [facility] Start: 07-26-2022 End: 07-26-2022 ambulatory Joaquin Guzman Other [facility] Other Start: 07-26-2022 Office outpatient vi sit 15 minutes Joaquin Guzman [facility] Start: 07-25-2022 End: 07-25-[address] SANA BARRERA . Facility: Start: 07-18-2022 End: 07-18-2022 ambulatory Joaquin Guzman Other [facility] Other Start: 07-18-2022 Telephone encounter Joaquin Guzman FP [facility] Start: 06-21-2022 End: 06-22-2022 ambulatory ERIKA SANCHEZ Facility:[facility] Start: 06-21-2022 End: 06-21-2022 Patient encounter procedure ERIKA SANCHEZ [facility] Start: 05-04-2022 End: 05-05-[address] JOAQUIN GUZMAN Facility:[facility] Start: 02-15-2022 Encounter for genera l adult medical examination without abnormal findings DR JOAQUIN GUZMAN [facility] Start: 02-14-2022 End: 02-15-[address] JOAQUIN [...] By: #### F ETIBC, [id number], FERR #### [facility] [address] [place] [address] Dr. Avery Khan Start: 12-13-2021 Adult depression [...] of prostate cancer Expected: 12/12/2024, Expires: 03/13/2025 [facility] Work Phone: Comment on above: Expected: 12/12/2024 , Expires: 03/13/2025 Start: 03-13-2024 End: 03-13-2024 Patient encounter procedure 03/13/2024 9:15 AM EDT Office Visit Radiation Oncology [address] [place] [address] Lydia Michaels MD [address] [place] [address] 3 month rv Radiation Oncology Comment on above: 3 month rv Start: 01-27-2024 Influenza vaccination C [facility] Start: 12-21-2023 End: 12-21-2023 Patient encounter procedure 12/21/2023 12:30 PM EDT Office Visit Colorectal Surgery [address] [place] [id number] [place] [address] [place] [address] new patient, Rectal Pain, colonoscopy was 11/03/15, results scanned into [facility] Colorectal Surgery Comment on above: new patient, Rectal Pain, colonoscopy was 11/03/15, results scanned into [facility] Start: 12-13-2023 End: 12-13-2023 Patient encounter procedure 12/13/2023 10:00 AM EDT Office Visit Radiation Oncology [address] [place] [address] Lydia Michaels MD [address] [place] [address] 1 Yr Follow Up PSA done at [facility] Radiation Oncology Comment on above: 1 Yr Follow Up PSA d one at [facility] Start: 05-28-2023 Advance Directive Discussion Advance Directive Discussion [facility] Start: 05-28-2023 Behavioral Health Screening Behavioral Health Screening [facility] Start: 01-26-2023 Covid-19 Vaccine ( season) Covid-19 Vaccine ( season) [facility] Start: 01-26-2023 Influenza vaccination INFLUENZA (#1) [facility] Start: 12-15-2022 End: 02-14-2023 Prostate specific Ag [Mass/volume] in Serum or Plasma PSA/PROSTSPECAG DIAG Lab Routine Malignant neoplasm of prostate (HCC) Expected: 12/15/2022, Expires: 02/14/2023 [facility] Work Phone: Comment on above: Expected: 12/15/2022 , Expires: 02/14/2023 Start: 12-14-2022 End: 02-13-2023 Prostate specific Ag [Mass/volume] in Serum or Plasma PSA/PROSTSPECAG DIAG Lab Routine History of prostate cancer Expected: 12/14/2022, Expires: 02/13/2023 [facility] Work Phone: Comment on above: Expected: 12/14/2022 , Expires: 02/13/2023 Start: 12-13-2022 Adult depression screening assessment DEPRESSION SCREENING [facility] Start: 05-28-2022 ADVANCE DIRECTIVE DISCUSSION ADVANCE DIRECTIVE DISCUSSION [facility] Start: 05-28-2022 DEPRESSION ASSESSMENT DEPRESSION ASS ESSMENT [facility] Start: 01-26-2022 Influenza vaccination INFLUENZA (#1) [facility] Start: 07-24-2021 COVID-19 VACCINE (4 - Booster for Moderna series) COVID-19 VACCINE (4 - Booster for Moderna series) [facility] Start: 05-28-2021 ADVANCE DIRECTIVE DISCUSSION ADVANCE DIRECTIVE DISCUSSION [facility] Start: 05-18-2021 COVID-19 VACCINE (4 - Moderna series) COVID-19 VACCINE (4 - Moderna series) [facility] Start: 10-30-2016 SHINGRIX VACCINE (2 of 3) SHINGRIX VACCINE (2 of 3) [facility] Start: 09-12-2013 Pneumococcal Vaccine : 65+ (2 of 2 - PCV) Pneumococcal Vaccine: 65+ (2 of 2 - PCV) [facility] Start: 09-12-2013 PNEUMOCOCCAL: 65+ (2 - PCV) PNEUMOCOCCAL: 65+ (2 - PCV) [facility] Start: 2004 RSV Vaccine (1 - 1-d ose 60+ series) RSV Vaccine (1 - 1-dose 60+ series) [facility] Start: 1989 DIABETES SCREEN DIABETES SCREEN [facility] Start: 1989 Diabetes Screening Diabetes Screenin g [facility] Start: 1963 Urine microalbumin profile [facility] Start: 1962 Anxiety Screening Anxiety Screening [facility] Start: 1962 Depression Screening Depression Scre ening [facility] Start: 1962 HEPATITIS C SCREENING HEPATITIS C SC [facility] Comprehensive metabo lic 2000 panel - Serum or Plasma [facility] CT Abdomen and Pelvi s WO contrast [facility] End: 01-17-2025 Flexible sigmoidoscopy study COLONOSCOPY DIAGNOSTIC Endoscopy Routine Rectal stricture 1 Occurrences starting 01/18/2024 until 01/17/2025 [facility] Work Phone: Comment on above: 1 Occurrences starti ng 01/18/2024 until 01/17/2025 Patient Education Low back pain in adults [facility] Work Phone: [facility] Immunizations Immunization Date Immunization Notes Care Provider Nancy lynn 02-18-2024 influenza, high dose seasonal, preservative-free [facility] 02-14-2023 influenza virus vaccine, unspecified formulation [facility] 02-14-2023 influenza, high dose seasonal, preservative-free Joaquin Guzman Other [facility] Other 02-13-2022 influenza (aIIV4) vaccine, age 65+ yr, quadrivalent, PF (FLUAD QUAD) MIHIR Michaels MD Work Phone: [facility] 02-13-2022 influenza virus vaccine, split virus (incl. purified surface antigen) Joaquin Guzman Other [facility] Other 02-13-2022 influenza virus vaccine, unspecified formulation ERIKA SANCHEZ [facility] 03-23-2021 SARS-CoV-2 (COVID-19 ) mRNA-1273 vaccine ERIKAEMILY SANCHEZ [facility] 02-10-2021 influenza nasal, unspecified formulation MIHIR Michaels MD Work Phone: [facility] 02-10-2021 influenza virus vaccine, split virus (incl. purified surface antigen) Joaquin Guzman Other [facility] Other 02-10-2021 influenza virus vaccine, unspecified formulation ERIKA SANCHEZ [facility] 02-10-2021 Seasonal trivalent influenza vaccine, adjuvanted, preservative free MIHIR Michaels MD Work Phone: [facility] 07-21-2020 COVID-19, mRNA, LNP- S, PF, 100 mcg or 50 mcg dose ERIKA DANIEL [facility] Comment on above: Reason for Medicatio n: Other (see comment) 06-23-2020 COVID-19, mRNA, LNP- S, PF, 100 mcg or 50 mcg dose ERIKA DANIEL [facility] Comment on above: Reason for Medicatio n: Other (see comment) 02-10-2020 influenza virus vaccine, split virus (incl. purified surface antigen) Joaquin Guzman Other [facility] Other 02-10-2020 influenza virus vaccine, unspecified formulation [facility] 03-07-2019 influenza virus vaccine, live, attenuated, for intranasal use ERIKA DANIEL [facility] 02-05-2019 influenza nasal, unspecified formulation MIHIR Michaels MD Work Phone: [facility] 02-05-2019 influenza virus vaccine, unspecified formulation ERIKA DANIEL [facility] 02-05-2019 Seasonal trivalent influenza vaccine, adjuvanted, preservative free MIHIR Michaels MD Work Phone: [facility] 02-20-2018 influenza nasal, unspecified formulation MIHIR Michaels MD Work Phone: [facility] 02-20-2018 influenza virus vaccine, split virus (incl. purified surface antigen) Joaquin Guzman Other [facility] Other 02-20-2018 influenza virus vaccine, unspecified formulation ERIKA SANCHEZ [facility] 02-20-2018 Influenza, injectabl e, Madin Britt Canine Kidney, quadrivalent with preservative MIHIR Michaels MD Work Phone: [facility] 02-26-2017 influenza nasal, unspecified formulation MIHIR Michaels MD Work Phone: [facility] 02-26-2017 influenza virus vaccine, split virus (incl. purified surface antigen) Joaquin Guzman Other [facility] Other 02-26-2017 influenza virus vaccine, unspecified formulation ERIKA SANCHEZ [facility] 02-26-2017 influenza, high dose seasonal, preservative-free MIHIR Michaels MD Work Phone: [facility] 09-04-2016 zoster vaccine, live NA Hetal hernadez MD Work Phone: [facility] 08-30-2016 zoster vaccine, live Georgiana Guzman Other [facility] 03-30-2016 influenza nasal, unspecified formulation MIHIR Michaels MD Work Phone: [facility] 03-30-2016 influenza virus vaccine, unspecified formulation ERIKA SANCHEZ [facility] 03-30-2016 influenza, injectabl e, quadrivalent, contains preservative NA Xenia MCINTYRE Work Phone: [facility] 03-08-2016 influenza virus vaccine, split virus (incl. purified surface antigen) Joaquin Guzman Other [facility] Other 03-08-2016 influenza virus vaccine, unspecified formulation [facility] 09-02-2015 pneumococcal conjuga te vaccine, 13 valent Joaquin Guzman Other [facility] 09-12-2012 pneumococcal polysaccharide vaccine, 23 valent NA Xenia MCINTYRE Work Phone: [facility] 07-28-1998 pneumococcal polysaccharide vaccine, 23 valent Joaquin Guzman Other [facility] Payers Date Payer Category Payer Medicare DEVOTED MEDICARE [facility] HMO [id number] 2022-Present [phone] [address] [place] [address] HMO [id number] 2022 Medicare [id number] 2022 Unknown [id number] 2020 Unknown [id number] 2016 Unknown [employer]IC[employer] SUPPLEMENT [id number] 2016-Present [phone] [id number] [place] [address] Indemnity [id number] 2009 Medicare MEDICARE MEDICAR E A AND B [id number] 2009-Present [phone] [place] [address] Medicare [id number] 1959 Medicare [id number] 1959 Unknown [id number] 1944 Unknown [id number] 3 1944 Unknown [id number] 3 1944 Unknown [id number] 3 1944 Unknown [id number] 3 1944 Unknown [id number] Social History Date Type Detail Facility Start: 12-05-2016 End: 08-16-2023 Tobacco smoking status NHIS Never smoked tobacco [facility] Start: 12-05-2016 End: 12-14-2022 Tobacco use and exposure Smokeless tobacco non-user [facility] Start: 1945 Sex Assigned At Not on file C [facility] Tobacco smoking status Never [facility] Start: 12-14-2022 End: 10-23-2023 Sex Assigned At Male [facility] Start: 12-14-2022 End: 10-23-2023 History of Social function [facility] Start: 1945 Sex Assigned At Male F [facility] Functional Status Date Assessment Result Facility 06-21-2022 Functional Status N/A [facility] Clinical Notes 12-05-2016 to 01-18-2024 Gabriela Bah [...] for internal providers or letter via the [employer] for external providers. Chief Complaint: rectal pain/ rectal stricture History of Present Illness: Malcolm Pfeiffer is a 78 year old male presents to the office for evaluation of rectal pain and rectal stricture. He has a history of [id number] prostate adenocarcinoma. Colonoscopy in 2016 -normal Scan [...] exam Anorectal: External exam reveals: see below Video Editor present: yes Assessment Assessment and Plan: Malcolm [...] MD Colorectal Surgery documented in this encounter [facility] 01-18-2024 Note HNO ID: [id number] Author: GABRIELA BAH MD Service: ? Author Type: Physician Type: Progress Notes Filed: 01/18/2024 09:49 Note Text: COLORECTAL SURGERY January 18, 2024 Malcolm Pfeiffer 78 year old This consult was requested by Dr. Miguel A Michaels and my final recommendations will be communicated to the requesting health care provider by way of the shared medical record for internal providers or letter via the [employer] Postal [employer] for external providers. Chief Complaint: rectal pain/ rectal stricture History of Present Illness: Malcolm Pfeiffer is a 78 year old male presents to the office for evaluation of rectal pain and rectal stricture. He has a history of [id number] prostate adenocarcinoma. Colonoscopy in 2016 -normal Scan [...] exam Anorectal: External exam reveals: see below Video Editor present: yes Assessment Assessment and Plan: Malcolm [...] his pcp. Gabriela Bah MD Colorectal Surgery [facility] 12-13-2023 History of Present illness Narrative radiation [...] Lydia Michaels MD cc: Joaquin Guzman MD ([facility]) [address] [place] [address] documented in this encounter [facility] 12-13-2023 Note HNO ID: [id number] Author: Lydia MICHAELS MD Service: ? Author [...] Lydia Michaels MD cc: Joaquin Guzman MD ([facility]) [address] [place] [id number] [facility] 12-13-2023 Nurse Note AUA= 3 [facility] 12-13-2023 Nurse Note AUA= 3 documented in this encounter [facility] 10-25-2023 History of Present illness Narrative radiation [...] Lydia Michaels MD cc: Joaquin Guzman MD ([facility]) [address] [place] [address] documented in this encounter [facility] 10-25-2023 Note HNO ID: [id number] Author: Lydia MICHAELS MD Service: ? Author Type: Physician Type: Progress Notes Filed: 10/25/2023 11:24 Note Text: radiation Oncology - Follow Up Note PATIENT NAME: Malcolm Pfeiffer PATIENT DIAGNOSIS: Prostate adenocarcinoma, initial PSA 6.63, biopsy [place] score 3 + 3 = 6 (grade [...] Lydia Michaels MD cc: Joaquin Guzman MD ([facility]) [address] [place] [address] [facility] 02-20-2023 Evaluation note Encounter Date Diagnosis Assessment Notes Jan, Mass of soft tissue of shoulder (ICD-10 - M79.89) [facility] Other 07-20-2023 History of Present illness Narrative* [...] Lydia Michaels MD cc: Joaquin Guzman MD ([facility]) [address] [place] [address] Dr. Swain [facility]* Encounter Date Diagnosis Assessment Notes Treatment Notes Treatment Clinical Notes Nov, Adenocarcinoma of prostate (ICD-10 - C61) [facility] Other 04-20-2023 Nurse Note* Wiliam August - 12/14/2022 8:51 AM EDT AUA=2 documented in this encounterF[facility] Evaluation [facility]* Encounter Date Diagnosis Assessment Notes [...] use, the patient reduces the risk for VT, CVA, HTN, cardiac dysrhythmias and sudden cardiac [...] keep bowel function normal and reduces pain [employer] Other 03-01-2023 Evaluation note* Encounter Date Diagnosis [...] (ICD-10 - C61) Stable w/o s/s recurrence. [employer] Other 01-25-2023 Hospital Discharge instructions Patient Education 06/21/2022 13:37:37 Testicular Self-Exam, Bavd-zy-[id number] Testicular Self-Exam A self-exam of your testicles [...] 08/10/2009 Document Revised: 09/04/2019 Document Reviewed: 04/09/2017 [employer] Patient Education 2020 [employer]. Follow Up Care 02/15/2021 08:56:21 With:ERIKA SANCHEZ PA-C, URL Address: [address] [place] [address] [address] When: only if needed [facility] 07-21-2022 History of Present illness Narrative* G Miguel A Michaels MD - 12/15/2021 8:49 AM EDT Radiation Oncology - Follow Up Note PATIENT NAME: Malcolm Pfeiffer PATIENT DIAGNOSIS: 71 year old male with prostate adenocarcinoma, initial PSA 6.63, biopsy Alexandria score 3 + 3 = 6 (grade [...] Lydia Michaels MD cc: Joaquin Guzman MD ([facility]) [address] [place] [address] Dr. Swain documented in this encounterF[facility]04-[facility]22 Nurse Note* Odilia Swain - 12/15/2021 9:03 AM EDT AUA=1 documented in this encounterF[facility]07-11-2017 History of Past illness Narrative* Problem Noted Date Diagnosed Date Resolved Date Prostate cancer 12/05/2016 12/14/2022 documented as of this encounter (statuses as of 12/14/2022) [facility] No data available for this section [facility] evaluation note* Diagnosis Malignant neoplasm of prostate (HCC)- Primary Malignant neoplasm of prostate documented in this encounter [facility] noteNo [employer] Other Evaluation note* Diagnosis History of prostate cancer- Primary Personal history of malignant neoplasm of prostate Proctitis, radiation Other specified disorder of rectum and anus documented in this encounter [facility]* Diagnosis Onset Date Resolution Status Cervical spondylosis acute GERD (gastroesophageal reflux disease) acute Hypertension acute Lumbar spondylosis acute Nephrolithiasis acute KATHERIN (obstructive sleep apnea) acute Prostate cancer acute Radiation proctitis acute [facility] Work Phone: Evaluation note* Diagnosis History of prostate cancer- Primary Personal history of malignant neoplasm of prostate documented [facility] this encounter [facility]* Diagnosis History of prostate cancer- Primary Personal history of malignant neoplasm of prostate Rectal or anal pain Anal or rectal pain Anal or rectal pain- Primary documented [facility]* Diagnosis Anal or rectal pain- Primary Rectal stricture Stenosis of rectum and anus Rectal or anal pain Anal or rectal pain [facility] Diagnosis Onset Date Resolution Status History of nephrolithiasis a cute Low back pain acute Lumbar spondylosis acute [facility] Work Phone: Evaluation note* Diagnosis Onset Date Resolution Status History of nephrolithiasis a cute Low back pain acute Lumbar spondylosis acute Cervical spondylosis acute GERD (gastroesophageal reflux disease) acute Hypertension acute Lumbar spondylosis acute Medicare annual wellness visit, subsequent acute Nephrolithiasis acute KATHERIN (obstructive sleep apnea) acute Prostate cancer acute Radiation proctitis acute [facility] Work Phone: History general Narrative - Reported* [...] 1995 Surgical History COLONOSCOPY 1995 Surgical History [facility] 2009,2015 Surgical History CYSTOSCOPY 2016 Surgical History TRUS/BX Surgical History SEPTOPLASTY 2009 Hospitalization History SEE SURGICAL HX [employer] Other Progress note No data available for this section [facility] reason for referral (narrative)* Outpatient Procedure (Routine) - New Request Specialty Diagnoses / Procedures Referred By Annalee mccall Referred To Contact [facility] Diagnoses Rectal stricture Procedures COLONOSCOPY DIAGNOSTIC COLONOSCOPY FLX DX W/[place] [address] [place] [address] [facility] [address] [place] [address] Referral ID Status Reason Start Date Expiration Date Visits Requested Visits Authorized [id number] New Request Auto-Generat ed Referral 01/18/2024 01/17/2025 1 1 [facility] Summary Purpose Family History Relationship Condition Age [...] nephrolit hiasis Low back pain Lumbar spondylosis Chief Complaint lower left back pain WELLNESS Reason for Visit History of nephrolit hiasis Low back pain Lumbar spondylosis Cervical spondylosis GERD (gastroesophageal reflux disease) Hypertension Lumbar spondylosis Medicare annual wellness visit, subsequent Nephrolithiasis KATHERIN (obstructive sleep apnea) Prostate cancer Radiation proctitis Reason for Referral Specialty Diagnoses / Procedures Referred By Contac t Referred To Contact Colon and Rectal Surgery Diagnoses Rectal or anal pain Procedures CONSULT TO COLO-RECTAL SURGERY OFFICE/OUTPATIENT [facility] 60 MINUTES Lydia Michaels MD [address] [place] [address] [place] [address] Referral ID Status Reason Start Date Expiration Date Visits Requested Visits Authorized [id number] Authorized PCP Requested Referral 12/13/2023 12/12/2024 1 1 Additional Source Comments Source Comments (unrecognize d section and content) In the event this informatio n is protected by the Federal Confidentiality of Alcohol and Drug Abuse Patient Records regulations: The Federal rules restrict any use of the information to criminally investigate or prosecute any alcohol or drug abuse patient.[facility] CenterIn the event this information is protected by the Federal Confidentiality of Alcohol and Drug Abuse Patient Records regulations: The Federal rules restrict any use of the information to criminally investigate or prosecute any alcohol or drug abuse patient.[facility] CenterIn the event this information is protected by the Federal Confidentiality of Alcohol and Drug Abuse Patient Records regulations: The Federal rules restrict any use of the information to criminally investigate or prosecute any alcohol or drug abuse patient.[facility] CenterIn the event this information is protected by the Federal Confidentiality of Alcohol and Drug Abuse Patient Records regulations: The Federal rules restrict any use of the information to criminally investigate or prosecute any alcohol or drug abuse patient.[facility] CenterIn the event this information is protected by the Federal Confidentiality of Alcohol and Drug Abuse Patient Records regulations: The Federal rules restrict any use of the information to criminally investigate or prosecute any alcohol or drug abuse patient.[facility] Reason for Visit (unrecogniz ed section and [...] HIGH MDM 60 MINUTES Lydia Michaels MD [address] [place] [address] [place] [address] Referral ID Status Reason Start Date Expiration Date V isits Requested Visits Authorized [id number] Closed PCP Requested Referral 12/13/2023 12/12/2024 1 1 Care Teams (unrecognized sec tion and content) Telephone Worker Relationship Specialty Start Date End Date Joaquin Guzman DO PCP - General Internal Medicine 11/24/16 Telephone Worker Relationship Specialty Start Date End Date Joaquin Guzman DO PCP - General Internal Medicine 11/24/16 Team Status: Active Member Role Status Dates Joaquin Guzman DO Primary Care Provider Active Team Status: Inactive Member Role Status Dates Joaquin Guzman DO Primary Care Provide r, Attending Provider Active Start: August 16, 2023 End: August 16, 2023 Telephone Worker Relationship Specialty Start Date End Date Joaquin Guzman DO PCP - General Internal Medicine 11/24/16 Telephone Worker Relationship Specialty Start Date End Date Joaquin Guzman DO PCP - General Internal Medicine 11/24/16 Telephone Worker Relationship Specialty Start Date End Date Joaquin Guzman DO PCP - General Internal Medicine 11/24/16 Team Status: Inactive Member Role Status Dates Joaquin Guzmna DO Primary Care Provide r, Attending Provider Active Start: January 25, 2024 End: January 25, 2024 Team Status: Inactive Member Role Status Dates Joaquin Guzman DO Primary Care Provide r, Attending Provider Active Start: February 18, 2024 End: February 18, 2024 (unrecognized sect ion and content) No Status Records FoundNo Status Records FoundNo Status Records Found INFORMATION SOURCE (unrecogn ized section and content) DATE CREATED AUTHOR 08/26/2022 Jas Swanson pitnaomi DATE CREATED AUTHOR AUTHOR'S ORGANIZ ATION 01/24/2023 Seth Patel [facility] DATE CREATED AUTHOR AUTHOR'S ORGANIZ ATION 01/20/2024 [facility] Goals (unrecognized section and content) Goals may [...] BE BASED ON THE PRIMARY CLINICAL RECORDS. [facility] [employer] provides no warranty or guarantee of the accuracy or completeness of information in this document.
[2024-02-18 09:42] LABS: Basophils Percent Auto 0.5 % (0.2-2.0); Eosinophils Absolute Auto 0.2 10^3/uL (0.0-0.7); Eosinophils Percent Auto 4.3 % (0.9-7.0); Hematocrit 39.7 % (42.0-54.0); Hemoglobin 13.3 g/dL (14.0-18.0); Immature Granulocytes Abs Auto 0.01 10^3/uL (0.00-0.03); Immature Granulocytes Pct Auto 0.2 % (0.0-0.5); Lymphocytes Absolute Auto 1.2 10^3/uL (1.2-3.8); Lymphocytes Percent Auto 21.9 % (20.5-60.0); Mean Corpuscular HGB Conc 33.5 g/dL (29.9-35.2); Mean Corpuscular Hemoglobin 30.8 pg (25.9-34.0); Mean Corpuscular Volume 91.9 fL (80.0-94.0); Mean Platelet Volume 9.6 fL (9.5-13.5); Monocytes Absolute Auto 0.6 10^3/uL (0.3-0.8); Monocytes Percent Auto 10.1 % (1.7-12.0); Neutrophils Absolute Auto 3.5 10^3/uL (1.4-6.5); Platelet Count 264 10^3/uL (150-450); Red Blood Count 4.32 10^6/uL (4.70-6.10); Red Cell Distribution Width 13.6 % (11.0-15.0); White Blood Count 5.6 10^3/uL (4.0-11.0)
[2024-02-18 10:11] LABS: Alanine Aminotransferase 37 U/L (16-63); Albumin Globulin Ratio 1.1; Albumin Level 3.6 g/dL (3.4-5.0); Alkaline Phosphatase 91 U/L (46-116); Anion Gap 10.5; Aspartate Amino Transferase 27 U/L (15-37); BUN Creatinine Ratio 16.8; Bilirubin Total 0.7 mg/dL (0.2-1.0); Calcium 8.7 mg/dL (8.5-10.1); Carbon Dioxide 28.5 mmol/L (21.0-32.0); Chloride 103 mmol/L (98-107); Chol HDL Ratio 2.3; Cholesterol 175 mg/dL (<=200); Estimated GFR (African America >60 (>=60); Estimated GFR (Non-African Ame >60 (>=60); Globulin 3.4 g/dL; Glucose 96 mg/dL (74-106); HDL Cholesterol 75 mg/dL (40-60); Sodium 138 mmol/L (136-145); Triglycerides 62 mg/dL (<=150); VLDL CHOLESTEROL 12.4 mg/dL
== END 2024-02-18 09:20 | disposition home or self-care (01) ==
LOC: LAB 09:20
PROVIDERS: PCP Internal Medicine; Visit Provider Internal Medicine
DX: I10 Essential (primary) hypertension (principal); K62.7 Radiation proctitis; N20.0 Calculus of kidney; E78.00 Pure hypercholesterolemia, unspecified
CPT/HCPCS: 36415; 80053; 80061; 85025

== ENCOUNTER 2024-03-31 11:09 | Outpatient (OUT) | payer OTHER, SELFPAY ==
[2024-03-31 12:45] LABS: Prostate Specific Antigen Dx <0.13 ng/mL (<=4.00)
== END 2024-03-31 11:10 | disposition home or self-care (01) ==
LOC: LAB 11:12
PROVIDERS: PCP Internal Medicine; Visit Provider Radiology Radiation Oncology
DX: Z85.46 Personal history of malignant neoplasm of prostate (principal)
CPT/HCPCS: 36415; 84153

== ENCOUNTER 2025-03-25 07:36 | Outpatient (OUT) | payer MEDICARE, SELFPAY ==
--- OUTSIDE RECORDS SUMMARY | 2025-03-25 07:45 | XMS_ITS | Clinical Summary ---
Author Organization [facility] Address [address] [place], [place] [address] Care Team Providers Care Jewel Hole Rough Opener Name Role Phone Joaquin Guzman DO Primary Care Provider [phone] Allergies Active AllergyReactionsCriticalityNoted DateComments Sulfamethoxazole-YefqclnmsbajFrmuyzx80/11/2017 Medications MedicationSigDispense QuantityRefillsLast FilledStart DateEnd DateStatus amLODIPine (NORVASC) 5 mg tablet Take 5 mg by mouth once daily.Active lisinopril (ZESTRIL, PRINIVIL) 20 mg tablet Take 20 mg by mouth twice daily. Active carvedilol (COREG) 12.5 mg tablet Take 12.5 mg by mouth twice daily with meals.Active aspirin, enteric coated (ASPIRIN, ENTERIC COATED) 81 mg EC tablet Take 81 mg by mouth once daily.Active multivitamin tablet Take 1 tablet by mouth once daily.Active polyethylene glycol 3350 (MIRALAX) 17 gram/dose powder Take by mouth once daily.Active Active Problems ProblemNoted DateDiagnosed DateHistory of prostate hroqrs9308/27/2017 Resolved Problems ProblemNoted DateDiagnosed DateResolved DateProstate wrolny90 Encounters DateTypeDepartmentCare UhrhItyjpmwfsiy22/28/2025Telephone Radiation Oncology [address] [place] [address] [place] [address] Lydia Michaels MD Ordersfrom Last 3 Months Immunizations ImmunizationAdministration DatesNext Dueinfluenza (HD-IIV3) vaccine, age 65+ yr, high dose, trivalent, PF (FLUZONE HIGH-DOSE)02/26/2017influenza (IIV4) vaccine, quadrivalent (AFLURIA, FLULAVAL, FLUZONE)03/30/2016influenza (LAIV) vaccine, nasal, unspecified yrpurwmrolc59/16/2021,02/05/2019,02/20/2018,02/26/2017, 03/30/2016influenza (LAIV3) vaccine, trivalent, live, intranasal (FLUMIST) 03/07/2019influenza (aIIV3) vaccine, age 65+ yr, trivalent, PF (FLUAD)02/10/2021 ,02/05/2019influenza (aIIV4) vaccine, age 65+ yr, quadrivalent, PF (FLUAD QUAD) 02/13/2022influenza (ccIIV4) vaccine, age 6+ mo, quadrivalent (FLUCELVAX) 02/20/2018pneumococcal polysaccharide (PPV23) vaccine, 23 valent (PNEUMOVAX 23) 09/12/2012zoster (ZVL) vaccine, live (ZOSTAVAX)09/04/2016 Family History Medical HistoryRelationCommentsCancerBrotherBladderRelationStatusCommentsBrother Social History Tobacco UseTypesPacks/DayYears UsedDateSmoking Tobacco: NeverSmokeless Tobacco: Never Tobacco Cessation:Counseling Given: Not Answered PHQ-2AnswerDate RecordedPHQ-2 /05/2024Area Deprivation IndexAnswerDate RecordedNational Score (1-100), lower number is lower vout487612/14/2022State Score (1-10), lower number is lower oasn6883Data from: https://www.neighborhoodatlas.medicine.[facility].edu/. Last address used for ev[address] [place] [address]012/14/2022Sex and Gender InformationValueDate RecordedSex Assigned at BirthNot on fileLegal ZszPczi7111/24/2016 9:01 AM EDTGender Identity Not on fileSexual OrientationNot on file Last Filed Vital Signs Vital SignReadingTime TakenCommentsBlood Hblmjueb528/7011 10:10 AM EST Flosi5339 10:10 AM QRERqnpvugxfdu07.8 ??C (98.2 ??F)04/01/2024 10:10 AM ESTRespiratory Opax179906/01/2023 10:10 AM ESTOxygen Jppamguyjz11%04/01/2024 10:10 AM ESTInhaled Oxygen Concentration--Fwlpha28 kg (152 lb 1.9 oz)04/01/2024 10:10 AM MMMErmzdt622.3 cm (5' 9 )01/18/2024 9:00 AM EDTBody Mass Index22.46001/18/2024 9:00 AM EDT Plan of Treatment DateTypeDepartmentCare Team (Latest Contact Info)Qurlgpqaphq92/05/2025 9:15 AM ESTOffice Visit Radiation Oncology [address] [facility] [place] [address] Lydia Michaels MD [address] [place] [address] [place] [address] 1 year follow upHealth MaintenanceDue DateLast DoneCommentsAnxiety Screening 2Depression Yazhfgrbq65/21/1962DTaP,Tdap,Td Vaccine (1 - Tdap) 1963Diabetes Nmcjddufe14/21/1989Shingrix Vaccine (2 of 3)10/30/2016 09/04/2016RSV Vaccine (1 - 1-dose 75+ series)2019Advance Directive Ooziqxggjd24/01/2025Medicare Advantage Annual Wellness Visit5Covid-19 Vaccine ( season), 07/21/2020, 06/23/2020 Influenza Vaccine (#1)509/, 02/14/2023, 02/13/2022, Additional history existsPneumococcal Vaccine: 50+Xodncrmzg69/07/2016, 09/12/2012, 07/28/1998 Insurance [facility] Address: [facility] [address] [place] [address] [facility] Address: [facility] [address] [place] [address] Care Teams Team MemberRelationshipSpecialtyStart DateEnd Date Joaquin Guzman DO PCP - GeneralInternal Medicine11/24/16
--- OUTSIDE RECORDS SUMMARY | 2025-03-25 07:45 | XMS_ITS | Encounter Summary ---
Author Organization [facility] Address [address] [place], [place] [address] Care Team Providers Care Blasting Worker Name Role Phone Joaquin Guzman DO Primary Care Provider [phone] Source Comments In the event this information is protected by the Federal Confidentiality of Alcohol and Drug AbusePatient Records regulations: The Federal rules restrict any use of the information to criminally investigate or prosecute any alcohol or drug abuse patient.[facility] Reason for Visit * ReasonCommentsOrders Encounter Details DateTypeDepartmentCare Team (Latest Contact Info)Nfnfmmsauhc46/28/2025Telephone Radiation Oncology [address] [place] [address] [place] [address] Lydia Michaels MD [address] [place] [address] [place] [address] Orders Social History Tobacco UseTypesPacks/DayYears UsedDateSmoking Tobacco: NeverSmokeless Tobacco: NeverPHQ-2AnswerDate RecordedPHQ-2 /05/2024Area Deprivation IndexAnswer Date RecordedNational Score (1-100), lower number is lower tjui7901State Score (1-10), lower number is lower ahkz1383Data from: https://www.neighborhoodatlas.[facility]/. Last address used for vcgworvgske[address] [place] 2460212/14/2022Sex and Gender InformationValueDate RecordedSex Assigned at BirthNot on fileLegal VgmIfbi8511/24/2016 9:01 AM EDTGender Identity Not on fileSexual OrientationNot on filedocumented as of this encounter Miscellaneous Notes * Telephone Encounter - Nicolasa Faustin RN - 03/24/2025 1:53 PM EDT Order faxed to [facility] per patient request. Nicolasa Faustin RN * Telephone Encounter - Nicolasa Faustin RN - 03/24/2025 12:28 PM EDT Please sign pended PSA order and fax to [facility]. Nicolasa Faustin RN documented in this encounter Plan of Treatment DateTypeDepartmentCare Team (Latest Contact Info)Tiemqkbcmvf63/05/2025 9:15 AM ESTOffice Visit Radiation Oncology [address] [place] [address] [place] [address] Lydia Michaels MD [address] [place] [address] [place] [address] 1 year follow upNameTypePriorityAssociated DiagnosesOrder SchedulePROSTATE- SPECIFIC ANTIGEN DIAGNOSTICLabRoutine History of prostate cancer Expected: 03/25/2025, Expires: 06/24/2025documented as of this encounter Visit Diagnoses Diagnosis History of prostate cancer- Primary Personal history of malignant neoplasm of prostate documented in this encounter Care Teams Team MemberRelationshipSpecialtyStart DateEnd Date Joaquin Guzman DO PCP - GeneralInternal Medicine11/24/16documented as of this encounter
--- OUTSIDE RECORDS SUMMARY | 2025-03-25 07:45 | XMS_ITS ---
Author Organization [facility] Address [address] [place] [address] Care Team Providers Care Fruit Vendor Name Role Phone Joaquin Guzman DO Primary Care Provider [phone] Active Problems ProblemNoted DateDiagnosed DateHistory of prostate gueyce8908/27/2017 Current Treatment and Therapy Plans No current plan information found. Past Treatment and Therapy Plans No past plan information found. Treatment Summaries Prostate cancer (HCC)* Treatment Summary and Survivorship Care Plan for Prostate Cancer Provided by: Carmela Bronson CNP General Information Patient Name: Malcolm Pfeiffer Patient : 1945 Patient phone: (VocalizeLocal) Email: [email or web address] Care Providers Primary Care Provider: Dr. Joaquin Guzman Urologic Surgeon: Dr. Gian Swain Radiation Oncologist: Dr. Svetlana Michaels Other Providers: Carmela Bronson CNP Treatment Summary Diagnosis Cancer Type: Adenocarcinoma of the Prostate Location: Left mid (possible right apex - the possibility of an incidental focus of prostatic adenocarcinoma cannot be excluded) Diagnosis Date (year): November 01, 2016 Histology Subtype: Prostate Cancer Stage:I Clinical stage T1c N0 M0 Hazen Score: 3 + 3 = 6 PSA at Diagnosis: 6.63 September 06, 2016 Clinical Trial: No Treatment Completed Surgery: Transrectal ultrasound-guided biopsy Surgery Date(s) (year): November 01, 2016 Surgical procedure/location/findings: Transrectal ultrasound-guided biopsy - Left mid (possible right apex - the possibility of an incidental focus of prostatic adenocarcinoma cannot be excluded) External beam radiation: No Brachytherapy to prostate: Yes: End Date (year): January 24, 2017 68 seeds Systemic Therapy (chemotherapy, hormonal therapy, other): No Presistent symptoms or side effects at completion of treatment: Yes Slow urinary stream Hemorrhoids Follow-up Care Plan Schedule of clinical visits Coordinating Provider When/How often Dr. Svetlana Michaels Every 6 months x2, then once yearly Dr. Gian Swain Per Dr. Swain Cancer surveillance or other recommended related tests Coordinating Provider Test How Often Dr. Svetlana Michaels PSA (Prostate Specific Antigen) Every 6 months x 2 years, then once yearly Dr. Gian Swain PSA (Prostate Specific Antigen) Per Dr. Swain Please continue to see your primary care provider for all general health care recommended for a (man) (women) your age, including cancer screening tests. Any symptoms should be brought to the attention of your provider: 1. Anything that represents a brand new symptom; 2. Anything that represents a persistent symptom; 3. Anything you are worried about that might be related to the cancer coming back. Possible late- and long-term effects that someone with this type of cancer and treatment may experience: Erectile dysfunction, Incontinence, Painful urination, Rectal pain, Shortening of the penis, Skin irritation or darkening, Sterility, Trouble voiding or passing uring (urinary retention) and Urinary frequency Cancer survivors may experience issues with the areas listed below. If you have any concerns in these or other areas, please speak with your doctors or nurses to find out how you can get help with them: anxiety or depression , emotional or mental health, fatigue, fertility, financial advice or assistance, insurance, memory or concentration loss, parenting, physicial functioning, school/work and sexual functioning A number of lifestyle/behaviors can affect your ongoing health, including the risk for the cancer coming back or developing another cancer. Discuss these recommendations with your doctor or nurse: alcohol use, diet, management of medications, management of other illnesses, physical activity, sun screen use, tobacco use/cessation and weight management (loss/gain) Resources you may be interested in: www.cancer.net www.chemocare.com spring floor service worker [employer] Other: PSA ([employer]) - Support group that meets the Sunday of every month from 7-8 pm at at [address] [place] [address] Dr Malcolm Prepared by: Carmela Bronson CNP Delivered on: February 28, 2017 - This Survivorship Care Plan is a cancer treatment summary and follow-up plan is provided to you to keep with your health care records and to share with your primary care provider. - This summary is a brief record of major aspects of your cancer treatment. You can share your copywith any of your doctors or nurses. However, this is not a detailed or comprehensive record of yourcare. Resolved Problems ProblemNoted DateDiagnosed DateResolved DateProstate nevmmi42
--- OUTSIDE RECORDS SUMMARY | 2025-03-25 07:46 | XMS_ITS | CCD ---
Author Organization [facility] Care Team Providers Care Counseling Services Manager Name Role Phone Joaquin Morgan DO Primary Care Provider JOAQUIN MORGAN Primary Care Physician [phone] Joaquin Morgan THOMAS, DR FLORES Admitting Unavailable BALL, DR FLORES [...] Care Unavailable TIFFANIE, ESTRADA Consulting Unavailable Joaquin Morgan DO Primary Care Provider ERIKA BOND Attending Unavailable Joaquin Morgan DO Primary Care Provider Lydia GONZALEZ Attending Unavailable JOAQUIN MORGAN Primary Care Unavailable Lydia GONZALEZ Referring Unavailable JOAQUIN MORGAN Primary Care Unavailable GABRIELA RAMSEY Attending Unavailab le Lydia GONZALEZ Referring Unavailable ENGELERLydia Attending Unavailable JOAQUIN MORGAN Primary Care Unavailable Lydia GONZALEZ Referring Unavailable JOAQUIN MORGAN Primary Care Unavailable Lydia GONZALEZ Attending Unavailable Joaquin Morgan DO Primary Care Provider Joaquin Morgan DO Attending Provider Allergies Allergy ClassificationReported Allergen(s)Allergy TypeDate of OnsetReaction(s) FacilitySulfamethoxazole / Trimethoprim (1 source)Sulfamethoxazole / TrimethoprimDrug Ntwoapp62-84-8298[facility] (14 sources)Sulfamethoxazole / Trimethoprim; Translations: [sulfamethoxazole-trimethoprim]Drug Sjbrmye08-43-7690Dplfbpq, Itching (finding) [facility] (2 sources)Sulfamethoxazole / Trimethoprim; Translations: [Bactrim]Drug Allergy 86-20-5372[facility] (1 source)No Known Medication Allergies; Translations: [No Known Medication Allergies]Propensity to adverse reactions (disorder)[facility] (2 sources)SulfamethoxazoleDrug Xixdier40-52-7273Wgvnaih ReactionAccess Hospital Dayton (2 sources)TrimethoprimDrug Blonosa98-64-1306Cbhcyjy ReactionAccess Hospital Dayton Medications Current Medications MedicationDrug Class(es)DatesSig (Normalized)Sig (Original)amLODIPine 5 mg oral tablet (20 sources)Dihydropyridine Calcium Channel BlockerStart: 35-75-2877avig 1 tablet by mouth once dailyAmlodipine 5 mg tablet Active 0 .ROUTE .COMPLEX 90 May 30, 2024 2:07pm TAKE 1 TABLET BY MOUTH EVERY DAY Complies with drug therapyStart: 06-06-2019 End: 11-55-8344sukx 1 tablet by mouth once dailyAmlodipine 5 mg tablet Discontinued 5 MG PO Daily August 15, 2023 12:00am May 30, 2024 2:07pm amLODIPine Besylate ActiveComment on above:Take 5 mg by mouth once daily.aspirin 81 mg delayed release oral tablet (20 sources)Platelet Aggregation Inhibitor, Nonsteroidal Anti-inflammatory Drug Start: 91-43-4361Xslozrk (Adult Low Dose Aspirin) 81 mg tablet,delayed release (DR/EC) Active 81 MG PO Daily August 15, 2023 12:00am Complies with drug therapyAspirin 81 ActiveComment on above:Take 81 mg by mouth once daily. carvedilol 12.5 mg oral tablet (20 sources)alpha-Adrenergic Sancho, beta-Adrenergic BlockerStart: 01-28-2024 take 1 tablet by mouth twice dailyCarvedilol 12.5 mg tablet Active 0 .ROUTE .COMPLEX 180 January 28, 2024 8:40am TAKE 1 TABLET BY MOUTH TWICE A DAY Complies with drug therapyStart: 08-15-2023 End: 33-39-9218ggdj 1 tablet by mouth twice dailyCarvedilol 12.5 mg tablet Discontinued 12.5 MG PO Twice daily August 15, 2023 12:00am January 28, 2024 8:40amStart: 61-96-9834gmbdecuxxe 6.25 mg, Oral, Refills(s) 0 Start Date: 06/06/19 Status: OrderedCarvedilol ActiveComment on above:Take 12.5 mg by mouth twice daily with meals.lisinopril 20 mg oral tablet (20 sources)Angiotensin Converting Enzyme InhibitorStart: 77-75-7312nrin 1 tablet by mouth once dailyLisinopril 20 mg tablet Active 20 MG PO Daily February 18, 2024 8:31am Complies with drug therapyStart: 01-28-2024 End: 38-35-0218nnwf 1 tablet by mouth twice dailyLisinopril 20 mg tablet Discontinued 0 .ROUTE .COMPLEX 180 January 28, 2024 8:40am February 18, 2024 8:32am TAKE 1 TABLET BY MOUTH TWICE A DAYStart: 11-30-2023 End: 13-23-3108qgqw 1 tablet by mouth once dailyLisinopril 20 mg tablet Discontinued 20 MG PO Daily November 30, 2023 2:15pm January 28, 2024 8:40am Start: 08-15-2023 End: 47-95-6507mldc 1 tablet by mouth twice dailyLisinopril 20 mg tablet Discontinued 20 MG PO Twice daily August 15, 2023 12:00am November 30, 2023 2:15pm Start: 89-67-8884htvw 20 mg by mouth once dailylisinopril 20 mg, Oral, Daily, Refills(s) 0 Start Date: 06/06/19 Status: OrderedLisinopril ActiveComment on above:Take 20 mg by mouth twice daily. Multi Vitamin+ (1 source)Start: 26-92-9594Mxzao Vitamin+ Refill(s) 0 Start Date: 06/06/19 Status: OrderedMultivitamin preparation (6 sources)Multivitamin Activemultivitamin tablet (7 sources)take 1 tablet by mouth once dailymultivitamin tablet Take 1 tablet by mouth once daily. Activetake 1 tablet by mouth once dailymultivitamin tablet Take 1 tablet by mouth once daily. 0 ActiveComment on above:Take 1 tablet by mouth once daily.polyethylene glycol 3350 55912 mg powder for oral solution (20 sources)Osmotic LaxativeStart: 53-80-8539Nnrvhcqgeulh Glycol 3350 (Miralax) 17 gram/dose powder Active 17 GM PO August 15, 2023 12:00am Complies with drug therapyStart: 56-35-0601XnluQhw gram, Oral, Daily, Refill(s) 0 Start Date: 06/12/19 Status: Orderedpolyethylene glycol 3350 (MIRALAX) 17 gram/dose powder Take by mouth once daily. ActiveMiraLax ActiveComment on above:Take by mouth once daily.Stool Softener (6 sources)Stool Softener Active Completed/Discontinued Medications MedicationDrug Class(es)DatesSig (Normalized)Sig (Original)hydrocortisone acetate 25 mg rectal suppository (2 sources)CorticosteroidStart: 10-25-2023 End: 96-53-0710xladmxvuvxaxow (ANUSOL-HC) 25 mg suppository 1 Suppository by RECTAL route two times a day. 10 Suppository 2 10/25/2023 12/20/2023 Discontinued (Discontinued by another Health Care Provider)tamsulosin hydrochloride 0.4 mg oral capsule (12 sources)alpha-Adrenergic BlockerStart: 08-15-2023 End: 06-65-1025maej 1 capsule by mouth once dailyTamsulosin 0.4 mg capsule Discontinued 0.4 MG PO Daily August 15, 2023 12:00am February 18, 2024 8:31amTamsulosin HCl Active Problems Active Problems Problem ClassificationProblemDateDocumented DateEpisodic/ChronicAbdominal pain (5 sources)Periumbilical pain; Translations: [Generalized abdominal pain]Onset: 70-76-8402QdadjghuRojd and rectal conditions (20 sources)Rectal pain; Translations: [Other specified diseases of anus and rectum]Onset: 45-88-0022CtdtnuqsMblmaiks of urinary tract (20 sources)History of calculus of kidney; Translations: [Personal history of urinary calculi]81-49-1951AmomsvbjRgowbi of prostate (20 sources)Malignant tumor of prostate; Translations: [Malignant neoplasm of prostate]Onset: 12-05-2016 Resolved: 84-40-1120TnajgxlAwjwhhv on above:Dx: 2017, s/p brachytherapy Deficiency and other anemia (12 sources)Anemia; Translations: [Anemia, unspecified]40-26-9738Kiktnpbf Disorders of lipid metabolism (4 sources)Hypercholesterolemia; Translations: [Pure hypercholesterolemia, unspecified]80-79-9983MfdbdfbTmsgfyqocdkrtf and diverticulitis (13 sources)Diverticulum of duodenum; Translations: [Diverticulosis of small intestine without perforation or abscess without bleeding]ChronicEsophageal disorders (20 sources)Gastro-esophageal reflux disease with esophagitis; Translations: [Gastroesophageal reflux disease with esophagitis without hemorrhage]08-15-2023 ChronicEssential hypertension (20 sources)Hypertensive disorder; Translations: [Essential hypertension]Onset: 918889-21-7543MhuzvrcGyuuephcy and duodenitis (1 source)Duodenitis without bleeding; Translations: [DUODENITIS WITHOUT BLEEDING]Onset: 10-40-1604AvdrxhmrNxzurtusrfvytswk hemorrhage (6 sources)Rectal hemorrhage; Translations: [Hemorrhage of anus and rectum] EpisodicHyperplasia of prostate (16 sources)Benign prostatic hypertrophy with outflow obstruction; Translations: [Benign prostatic hyperplasia with lower urinary tract symptoms]Onset: 05-45-1268UmvqmdjAekac aftercare (6 sources)H/O: high risk medication; Translations: [Other jail (current) drug therapy]EpisodicOther aftercare (1 source)Other termite treater (current) drug therapy; Translations: [OTH ALF CURRENT DRUG THERAPY]Onset: 75-19-2489CponezndYbuui aftercare (1 source)senior care (current) use of aspirin; Translations: [MANAGER ACTUARIAL CURRENT USE OF ASPIRIN]Onset: 66-17-3561ZukkmauqMrlqs connective tissue disease (1 source)Other specified soft tissue disordersEpisodicOther diseases of kidney and ureters (1 source)Urinary tract obstruction; Translations: [Other obstructive and reflux uropathy]Onset: 86-03-6071HuesvymcSeriq screening for suspected conditions (not mental disorders or infectious disease) (3 sources)Raised prostate specific antigen; Translations: [Rising PSA following treatment for malignant neoplasm of prostate]Onset: 11-83-8371YophgdqrXrtrj skin disorders (5 sources)Vesicular eczema of hands and/or feet; Translations: [Dyshidrosis [pompholyx]]EpisodicOther skin disorders (1 source)Dyshidrosis [pompholyx]; Translations: [Eczema, dyshidrotic]Episodic Other skin disorders (6 sources)Vesicular eczema; Translations: [Dyshidrosis [pompholyx]]08-15-2023 EpisodicResidual codes; unclassified (14 sources)Obstructive sleep apnea syndrome; Translations: [Obstructive sleep apnea (adult) (pediatric)]37-48-4601IvzqfhgAvgdezcu codes; unclassified (4 sources)Obstructive sleep apnea (adult) (pediatric); Translations: [Obstructive sleep apnea (adult)(pediatric)]ChronicResidual codes; unclassified (5 sources)Family history of coronary arteriosclerosis; Translations: [Family history of ischemic heart disease and other diseases of the circulatory system] EpisodicResidual codes; unclassified (1 source)Family history of ischemic heart disease and other diseases of the circulatory system; Translations: [Family history of early CAD]Episodic Spondylosis; intervertebral disc disorders; other back problems (20 sources)Lumbar spondylosis; Translations: [Spondylosis without myelopathy or radiculopathy, lumbar region]64-15-6032XikvjguVaqqvugtweu; intervertebral disc disorders; other back problems (7 sources)Low back pain; Translations: [Low back pain]59-46-2184Ouxrcqka Unclassified (1 source)Drug therapy jdqawii45-19-4271 Past or Other Problems Problem ClassificationProblemDateDocumented DateEpisodic/ChronicCancer of prostate (13 sources)History of malignant neoplasm of prostate; Translations: [Personal history of malignant neoplasm ofprostate]Onset: 337557-34-9116Ninkxzol Deficiency and other anemia (4 sources)Anemia, unspecified; Translations: [ANEMIA UNSPECIFIED]Onset: 86-25-9692BidsbqabPobqdvmlre disorders (1 source)Esophageal disorders Results Test NameValueInterpretationReference RangeFacilityCNPNon 67-35-0518OBSV Telephone ([facility]) MALCOLM PFEIFFER ([id number]) 1945 M Date Time Provider Department 09/23/[address] [facility] During your visit today, we recorded the following information about you: Jean-Pierre Oquendo, RN 09/23/2024 3:40 PM Signed Called and informed him that he is due for a colonoscopy with Dr Ramsey in the summer. He states he does not want to complete a colonoscopy at this time and does not want to schedule one. I advised him to call the office when he is ready to schedule his colonoscopy. He has no other questions or concerns at this time. Allergies As of Date: 09/23/2024 Noted Allergy Reaction BACTRIM (SULFAMETHOXAZOLE-TRIMETH*12/05/2016 9 - Itching Date Reviewed: 04/01/2024 Reviewed by: Janene Curran RN - Fully Assessed Reason for Visit: Care Coordination [8871] Cmt: Follow up colonoscopy with Dr Ramsey Prescriptions as of 09/23/2024 - polyethylene glycol 3350 (MIRALAX) 17 gram/dose [...] once daily. Problem List As Of Date 09/23/2024 Noted Resolved Prostate cancer (HCC) [C61] 12/05/2016 12/14/2022 History of prostate cancer [Z85.46] 08/27/2017 Encounter Status:Closed by JEAN-PIERRE OQUENDO on 09/23/24[facility] 06-18-7180HBPVScvxju Visit (RADTSA) MALCOLM PFEIFFER ([id number]) 1945 M Date Time Provider Department 04/01/24 10:15 AM Lydia GONZALEZ During your visit today, we recorded the following information about you: Temperature Pulse Respiration Blood pressure 98.2 degrees 53/minute 16/minute 118/70 Weight 69 kg Janene Curran RN 04/08/2024 3:50 PM Signed AUA=2 Lydia Gonzalez MD 04/08/2024 3:50 PM Signed Radiation Oncology - Follow Up Note PATIENT NAME: Malcolm Pfeiffer PATIENT DIAGNOSIS: Prostate adenocarcinoma, initial PSA 6.63, biopsy [place] score 3 + 3 = 6 (grade group 1), clinical stage T1c N0 M0. S/p I-125 brachytherapy January 24, 2017, dose 145 Gy. INTERVAL HISTORY: Doing better. No further rectal pain. No rectal bleeding. He did see Dr. Ramsey and apparently had had healed fissure by at that appointment. Has recommended colonoscopy in 1 year. 12/13/23: Patient still having on and off issues [...] active Androgen deprivation: Never. PHYSICAL EXAM: BP 118/70 Pulse (!) 53 Temp 36.8 ?C (98.2 ?F) Resp 16 Wt 69 kg (152 lb 1.9 oz) SpO2 97% BMI 22.46 kg/m? KPS: 100 General appearance: Alert and oriented. No acute distress. Rectal deferred Extremities: No deformities, edema, skin discoloration, clubbing or cyanosis. Lymph Nodes: No cervical lymphadenopathy, No supraclavicular lymphadenopathy, No axillary lymphadenopathy. Skin: Skin color, texture, turgor normal, no suspicious rashes or lesions. ASSESSMENT/PLAN: Prostate cancer, with prior I-125 brachytherapy December 2016. 1. Prostate cancer doing well PSA remains undetectable. 2 Rectal discomfort. Currently no pain or bleeding. [place] to have old healed fissure. Continue efforts to avoid constipation.. Signed by: Lydia Gonzalez MD cc: Joaquin Morgan MD ([facility]) [address] [place] [address] Referring Provider: Lydia GONZALEZ [[id number]] Allergies As of Date: 04/01/2024 Noted Allergy Reaction BACTRIM (SULFAMETHOXAZOLE-TRIMETH*12/05/2016 9 - Itching Date Reviewed: 04/01/2024 Reviewed by: Janene Curran RN - Fully Assessed Reason for Visit: Prostate Cancer [590] Primary Visit Diagnosis:History of prostate cancer [Z85.46] Order(s):PROSTATE-SPECIFIC ANTIGEN DIAGNOSTIC [SQPSA] Order #: [id number] FUTURE Prescriptions as of 04/08/2024 - polyethylene glycol 3350 (MIRALAX) 17 gram/dose [...] once daily. Problem List As Of Date 04/01/2024 Noted Resolved Prostate cancer (HCC) [C61] 12/05/2016 12/14/2022 History of prostate cancer [Z85.46] 08/27/2017 Disposition: Return in about 1 year (around 04/01/2025). Follow-up and Disposition History for Encounter Date Provider Department Center 04/01/2024 [id number] GONZALEZ (more content not included)...[facility] 60-90-6353JIJIVlqxzk Visit (COFHAM) MALCOLM PFEIFFER ([id number]) 1945 M Date Time Provider Department 01/18/24 9:30 AM GABRIELA RAMSEY During your visit today, we recorded the following information about you: Pulse Blood pressure Weight Height 54/minute 118/65 68.9 kg 1.753 m Gabriela Ramsey MD 01/18/2024 9:49 AM Signed COLORECTAL SURGERY January 18, 2024 Malcolm Pfeiffer 78 year old This consult was requested by Dr. Bob Gonzalez and my final recommendations will be communicated to the requesting health care provider by way of the shared medical record for internal providers or letter via the [employer] for external providers. Chief Complaint: rectal pain/ rectal stricture History of Present Illness: Malcolm Pfeiffer is a 78 year old male presents to the office for evaluation of rectal pain and rectal stricture. He has a history of M6aC7T6 prostate adenocarcinoma. Colonoscopy in 2016 -normal Scan [...] exam Anorectal: External exam reveals: see below Cloud Physicist present: yes Assessment Assessment and Plan: Malcolm [...] plan and/or results with his pcp. Gabriela Ramsey MD Colorectal Surgery Referring Provider: Lydia GONZALEZ [[id number]] Allergies As of Date: 01/18/2024 Noted Allergy Reaction BACTRIM (SULFAMETHOXAZOLE-TRIMETH*12/05/2016 9 - Itching Date Reviewed: 01/18/2024 Reviewed by: Maryann Grajeda LPN - Fully Assessed Reason for Visit: Rectal Pain [787] Primary Visit Diagnosis:Anal or rectal pain [K62.89] Other Visit Diagnoses:Rectal stricture [K62.4] Rectal or anal pain [K62.89] Order(s):CONSULT TO COLO-RECTAL SURGERY [] Order #: [id number]: 1 COLONOSCOPY DIAGNOSTIC [GI11] Order #: [id number] FUTURE Prescriptions as of 01/18/2024 - polyethylene [...] cancer [Z85.46] 08/27/2017 Encounter Status:Closed by GABRIELA RAMSEY on 01/18/24[facility] 02-24-9309UAKPSdhyyn Visit (RADTSA) MALCOLM PFEIFFER ([id number]) 1945 M Date Time Provider Department 12/13/23 10:00 AM Lydia GONZALEZ During your visit today, we recorded the following information about you: Temperature Pulse Respiration Blood pressure 97.5 degrees 51/minute 16/minute 133/79 Weight 69.7 kg Nicolasa Faustin LPN 12/20/2023 12:38 PM Signed AUA= 3 Lydia Gonzalez MD 12/20/2023 12:38 PM Signed radiation Oncology [...] management options for him. Signed by: Lydia Gonzalez MD cc: Joaquin Morgan MD ([facility]) [address] [place] [id number] Referring Provider: Lydia GONZALEZ [[id number]] Allergies As of Date: 12/13/2023 Noted Allergy Reaction BACTRIM (SULFAMETHOXAZOLE-TRIMETH*12/05/2016 9 - Itching Date Reviewed: 12/13/2023 Reviewed by: Nicolasa Faustin LPN - Fully Assessed Reason for Visit: Prostate Cancer [590] Primary Visit Diagnosis:History of prostate cancer [Z85.46] Other Visit Diagnosis:Rectal or anal pain [K62.89] Order(s):PSA (OUTSIDE) [0389259] Order #: [id number] PROSTATE-SPECIFIC ANTIGEN DIAGNOSTIC [SQPSA] Order #: [id number] FUTURE CONSULT TO COLO-RECTAL SURGERY [] Order #: [id number]: 1 FUTURE Prescriptions as of 12/20/2023 - [...] Visit Notes: >> Grav (more content not included)...[facility] 52-22-6219JJOLDtboxe Visit (MARGARET) MALCOLM PFEIFFER ([id number]) 1945 M Date Time Provider Department 10/25/23 10:45 AM Lydia GONZALEZ During your visit today, we recorded the following information about you: Temperature Pulse Respiration Blood pressure 97.6 degrees 52/minute 16minute 147/68 Weight 70.5 kg Lydia Gonzalez MD 10/25/2023 11:24 AM Signed radiation Oncology [...] symptoms at that time. Signed by: Lydia Gonzalez MD cc: Joaquin Morgan MD ([facility]) [address] [place] [address] Allergies As of Date: 10/25/2023 Noted Allergy Reaction BACTRIM (SULFAMETHOXAZOLE-TRIMETH*12/05/2016 9 - Itching Date Reviewed: 10/25/2023 Reviewed by: Odilia Swain, MA - Fully Assessed Reason for Visit: new problem [Other] Primary Visit Diagnosis:History of prostate cancer [Z85.46] Order(s):hydrocortisone (ANUSOL-HC) 25 mg suppository1 Suppository by RECTAL [...] 12/14/2022 History of p (more content not included)...NormalRiverview Health InstitutePSA (OUTSIDE)on 94-00-8793Ruhqnxrej ClinicConsultation Noteon 26-89-8009Ibbhrwenyznj [id number]#1.00CD:[address] [place], [place] [address]AMYLASEon 82-18-3101Uippojw [Catalytic activity/Vol]30 U/LNormal 25-115The [facility] HospitalComment on above:Performed By: #### LIPA, CMP, EMILE, HSTROPN #### [facility] [address] [address] [address] Avery Pete AUTO DIFFon 39-62-1452RUGZ #0.0 103/ulNormal0.0-0.1The [facility] HospitalComment on above:Performed By: #### CBC #### [facility] [address] [address] [address] Avery Jhasophils/100 WBC (Bld)0.3 %Normal0.2-2.0The [facility] Comment on above:Performed By: #### CBC #### [facility] [address] [address] [address] Avery Smith #0.2 103/ulNormal0.0-0.7The [facility] HospitalComment on above: Performed By: #### CBC #### [facility] [address] [address] [address] Avery Lujanosinophils/100 WBC (Bld)2.9 %Normal0.9-7.0The [facility] Comment on above:Performed By: #### CBC #### [facility] [address] [address] [address] Avery Lujanrythrocyte distribution width (RBC) [Ratio]13.7 %Oefiwh56.0-15.0 [facility] SystemComment on above:Performed By: #### CBC #### [facility] [address] [place] [address] Dr. Avery KhanHematocrit (Bld) [Volume fraction]38.5 %Critically low42.0-54.0 The [facility] HospitalComment on above:Performed By: #### CBC #### [facility] [address] [place] [address] Dr. Avery KhanHemoglobin (Bld) [Mass/Vol]13.4 g/dLCritically low14.0-18.0The [facility] Centerment on above:Performed By: #### CBC #### [facility] [address] [place] [address] Dr. Avery Fields #0.02 10e3/ulNormal0.00-0.03The [facility] Medical Centerment on above:Performed By: #### CBC #### [facility] [address] [place] [address] Dr. Avery Fields %0.3 %Normal0.0-0.5The [facility] HospitalComment on above: Performed By: #### CBC #### [facility] [address] [place] [address] Dr. Avery AlfaroH #1.3 103/ulNormal1.2-3.8The [facility] HospitalComment on above:Performed By: #### CBC #### [facility] [address] [place] [address] Dr. Avery Sandramphocytes/100 WBC (Bld)22.8 %Vugxci93.5-60.0The [facility] Centerment on above:Performed By: #### CBC #### [facility] [address] [address] [address] Avery Gonzalez DIFF REQNONormalThe [facility] HospitalComment on above: Performed By: #### CBC #### [facility] [address] [address] [address] Avery Polanco (RBC) [Entitic mass]31.3 diTpgcbo37.9-34.0The [facility] HospitalComment on above:Performed By: #### CBC #### [facility] [address] [address] [address] Avery Polanco (RBC) [Mass/Vol]34.8 g/nMRkkbwz81.9-35.2The [facility] HospitalComment on above:Performed By: #### CBC #### [facility] [address] [place] [address] Dr. Avery Polanco (RBC) [Entitic vol]90.0 dGLeemry94.0-94.0The [facility] HospitalComment on above:Performed By: #### CBC #### [facility] [address] [address] [address] Avery Galaviz #0.5 103/ulNormal0.3-0.8The [facility] Centerment on above:Performed By: #### CBC #### [facility] [address] [place] [address] Dr. Avery Caputoocytes/100 WBC (Bld)8.7 %Normal1.7-12.0The [facility] Comment on above:Performed By: #### CBC #### [facility] [address] [address] [address] Avery Briones #3.8 103/ulNormal1.4-6.5The [facility] Medical Centerment on above:Performed By: #### CBC #### [facility] [address] [place] [address] Dr. Avery Israelutrophils/100 WBC (Bld)65.0 %Xqqetp69.0-75.0The [facility] HospitalComment on above:Performed By: #### CBC #### [facility] [address] [address] [address] Avery Cruzlet mean volume (Bld) [Entitic vol]9.8 fLNormal9.5-13.5The [facility] HospitalComment on above:Performed By: #### CBC #### [facility] [address] [address] [address] vAery KhanPLT260 103/kuDnaoxk259-685Jkl [facility] HospitalComment on above: Performed By: #### CBC #### [facility] [address] [place] [address] Dr. Avery KhanRBC4.28 106/ulCritically low4.70-6.10The [facility] HospitalComcorewell health [facility] on above:Performed By: #### CBC #### [facility] [address] [place] [address] Dr. Avery KhanWBC5.9 103/ulNormal4.0-11.0The [facility] HospitalComment on above: Performed By: #### CBC #### [facility] [address] [place] [address] Dr. Avery KhanCT ABD/PELV W CONon 82-33-7598CA ABD/PELV W CONEXAMINATION: CT ABD/PELV W CON HISTORY: ABDOMINAL DISTENSION [...] with nonspecific mild duodenal wall thickening. Mild infectious/inflammatory duodenitis cannot be excluded. 2. Mild wall [...] Electronically authenticated by: ESTRADA MORENO Date: 2022-07-25 04:45NoFulton County Health Center URINE PROFILEon [id number] Ql (U)NegativeNormal NEGATIVEThe Clermont County HospitalComment on above:Performed By: #### FETIBC, B12FOL, FERR #### [facility] [address] [place] [address] Dr. Avery Zhang (U)CLEARNormalCLEARThe [facility] HospitalComment on above: Performed By: #### FETIBC, B12FOL, FERR #### [facility] [address] [place], [place] [address] Dr. Yilan ChangColor (U)YELLOWNormalYELLOWMount Carmel Health SystemComment on above: Performed By: #### FETIBC, B12FOL, FERR #### [facility] [address] [place] [address] Dr. Avery Quijano micrscopic examination will be performed if indicated. NormalMount Carmel Health SystemComment on above:Performed By: #### FETIBC, B12FOL, FERR #### [facility] [address] [address] [address] Avery KhanGlucose Ql (U)NegativeNormalNEGATIVEMount Carmel Health SystemComment on above:Performed By: #### FETIBC, B12FOL, FERR #### [facility] [address] [place] [address] Dr. Avery KhanHemoglobin Ql (U)SMALLAbnormalNEGATIVEMount Carmel Health System Comment on above:Performed By: #### FETIBC, B12FOL, FERR #### [facility] [address] [place] [address] Dr. Avery KhanKetones Ql (U)TRACEAbnormalNEGATIVEMount Carmel Health SystemComment on above:Performed By: #### FETIBC, B12FOL, FERR #### [facility] [address] [place] [address] Dr. Avery KhanLEUKOCYTESNegativeNormalNEGATIVEMount Carmel Health SystemComment on above:Performed By: #### FETIBC, B12FOL, FERR #### [facility] [address] [place] [address] Dr. Avery KhanNitrite Ql (U)NegativeNormalNEGATIVEMount Carmel Health SystemComment on above:Performed By: #### FETIBC, B12FOL, FERR #### [facility] [address] [place] [address] Dr. Avery KhanpH (U)5.0 [pH]Normal5-9Mount Carmel Health SystemComment on above: Performed By: #### FETIBC, B12FOL, FERR #### [facility] [address] [place] [address] Dr. Avery KhanSPEC GRAVITY1.256Alavul1.005-<=1.025The [facility] County HospitalComment on above:Performed By: #### FETIBC, B12FOL, FERR #### [facility] [address] [place] [address] Dr. Avery Reed PROTEINNegativeNormalNEGATIVE/ TRACEThe [facility] Comment on above:Performed By: #### FETIBC, B12FOL, FERR #### [facility] [address] [address] [address] Avery Betts MICRO INDINDICATEDNoalThUniversity Hospitals Samaritan Medical CenterComment on above: Performed By: #### FETIBC, B12FOL, FERR #### [facility] [address] [place] [address] Dr. Avery Poncebilinogen Qn (U)0.2 {Anna'U}/dLNormal0.2 - 1.0The [facility] County HospitalComment on above:Performed By: #### FETIBC, B12FOL, FERR #### [facility] [address] [place] [address] Dr. Avery KhanLACTATE/LACTIC ACIDon 22-06-7454Rferoje [Moles/Vol]1.0 mmol/L Normal0.4-1.9The [facility] HospitalComment on above:Performed By: #### FETIBC, B12FOL, FERR #### [facility] [address] [place] [address] Dr. Avery KhanLIPASEon 29-76-3792Xjyofv [Catalytic activity/Vol]71.0 U/L Critically low73.0-393.0The [facility] HospitalComment on above:Performed By: #### LIPA, CMP, EMILE, HSTROPN #### [facility] [address] [place] [address] Dr. Avery Michael 14(COMP METB)on 20-90-3910Tgmvjuv [Mass/Vol]3.7 g/dLNormal 3.4-5.0The [facility] HospitalComment on above:Performed By: #### LIPA, CMP, MEILE, HSTROPN #### [facility] [address] [place] [address] Dr. Avery KhanAlbumin/Globulin [Mass ratio]1.2 {ratio}NormalThe [facility] County HospitalComment on above:Performed By: #### LIPA, CMP, EMILE, HSTROPN #### [facility] [address] [place] [address] Dr. Avery MeeksP [Catalytic activity/Vol]89 U/WPvulzj31-828Wcw [facility] HospitalComment on above:Performed By: #### LIPA, CMP, EMILE, HSTROPN #### [facility] [address] [place] [address] Dr. Avery Merritt [Catalytic activity/Vol]21 U/ABzamuf93-43Xnk [facility] HospitalComment on above:Performed By: #### LIPA, CMP, EMILE, HSTROPN #### [facility] [address] [place] [address] Dr. Avery Moore gap [Moles/Vol]11.2 mmol/LNormalThe [facility] Comment on above:Performed By: #### LIPA, CMP, EMILE, HSTROPN #### [facility] [address] [place] [address] Dr. Avery KhanAST [Catalytic activity/Vol]21 U/WDqevxc38-05Bhe [facility] HospitalComment on above:Performed By: #### LIPA, CMP, EMILE, HSTROPN #### [facility] [address] [place] [address] Dr. Avery KhanBilirubin [Mass/Vol]0.6 mg/dLNormal0.2-1.0The [facility] Comment on above:Performed By: #### LIPA, CMP, EMILE, HSTROPN #### [facility] [address] [place] [address] Dr. Avery KhanCalcium [Mass/Vol]8.7 mg/dLNormal8.5-10.1[facility] Comment on above:Performed By: #### LIPA, CMP, EMILE, HSTROPN #### [facility] [address] [place] [address] Dr. Avery KhanChloride [Moles/Vol]103 mmol/JYkngar98-649Yxd [facility] Comment on above:Performed By: #### LIPA, CMP, EMILE, HSTROPN #### [facility] [address] [place] [address] Dr. Avery KhanCO2 [Moles/Vol]27.7 mmol/PYgosdh85.0-32.0The [facility] Comment on above:Performed By: #### LIPA, CMP, EMILE, HSTROPN #### [facility] [address] [place] [address] Dr. Avery KhanCreatinine [Mass/Vol]1.03 mg/dLNormal0.70-1.30[facility] Health SystemComment on above:Performed By: #### LIPA, CMP, EMILE, HSTROPN #### [facility] [address] [place] [address] Dr. Avery LujanGFR-AF VENEZUELAN>60Normal>=60The [facility] HospitalComment on above:Performed By: #### LIPA, CMP, EMILE, HSTROPN #### [facility] [address] [place] [address] Dr. Avery LujanGFR-NON AF VENEZUELAN>60Normal>=60The [facility] HospitalComment on above:Performed By: #### LIPA, CMP, EMILE, HSTROPN #### [facility] [address] [place] [address] Dr. Avery KhanGlobulin (S) [Mass/Vol]3.0 g/dLNormalThe [facility] HospitalComment on above:Performed By: #### LIPA, CMP, EMILE, HSTROPN #### [facility] [address] [place] [address] Dr. Avery KhanGlucose [Mass/Vol]122 mg/dLCritically ixgh51-601Olr [facility] HospitalComment on above:Performed By: #### LIPA, CMP, EMILE, HSTROPN #### [facility] [address] [address] [address] Avery KhanPotassium [Moles/Vol]3.9 mmol/LNormal3.5-5.1The [facility] Comment on above:Performed By: #### LIPA, CMP, EMILE, HSTROPN #### [facility] [address] [address] [address] Avery KhanProtein [Mass/Vol]6.7 g/dLNormal6.4-8.2The [facility] Comment on above:Performed By: #### LIPA, CMP, EMILE, HSTROPN #### [facility] [address] [place] [address] Dr. Avery KhanSodium [Moles/Vol]138 mmol/PFxqrzj123-619Fmq [facility] Comment on above:Performed By: #### LIPA, CMP, EMILE, HSTROPN #### [facility] [address] [place] [address] Dr. Avery KhanUrea nitrogen [Mass/Vol]17.0 mg/dLNormal7.0-18.0[facility] SystemComment on above:Performed By: #### LIPA, CMP, EMILE, HSTROPN #### [facility] [address] [place] [address] Dr. Avery KhanUrea nitrogen/Creatinine [Mass ratio]16.5 mg/mgNormalThe [facility] HospitalComment on above:Performed By: #### LIPA, CMP, EMILE, HSTROPN #### [facility] [address] [place] [address] Dr. Avery Flor, HIGH SENSITIVITYon 62-55-5765FTUSDU3.0 pg/mLNormal 4.0-76.1[facility] Health SystemComment on above:Result Comment: CUT-OFF POINTS HAVE BEEN ESTABLISHED BASED ON THE FOURTH UNIVERSAL DEFINITIONS OF MYOCARDIAL INFARCTION. THE UPPER REFERENCE LIMIT (URL) OF TROPONIN, DEFINED THE 99TH PERCENTILE OF cTnI DISTRIBUTION IN A REFERENCE POPULATION, HAS BEEN CONFIRMED THE DECISION THRESHOLD FOR [place] DIAGNOSIS.Performed By: #### LIPA, CMP, EMILE, HSTROPN #### [facility] [address] [address] [address] Avery Carbajal MICROSCOPIC ONLYon 67-23-3286FTJHMTEOLHZUDIxwhdqlwVREA SEEN [facility] on above:Performed By: #### FETIBC, B12FOL, FERR #### [facility] [address] [place] [address] Dr. Avery Martinez identified Cx Nom (U)NOT INDICATEDNormalThe [facility] HospitalComcorewell health butterworth [facility] on above:Performed By: #### FETIBC, B12FOL, FERR #### [facility] [address] [place] [address] Dr. Avery Glass SEENNormalNONE SEENDunlap Memorial Hospital on above:Performed By: #### FETIBC, B12FOL, FERR #### [facility] [address] [place] [address] Dr. Avery Gomez LM Nom (Urine sed)NONE SEENNormalNONE SEENDunlap Memorial Hospital on above:Performed By: #### FETIBC, B12FOL, FERR #### [facility] [address] [place] [address] Dr. Avery Lujanpithelial cells LM Ql (Urine sed)RARENormalNONE SEEN /RAREThe [facility] on above:Performed By: #### FETIBC, B12FOL, FERR #### [facility] [address] [place] [address] Dr. Avery Chaudhry SEENNormalNONE SEENDunlap Memorial Hospital on above:Performed By: #### FETIBC, B12FOL, FERR #### [facility] [address] [place] [address] Dr. Avery AnnTqyevZJK9-0Hvxerk7-2YocDunlap Memorial Hospital on above:Performed By: #### FETIBC, B12FOL, FERR #### [facility] [address] [place] [address] Dr. Avery DormanBCNONDontrell SEENNormalNONE SEENDunlap Memorial Hospital on above: Performed By: #### FETIBC, B12FOL, FERR #### [facility] [address] [address] [address] 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1945 Visit Date:06/21/2022 Ambulatory Visit Instructions Your Diagnosis Rising PSA following treatment for malignant neoplasm of prostate History of prostate cancer Tests Performed Urnls Dip Stick Auto w/o Microscopy POC 76533 Your Care Team Attending Physician - ERIKA BOND PA-C Primary Care Physician - JOAQUIN MORGAN DO This Is Your Medications List Contact [...] the Following Appointments Follow Up with ERIKA BOND PA-C, URL When: Only if needed Where: [address] [place] [address] Medications What How Much When Instructions Unchanged [...] Urnls Dip Stick Auto w/o Microscopy POC 05667 (06/21/2022) Bilirubin Urine Dipstick - Negative Blood Urine Dipstick - Trace-intact Glucose Urine Dipstick - Negative Ketones Urine Dipstick - Negative Leukocytes Urine Dipstick - Negative Nitrite Urine Dipstick - Negative Protein Urine Dipstick - Negative Specific [place] Urine Dipstick - 1.020 Urine Appearance Urine [...] You may be at risk ifyou have: ? A testicle that has not [...] You should check f (more content not included)...[facility] Educationon 80-87-1902Lgwkjci EducationUrology Testicular Self-Exam A self-exam of your testicles [...] You may be at risk ifyou have: ? A testicle that has not [...] 08/10/2009 Document Revised: 09/04/2019 Document Reviewed: 04/09/2017 [employer] Patient Education ? 2019 [employer].[facility] Office/Clinic Noteon [id number] Office/Clinic NoteChief Complaint 16m PSA HPI Staff 16m to rising PSA following Tx & Hx of Prostate Cancer. S/P Brachytherapy done 12/2016. Last PSA done 12/13/21- 0.[address] Gonzalez 12/15/21. Denies all urinary complaints at this time. History of Present Illness Pt is here for 16 month follow up w/PSA due to Hx of Prostate Cancer Reviewed UA, PSA and IPSS (2) Pt has no associated symptoms, no fever, no chills, no flank pain. I have reviewed the previous health record information and history for this patient from Erika Bond Review of Systems PHQ Score Initial Depression [...] E&M of Est. Patient Low 20-29 Min 16836 2. History of prostate cancer (Z85.46: Personal history of malignant neoplasm of prostate) Pt is S/P Brachytherapy 12/2016 Ordered: E&M of Est. Patient Low 20-29 Min 01035 Urnls Dip Stick Auto w/o Microscopy POC 00688 3. BPH with urinary obstruction (N40.1: Benign prostatic hyperplasia with lower urinary tract symptoms) IPSS (4). Pt is currently taking no bladder/prostate medication and is highly satisfied with overall symptom control. No indication for treatment at this time. Continue to monitor. UA completed in office today shows no microhematuria or signs of infection. Ordered: E&M of Est. Patient Low 20-29 Min 71753 Other obstructive and reflux uropathy (N13.8: Other obstructive and reflux uropathy) offered annual f/u. pt is 5 yrs out from [facility] and continues to see Dr Gonzalez annually. prefers to f/u w our office PRN. Follow-up With When Contact Information DANIEL FLORES, ERIKA Jon, URL Only if needed [address] [place] [address] Additional Instructions: Patient Education Testicular Self-Exam, Pcdz-[id number] Documentation recorded by the hilda Aleman accurately reflects the services(s) I performed and decisions made by me. Authenticated by Erika Bond PA-C on 06/21/2022 13:51:53. I, Huma Aleman, personally scribed for Erika Bond PA-C on 06/21/2022 13:37:54. . Problem List/Past [...] of Care Results Bilirub (more content not included)...[facility]bleComment on above:Result Comment: Electronically Signed By: ERIKA BOND PA-C\.br\Date and Time Signed: 06/21/2312:52 EST\.br\Electronically Co-Signed By: Huma Aleman\.br\Date and Time Co-Signed: 06/21/22 13:38 EST\.br\Electronically Co-Signed By: Marichuy Wallace MDCBC AUTO DIFFon 05-04-2022 BASO #0.0 103/ulNormal0.0-0.1[facility] SystemComment on above:Performed By: #### CBC #### [facility] [address] [address] [address] Avery KhanBasophils/100 WBC (Bld)0.7 %Normal0.2-2.0[facility] Comment on above:Performed By: #### CBC #### [facility] [address] [address] [address] Avery Smith #0.3 103/ulNormal0.0-0.7The [facility] County HospitalComment on above: Performed By: #### CBC #### [facility] [address] [address] [address] Avery Lujanosinophils/100 WBC (Bld)5.0 %Normal0.9-7.0[facility] Comment on above:Performed By: #### CBC #### [facility] [address] [address] [address] Avery Astorgathrocyte distribution width (RBC) [Ratio]13.8 %Qocifh44.0-15.0 [facility] SystemComment on above:Performed By: #### CBC #### [facility] [address] [address] [address] Avery KhanHematocrit (Bld) [Volume fraction]36.9 %Critically low42.0-54.0 The [facility] County HospitalComment on above:Performed By: #### CBC #### [facility] [address] [place] [address] Dr. Avery KhanHemoglobin (Bld) [Mass/Vol]12.6 g/dLCritically low14.0-18.0The [facility] HospitalComment on above:Performed By: #### CBC #### [facility] [address] [place] [address] Dr. Avery Fields #0.01 10e3/ulNormal0.00-0.03The [facility] HospitalComment on above:Performed By: #### CBC #### [facility] [address] [place] [address] Dr. Avery Fields %0.2 %Normal0.0-0.5The [facility] HospitalComment on above: Performed By: #### CBC #### [facility] [address] [place] [address] Dr. Avery Rodriguez #1.5 103/ulNormal1.2-3.8The [facility] HospitalComment on above:Performed By: #### CBC #### [facility] [address] [place] [address] Dr. Avery Alfarohocytes/100 WBC (Bld)27.3 %Wxhakx35.5-60.0The [facility] HospitalComment on above:Performed By: #### CBC #### [facility] [address] [place] [address] Dr. Avery CampuzanoUAL DIFF REQNONormalThe [facility] HospitalComment on above: Performed By: #### CBC #### [facility] [address] [place] [address] Dr. Avery Kim (RBC) [Entitic mass]31.3 toJrrtos65.9-34.0The [facility] HospitalComment on above:Performed By: #### CBC #### [facility] [address] [place] [address] Dr. Avery Polanco (RBC) [Mass/Vol]34.1 g/lJNrzgds43.9-35.2The [facility] HospitalComment on above:Performed By: #### CBC #### [facility] [address] [place] [address] Dr. Avery PolancoV (RBC) [Entitic vol]91.6 oAOrjnaw11.0-94.0The [facility] HospitalComment on above:Performed By: #### CBC #### [facility] [address] [place] [address] Dr. Avery Galaviz #0.6 103/ulNormal0.3-0.8The [facility] HospitalComment on above:Performed By: #### CBC #### [facility] [address] [place] [address] Dr. Avery Caputoocytes/100 WBC (Bld)10.4 %Normal1.7-12.0The [facility] Comment on above:Performed By: #### CBC #### [facility] [address] [place] [address] Dr. Avery Briones #3.0 103/ulNormal1.4-6.5The [facility] HospitalComment on above:Performed By: #### CBC #### [facility] [address] [place] [address] Dr. Avery Israelutrophils/100 WBC (Bld)56.4 %Dpnowg35.0-75.0The [facility] HospitalComment on above:Performed By: #### CBC #### [facility] [address] [place] [address] Dr. Avery Cruzlet mean volume (Bld) [Entitic vol]9.9 fLNormal9.5-13.5The [facility] HospitalComment on above:Performed By: #### CBC #### [facility] [address] [place] [address] Dr. Avery CrT281 103/yhPgaljw535-960Vkp [facility] HospitalComment on above: Performed By: #### CBC #### [facility] [address] [place] [address] Dr. Avery MolinaC4.03 106/ulCritically low4.70-6.10The [facility] HospitalComment on above:Performed By: #### CBC #### [facility] [address] [place] [address] Dr. Avery KhanWBC5.4 103/ulNormal4.0-11.0The [facility] HospitalComment on above: Performed By: #### CBC #### [facility] [address] [place] [address] Dr. Avery KhanFERRITINon 67-39-2828Xvwrfdsj [Mass/Vol]72.0 ng/mLNormal 26.0-388.0The [facility] HospitalComment on above:Performed By: #### FETIBC, B12FOL, FERR #### [facility] [address] [place] [address] Dr. Avery Bauer AND TIBCon 05-04-2022% SOXQXMXBKI46.9 %NormalThe [facility] HospitalComment on above:Performed By: #### FETIBC, B12FOL, FERR #### [facility] [address] [place] [address] Dr. Avery Bauer [Mass/Vol]92.0 ug/gAAvwqjd99.0-175.0The [facility] Comment on above:Performed By: #### FETIBC, B12FOL, FERR #### [facility] [address] [place] [address] Dr. Avery Bautista ZFHEZI629.0 ug/iTTmnhuc666.0-450.0The [facility] Comment on above:Performed By: #### FETIBC, B12FOL, FERR #### [facility] [address] [place] [address] Dr. Avery Gold B12 AND FOLATEon 54-63-2443Znlngjvmn (Vitamin B12) [Mass/Vol] 524.0 pg/uIYivumz040.0-986.0The [facility] HospitalComment on above:Performed By: #### FETIBC, B12FOL, FERR #### [facility] [address] [place] [address] Dr. Avery KhanFOLATE15.70 ng/mLNormal8.60-58.90The [facility] HospitalComment on above:Performed By: #### FETIBC, B12FOL, FERR #### [facility] [address] [place] [address] Dr. Avery Pete AUTO DIFFon 56-48-4601XBWK #0.0 103/ulNormal0.0-0.1The [facility] HospitalComment on above:Performed By: #### FETIBC, B12FOL, FERR #### [facility] [address] [place] [address] Dr. Avery KhanBasophils/100 WBC (Bld)0.6 %Normal0.2-2.0The [facility] Comment on above:Performed By: #### FETIBC, B12FOL, FERR #### [facility] [address] [place] [address] Dr. Avery Smith #0.3 103/ulNormal0.0-0.7The [facility] HospitalComment on above: Performed By: #### FETIBC, B12FOL, FERR #### [facility] [address] [place] [address] Dr. Avery Lujanosinophils/100 WBC (Bld)4.2 %Normal0.9-7.0The [facility] Comment on above:Performed By: #### FETIBC, B12FOL, FERR #### [facility] [address] [place] [address] Dr. Avery Lujanrythrocyte distribution width (RBC) [Ratio]14.3 %Kuejom17.0-15.0 The [facility] HospitalComment on above:Performed By: #### FETIBC, B12FOL, FERR #### [facility] [address] [place] [address] Dr. Avery KhanHematocrit (Bld) [Volume fraction]38.2 %Critically low42.0-54.0 The [facility] HospitalComment on above:Performed By: #### FETIBC, B12FOL, FERR #### [facility] [address] [place] [address] Dr. Avery KhanHemoglobin (Bld) [Mass/Vol]12.6 g/dLCritically low14.0-18.0The [facility] HospitalComment on above:Performed By: #### FETIBC, B12FOL, FERR #### [facility] [address] [place] [address] Dr. Avery Fields #0.02 10e3/ulNormal0.00-0.03The [facility] HospitalComment on above:Performed By: #### FETIBC, B12FOL, FERR #### [facility] [address] [place] [address] Dr. Avery Fields %0.3 %Normal0.0-0.5The [facility] HospitalComment on above: Performed By: #### FETIBC, B12FOL, FERR #### [facility] [address] [place] [address] Dr. Avery Rodriguez #1.3 103/ulNormal1.2-3.8The [facility] HospitalComment on above:Performed By: #### FETIBC, B12FOL, FERR #### [facility] [address] [place] [address] Dr. Avery Alfarohocytes/100 WBC (Bld)20.1 %Critically low20.5-60.0The [facility] HospitalComcorewell health [facility] on above:Performed By: #### FETIBC, B12FOL, FERR #### [facility] [address] [place] [address] Dr. Avery CampuzanoUAL DIFF REQNONormalThe [facility] HospitalComment on above: Performed By: #### FETIBC, B12FOL, FERR #### [facility] [address] [place] [address] Dr. Avery Kim (RBC) [Entitic mass]30.4 vwFxnhak95.9-34.0The [facility] HospitalComment on above:Performed By: #### FETIBC, B12FOL, FERR #### [facility] [address] [place] [address] Dr. Avery Polanco (RBC) [Mass/Vol]33.0 g/qXFgifsp89.9-35.2The [facility] HospitalComment on above:Performed By: #### FETIBC, B12FOL, FERR #### [facility] [address] [place] [address] Dr. Avery Polanco (RBC) [Entitic vol]92.3 qIMzxpfw63.0-94.0The [facility] HospitalComment on above:Performed By: #### FETIBC, B12FOL, FERR #### [facility] [address] [place] [address] Dr. Avery Galaviz #0.5 103/ulNormal0.3-0.8The [facility] HospitalComment on above:Performed By: #### FETIBC, B12FOL, FERR #### [facility] [facility] [address] [place] [address] Dr. Avery Caputoocytes/100 WBC (Bld)8.7 %Normal1.7-12.0[facility] Comment on above:Performed By: #### FETIBC, B12FOL, FERR #### [facility] [address] [place] [address] Dr. Avery Briones #4.1 103/ulNormal1.4-6.5[facility] HospitalComment on above:Performed By: #### FETIBC, B12FOL, FERR #### [facility] [address] [place] [address] Dr. Avery Israelutrophils/100 WBC (Bld)66.1 %Fmfrtu77.0-75.0[facility] HospitalComment on above:Performed By: #### FETIBC, B12FOL, FERR #### [facility] [address] [place] [address] Dr. Avery Alva mean volume (Bld) [Entitic vol]9.4 fLCritically low 9.5-13.5The [facility] HospitalComment on above:Performed By: #### FETIBC, B12FOL, FERR #### [facility] [address] [place] [address] Dr. Avery KhanPLT265 103/fuVlnxzz341-802Kyd [facility] HospitalComment on above: Performed By: #### FETIBC, B12FOL, FERR #### [facility] [address] [place] [address] Dr. Avery KhanRBC4.14 106/ulCritically low4.70-6.10[facility] HospitalComment on above:Performed By: #### FETIBC, B12FOL, FERR #### [facility] [address] [place] [address] Dr. Avery KhanWBC6.2 103/ulNormal4.0-11.0[facility]Com[facility] on above: Performed By: #### FETIBC, B12FOL, FERR #### [facility] [address] [place] [address] Dr. Avery KhanPROF 14(COMP METB)on 07-82-4435Uqiynkx [Mass/Vol]3.6 g/dLNormal 3.4-5.0[facility] HospitalComment on above:Performed By: #### FETIBC, B12FOL, FERR #### [facility] [address] [place] [address] Dr. Avery KhanAlbumin/Globulin [Mass ratio]1.1 {ratio}NormalThe [facility] HospitalComcorewell [facility] on above:Performed By: #### FETIBC, B12FOL, FERR #### [facility] [address] [place] [address] Dr. Avery Shen [Catalytic activity/Vol]80 U/NBygrlq93-859Iyd [facility] HospitalComcore[facility] on above:Performed By: #### FETIBC, B12FOL, FERR #### [facility] [address] [place] [address] Dr. Avery Merritt [Catalytic activity/Vol]28 U/PWdughh80-88Dys [facility] HospitalComment on above:Performed By: #### FETIBC, B12FOL, FERR #### [facility] [address] [place], [place] [id number] Dr. Avery Moore gap [Moles/Vol]7.7 mmol/LNormalThe [facility] HospitalComment on above:Performed By: #### FETIBC, B12FOL, FERR #### [facility] [address] [place] [address] Dr. Avery KhanAST [Catalytic activity/Vol]21 U/BPktizx09-09Gbn [facility] HospitalComment on above:Performed By: #### FETIBC, B12FOL, FERR #### [facility] [address] [place] [address] Dr. Avery KhanBilirubin [Mass/Vol]0.6 mg/dLNormal0.2-1.0[facility] Comment on above:Performed By: #### FETIBC, B12FOL, FERR #### [facility] [address] [place] [address] Dr. Avery KhanCalcium [Mass/Vol]8.4 mg/dLCritically low8.5-10.1The [facility] HospitalComment on above:Performed By: #### FETIBC, B12FOL, FERR #### [facility] [address] [place] [address] Dr. Avery KhanChloride [Moles/Vol]106 mmol/AGqhxko30-959NdnMount [facility]el Health System Comment on above:Performed By: #### FETIBC, B12FOL, FERR #### [facility] [address] [place] [address] Dr. Avery KhanCO2 [Moles/Vol]30.4 mmol/MBkqkuz58.0-32.0[facility] Comment on above:Performed By: #### FETIBC, B12FOL, FERR #### [facility] [address] [place] [address] Dr. Avery KhnaCreatinine [Mass/Vol]1.02 mg/dLNormal0.70-1.30The [facility] HospitalComcore[facility] on above:Performed By: #### FETIBC, B12FOL, FERR #### [facility] [address] [place] [address] Dr. Yilan ChangEGFR-AF VENEZUELAN>60Normal>=60The [facility] HospitalComment on above:Performed By: #### FETIBC, B12FOL, FERR #### [facility] [address] [place] [address] Dr. Avery Rico-NON AF VENEZUELAN>60Normal>=60The [facility] HospitalComment on above:Performed By: #### FETIBC, B12FOL, FERR #### [facility] [address] [place] [address] Dr. Avery KhanGlobulin (S) [Mass/Vol]3.4 g/dLNormalThe [facility] HospitalComment on above:Performed By: #### FETIBC, B12FOL, FERR #### [facility] [address] [place] [address] Dr. Avery KhanGlucose [Mass/Vol]91 mg/cXWqksyv64-808XgqMount [facility] Comment on above:Performed By: #### FETIBC, B12FOL, FERR #### [facility] [address] [place] [address] Dr. Avery KhanPotassium [Moles/Vol]4.1 mmol/LNormal3.5-5.1[facility] Comment on above:Performed By: #### FETIBC, B12FOL, FERR #### [facility] [address] [place] [address] Dr. Avery KhanProtein [Mass/Vol]7.0 g/dLNormal6.4-8.2[facility] Comment on above:Performed By: #### FETIBC, B12FOL, FERR #### [facility] [address] [place] [address] Dr. Avery KhanSodium [Moles/Vol]140 mmol/NQrbyiy768-833MjsMount Carmel Health System Comment on above:Performed By: #### FETIBC, B12FOL, FERR #### [facility] [address] [place] [address] Dr. Avery KhanUrea nitrogen [Mass/Vol]14.0 mg/dLNormal7.0-18.0[facility] SystemComment on above:Performed By: #### FETIBC, B12FOL, FERR #### [facility] [address] [address] [address] Avery KhanUrea nitrogen/Creatinine [Mass ratio]13.7 mg/mgNoUniversity Hospitals St. John Medical CenterComment on above:Performed By: #### FETIBC, B12FOL, FERR #### [facility] [id number] [address] Avery KhanProvider Letteron [phone] Letter February 02, 2022 MALCOLM PFEIFFER [address] [place], [place] [id number] MALCOLM PFEIFFER 1945 Dear Mr. Pfeiffer, We have been trying to reach you with no success. You have an appointment with Rachele Jason 02/16/2022 which will need to be rescheduled since she will not be in the [place] office that day. Please contact the office at the number listed below to get this appointment rescheduled at your earliest convenience. Thank you for your prompt attention to this matter. Sincerely, [facility] [address], [place] [address] BntdbaXjeubgKettering Health Preble Vital Signs Date TimeVital SignValuePerforming ZposuvewvZdfcponk70-59-5287 08:43-0400Body yrprtb049.26 cmBenjamin Ball DO Work Phone: [facility]10-03-2025 08:43-0400 Body mass index (BMI) [Ratio]22 kg/q6Tsvbywpw Ball DO Work Phone: [facility]10-03-2025 08:43-0400 Body vvxcyl66.75 kgBenjamin Ball DO Work Phone: [facility]10-03-2025 08:43-0400 Diastolic blood mhfqrhzu23 mm[Hg]Joaquin Ball DO Work Phone: [facility]10-03-2025 08:43-0400 Heart rate52 /minBenjamin Ball DO Work Phone: 1(419)[address] [place], [place] [address]40410-03-2025 08:43-0400 Respiratory rate12 /minBenjamin Ball DO Work Phone: 1(419)[address] [place], [place] 6640410-03-2025 08:43-0400 Systolic blood nfxkpkor952 mm[Hg]Joaquin Ball DO Work Phone: 1(419)[address] [place], [place] 6640409-25-2025 08:35-0400 Body .26 cmBenjamin Ball DO Work Phone: 1(419)[address] [place], [place] 6640409-25-2025 08:35-0400 Body mass index (BMI) [Ratio]22.1 kg/b1Fwbkswya Ball DO Work Phone: 1(419)[address] [place], [place] 6640409-25-2025 08:35-0400 Body .03 kgBenjamin Ball DO Work Phone: 1(419)[address] [place], [place] 6640409-25-2025 08:35-0400 Diastolic blood ipblayuq26 mm[Hg]Joaqiun Ball DO Work Phone: 1(419)[address] [place], [place] 6640409-25-2025 08:35-0400 Heart rate56 /minBenjamin Ball DO Work Phone: 1(419)[address] [place], [place] 6640409-25-2025 08:35-0400 Respiratory rate12 /minBenjamin Ball DO Work Phone: 1(419)[address] [place], [place] 6640409-25-2025 08:35-0400 Systolic blood mxedjrdo615 mm[Hg]Joaquin Ball DO Work Phone: 1(419)[address] [place], [place] 6640403-24-2025 08:31-0400 Body owuolv756.26 cm[facility]03-24-2025 08:31-0400Body mass index (BMI) [Ratio]22.6 kg/k3JqjdergptAccess Hospital [facility]03-24-2025 08:31-0400Body .45 kgAccess [facility]03-24-2025 08:31-0400Diastolic blood rcwreyzv95 mm[Hg][facility] 08-18-2024 08:31-0400Heart rate54 /[facility] 08-18-2024 08:31-0400Respiratory rate12 /[facility] 08-18-2024 08:31-0400Systolic blood vwqutyiz855 mm[Hg][facility]11-05-2024 10:10-0500Body mass index (BMI) [Ratio]22.46 kg/m2MIHIR Gonzalez MD Work Phone: [facility]11-05-2024 10:10-0500Body temperature 98.2 [degF]MIHIR Gonzalez MD Work Phone: [facility]11-05-2024 10:10-0500Body jfrqso65 kg MIHIR Gonzalez MD Work Phone: [facility]11-05-2024 10:10-0500Diastolic blood zespsjcd32 mm[Hg]MIHIR Gonzalez MD Work Phone: [facility]11-05-2024 10:10-0500Heart rate53 /min MIHIR Gonzalez MD Work Phone: [facility]11-05-2024 10:10-0500Respiratory rate 16 /AmeyaMIHIR Gonzalez MD Work Phone: [facility]11-05-2024 10:10-0472NuQ2% (BldA) [Mass fraction]97 %MIHIR Gonzalez MD Work Phone: [facility]11-05-2024 10:10-0500Systolic blood icuykkeg157 mm[Hg]MIHIR Gonzalez MD Work Phone: [facility]09-23-2024 08:29-0400Body .26 cm[facility]09-23-2024 08:29-0400Body mass index (BMI) [Ratio]22.7 kg/r2UkysgrorsAccess Hospital [facility]09-23-2024 08:29-0400Body tmeypa49.85 kgAccess [facility]09-23-2024 08:29-0400Diastolic blood qxokvduf59 mm[Hg][facility]09-23-2024 08:29-0400 Heart rate55 /[facility]09-23-2024 08:29-0727PgZ2% (BldA) [Mass fraction]97 %[facility]09-23-2024 08:29-0400 Systolic blood eoxfuujd019 mm[Hg][facility]08-30-2024 14:19-0400Body zonxqp552.26 cm[facility]08-30-2024 14:19-0400Body mass index (BMI) [Ratio]22.9 kg/t6QkqsareuzAccess Hospital [facility]08-30-2024 14:19-0400Body nnayri39.47 kg[facility] 01-25-2024 14:19-0400Diastolic blood okxgcujk73 mm[Hg][facility]08-30-2024 14:19-0400Heart rate59 /[facility] 01-25-2024 14:19-0400Respiratory rate12 /[facility] 01-25-2024 14:19-0400Systolic blood mm[Hg][facility]08-23-2024 09:00-0400Body vigqkd835.3 cmGabriela Ramsey MD Work Phone: [facility]08-23-2024 09:00-0400Body mass index (BMI) [Ratio]22.43 kg/x6CjfwhfvGabriela Ramsey MD Work Phone: [facility]08-23-2024 09:00-0400Body pckvre54.9 kgGabriela Ramsey MD Work Phone: [facility]08-23-2024 09:00-0400Diastolic blood btzspyzz41 mm[Hg]Gabriela Ramsey MD Work Phone: [facility]08-23-2024 09:00-0400Heart rate54 /min Gabriela Ramsey MD Work Phone: [facility]08-23-2024 09:00-0400Systolic blood hqcytynh997 mm[Hg]Gabriela Ramsey MD Work Phone: [facility]07-18-2024 09:32-0400Body mass index (BMI) [Ratio]22.68 kg/m2MIHIR Gonzalez MD Work Phone: [facility]07-18-2024 09:32-0400Body temperature 97.5 [degF]MIHIR Gonzalez MD Work Phone: [facility]07-18-2024 09:32-0400Body oyxsbu27.7 kgMIHIR Gonzalez MD Work Phone: [facility]07-18-2024 09:32-0400Diastolic blood okisffzv80 mm[Hg]MIHIR Gonzalez MD Work Phone: [facility]07-18-2024 09:32-0400Heart rate51 /min MIHIR Gonzalez MD Work Phone: [facility]07-18-2024 09:32-0400Respiratory rate 16 /AmeyaMIHIR Gonzalez MD Work Phone: [facility]07-18-2024 09:32-4732TpC5% (BldA) [Mass fraction]99 %MIHIR Gonzalez MD Work Phone: [facility]07-18-2024 09:32-0400Systolic blood mm[Hg]MIHIR Gonzalez MD Work Phone: [facility]05-30-2024 10:30-0400Body mass index (BMI) [Ratio]22.94 kg/m2MIHIR Gonzalez MD Work Phone: [facility]05-30-2024 10:30-0400Body temperature 97.59 [degF]MIHIR Gonzalez MD Work Phone: [facility]05-30-2024 10:30-0400Body vipjcl30.5 kgMIHIR Gonzalez MD Work Phone: [facility]05-30-2024 10:30-0400Diastolic blood xouqjuya84 mm[Hg]MIHIR Gonzalez MD Work Phone: [facility]05-30-2024 10:30-0400Heart rate52 /min MIHIR Gonzalez MD Work Phone: [facility]05-30-2024 10:30-0400Respiratory rate 16 /AmeyaMIHIR Gonzalez MD Work Phone: [facility]05-30-2024 10:30-8899ZsC8% (BldA) [Mass fraction]97 %MIHIR Gonzalez MD Work Phone: [facility]05-30-2024 10:30-0400Systolic blood mm[Hg]MIHIR Gonzalez MD Work Phone: [facility]03-21-2024 08:32-0400Body tjulyp880.26 cm[facility]03-21-2024 08:32-0400Body mass index (BMI) [Ratio]22.9 kg/u7CuoxulnsyAccess [facility]03-21-2024 08:32-0400Body .53 kg[facility]03-21-2024 08:32-0400Diastolic blood mdfmaycz43 mm[Hg][facility]03-21-2024 08:32-0400 Heart rate54 /[facility]03-21-2024 08:32-0400 Respiratory rate12 /[facility]03-21-2024 08:32-0400 Systolic blood mm[Hg][facility]07-20-2023 08:48-0400Body ntggktouovz68.8 [degF]MIHIR Gonzalez MD Work Phone: [facility]07-20-2023 08:48-0400Body .86 kgMIHIR Gonzalez MD Work Phone: [facility]07-20-2023 08:48-0400Diastolic blood rofmsxaj21 mm[Hg]MIHIR Gonzalez MD Work Phone: [facility]07-20-2023 08:48-0400Heart rate54 /min MIHIR Gonzalez MD Work Phone: [facility]07-20-2023 08:48-0400Respiratory rate 18 /AmeyaMIHIR Gonzalez MD Work Phone: [facility]07-20-2023 08:48-7201NvZ0% (BldA) [Mass fraction]97 %MIHIR Gonzalez MD Work Phone: [facility]07-20-2023 08:48-0400Systolic blood mm[Hg]MIHIR Gonzalez MD Work Phone: [facility]03-06-2023 08:30-0500Body qsuysa803.26 cmBenjamin Ball Other [employer] Other 03-06-2023 08:30-0500Body mass index (BMI) [Ratio] 23.27 kg/n1Ryszafsw Ball Other [employer] Other 03-06-2023 08:30-0500Body xycbpc53.49 kgBenjamin Ball Other [employer] Other 03-06-2023 08:30-0500Diastolic blood nlkgmvmo78 mm[Hg] Joaquin Ball Other [employer] Other 03-06-2023 08:30-0500Respiratory rate12 /minBenjamin Ball Other [employer] Other 03-06-2023 08:30-0500Systolic blood asrnbyfr070 mm[Hg] Joaquin Ball Other [employer] Other 03-01-2023 11:30-0500Body wetqfo713.26 cmBenjamin Ball Other [facility] [employer] Other 03-01-2023 11:30-0500Body mass index (BMI) [Ratio] 23.48 kg/w6Cvxcbuyc Ball Other [facility] [employer] Other 03-01-2023 11:30-0500Body .12 kgBenjamin Ball Other [facility] [employer] Other 03-01-2023 11:30-0500Diastolic blood tjpkwaca06 mm[Hg] Joaquin Ball Other [facility] [employer] Other 03-01-2023 11:30-0500Respiratory rate12 /minBenjamin Ball Other [facility] [employer] Other 03-01-2023 11:30-0500Systolic blood omntsgix271 mm[Hg] Joaquin Ball Other [facility] [employer] Other 01-25-2023 13:20-0500Blood Pressure LocationJENNIFER DANIEL [facility]01-25-2023 13:20-0500Diastolic blood discwcwx19 mm[Hg]ERIKA DANIEL [facility]01-25-2023 13:20-0500Heart rate86 /minJENNIFER DANIEL [facility]01-25-2023 13:20-0500Respiratory rate16 /minJENNIFER DANIEL [facility]01-25-2023 13:20-0500Systolic blood tukrczfi071 mm[Hg]ERIKA DANIEL [facility]07-21-2022 09:02-0400Body bmubfkquokl27.11 [degF]MIHIR Gonzalez MD Work Phone: [facility]07-21-2022 09:02-0400Body faffrp60.22 kgMIHIR Gonzalez MD Work Phone: [facility]07-21-2022 09:02-0400Diastolic blood dsilvlyi85 mm[Hg]MIHIR Gonzalez MD Work Phone: [facility]07-21-2022 09:02-0400Heart rate59 /min MIHIR Gonzalez MD Work Phone: [facility]07-21-2022 09:02-0400Respiratory rate 16 /AmeyaMIHIR Gonzalez MD Work Phone: [facility]07-21-2022 09:02-9637PkE6% (BldA) [Mass fraction]99 %MIHIR Gonzalez MD Work Phone: [facility]07-21-2022 09:02-0400Systolic blood mm[Hg]MIHIR Gonzalez MD Work Phone: [facility] Encounters Encounter DateEncounter TypeCare ProviderFacilityStart: 02-27-2025 End: 77-03-2217keqqqizxuzYxcscgao Ball DO Work Phone: [facility] Work Phone: Start: 02-27-2025 End: 33-58-2324Idbuxkq encounter procedureBenjamin Ball DO-FPG [facility] Work Phone: Start: 02-19-2025 End: 45-50-8285sqpvkgiblyBpqekjra Ball DO Work Phone: [facility] Work Phone: Start: 02-19-2025 End: 02-31-0981Ruesyst encounter procedureBenjamin Ball DO-[facility] Work Phone: Start: 09-23-2024 End: 11-31-2982Msxehqgqt encounterGabriela Ramsey MD Work Phone: Colorectal SurgeryComment on above:Care Coordination (Follow up colonoscopy with Dr Ramsey)Start: 08-18-2024 End: 13-16-6228cptndnpcqlWkhmojkvdJoint Township District [facility] Hospital Work Phone: Start: 08-18-2024 End: 25-89-8726Aqjsdez encounter procedureNov[facility] Work Phone: Start: 04-01-2024 End: 79-36-8544veueoctvkkG BOB SALDIVARacility:[facility] Start: 04-01-2024 End: 94-23-3777Nqvenww encounter Kale Gonzalez MD Work Phone: Radiation OncologyComment on above:History of prostate cancer (Primary Dx)Start: 02-18-2024 End: 48-67-5873rbgqqpiajmVwztffrctJoint Township [facility] Work Phone: Start: 02-18-2024 End: 74-36-4801Dodgskw encounter procedureNov[facility] Work Phone: Start: 94-04-8324Ftrvcnl encounter procedureOhioHealth Mansfield Hospitaltart: 01-25-2024 End: 92-15-4239idiebrrphjNgcttyhytJoint Township District [facility] Hospital Work Phone: Start: 01-25-2024 End: 45-07-8223Pgntglo encounter procedureNov[facility] Work Phone: Start: 01-18-2024 End: 73-11-3523mvothopwebZRTYXBNF E BALLFacility:[facility] Hospitaltart: 01-18-2024 End: 75-87-9340Qysyxll encounter procedureGabriela Ramsey MD Work Phone: Colorectal SurgeryComment on above:Anal or rectal pain (Primary Dx); Rectal stricture; Rectal or anal painStart: 12-13-2023 End: 69-71-4895Tmxrgcy encounter procedureG Bob Gonzalez MD Work Phone: Radiation OncologyComment on above:History of prostate cancer (Primary Dx); Rectal or anal painStart: 12-13-2023 End: 14-52-9977yvtbpisbfrM PHILLIP ENGELERFacility:[facility] Start: 10-25-2023 End: 55-48-0567haddlcgmxaXSMOICKG E BALLFacility:[facility] Hospitaltart: 10-25-2023 End: 29-12-4662Fbfbnry encounter procedureG Bob Gonzalez MD Work Phone: [facility] OncologyComment on above:History of prostate cancer (Primary Dx)Start: 08-16-2023 End: 73-98-7782llrgjgenlkAwkzmyhweMiami Valley Hospital Work Phone: Start: 08-16-2023 End: 00-36-2606Lbjfwsc encounter procedureNovant Health Physician GroupSelect [facility] Work Phone: Start: 02-20-2023 End: 62-97-8520tyxogjvgcnLnatiqsz Thomas Other [employer] Other Start: 15-12-7258Megxrjeho encounterJoaquin MorganLima Memorial Hospitaltart: 12-14-2022 End: 37-28-1943Vjwbwzg encounter procedureG Bob Gonzalez MD Work Phone: [facility] OncologyComment on above:History of prostate cancer (Primary Dx); Proctitis, radiationStart: 12-13-2022 End: 22-12-7087jatgklsgaxSubfehxw Ball Other [employer] Other Start: 72-09-2345Wdvsvpsoz encounterBefranchesca MorganLima Memorial Hospitaltart: 12-11-2022 End: 72-05-5065pxbsqxkkohXmkzhlpj Ball Other [employer] Other Start: 40-35-5743Ykeddfoif encounterBenalona Morgan Medical ClinicStart: 07-31-2022 End: 25-93-4276itpajpkvlzHrqwohoy Ball Other [employer] Other Start: 16-14-9064Dqejae outpatient visit 25 minutes Joaquin [facility] ClinicStart: 07-26-2022 End: 33-19-4027lcsnyoqugvLvlvukzz Ball Other [employer] Other Start: 60-01-4332Gssfio outpatient visit 15 minutes Joaquin [facility] ClinicStart: 07-25-2022 End: 83-85-7669rdtvwnapmoLA SANA MARKER .Facility:Y2Qmnhl: 07-18-2022 End: 14-37-4274szzipmuubkQfnipytd Ball Other [employer] Other Start: 55-93-4021Buvfthyte encounterBenalona Morgan Medical ClinicStart: 06-21-2022 End: 08-14-3889dzkpwkzsenHSIQZZEJ E PERRYFacility:BRENDEN MitchellueStart: 06-21-2022 End: 59-21-0423Esfidtf encounter procedureJENNIFER E DANIEL [facility] start: 05-04-2022 End: 01-69-8253mmastayrksKW JOAQUIN MORGANFacility:D1Kqags: 71-53-5117Sqtlpepcf for general adult medical examination without abnormal findingsDR JOAQUIN MORGAN [facility]: 02-14-2022 End: 17-72-8439isqfzmsmqmLJ JOAQUIN MORGANFacility:O1Ecksq: 02-14-2022 End: 58-66-6270Bsowjxjtw for general adult medical examination without abnormal findingsDR JOAQUIN BALLFacility:Z0Pdnxu: 12-15-2021 End: 41-12-0178Viycvmx encounter procedureG Bob Gonzalez MD Work Phone: Radiation OncologyComment on above:Malignant neoplasm of prostate (HCC) (Primary Dx)Start: 12-13-2021 End: 02-61-2534vnndyaddpwVL PEDRO aMjano NINARFacility:H1 Procedures DateProcedureProcedure DetailPerforming ClinicianStart: 40-14-4480BXB screening Ccf ProviderStart: 91-29-2522JQB screeningCcf ProviderStart: 12-13-2021 End: 28-02-1237AOM screeningCcf ProviderComment on above:Performed By: #### FETIBC, B12FOL, FERR #### [facility] [address] [place] [address] Dr. Varela ChangStart: 55-75-0280Ybbwq depression screening assessmentMIHIR Gonzalez MD Work Phone: Start: 06-09-6854ZcmbkdpckgojgEMDVPNME DANIEL Start: 25-80-4709Rdoudurnqeh biopsy of prostate using ultrasound guidanceSnowball FinanceIFER DANIEL Start: 84-74-5786Oosnlbvwets biopsy of prostate using ultrasound guidanceP2 ScienceNNIFER DANIEL Repair of inguinal herniaAutoESL Plan of Treatment DateCare ActivityDetailAuthorStart: 04-01-2025 End: 73-00-9094Xuqcgwn encounter egtielydr10/05/2025 9:15 AM EST Office Visit Radiation Oncology [address] [place] [address] [place] [address] Lydia Gonzalez MD [address] [place] [address] [place] [address] 1 year follow upRadiation OncologyComment on above:1 year follow upStart: 12-12-2024 End: 27-64-3995Tmnryzfc specific Ag [Mass/volume] in Serum or PlasmaPROSTATE- SPECIFIC ANTIGEN DIAGNOSTIC Lab Routine History of prostate cancer Expected: 12/12/2024, Expires: 03/13/2025[facility] Work Phone: Comment on above:Expected: 12/12/2024, Expires: 03/13/2025Start: 29-40-4778Qvqlzsh Directive DiscussionAdvance Directive DiscussionGreene Memorial Hospitaltart: 04-01-2024 End: 21-77-8483Mpkkekjj specific Ag [Mass/volume] in Serum or PlasmaPROSTATE- SPECIFIC ANTIGEN DIAGNOSTIC Lab Routine History of prostate cancer Expected: 04/01/2024, Expires: 07/01/2024[facility] Work Phone: Comment on above:Expected: 04/01/2024, Expires: 07/01/2024Start: 03-13-2024 End: 88-44-0917Jbtzlzz encounter rqgmifegy37/17/2024 9:15 AM EDT Office Visit Radiation Oncology [address] [place] [address] Lydia Gonzalez MD [address] [place] [address] 3 month rvRadiation OncologyComment on above:3 month rvStart: 81-61-6346Hzjhv-19 Vaccine ( season)Covid-19 Vaccine ( season)[facility]: 23-66-2148Bymvjsqvx vaccinationWilson [facility] Start: 12-21-2023 End: 57-84-8319Fzmqzjf encounter lkimyimxm13/26/2024 12:30 PM EDT Office Visit Colorectal Surgery [address] [place] [address] [place] [address] [place] [address] new patient, Rectal Pain, colonoscopy was 11/03/15, results scanned into EPICColorectal SurgeryComment on above:new patient, Rectal Pain, colonoscopy was 11/03/15, results scanned into EPICStart: 12-13-2023 End: 93-14-0922Xcrnjvk encounter aoplkpgem51/18/2024 10:00 AM EDT Office Visit Radiation Oncology [address] [place] [address] Lydia Gonzalez MD [address] [place] [address] 1 Yr Follow Up PSA done at [facility] Oncology Comment on above:1 [facility]: [facility] Advance Directive DiscussionAdvance Directive DiscussionGreene Memorial Hospitaltart: 93-57-1674Mofundcplr Health ScreeningBehavioral Health ScreeningWilson Memorial Hospital Start: 19-97-9166Vvidf-19 Vaccine ()Covid-19 Vaccine ()[facility]: 13-73-7353Rkwkaomid vaccinationINFLUENZA (#1)[facility]: 12-15-2022 End: 38-76-6059Vperlvzh specific Ag [Mass/volume] in Serum or Plasma PSA/PROSTSPECAG DIAG Lab Routine Malignant neoplasm of prostate (HCC) Expected: 12/15/2022, Expires: 02/14/2023[facility] Work Phone: Comment on above:Expected: 12/15/2022, Expires: 02/14/2023Start: 12-14-2022 End: 95-10-2457Dhucjgcn specific Ag [Mass/volume] in Serum or Plasma PSA/PROSTSPECAG DIAG Lab Routine History of prostate cancer Expected: 12/14/2022, Expires: 02/13/2023[facility] Work Phone: Comment on above:Expected: 12/14/2022, Expires: 02/13/2023Start: 62-00-5355Ubccr depression screening assessmentDEPRESSION SCREENINGGreene Memorial Hospitaltart: 41-91-1697WWOKZMG DIRECTIVE DISCUSSIONADVANCE DIRECTIVE DISCUSSIONGreene Memorial Hospitaltart: 78-30-9726MWJFYNTITB ASSESSMENT DEPRESSION ASSESSMENTGreene Memorial Hospitaltart: 42-95-5500Nsirjvjmp vaccination INFLUENZA (#1)[facility]: 75-16-8822USIRH-19 VACCINE (4 - Booster for Moderna series)COVID-19 VACCINE (4 - Booster for Moderna series)[facility]: 15-26-5014CFMWWQW DIRECTIVE DISCUSSIONADVANCE DIRECTIVE DISCUSSION [facility]: 30-80-8859FNYDZ-19 VACCINE (4 - Moderna series)COVID-19 VACCINE (4 - Moderna series)[facility]: 30-43-5619NTW Vaccine (1 - 1- dose 75+ series)RSV Vaccine (1 - 1-dose 75+ series)[facility]: 13-44-0678IJNEHATG VACCINE (2 of 3)SHINGRIX VACCINE (2 of 3)[facility] Start: 20-07-3544Pbvswwqkigph Vaccine: 65+ (2 of 2 - PCV)Pneumococcal Vaccine: 65+ (2 of 2 - PCV)[facility]: 99-79-9037JRZRIOPWVSHB: 65+ (2 - PCV) PNEUMOCOCCAL: 65+ (2 - PCV)[facility]: 17-03-5248HLD Vaccine (1 - 1- dose 60+ series)RSV Vaccine (1 - 1-dose 60+ series)[facility]: 75-38-2764BDQGNBEJ SCREENDIABETES SCREENGreene Memorial Hospitaltart: 1990 Diabetes ScreeningDiabetes ScreeningGreene Memorial Hospitaltart: 58-14-1799Wynix microalbumin profileGreene Memorial Hospitaltart: 63-75-3696Cogolqp ScreeningAnxiety ScreeningGreene Memorial Hospitaltart: 42-86-1071Ktdpcomhem ScreeningDepression ScreeningGreene Memorial Hospitaltart: 55-53-8015CWBDFPMFC C SCREENINGHEPATITIS C SCREENINGWilson Memorial HospitalComprehensive metabolic 2000 panel - Serum or Plasma [facility] panel - Serum or PlasmaAccess Hospital DaytonCT Abdomen and Pelvis WO contrast [facility] End: 46-56-0222Bpsldssy sigmoidoscopy studyCOLONOSCOPY DIAGNOSTIC Endoscopy Routine Rectal stricture 1 Occurrences starting 01/18/2024 until 01/17/2025 [facility] Work Phone: Comment on above:1 Occurrences starting 01/18/2024 until 01/17/2025Patient EducationLow back pain in adultsJoint Township District Memorial Hospital Work Phone: [facility] Immunizations Immunization DateImmunizationNotesCare QigpxldsTxlqpzvr50-46-9543yvatkijrb, high dose seasonal, preservative-freeBenjamin Ball DO Work Phone: [facility]09-23-2024influenza, high dose seasonal, preservative-free[facility]09-20-2023 influenza virus vaccine, unspecified formulation[facility]09-20-2023influenza, high dose seasonal, preservative-freeBenjamin Ball Other [employer] Other 09-925518-36-1573ildiroapj (aIIV4) vaccine, age 65+ yr, quadrivalent, PF (FLUAD QUAD)MIHIR Gonzalez MD Work Phone: [facility] HospitalVuzkmd43-77-5909fcvrdnngt virus vaccine, split virus (incl. purified surface antigen)Joaquin Morgan Other [employer] Other 09-535486-66-4032qcelqtkqw virus vaccine, unspecified formulationJERUSTRY [facility]10-27-2021SARS-CoV-2 (COVID-19) mRNA-7023 vaccineJENNIFER DANIEL [facility]09-16-2021influenza nasal, unspecified formulationMIHIR Gonzalez MD Work Phone: [facility] HospitalZoxyox65-78-1769fosdainpa virus vaccine, split virus (incl. purified surface antigen)Joaquin Morgan Other [employer] Other 09-653249-12-5541mohxobrsi virus vaccine, unspecified formulationJENNIFER DANIEL [facility]09-16-2021Seasonal trivalent influenza vaccine, adjuvanted, preservative Lon Gonzalez MD Work Phone: [facility] HospitalPclfpd84-12-0401KAPKV-55, mRNA, LNP-S, PF, 100 mcg or 50 mcg doseJENNIFER DANIEL [facility] CenterComment on above:Reason for Medication: Other (see comment)82-12-5405WGMIX-19, mRNA, LNP-S, PF, 100 mcg or 50 mcg doseJENNIFER DANIEL [facility] Medical CenterComment on above:Reason for Medication: Other (see comment)95-54-6530zrcmsaonn virus vaccine, split virus (incl. purified surface antigen)Joaquin Morgan Other [employer] Other 09509801-37-6608baulnqoaa virus vaccine, unspecified formulation[facility]10-11-2019influenza virus vaccine, live, attenuated, for intranasal useJENNIFER DANIEL [facility]09-11-2019influenza nasal, unspecified formulationMIHIR Gonzalez MD Work Phone: [facility] HospitalTydbnw05-95-0365kwexoafwx virus vaccine, unspecified formulationJENNIFER DANIEL [facility]09-11-2019Seasonal trivalent influenza vaccine, adjuvanted, preservative Lon Gonzalez MD Work Phone: [facility] HospitalHzkviy75-73-9562pcgtcoser nasal, unspecified formulationMIHIR Gonzalez MD Work Phone: [facility] HospitalNxeebb71-20-5836vpxfasyie virus vaccine, split virus (incl. purified surface antigen)Joaquin Morgan Other [facility] [employer] Other 0456886-24-8469idjphqoei virus vaccine, unspecified formulationJENNIFER DANIEL [facility]09-26-2018Influenza, injectable, Madin Crowheart Canine Kidney, quadrivalent with preservativeMIHIR Gonzalez MD Work Phone: [facility] HospitalYdiajc38-12-5210snizwvwji nasal, unspecified formulationMIHIR Gonzalez MD Work Phone: [facility] HospitalVjjlhk75-95-7133vddboqsob virus vaccine, split virus (incl. purified surface antigen)Joaquin Morgan Other [employer] Other 10672984-93-7942eokuvztjz virus vaccine, unspecified formulationJENNIFER DANIEL [facility]10-02-2017influenza, high dose seasonal, preservative-freeMIHIR Gonzalez MD Work Phone: [facility] HospitalYegxvd49-65-7239wwfayj vaccine, liveMIHIR Gonzalez MD Work Phone: [facility] HospitalZuexzo63-23-7613ipymxh vaccine, liveBenalona Morgan Other [facility]11-03-2016influenza nasal, unspecified formulationMIHIR Gonzalez MD Work Phone: [facility] HospitalVzjkbe69-38-5803ftwmravvc virus vaccine, unspecified formulationJENNIFER DANIEL [facility]11-03-2016influenza, injectable, quadrivalent, contains preservativeMIHIR Gonzalez MD Work Phone: [facility] HospitalZocnue22-59-0361nzjoxiqhv virus vaccine, split virus (incl. purified surface antigen)Joaquin Morgan Other [employer] Other 10997209-43-9198lbdsnsrvd virus vaccine, unspecified formulation[facility]04-07-2016pneumococcal conjugate vaccine, 13 valentBegingeralona Morgan Other [facility]04-18-2013 pneumococcal polysaccharide vaccine, 23 Ken Gonzalez MD Work Phone: [facility] HospitalNjvatp88-54-3137hywxrgyetmpc polysaccharide vaccine, 23 valWilliamgingeralona Thomas Other [facility] Payers DatePayer CategoryPayerPolicy [id number] (Managed Care)[place] [id number] 2023MedicareDEVOTED MEDICARE [facility] [id number] 2022-Present [phone] [address] [place] [id number] [id number] [id number] Health InsuranceDEVOHOUSTON [facility] HMO [id number] [facility] MEDICARE SUPPLEMENT [id number] 2016-Present [phone] [address] [place] [address] [id number] 2009MedicareMEDICARE MEDICARE A AND B [id number] 2009-Present [phone] [address] [address] [place], [place] [address] 2-0001 [id number] [id number] [id number] Elite [id number] Social History DateTypeDetailFacilityStart: 12-05-2016 End: 89-09-9681Fspecxg smoking status NHISNever smoked tobaccoWilson Memorial Hospital Start: 12-05-2016 End: 80-97-3334Rnyybff use and exposureSmokeless tobacco non-userGreene Memorial Hospitaltart: 50-35-0672Lqs Assigned At [facility]Not on [facility] HealthTobacco smoking statusNeverExecutive [facility]rology of [facility] Start: 12-14-2022 End: 72-07-4788Xsi Assigned At [facility]: 12-14-2022 End: 05-08-0892Scwsbxf of Social functionGreene Memorial Hospitaltart: 36-75-0461Dyt Assigned At [facility] Ohiotart: 37-87-1873EbfAonq (finding)[facility] Functional Status LjfxKqzprlqbxbNgcgmyPomefjrq51-89-3571Vfuhlrlydy StatusN/AExec[facility] Clinical Notes 12-05-2016 to 02-19-2025 Note Date & GtziVygdNjdresgk67-77-7100 Evaluation note* Diagnosis Onset Date Resolution Status Admit Date Cervical spondylosis acuteFebruary 19, 2025 8:18amGERD (gastroesophageal reflux disease)acute February 19, 2025 8:18amHypertensionacuteSept2024 8:18amLumbar spondylosisacuteSept2024 8:18amNephrolithiasisacuteSept2024 8:18amOSA (obstructive sleep apnea)acuteFebruary 19, 2025 8:18amProstate canceracuteSept2024 8:18amRadiation proctitisacuteSept2024 8:18am [facility] Work Phone: [phone] Telephone encounter Note* Telephone Encounter - Jean-Pierre Oquendo RN - 09/23/2024 3:37 PM EDT Called and informed him that he is due for a colonoscopy with Dr Ramsey in the summer. He states he does not want to complete a colonoscopy at this time and does not want to schedule one. I advised him to call the office when he is ready to schedule his colonoscopy. He has no other questions or concerns at this time. [facility]04-29-2025 Miscellaneous Notes* Telephone Encounter - Jean-Pierre Oquendo RN - 09/23/2024 3:37 PM EDT Called and informed him that he is due for a colonoscopy with Dr Ramsey in the summer of 2024. He states he does not want to complete a colonoscopy at this time and does not want to schedule one. I advised him to call the office when he is ready to schedule his colonoscopy. He has no other questions or concerns at this time. documented in this encounterWilson Memorial Hospital11-05-2024 History of Present illness Narrative* Lydia Gonzalez MD - 04/01/2024 10:15 AM EST Radiation Oncology - Follow Up Note PATIENT NAME: Malcolm Pfeiffer PATIENT DIAGNOSIS: Prostate adenocarcinoma, initial PSA 6.63, biopsy [place] score 3 + 3 = 6 (grade group 1), clinical stage T1c N0 M0. S/p I-125 brachytherapy January 24, 2017, dose 145 Gy. INTERVAL HISTORY: Doing better. No further rectal pain. No rectal bleeding. He did see Dr. Ramsey and apparently had had healed fissure by at that appointment. Has recommended colonoscopy in 1 year. 12/13/23: Patient still having on and off issues [...] active Androgen deprivation: Never. PHYSICAL EXAM: BP 118/70 Pulse (!) 53 Temp 36.8 C (98.2 F) Resp 16 Wt 69 kg (152 lb 1.9 oz) SpO2 97% BMI 22.46 kg/m KPS: 100 General appearance: Alert and oriented. No acute distress. Rectal deferred Extremities: No deformities, edema, skin discoloration, clubbing or cyanosis. Lymph Nodes: No cervical lymphadenopathy, No supraclavicular lymphadenopathy, No axillary lymphadenopathy. Skin: Skin color, texture, turgor normal, no suspicious rashes or lesions. ASSESSMENT/PLAN: Prostate cancer, with prior I-125 brachytherapy December 2016. 1. Prostate cancer doing well PSA remains undetectable. 2 Rectal discomfort. Currently no pain or bleeding. [place] to have old healed fissure. Continue efforts to avoid constipation.. Signed by: Lydia Gonzalez MD cc: Joaquin Morgan MD ([facility]) [address] [place] [address] * Janene Curran, RN - 04/01/2024 10:12 AM EST AUA=2 documented in this encounterWilson Memorial Hospital11-05-2024 NoteHNO ID: [id number] Author: Lydia GONZALEZ MD Service: ? Author Type: Physician Type: Progress Notes Filed: 04/08/2024 15:50 Note Text: Radiation Oncology - Follow Up Note PATIENT NAME: Malcolm Pfeiffer PATIENT DIAGNOSIS: Prostate adenocarcinoma, initial PSA 6.63, biopsy [place] score 3 + 3 = 6 (grade group 1), clinical stage T1c N0 M0. S/p I-125 brachytherapy January 24, 2017, dose 145 Gy. INTERVAL HISTORY: Doing better. No further rectal pain. No rectal bleeding. He did see Dr. Ramsey and apparently had had healed fissure by at that appointment. Has recommended colonoscopy in 1 year. 12/13/23: Patient still having on and off issues [...] active Androgen deprivation: Never. PHYSICAL EXAM: BP 118/70 Pulse (!) 53 Temp 36.8 ?C (98.2 ?F) Resp 16 Wt 69 kg (152 lb 1.9 oz) SpO2 97% BMI 22.46 kg/m? KPS: 100 General appearance: Alert and oriented. No acute distress. Rectal deferred Extremities: No deformities, edema, skin discoloration, clubbing or cyanosis. Lymph Nodes: No cervical lymphadenopathy, No supraclavicular lymphadenopathy, No axillary lymphadenopathy. Skin: Skin color, texture, turgor normal, no suspicious rashes or lesions. ASSESSMENT/PLAN: Prostate cancer, with prior I-125 brachytherapy December 2016. 1. Prostate cancer doing well PSA remains undetectable. 2 Rectal discomfort. Currently no pain or bleeding. [place] to have old healed fissure. Continue efforts to avoid constipation.. Signed by: Lydia Gonzalez MD cc: Joaquin Morgan MD ([facility]) [address] [place] [address] GxdtojasbSamaritan North Health Center11-05-2024 NoteHNO ID: [id number] Author: JANENE CURRAN RN Service: ? Author Type: Registered Nurse Type: Progress Notes Filed: 04/08/2024 15:50 Note Text: AUA=2CSamaritan North Health Center08-23-2024 History of Present illness Narrative* Gabriela Ramsey MD - 01/18/2024 9:30 AM EDT COLORECTAL SURGERY January 18, 2024 Malcolm Pfeiffer 78 year old This consult was requested by Dr. Bob Gonzalez and my final recommendations will be communicatedto the requesting health care provider by way of the shared medical record for internal providers or letter via the [employer] for external providers. Chief Complaint: rectal pain/ rectal stricture History of Present Illness: Malcolm Pfeiffer is a 78 year old male presents to the office for evaluation of rectal pain and rectal stricture. He has a history of R0tT7O7 prostate adenocarcinoma. Colonoscopy in 2016 -normal Scan [...] exam Anorectal: External exam reveals: see below Cloud Physicist present: yes Assessment Assessment and Plan: Malcolm Pfeiffer is a 78 year old male with a history of prostate and rectal cancer s/p radiation.He had symptoms of an anal fissure after [...] plan and/or results with his pcp. Gabriela Ramsey MD Colorectal Surgery documented in this encounterWilson Memorial Hospital08-23-2024 NoteHNO ID: [id number] Author: GABRIELA RAMSEY MD Service: ? Author Type: Physician Type: Progress Notes Filed: 01/18/2024 09:49 Note Text: COLORECTAL SURGERY January 18, 2024 Malcolm Pfeiffer 78 year old This consult was requested by Dr. Bob Gonzalez and my final recommendations will be communicated to the requesting health care provider by way of the shared medical record for internal providers or letter via the [employer] for external providers. Chief Complaint: rectal pain/ rectal stricture History of Present Illness: Malcolm Pfeiffer is a 78 year old male presents to the office for evaluation of rectal pain and rectal stricture. He has a history of Y1cP0T6 prostate adenocarcinoma. Colonoscopy in 2016 -normal Scan [...] exam Anorectal: External exam reveals: see below Cloud Physicist present: yes Assessment Assessment and Plan: Malcolm [...] plan and/or results with his pcp. Gabriela Ramsey MD [facility] History of Present illness Narrative* Lydia Gonzalez MD - 12/13/2023 10:00 AM EDT radiation Oncology - Follow Up Note PATIENT [...] management options for him. Signed by: Lydia Gonzalez MD cc: Joaquin Morgan MD ([facility]) [address] [place] [address] documented in this encounterWilson Memorial Hospital07-18-2024 NoteHNO ID: [id number] Author: Lydia GONZALEZ MD Service: ? Author Type: Physician Type: [...] management options for him. Signed by: Lydia Gonzalez MD cc: Joaquin Morgan MD ([facility]) [address] [place] [address] WfzerxnzkSamaritan North Health Center07-18-2024 Nurse Note* Nicolasa Faustin LPN - 12/13/2023 9:34 AM EDT AUA= 3 [facility]07-18-2024 Nurse Note* Nicolasa Faustin LPN - 12/13/2023 9:34 AM EDT AUA= 3 documented in this encounterWilson Memorial Hospital05-30-2024 History of Present illness Narrative* Lydia Gonzalez MD - 10/25/2023 10:45 AM EDT radiation Oncology - Follow Up Note PATIENT [...] symptoms at that time. Signed by: Lydia Gonzalez MD cc: Joaquin Morgan MD ([facility]) [address] [place] [address] documented in this encounterWilson Memorial Hospital05-30-2024 NoteHNO ID: [id number] Author: Lydia GONZALEZ MD Service: ? Author Type: Physician Type: Progress Notes Filed: 10/25/2023 11:24 Note Text: radiation Oncology - Follow Up Note PATIENT NAME: Malcolm Pfeiffer PATIENT DIAGNOSIS: Prostate adenocarcinoma, initial PSA 6.63, biopsy [place] score 3 + 3 = 6 (grade [...] symptoms at that time. Signed by: Lydia Gonzalez MD cc: Joaquin Morgan MD ([facility]) [address] [place] [address] SfhezeubtSamaritan North Health Center09-26-2023 Evaluation note* Encounter Date Diagnosis Assessment Notes Treatment Notes Treatment Clinical Notes Jan, Mass of soft tissue of shoulder (ICD-10 - M79.89) [employer] Other 07-20-2023 History of Present illness Narrative* Lydia Gonzalez MD - 12/14/2022 9:00 AM EDT Radiation Oncology - Follow Up Note PATIENT NAME: Malcolm Pfeiffer PATIENT DIAGNOSIS: 71 year old male with prostate adenocarcinoma, initial PSA 6.63, biopsy [place] score 3 + 3 = 6 (grade [...] year with repeat PSA. Signed by: Lydia Gonzalez MD cc: Joaquin Morgan MD ([facility]) [address] [place] [address] Dr. Swain documented in this encounterWilson Memorial Hospital07-17-2023 Evaluation note* Encounter Date Diagnosis Assessment Notes Treatment Notes Treatment Clinical Notes Nov, Adenocarcinoma of prostate (ICD- 10 - C61) [facility] [employer] Other 04-20-2023 Nurse Note* Wiliam August - 12/14/2022 8:51 AM EDT AUA=2 documented in this encounterWilson Memorial Hospital03-06-2023 Evaluation note* Encounter Date Diagnosis Assessment Notes Treatment Notes Treatment Clinical Notes Jul, Essential hypertension (ICD-10 - I10) This patient is instructed to consume a healthy, low-fat, low-salt diet. They are also encouraged to continue exercise to achieve/maintain a normal BMI. Jul,Enlarged prostate with lower urinary tract symptoms (LUTS) (ICD-10 - N40.1)Symptoms tolerable Jul,Obstructive sleep apnea (ICD-10 - G47.33)This patient is aware of the benefits associated with KATHERIN: With continued use, the patient reduces the risk for FL, CVA, HTN, cardiac dysrhythmias and sudden cardiac deaths.The patient is also aware of the association between KATEHRIN and morning headaches, daytime somnolence, fatigue and obesity Noncompliant AHI 5-6 Denies morning headaches, daytime somnolence Jul,astroesophageal reflux disease with esophagitis without hemorrhage (ICD-10 - K21.00)Diet instructions: Smaller portions, avoid eating and laying flat, avoid eating or drinking prior to bedtime. Continue Tums as needed. Call if increases frequency or associated w/ dysphagia Jul,denocarcinoma of prostate (ICD-10 - C61)Yearly evaluation w/ Radiation Oncology. s/p Brachytherapy. 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 Monitor for now. Continue healthy, high fiber diet. Notify office w/ any recurrence of pain Jul,uodenal diverticulum (ICD-10 - K57.10)Unlikely etiology for pain. No treatment necessary. Jul,denocarcinoma of prostate (ICD-10 - C61)Stable w/o s/s recurrence. [employer] Other 01-25-2023 Hospital Discharge instructions Patient Education 06/21/2022 13:37:37 Testicular Self-Exam, Yprx-hb-Uqqe Testicular Self-Exam A self-exam of your testicles [...] 08/10/2009 Document Revised: 09/04/2019 Document Reviewed: 04/09/2017 [employer] Patient Education 2019 [employer] Follow Up Care 02/15/2021 08:56:21 With:DANIEL PAERIKA Vargas, URL Address: [address] [place] [address] When: only if needed [facility] 07-21-2022 History of Present illness Narrative* Lydia Gonzalez MD - 12/15/2021 8:49 AM EDT Radiation [...] PSA in 1 year. Signed by: Lydia Gonzalez MD cc: Joaquin Morgan MD ([facility]) [address] [place] [address] Dr. Swain documented in this encounterWilson Memorial Hospital04-01-2022 Nurse Note* Odilia Swain - 12/15/2021 9:03 AM EDT AUA=1 documented in this encounterWilson Memorial Hospital07-11-2017 History of Past illness Narrative* ProblemNoted DateDiagnosed DateResolved DateProstate yyjlqb4212/05/2016 3documented as of this encounter (statuses as of 12/14/2022) [facility] HospitalEvaluation + Plan note No data available for this section [facility] evaluation note* Diagnosis Malignant neoplasm of prostate (HCC)- Primary Malignant neoplasm of prostate documented in this encounter [facility] noteNo InformationNort [employer] Other Evaluation note* Diagnosis History of prostate cancer- Primary Personal history of malignant neoplasm of prostate Proctitis, radiation Other specified disorder of rectum and anus documented in this encounter [facility] note* Diagnosis Onset Date Resolution Status Cervical spondylosis acuteGERD (gastroesophageal reflux disease)acuteHypertensionacuteLumbar spondylosisacuteNephrolithiasisacuteOSA (obstructive sleep apnea)acuteProstate canceracuteRadiation proctitisacute [facility] Work Phone: Evaluation note* Diagnosis History of prostate cancer- Primary Personal history of malignant neoplasm of prostate documented in this encounter [facility] note* Diagnosis History of prostate cancer- Primary Personal history of malignant neoplasm of prostate Rectal or anal pain Anal or rectal pain Anal or rectal pain- Primary documented in this encounter [facility] note* Diagnosis Anal or rectal pain- Primary Rectal stricture Stenosis of rectum and anus Rectal or anal pain Anal or rectal pain documented in this encounter [facility] note* Diagnosis Onset Date Resolution Status History of nephrolithiasis acuteLow back painacuteLumbar spondylosisacute [facility] Work Phone: Evaluation note* Diagnosis Onset Date Resolution Status History of nephrolithiasis acuteLow back painacuteLumbar spondylosisacuteCervical spondylosisacuteGERD (gastroesophageal reflux disease)acuteHypertensionacuteLumbar spondylosisacute Medicare annual wellness visit, subsequentacuteNephrolithiasisacuteOSA (obstructive sleep apnea)acuteProstate canceracuteRadiation proctitisacute [facility] Work Phone: Evaluation note* Diagnosis History of prostate cancer- Primary Personal history of malignant neoplasm of prostate documented in this encounter [facility] note* Diagnosis Onset Date Resolution Status Admit Date Cervical spondylosis acuteMar 2024 8:15amGERD (gastroesophageal reflux disease)acuteMarch 2024 8:15amHypertensionacuteMar 2024 8:15amLumbar spondylosisacute March 2024 8:15amNephrolithiasisacuteMarch 2024 8:15amOSA (obstructive sleep apnea)acuteMar 2024 8:15amPro[facility]acute[facility] 8:15amRadiation proctitisacute[facility] 2024 8:15am [facility] Work Phone: Evaluation note* Diagnosis Onset Date Resolution Status Admit Date Cervical spondylosis acuteFebruary 19, 2025 8:18amGERD (gastroesophageal reflux disease)acute February 19, 2025 8:18amHypertensionacuteSept2024 8:18amLumbar spondylosisacuteSept2024 8:18amNephrolithiasisacuteSept2024 8:18amOSA (obstructive sleep apnea)acuteFebruary 19, 2025 8:18amProstate canceracuteSept2024 8:18amRadiation proctitisacuteSept2024 8:18am [facility] Work Phone: History general Narrative - Reported* Type Description Date Medical History Rectal bleeding Medical HistoryRectal painMedical HistoryAdenocarcinoma of prostateMedical HistoryAnemiaMedical HistoryHigh risk medication useMedical HistoryRadiation proctitisMedical HistoryLumbar spondylosisMedical HistoryObstructive sleep apnea Medical HistoryEssential hypertensionMedical HistoryEczema, dyshidroticMedical HistoryHistory of nephrolithiasisMedical HistoryFamily history of early CAD Medical HistoryEnlarged prostate with lower urinary tract symptoms (LUTS)Medical HistoryCervical spondylosisSurgical HistoryHERNIA REPAIRSurgical HistoryLEFT RETROGRADE URETEROSCOPY/[id number] [id number] History [id number] UjcsftwPSY0079,2016Surgical [id number] Surgical HistoryTRUS/BXSurgical [id number] HistorySEE SURGICAL HX [employer] Other Progress note No data available for this section [facility] reason for referral (narrative)* Outpatient Procedure (Routine) - New RequestSpecialtyDiagnoses / ProceduresReferred By Contact [facility]erred To [facility] Diagnoses Rectal stricture Procedures COLONOSCOPY DIAGNOSTIC COLONOSCOPY FLX DX W/COLLJ [place] [address] [place] [address] [facility] [address] [place] [address] Referral IDStatusReasonStart DateExpiration DateVisits RequestedVisits [id number] Request Auto-Generated Referral / [facility] (narrative)No reason for referral information availableJoint [facility] Work Phone: Summary Purpose Family History Relationship Condition Age at Onset Recorded Date/T deni brother Malignant neoplasm Unknown HypertensionUnknownfatherDeceasedUnknownNot SpecifiedDeceasedUnknown Relationship Condition Age at Onset Recorded Date/T deni brother Malignant neoplasm Unknown HypertensionUnknownfatherDeceasedUnknownmotherDeceasedUnknown Advance Directives Advance Directive Response Recorded Date/ Time Advance Directives No June 19, 2023 4:03pm Chief Complaint and Reason for Visit Chief Complaint Admit Date Wellness February 19, 2025 8:18am 1 week f/u February 27, 2025 8: 35am Reason for Visit Admit Date Cervical spondylosis February 19 8:18am GERD (gastroesophageal reflux disease) S eptemb2024 8:18am Hypertension February 19, 2025 8:18am Lumbar spondylosis February 19, 2025 8:18am Nephrolithiasis February 19, 2025 8:18am KATHERIN (obstructive sleep apnea) February 19, 2025 8:18am Prostate cancer February 19, 2025 8:18am Radiation proctitis February 19, 2025 8:18am Chief Complaint 6 MONTH FOLLOW UP Reason for Visit Cervical spondylosis GERD (gastroesophageal reflux disease) Hypertension Lumbar spondylosis Nephrolithiasis KATHERIN (obstructive sleep apnea) Prostate cancer Radiation proctitis Chief Complaint lower left back pain Reason for Visit History of nephrolit hiasis Low back pain Lumbar spondylosis Chief Complaint lower left back pain WELLNESSReason for VisitHistory of nephrolithiasis Low back pain Lumbar spondylosis Cervical spondylosis GERD (gastroesophageal reflux disease) Hypertension Lumbar spondylosis Medicare annual wellness visit, subsequent Nephrolithiasis KATHERIN (obstructive sleep apnea) Prostate cancer Radiation proctitis Chief Complaint Admit Date 6 month f/u August 18, 2024 8:1 5am Reason for Visit Admit Date Cervical spondylosis August 18, 2024 8: 15am GERD (gastroesophageal reflux disease) M arch 2024 8:15am Hypertension August 18, 2024 8:1 5am Lumbar spondylosis August 18, 2024 8:1 5am Nephrolithiasis August 18, 2024 8:1 5am KATHERIN (obstructive sleep apnea) July 8:15am Prostate cancer August 18, 2024 8:1 5am Radiation proctitis August 18, 2024 8:1 5am Chief Complaint Admit Date Wellness February 19, 2025 8:18am Reason for Visit Admit Date Cervical spondylosis February 19 8:18am GERD (gastroesophageal reflux disease) S eptemb2024 8:18am Hypertension February 19, 2025 8:18am Lumbar spondylosis February 19, 2025 8:18am Nephrolithiasis February 19, 2025 8:18am KATHERIN (obstructive sleep apnea) February 19, 2025 8:18am Prostate cancer February 19, 2025 8:18am Radiation proctitis February 19, 2025 8:18am Chief Complaint Admit Date Wellness February 19, 2025 8:18am 1 week f/u February 27, 2025 8: 35am Reason for Referral SpecialtyDiagnoses / ProceduresReferred By ContactReferred To ContactColon and Rectal Surgery Diagnoses Rectal or anal pain Procedures CONSULT TO COLO-RECTAL SURGERY OFFICE/OUTPATIENT [facility] 60 MINUTES Lydia Gonzalez MD [address] [place] [address] [place] [address] Referral IDStatusReasonStart DateExpiration DateVisits RequestedVisits [id number] PCP Requested Referral / Additional Source Comments Source Comments (unrecognize d section and content) In the event this informatio n is protected by the Federal Confidentiality of Alcohol and Drug Abuse Patient Records regulations: The Federal rules restrict any use of the information to criminally investigate or prosecute any alcohol or drug abuse patient.[facility] HospitalIn the event this information is protected by the Federal Confidentiality of Alcohol and Drug Abuse Patient Records regulations: The Federal rules restrict any use of the information to criminally investigate or prosecute any alcohol or drug abuse patient.[facility] HospitalIn the event this information is protected by the Federal Confidentiality of Alcohol and Drug Abuse Patient Records regulations: The Federal rules restrict any use of the information to criminally investigate or prosecute any alcohol or drug abuse patient.[facility] HospitalIn the event this information is protected by the Federal Confidentiality of Alcohol and Drug Abuse Patient Records regulations: The Federal rules restrict any use of the information to criminally investigate or prosecute any alcohol or drug abuse patient.[facility] HospitalIn the event this information is protected by the Federal Confidentiality of Alcohol and Drug Abuse Patient Records regulations: The Federal rules restrict any use of the information to criminally investigate or prosecute any alcohol or drug abuse patient.[facility] HospitalIn the event this information is protected by the Federal Confidentiality of Alcohol and Drug Abuse Patient Records regulations: The Federal rules restrict any use of the information to criminally investigate or prosecute any alcohol or drug abuse patient.[facility] HospitalIn the event this information is protected by the Federal Confidentiality of Alcohol and Drug Abuse Patient Records regulations: The Federal rules restrict any use of the information to criminally investigate or prosecute any alcohol or drug abuse patient.[facility] Reason for Visit (unrecogniz ed section and content) ReasonCommentsProstate Cancerfollow upReasonCommentsProstate CancerFollow up ReasonCommentsnew problemReasonCommentsProstate CancerReasonCommentsRectal Pain SpecialtyDiagnoses / ProceduresReferred By ContactReferred To ContactColon and Rectal Surgery Diagnoses Rectal or anal pain Procedures CONSULT TO COLO-RECTAL SURGERY OFFICE/OUTPATIENT [facility] 60 MINUTES Lydia Gonzalez MD [address] [place] [address] [place] [address] Referral IDStatusReasonStart DateExpiration DateVisits RequestedVisits [id number] PCP Requested Referral /[id number] CancerReasonCommentsCare Coordination Follow up colonoscopy with Dr Niurka Barraza (unrecognized sec tion and content) Team MemberRelationshipSpecialtyStart DateEnd Date Joaquin Morgan DO [facility]11/24/16Team MemberRelationshipSpecialtyStart Date End Date Joaquin Morgan DO PCP - [facility]11/24/16 Team Status: Active Member Role Status Dates Joaquin Morgan DO Primary Care Provider Active Team Status: Inactive Member Role Status Dates Joaquin Morgan DO Primary Care Provide r, Attending Provider Active Start: August 16, 2023 End: August 16, 2023Team MemberRelationshipSpecialtyStart DateEnd Date Joaquin Morgan DO PCP - [facility]11/24/16Team MemberRelationshipSpecialtyStart Date End Date Joaquin Morgan DO PCP - [facility]11/24/16Team MemberRelationshipSpecialtyStart Date End Date Joaquin Morgan DO PCP - [facility]11/24/16 Team Status: Inactive Member Role Status Dates Joaquin Morgan DO Primary Care Provide r, Attending Provider Active Start: January 25, 2024 End: January 25, 2024 Team Status: Inactive Member Role Status Dates Joaquin Morgan DO Primary Care Provide r, Attending Provider Active Start: February 18, 2024 End: February 18, 2024Team MemberRelationshipSpecialtyStart DateEnd Date [facility]aquin [facility] Team Status: Inactive Member Role Status Dates Joaquin Morgan Primary Care Provide r, Attending Provider Active Start: August 18, 2024 End: August 18, 2024 Team Status: Inactive Member Role Status Dates Joaquin Morgan Primary Care Provider Active Start: February 19, 2025 End: February 19emma Thomas , Attending ProviderActiveStart: February 19, 2025 End: February 19, 2025 Team Status: Inactive Member Role Status Dates Joaquin Morgan Primary Care Provider Active Start: February 27, 2025 End: February 27emma Thomas , Attending ProviderActiveStart: February 27, 2025 End: February 27, 2025 (unrecognized sect ion and content) No Status Records FoundNo Status Records FoundNo Status Records Found INFORMATION SOURCE (unrecogn ized section and content) DATE CREATED AUTHOR 08/26/2022 [facility] DATE CREATED AUTHOR AUTHOR'S ORGANIZ ATION 01/24/2023 [facility] DATE CREATED AUTHOR AUTHOR'S ORGANIZ ATION 09/25/2024 [facility] Goals (unrecognized section and content) Goals may [...] BE BASED ON THE PRIMARY CLINICAL RECORDS. [employer] [facility]. provides no warranty or guarantee of the accuracy or completeness of information in this document.
[2025-03-25 08:26] LABS: Hematocrit 38.4 % (42.0-54.0); Hemoglobin 13.0 g/dL (14.0-18.0); Immature Granulocytes Abs Auto 0.02 10^3/uL (0.00-0.03); Immature Granulocytes Pct Auto 0.4 % (0.0-0.5); Lymphocytes Absolute Auto 1.4 10^3/uL (1.2-3.8); Mean Corpuscular HGB Conc 33.9 g/dL (29.9-35.2); Mean Corpuscular Hemoglobin 31.8 pg (25.9-34.0); Mean Corpuscular Volume 93.9 fL (80.0-94.0); Platelet Count 265 10^3/uL (150-450); Red Blood Count 4.09 10^6/uL (4.70-6.10); White Blood Count 5.6 10^3/uL (4.0-11.0)
[2025-03-25 08:54] LABS: Alanine Aminotransferase 28 U/L (16-63); Albumin Globulin Ratio 1.1; Albumin Level 3.7 g/dL (3.4-5.0); Alkaline Phosphatase 79 U/L (46-116); Anion Gap 12.5; Aspartate Amino Transferase 23 U/L (15-37); Blood Urea Nitrogen 14.0 mg/dL (7.0-18.0); Calcium 8.7 mg/dL (8.5-10.1); Carbon Dioxide 28.5 mmol/L (21.0-32.0); Chloride 104 mmol/L (98-107); Estimated GFR (African America >60 (>=60 mL/min/1.73m^2); Estimated GFR (Non-African Ame >60 (>=60 mL/min/1.73m^2); Globulin 3.3 g/dL; Glucose 90 mg/dL (74-106); Potassium 4.0 mmol/L (3.5-5.1); Sodium 141 mmol/L (136-145); Total Protein 7.0 g/dL (6.4-8.2)
== END 2025-03-25 07:37 | disposition home or self-care (01) ==
LOC: LAB 07:43
PROVIDERS: PCP Internal Medicine; Visit Provider Internal Medicine
DX: D64.9 Anemia, unspecified (principal); C61 Malignant neoplasm of prostate; I10 Essential (primary) hypertension
CPT/HCPCS: 36415; 80053; 85025

== ENCOUNTER 2025-03-25 07:46 | Outpatient (OUT) | payer MEDICARE, SELFPAY ==
--- OUTSIDE RECORDS SUMMARY | 2025-03-25 07:51 | XMS_ITS | CCD ---
Author Organization [facility] Care Team Providers Care Director Of Scientific Research Name Role Phone Joaquin Morgan DO Primary Care Provider JOAQUIN MORGAN Primary Care Physician Joaquin Morgan THOMAS, DR FLORES Admitting Unavailable [...] Care Provider Joaquin Morgan DO Attending Provider [phone] Allergies Allergy ClassificationReported Allergen(s)Allergy TypeDate of OnsetReaction(s) FacilitySulfamethoxazole / Trimethoprim (1 source)Sulfamethoxazole / TrimethoprimDrug Ojwtqla49-72-8691[facility]lpfjvms[facility] (14 sources)Sulfamethoxazole / Trimethoprim; Translations: [sulfamethoxazole-trimethoprim]Drug Brtwtwr49-51-1566Qtcvgrf, Itching (finding) [facility] (2 sources)Sulfamethoxazole / Trimethoprim; Translations: [Bactrim]Drug Allergy [place] [facility] (1 source)No Known Medication Allergies; Translations: [No Known Medication Allergies]Propensity to adverse reactions (disorder)[facility] Repository (2 sources)SulfamethoxazoleDrug Peauqgi82-43-9913Nnlidnl ReactionPremier Health Atrium Medical Center (2 sources)TrimethoprimDrug Afebpyy02-76-9424Ligsjnm ReactionPremier Health Atrium Medical Center Medications Current Medications MedicationDrug Class(es)DatesSig (Normalized)Sig (Original)amLODIPine 5 mg oral tablet (20 sources)Dihydropyridine Calcium Channel BlockerStart: 31-35-0772rwus 1 tablet by mouth once dailyAmlodipine 5 mg tablet Active 0 .ROUTE .COMPLEX 90 May 30, 2024 2:07pm TAKE 1 TABLET BY MOUTH EVERY DAY Complies with drug therapyStart: 06-06-2019 End: 43-61-6819vsdq 1 tablet by mouth once dailyAmlodipine 5 mg tablet Discontinued 5 MG PO Daily August 15, 2023 12:00am May 30, 2024 2:07pm amLODIPine Besylate ActiveComment on above:Take 5 mg by mouth once daily.aspirin 81 mg delayed release oral tablet (20 sources)Platelet Aggregation Inhibitor, Nonsteroidal Anti-inflammatory Drug Start: 69-96-0404Yexmmoe (Adult Low Dose Aspirin) 81 mg tablet,delayed [...] DAY Complies with drug therapyStart: 08-15-2023 End: 13-55-2519jztd 1 tablet by mouth twice dailyCarvedilol 12.5 mg tablet Discontinued 12.5 MG PO Twice daily August 15, 2023 12:00am January 28, 2024 8:40amStart: 98-96-6641tdvijcmafz 6.25 mg, Oral, Refills(s) 0 Start Date: 06/06/19 Status: OrderedCarvedilol ActiveComment on above:Take 12.5 mg by mouth twice daily with meals.lisinopril 20 mg oral tablet (20 sources)Angiotensin Converting Enzyme InhibitorStart: 34-70-5169kqoj 1 tablet by mouth once dailyLisinopril 20 mg tablet Active 20 MG PO Daily February 18, 2024 8:31am Complies with drug therapyStart: 01-28-2024 End: 04-48-4580cwms 1 tablet by mouth twice dailyLisinopril 20 mg tablet Discontinued 0 .ROUTE .COMPLEX 180 January 28, 2024 8:40am February 18, 2024 8:32am TAKE 1 TABLET BY MOUTH TWICE A DAYStart: 11-30-2023 End: 73-11-2556ufrh 1 tablet by mouth once dailyLisinopril 20 mg tablet Discontinued 20 MG PO Daily November 30, 2023 2:15pm January 28, 2024 8:40am Start: 08-15-2023 End: 32-00-8307dyaj 1 tablet by mouth twice dailyLisinopril 20 mg tablet Discontinued 20 MG PO Twice daily August 15, 2023 12:00am November 30, 2023 2:15pm Start: 43-14-4225vhup 20 mg by mouth once dailylisinopril 20 mg, Oral, Daily, Refills(s) 0 Start Date: 06/06/19 Status: OrderedLisinopril ActiveComment on above:Take 20 mg by mouth twice daily. Multi Vitamin+ (1 source)Start: 48-97-0333Htbnz Vitamin+ Refill(s) 0 Start Date: 06/06/19 Status: OrderedMultivitamin preparation (6 sources)Multivitamin Activemultivitamin tablet (7 sources)take 1 tablet by mouth once dailymultivitamin tablet Take 1 tablet by mouth once daily. Activetake 1 tablet by mouth once dailymultivitamin tablet Take 1 tablet by mouth once daily. 0 ActiveComment on above:Take 1 tablet by mouth once daily.polyethylene glycol 3350 47376 mg powder for oral solution (20 sources)Osmotic LaxativeStart: 63-86-6883Ajuliudjudur Glycol 3350 (Miralax) 17 gram/dose powder Active 17 GM PO August 15, 2023 12:00am Complies with drug therapyStart: 82-14-4153LdlqGag gram, Oral, Daily, Refill(s) 0 Start Date: 06/12/19 Status: Orderedpolyethylene glycol 3350 (MIRALAX) 17 gram/dose powder Take by mouth once daily. ActiveMiraLax ActiveComment on above:Take by mouth once daily.Stool Softener (6 sources)Stool Softener Active Completed/Discontinued Medications MedicationDrug Class(es)DatesSig (Normalized)Sig (Original)hydrocortisone acetate 25 mg rectal suppository (2 sources)CorticosteroidStart: 10-25-2023 End: 98-71-5814rmiqekpvwarvdk (ANUSOL-HC) 25 mg suppository 1 Suppository by RECTAL route two times a day. 10 Suppository 2 10/25/2023 12/20/2023 Discontinued (Discontinued by another Health Care Provider)tamsulosin hydrochloride 0.4 mg oral capsule (12 sources)alpha-Adrenergic BlockerStart: 08-15-2023 End: 29-71-1123zsod 1 capsule by mouth once dailyTamsulosin 0.4 mg capsule Discontinued 0.4 MG PO Daily August 15, 2023 12:00am February 18, 2024 8:31amTamsulosin HCl Active Problems Active Problems Problem ClassificationProblemDateDocumented DateEpisodic/ChronicAbdominal pain (5 sources)Periumbilical pain; Translations: [Generalized abdominal pain]Onset: 63-51-9222YtyyjowzUsvc and rectal conditions (20 sources)Rectal pain; Translations: [Other specified diseases of anus and rectum]Onset: 28-42-5270PifliibhCkecvqpr of urinary tract (20 sources)History of calculus of kidney; Translations: [Personal history of urinary calculi]88-47-4202TbmnszyiPfonem of prostate (20 sources)Malignant tumor of prostate; Translations: [Malignant neoplasm of prostate]Onset: 12-05-2016 Resolved: 39-29-3775JuwttenXxvwtsx on above:Dx: 2017, s/p brachytherapy Deficiency and other anemia (12 sources)Anemia; Translations: [Anemia, unspecified]98-40-3044Tbceruub Disorders of lipid metabolism (4 sources)Hypercholesterolemia; Translations: [Pure hypercholesterolemia, unspecified]08-19-9832QpajnleYsdknlbymjfxtc and diverticulitis (13 sources)Diverticulum of duodenum; Translations: [Diverticulosis of small intestine without perforation or abscess without bleeding]ChronicEsophageal disorders (20 sources)Gastro-esophageal reflux disease with esophagitis; Translations: [Gastroesophageal reflux disease with esophagitis without hemorrhage]08-15-2023 ChronicEssential hypertension (20 sources)Hypertensive disorder; Translations: [Essential hypertension]Onset: 257755-93-3868WfcpbcnVivnhykmw and duodenitis (1 source)Duodenitis without bleeding; Translations: [DUODENITIS WITHOUT BLEEDING]Onset: 66-73-9606CmpkrbgqDjlcnusqswymlidd hemorrhage (6 sources)Rectal hemorrhage; Translations: [Hemorrhage of anus and rectum] EpisodicHyperplasia of prostate (16 sources)Benign prostatic hypertrophy with outflow obstruction; Translations: [Benign prostatic hyperplasia with lower urinary tract symptoms]Onset: 56-27-6344OdrjkuwPjkwq aftercare (6 sources)H/O: high risk medication; Translations: [Other nursing home (current) drug therapy]EpisodicOther aftercare (1 source)Other terminal make up operator (current) drug therapy; Translations: [OTH [facility] CURRENT DRUG THERAPY]Onset: 45-37-0669LupxamriLlrcu aftercare (1 source)custodial (current) use of aspirin; Translations: [POST CLOSER CURRENT USE OF ASPIRIN]Onset: 90-25-6140ChbmxphiArslu connective tissue disease (1 source)Other specified soft tissue disordersEpisodicOther diseases of kidney and ureters (1 source)Urinary tract obstruction; Translations: [Other obstructive and reflux uropathy]Onset: 95-94-4540AivpqefcJpsmq screening for suspected conditions (not mental disorders or infectious disease) (3 sources)Raised prostate specific antigen; Translations: [Rising PSA following treatment for malignant neoplasm of prostate]Onset: 96-30-2811VoorlyugRjiob skin disorders (5 sources)Vesicular eczema of hands and/or feet; Translations: [Dyshidrosis [pompholyx]]EpisodicOther skin disorders (1 source)Dyshidrosis [pompholyx]; Translations: [Eczema, dyshidrotic]Episodic Other skin disorders (6 sources)Vesicular eczema; Translations: [Dyshidrosis [pompholyx]]08-15-2023 EpisodicResidual codes; unclassified (14 sources)Obstructive sleep apnea syndrome; Translations: [Obstructive sleep apnea (adult) (pediatric)]82-40-5791ZprsbwwIpjehcnc codes; unclassified (4 sources)Obstructive sleep apnea (adult) [...] Translations: [Spondylosis without myelopathy or radiculopathy, lumbar region]66-47-4941PkrbmmiPshpyryetuc; intervertebral disc disorders; other back problems (7 sources)Low back pain; Translations: [Low back pain]13-80-2636Spewovgc Unclassified (1 source)Drug therapy ukfkwaw57-54-8651 Past or Other Problems Problem ClassificationProblemDateDocumented DateEpisodic/ChronicCancer of prostate (13 sources)History of malignant neoplasm of prostate; Translations: [Personal history of malignant neoplasm ofprostate]Onset: 457075-62-8174Mhzlawob Deficiency and other anemia (4 sources)Anemia, unspecified; Translations: [ANEMIA UNSPECIFIED]Onset: 90-21-9067WzjaeugkTkzxfvsagu disorders (1 source)Esophageal disorders Results Test NameValueInterpretationReference RangeFacilityCNPNon 44-80-1344BZVS Telephone ([facility]) MALCOLM PFEIFFER ([id number]) 1945 M Date Time Provider Department 09/23/24 GABRIELA RAMSEY [facility] During your visit today, we recorded the [...] Fully Assessed Reason for Visit: Care Coordination [2321] Cmt: Follow up colonoscopy with Dr Ramsey [...] 08/27/2017 Encounter Status:Closed by JEAN-PIERRE OQUENDO on 09/23/24[facility] 29-22-2921UOFFMeqkdp Visit ([facility]) MALCOLM PFEIFFER ([id number]) 1945 M Date Time Provider Department 04/01/24 [...] DIAGNOSIS: Prostate adenocarcinoma, initial PSA 6.63, biopsy [place]en score 3 + 3 = 6 (grade [...] Rectal discomfort. Currently no pain or bleeding. [place] to have old healed fissure. Continue efforts to avoid constipation.. Signed by: Lydia Gonzalez MD cc: Joaquin Morgan MD ([facility]) [address] [place] [address] Referring Provider: Lydia GONZALEZ [[id number]] Allergies As of Date: 04/01/2024 Noted Allergy Reaction BACTRIM (SULFAMETHOXAZOLE-TRIMETH*12/05/2016 9 - Itching Date Reviewed: 04/01/2024 Reviewed by: Janene Curran RN - Fully Assessed Reason for Visit: Prostate Cancer [590] Primary Visit Diagnosis:History of prostate cancer [Z85.46] Order(s):PROSTATE-SPECIFIC ANTIGEN DIAGNOSTIC [SQPSA] Order #: [id number] FUTURE Prescriptions as of 04/08/2024 - polyethylene [...] for Encounter Date Provider Department Center 04/01/2024 [id number] GONZALEZ (more content not included)...[facility] 98-70-9990BVCPZedqcn Visit ([facility]) MALCOLM PFEIFFER ([id number]) 1945 M Date Time Provider Department 01/18/24 [...] for internal providers or letter via the [employer] for external providers. Chief Complaint: rectal pain/ rectal stricture History of Present Illness: Malcolm Pfeiffer is a 78 year old male presents to the office for evaluation of rectal pain and rectal stricture. He has a history of T6pD4W3 prostate adenocarcinoma. Colonoscopy in 2016 -normal Scan [...] exam Anorectal: External exam reveals: see below Rewinder Operator Helper present: yes Assessment Assessment and Plan: Malcolm [...] MD Colorectal Surgery Referring Provider: Lydia GONZALEZ [[id number]] Allergies As of Date: 01/18/2024 Noted Allergy Reaction BACTRIM (SULFAMETHOXAZOLE-TRIMETH*12/05/2016 9 - Itching Date Reviewed: 01/18/2024 Reviewed by: Maryann Grajeda LPN - Fully Assessed Reason for Visit: Rectal Pain [787] Primary Visit Diagnosis:Anal or rectal pain [K62.89] Other Visit Diagnoses:Rectal stricture [K62.4] Rectal or anal pain [K62.89] Order(s):CONSULT TO COLO-RECTAL SURGERY [] Order #: [id number]: 1 COLONOSCOPY DIAGNOSTIC [GI11] Order #: [id number] FUTURE Prescriptions as of 01/18/2024 - polyethylene [...] 08/27/2017 Encounter Status:Closed by GABRIELA RAMSEY on 01/18/24[facility] 11-85-5970AIPBOsuiwj Visit ([facility]) MALCOLM PFEIFFER ([id number]) 1945 M Date Time Provider Department 12/13/23 [...] management options for him. Signed by: Lydia oGnzalez MD cc: Joaquin Morgan MD ([facility]) [address] [place] [id number] Referring Provider: Lydia GONZALEZ [[id number]] Allergies As of Date: 12/13/2023 Noted Allergy Reaction BACTRIM (SULFAMETHOXAZOLE-TRIMETH*12/05/2016 9 - Itching Date Reviewed: 12/13/2023 Reviewed by: Nicolasa Faustin LPN - Fully Assessed Reason for Visit: Prostate Cancer [590] Primary Visit Diagnosis:History of prostate cancer [Z85.46] Other Visit Diagnosis:Rectal or anal pain [K62.89] Order(s):PSA (OUTSIDE) [0854089] Order #: [id number] PROSTATE-SPECIFIC ANTIGEN DIAGNOSTIC [SQPSA] Order #: [id number] FUTURE CONSULT TO COLO-RECTAL SURGERY [] Order #: [id number]: 1 FUTURE Prescriptions as of 12/20/2023 - [...] Visit Notes: >> Grav (more content not included)...[facility] 80-55-0530PPLIPuubyr Visit (MARGARET) MALCOLM PFEIFFER ([id number]) 1945 M Date Time Provider Department 10/25/23 [...] Gonzalez MD cc: Joaquin Morgan MD ([facility]) [address] [place] [address] Allergies As of Date: 10/25/2023 Noted Allergy [...] 12/14/2022 History of p (more content not included)...NormalCleveland Clinic Union HospitalPSA (OUTSIDE)on 06-68-8627Msuritfqr ClinicConsultation Noteon 89-67-8523Cabceohdzdae [id number]#1.00CD:[address] [place], [place] [address]AMYLASEon 30-13-2850Qmfjxnq [Catalytic activity/Vol]30 U/LNormal 25-115The [facility] Health CenterComment on above:Performed By: #### LIPA, CMP, EMILE, HSTROPN #### [facility] [address] [address] [address] Avery Pete AUTO DIFFon 39-01-1942QFSN #0.0 103/ulNormal0.0-0.1The [facility] North Health CenterComment on above:Performed By: #### CBC #### [facility] [address] [address] [address] Avery Jhasophils/100 WBC (Bld)0.3 %Normal0.2-2.0The [facility] Comment on above:Performed By: #### CBC #### [facility] [address] [address] [address] Avery Smith #0.2 103/ulNormal0.0-0.7The [facility] Health CenterComment on above: Performed By: #### CBC #### [facility] [address] [address] [address] Avery Lujanosinophils/100 WBC (Bld)2.9 %Normal0.9-7.0The [facility] Comment on above:Performed By: #### CBC #### [facility] [address] [address] [address] Avery Lujanrythrocyte distribution width (RBC) [Ratio]13.7 %Wqqfwh28.0-15.0 [place]ervilleComment on above:Performed By: #### CBC #### [facility] [address] [place] [address] Dr. Avery KhanHematocrit (Bld) [Volume fraction]38.5 %Critically low42.0-54.0 The [facility] North Health CenterComment on above:Performed By: #### CBC #### [facility] [address] [place] [address] Dr. Avery KhanHemoglobin (Bld) [Mass/Vol]13.4 g/dLCritically low14.0-18.0The [facility] Centerment on above:Performed By: #### CBC #### [facility] [address] [place] [address] Dr. Avery Fields #0.02 10e3/ulNormal0.00-0.03The [facility] Medical Centerment on above:Performed By: #### CBC #### [facility] [address] [place] [address] Dr. Avery Fields %0.3 %Normal0.0-0.5The [facility] Health CenterComment on above: Performed By: #### CBC #### [facility] [address] [place] [address] Dr. Avery AlfaroH #1.3 103/ulNormal1.2-3.8The [facility] Health CenterComment on above:Performed By: #### CBC #### [facility] [address] [place] [address] Dr. Avery Sandramphocytes/100 WBC (Bld)22.8 %Gbnufq85.5-60.0The [facility] Centerment on above:Performed By: #### CBC #### [facility] [address] [address] [address] Avery Gonzalez DIFF REQNONormalThe [facility] Health CenterComment on above: Performed By: #### CBC #### [facility] [address] [address] [address] Avery Polanco (RBC) [Entitic mass]31.3 kqJzfuev97.9-34.0The [facility] Health CenterComment on above:Performed By: #### CBC #### [facility] [address] [address] [address] Avery Polanoc (RBC) [Mass/Vol]34.8 g/vVMrobrr21.9-35.2The [facility] CenterComment on above:Performed By: #### CBC #### [facility] [address] [place] [address] Dr. Avery Polanco (RBC) [Entitic vol]90.0 uLZserek32.0-94.0The [facility] CenterComment on above:Performed By: #### CBC #### [facility] [address] [address] [address] Avery Galaviz #0.5 103/ulNormal0.3-0.8The [facility] Centerment on above:Performed By: #### CBC #### [facility] [address] [place] [address] Dr. Avery Caputoocytes/100 WBC (Bld)8.7 %Normal1.7-12.0The [facility] Comment on above:Performed By: #### CBC #### [facility] [address] [address] [address] Avery Briones #3.8 103/ulNormal1.4-6.5The [facility] Centerment on above:Performed By: #### CBC #### [facility] [address] [place] [address] Dr. Avery Israelutrophils/100 WBC (Bld)65.0 %Vbgpdo16.0-75.0The Center HospitalComment on above:Performed By: #### CBC #### [facility] [address] [address] [address] Avery Cruzlet mean volume (Bld) [Entitic vol]9.8 fLNormal9.5-13.5The [facility] CenterComment on above:Performed By: #### CBC #### [facility] [address] [address] [address] Avery KhanPLT260 103/omKiuzhz344-002Fgk [facility] CenterComment on above: Performed By: #### CBC #### [facility] [address] [place] [address] Dr. Avery KhanRBC4.28 106/ulCritically low4.70-6.10The [facility] Health CenterCombeaumont hospital on above:Performed By: #### CBC #### [facility] [address] [place] [address] Dr. Avery KhanWBC5.9 103/ulNormal4.0-11.0The [facility] Health CenterComment on above: Performed By: #### CBC #### [facility] [address] [place] [address] Dr. Avery KhanCT ABD/PELV W CONon 28-43-4562ZL ABD/PELV W CONEXAMINATION: CT ABD/PELV W CON [...] Electronically authenticated by: ESTRADA MORENO Date: 2022-07-25 04:45NoMary[facility] URINE PROFILEon 67-96-2755Xxvxgrhly Ql (U)NegativeNormal NEGATIVEThe [facility] Health CenterComment on above:Performed By: #### FETIBC, B12FOL, FERR #### [facility] [address] [place] [address] Dr. Avery Zhang (U)CLEARNormalCLEARThe [facility] Health CenterComment on above: Performed By: #### FETIBC, B12FOL, FERR #### [facility] [address] [place], [place] [address] Dr. Yilan ChangColor (U)YELLOWNormalYELLOWCentervilleComment on above: Performed By: #### FETIBC, B12FOL, FERR #### [facility] [address] [place] [address] Dr. Avery Quijano micrscopic examination will be performed if indicated. NormalCentervilleComment on above:Performed By: #### FETIBC, B12FOL, FERR #### [facility] [address] [address] [address] Avery KhanGlucose Ql (U)NegativeNormalNEGATIVECentervilleComment on above:Performed By: #### FETIBC, B12FOL, FERR #### [facility] [address] [place] [address] Dr. Avery KhanHemoglobin Ql (U)SMALLAbnormalNEGATIVECenterville Comment on above:Performed By: #### FETIBC, B12FOL, FERR #### [facility] [address] [place] [address] Dr. Avery KhanKetones Ql (U)TRACEAbnormalNEGATIVECentervilleComment on above:Performed By: #### FETIBC, B12FOL, FERR #### [facility] [address] [place] [address] Dr. Avery KhanLEUKOCYTESNegativeNormalNEGATIVECentervilleComment on above:Performed By: #### FETIBC, B12FOL, FERR #### [facility] [address] [place] [address] Dr. Avery KhanNitrite Ql (U)NegativeNormalNEGATIVECentervilleComment on above:Performed By: #### FETIBC, B12FOL, FERR #### [facility] [address] [place] [address] Dr. Avery KhanpH (U)5.0 [pH]Normal5-9CentervilleComment on above: Performed By: #### FETIBC, B12FOL, FERR #### [facility] [address] [place] [address] Dr. Avery KhanSPEC GRAVITY1.969Rsqtfk5.005-<=1.025The [facility] CenterComment on above:Performed By: #### FETIBC, B12FOL, FERR #### [facility] [address] [place] [address] Dr. Avery Reed PROTEINNegativeNormalNEGATIVE/ TRACEThe [facility] Comment on above:Performed By: #### FETIBC, B12FOL, FERR #### [facility] [address] [address] [address] Avery Betts MICRO INDINDICATEDNoalThWexner Medical CenterComment on above: Performed By: #### FETIBC, B12FOL, FERR #### [facility] [address] [place] [address] Dr. Avery Poncebilinogen Qn (U)0.2 {Anna'U}/dLNormal0.2 - 1.0The [facility] CenterComment on above:Performed By: #### FETIBC, B12FOL, FERR #### [facility] [address] [place] [address] Dr. Avery KhanLACTATE/LACTIC ACIDon 00-55-6673Jzprpsj [Moles/Vol]1.0 mmol/L Normal0.4-1.9The [facility] CenterComment on above:Performed By: #### FETIBC, B12FOL, FERR #### [facility] [address] [place] [address] Dr. Avery KhanLIPASEon 44-73-3514Ktgycw [Catalytic activity/Vol]71.0 U/L Critically low73.0-393.0The [facility] CenterComment on above:Performed By: #### LIPA, CMP, EMILE, HSTROPN #### [facility] [address] [place] [address] Dr. Avery Michael 14(COMP METB)on 87-54-1224Ovflzfc [Mass/Vol]3.7 g/dLNormal 3.4-5.0The [facility] CenterComment on above:Performed By: #### LIPA, CMP, EMILE, HSTROPN #### [facility] [address] [place] [address] Dr. Avery KhanAlbumin/Globulin [Mass ratio]1.2 {ratio}NormalThe [facility] CenterComment on above:Performed By: #### LIPA, CMP, EMILE, HSTROPN #### [facility] [address] [place] [address] Dr. Avery MeeksP [Catalytic activity/Vol]89 U/UFbtwbn81-138Une [facility] CenterComment on above:Performed By: #### LIPA, CMP, EMILE, HSTROPN #### [facility] [address] [place] [address] Dr. Avery Merritt [Catalytic activity/Vol]21 U/UIdbjss89-51Oxl [facility] CenterComment on above:Performed By: #### LIPA, CMP, EMILE, HSTROPN #### [facility] [address] [place] [address] Dr. Avery Moore gap [Moles/Vol]11.2 mmol/LNormalThe [facility] Comment on above:Performed By: #### LIPA, CMP, EMILE, HSTROPN #### [facility] [address] [place] [address] Dr. Avery KhanAST [Catalytic activity/Vol]21 U/GMpvlcm90-66Oae [facility] CenterComment on above:Performed By: #### LIPA, CMP, EMILE, HSTROPN #### [facility] [address] [place] [address] Dr. Avery KhanBilirubin [Mass/Vol]0.6 mg/dLNormal0.2-1.0The [facility] Comment on above:Performed By: #### LIPA, CMP, EMILE, HSTROPN #### [facility] [address] [place] [address] Dr. Avery KhanCalcium [Mass/Vol]8.7 mg/dLNormal8.5-10.1[place] Comment on above:Performed By: #### LIPA, CMP, EMILE, HSTROPN #### [facility] [address] [place] [address] Dr. Avery KhanChloride [Moles/Vol]103 mmol/MGxsgwj86-478Woa [facility] Comment on above:Performed By: #### LIPA, CMP, EMILE, HSTROPN #### [facility] [address] [place] [address] Dr. Avery KhanCO2 [Moles/Vol]27.7 mmol/VAndpdt16.0-32.0The [facility] Comment on above:Performed By: #### LIPA, CMP, EMILE, HSTROPN #### [facility] [address] [place] [address] Dr. Avery KhanCreatinine [Mass/Vol]1.03 mg/dLNormal0.70-1.30CentervilleComment on above:Performed By: #### LIPA, CMP, EMILE, HSTROPN #### [facility] [address] [place] [address] Dr. Avery LujanGFR-AF NORTHERN IRISH>60Normal>=60The [facility] CenterComment on above:Performed By: #### LIPA, CMP, EMILE, HSTROPN #### [facility] [address] [place] [address] Dr. Avery LujanGFR-NON AF NORTHERN IRISH>60Normal>=60The [facility] CenterComment on above:Performed By: #### LIPA, CMP, EMILE, HSTROPN #### [facility] [address] [place] [address] Dr. Avery KhanGlobulin (S) [Mass/Vol]3.0 g/dLNormalThe [facility] CenterComment on above:Performed By: #### LIPA, CMP, EMILE, HSTROPN #### [facility] [address] [place] [address] Dr. Avery KhanGlucose [Mass/Vol]122 mg/dLCritically ahyy24-906Wyy [facility] CenterComment on above:Performed By: #### LIPA, CMP, EMILE, HSTROPN #### [facility] [address] [address] [address] Avery KhanPotassium [Moles/Vol]3.9 mmol/LNormal3.5-5.1The [facility] Comment on above:Performed By: #### LIPA, CMP, EMILE, HSTROPN #### [facility] [address] [address] [address] Avery KhanProtein [Mass/Vol]6.7 g/dLNormal6.4-8.2The [facility] Comment on above:Performed By: #### LIPA, CMP, EMILE, HSTROPN #### [facility] [address] [place] [address] Dr. Avery KhanSodium [Moles/Vol]138 mmol/ZAvtube941-317Zvq [facility] Comment on above:Performed By: #### LIPA, CMP, EMILE, HSTROPN #### [facility] [address] [place] [address] Dr. Avery KhanUrea nitrogen [Mass/Vol]17.0 mg/dLNormal7.0-18.0CentervilleComment on above:Performed By: #### LIPA, CMP, EMILE, HSTROPN #### [facility] [address] [place] [address] Dr. Avery KhanUrea nitrogen/Creatinine [Mass ratio]16.5 mg/mgNormalThe [facility] CenterComment on above:Performed By: #### LIPA, CMP, EMILE, HSTROPN #### [facility] [address] [place] [address] Dr. Avery Flor, HIGH SENSITIVITYon 90-88-9185OLFVIE3.0 pg/mLNormal 4.0-76.1CentervilleComment on above:Result Comment: CUT-OFF POINTS HAVE BEEN ESTABLISHED BASED ON THE FOURTH UNIVERSAL DEFINITIONS OF MYOCARDIAL INFARCTION. THE UPPER REFERENCE LIMIT (URL) OF TROPONIN, DEFINED THE 99TH PERCENTILE OF cTnI DISTRIBUTION IN A REFERENCE POPULATION, HAS BEEN CONFIRMED THE DECISION THRESHOLD FOR PR DIAGNOSIS.Performed By: #### LIPA, CMP, EMILE, HSTROPN #### [facility] [address] [address] [address] Avery Carbajal MICROSCOPIC ONLYon 19-16-8290UNEJTCOTDNOSUOczibnsoLBWV SEEN [facility] on above:Performed By: #### FETIBC, B12FOL, FERR #### [facility] [address] [place] [address] Dr. Avery Martinez identified Cx Nom (U)NOT INDICATEDNormalThe [facility] CenterCombeaumont hospital on above:Performed By: #### FETIBC, B12FOL, FERR #### [facility] [address] [place] [address] Dr. Avery Glass SEENNormalNONE SEENNationwide Children's Hospital on above:Performed By: #### FETIBC, B12FOL, FERR #### [facility] [address] [place] [address] Dr. Avery Gomez LM Nom (Urine sed)NONE SEENNormalNONE SEENNationwide Children's Hospital on above:Performed By: #### FETIBC, B12FOL, FERR #### [facility] [address] [place] [address] Dr. Avery Lujanpithelial cells LM Ql (Urine sed)RARENormalNONE SEEN /RAREThe [facility] on above:Performed By: #### FETIBC, B12FOL, FERR #### [facility] [address] [place] [address] Dr. Avery Chaudhry SEENNormalNONE SEENNationwide Children's Hospital on above:Performed By: #### FETIBC, B12FOL, FERR #### [facility] [address] [place] [address] Dr. Avery AnnZvkraGRE6-2Umdtkr7-9WjmNationwide Children's Hospital on above:Performed By: #### FETIBC, B12FOL, FERR #### [facility] [address] [place] [address] Dr. Avery DormanBCNONDontrell SEENNormalNONE SEENNationwide Children's Hospital on above: Performed By: #### FETIBC, B12FOL, FERR #### [facility] [address] [address] [address] Avery Douglass 29-26-3533Bbedywx [id number]#1.00CD:127NormalCleveland Clinic Children'S Hospital For RehabilitationAmbulatory Visit Summaryon 36-39-4577Itxdywpapl Visit Summary MALCOLM PFEIFFER :1945 Visit Date:06/21/2022 Ambulatory Visit Instructions Your Diagnosis Rising PSA following treatment for malignant neoplasm of prostate History of prostate cancer Tests Performed Urnls Dip Stick Auto w/o Microscopy POC 84705 Your Care Team Attending Physician - ERIKA [...] Only if needed Where: [address] [place] [address] Medications What How Much When Instructions Unchanged [...] Urnls Dip Stick Auto w/o Microscopy POC 29758 (06/21/2022) Bilirubin Urine Dipstick - Negative Blood Urine Dipstick - Trace-intact Glucose Urine Dipstick - Negative Ketones Urine Dipstick - Negative Leukocytes Urine Dipstick - Negative Nitrite Urine Dipstick - Negative Protein Urine Dipstick - Negative Specific [place] Urine Dipstick - 1.020 Urine Appearance Urine [...] You should check f (more content not included)...[facility] Educationon 28-46-2875Edjowfn EducationUrology Testicular Self-Exam A self-exam of your [...] 08/10/2009 Document Revised: 09/04/2019 Document Reviewed: 04/09/2017 [employer] Patient Education ? 2019 [employer].[facility] Urology Office/Clinic Noteon 28-11-3429Fbsqtnm Office/Clinic NoteChief Complaint 16m PSA HPI Staff [...] E&M of Est. Patient Low 20-29 Min 44153 2. History of prostate cancer (Z85.46: Personal history of malignant neoplasm of prostate) Pt is S/P Brachytherapy 12/2016 Ordered: E&M of Est. Patient Low 20-29 Min 79477 Urnls Dip Stick Auto w/o Microscopy POC 31664 3. BPH with urinary obstruction (N40.1: Benign prostatic hyperplasia with lower urinary tract symptoms) IPSS (4). Pt is currently taking no bladder/prostate medication and is highly satisfied with overall symptom control. No indication for treatment at this time. Continue to monitor. UA completed in office today shows no microhematuria or signs of infection. Ordered: E&M of Est. Patient Low 20-29 Min 72004 Other obstructive and reflux uropathy (N13.8: Other obstructive and reflux uropathy) offered annual f/u. pt is 5 yrs out from [facility] and continues to see Dr Gonzalez annually. prefers to f/u w our office PRN. Follow-up With When Contact Information DANIEL FLORES, ERIKA Jon, URL Only if needed [address] [place] [address] Additional Instructions: Patient Education Testicular Self-Exam, Yuyf-io-Yuno Documentation recorded by the hilda Aleman accurately [...] of Care Results Bilirub (more content not included)...[facility] HospitalComment on above:Result Comment: Electronically Signed By: ERIKA BOND PA-C\.br\Date and Time Signed: 06/21/2312:52 EST\.br\Electronically Co-Signed By: Huma Aleman\.br\Date and Time Co-Signed: 06/21/22 13:38 EST\.br\Electronically Co-Signed By: Marichuy Wallace MDCBC AUTO DIFFon 05-04-2022 BASO #0.0 103/ulNormal0.0-0.1CentervilleComment on above:Performed By: #### CBC #### [facility] [address] [address] [address] Avery KhanBasophils/100 WBC (Bld)0.7 %Normal0.2-2.0[place] Comment on above:Performed By: #### CBC #### [facility] [address] [address] [address] Avery Smith #0.3 103/ulNormal0.0-0.7The [facility] CenterComment on above: Performed By: #### CBC #### [facility] [address] [address] [address] Avery Lujanosinophils/100 WBC (Bld)5.0 %Normal0.9-7.0[place] Comment on above:Performed By: #### CBC #### [facility] [address] [address] [address] Avery Astorgathrocyte distribution width (RBC) [Ratio]13.8 %Dphypo36.0-15.0 CentervilleComment on above:Performed By: #### CBC #### [facility] [address] [address] [address] Avery KhanHematocrit (Bld) [Volume fraction]36.9 %Critically low42.0-54.0 The [facility] CenterComment on above:Performed By: #### CBC #### [facility] [address] [place] [address] Dr. Avery KhanHemoglobin (Bld) [Mass/Vol]12.6 g/dLCritically low14.0-18.0The [facility] CenterComment on above:Performed By: #### CBC #### [facility] [address] [place] [address] Dr. Avery Fields #0.01 10e3/ulNormal0.00-0.03The [facility] CenterComment on above:Performed By: #### CBC #### [facility] [address] [place] [address] Dr. Avery Fields %0.2 %Normal0.0-0.5The [facility] CenterComment on above: Performed By: #### CBC #### [facility] [address] [place] [address] Dr. Avery Rodriguez #1.5 103/ulNormal1.2-3.8The [facility] CenterComment on above:Performed By: #### CBC #### [facility] [address] [place] [address] Dr. Avery Alfarohocytes/100 WBC (Bld)27.3 %Nljyiy48.5-60.0The [facility] CenterComment on above:Performed By: #### CBC #### [facility] [address] [place] [address] Dr. Avery CampuzanoUAL DIFF REQNONormalThe [facility] CenterComment on above: Performed By: #### CBC #### [facility] [address] [place] [address] Dr. Avery Kim (RBC) [Entitic mass]31.3 cnPhihjl30.9-34.0The [facility] CenterComment on above:Performed By: #### CBC #### [facility] [address] [place] [address] Dr. Avery Polanco (RBC) [Mass/Vol]34.1 g/fTInswpi64.9-35.2The [facility] CenterComment on above:Performed By: #### CBC #### [facility] [address] [place] [address] Dr. Avery PolancoV (RBC) [Entitic vol]91.6 qWRgbijg94.0-94.0The [facility] CenterComment on above:Performed By: #### CBC #### [facility] [address] [place] [address] Dr. Avery Galaviz #0.6 103/ulNormal0.3-0.8The [facility] CenterComment on above:Performed By: #### CBC #### [facility] [address] [place] [address] Dr. Avery Caputoocytes/100 WBC (Bld)10.4 %Normal1.7-12.0The [facility] Comment on above:Performed By: #### CBC #### [facility] [address] [place] [address] Dr. Avery Briones #3.0 103/ulNormal1.4-6.5The [facility] CenterComment on above:Performed By: #### CBC #### [facility] [address] [place] [address] Dr. Avery Israelutrophils/100 WBC (Bld)56.4 %Eosiqm43.0-75.0The [facility] CenterComment on above:Performed By: #### CBC #### [facility] [address] [place] [address] Dr. Avery Cruzlet mean volume (Bld) [Entitic vol]9.9 fLNormal9.5-13.5The [facility] CenterComment on above:Performed By: #### CBC #### [facility] [address] [place] [address] Dr. Avery CrT281 103/rkHveguu163-061Vxm [facility] CenterComment on above: Performed By: #### CBC #### [facility] [address] [place] [address] Dr. Avery MolinaC4.03 106/ulCritically low4.70-6.10The [facility] CenterComment on above:Performed By: #### CBC #### [facility] [address] [place] [address] Dr. Avery KhanWBC5.4 103/ulNormal4.0-11.0The [facility] CenterComment on above: Performed By: #### CBC #### [facility] [address] [place] [address] Dr. Avery KhanFERRITINon 82-86-0808Jdvmdgjm [Mass/Vol]72.0 ng/mLNormal 26.0-388.0The [facility] CenterComment on above:Performed By: #### FETIBC, B12FOL, FERR #### [facility] [address] [place] [address] Dr. Avery Bauer AND TIBCon 05-04-2022% UFIJFKWJPG16.9 %NormalThe [facility] CenterComment on above:Performed By: #### FETIBC, B12FOL, FERR #### [facility] [address] [place] [address] Dr. Avery Bauer [Mass/Vol]92.0 ug/hZZactnh42.0-175.0The [facility] Comment on above:Performed By: #### FETIBC, B12FOL, FERR #### [facility] [address] [place] [address] Dr. Avery Bautista IPAXUC074.0 ug/iKNxdcar851.0-450.0The [facility] Comment on above:Performed By: #### FETIBC, B12FOL, FERR #### [facility] [address] [place] [address] Dr. Avery Gold B12 AND FOLATEon 41-24-3106Wwjopdrbf (Vitamin B12) [Mass/Vol] 524.0 pg/zNXnvhjs134.0-986.0The [facility] CenterComment on above:Performed By: #### FETIBC, B12FOL, FERR #### [facility] [address] [place] [address] Dr. Avery KhanFOLATE15.70 ng/mLNormal8.60-58.90The [facility] CenterComment on above:Performed By: #### FETIBC, B12FOL, FERR #### [facility] [address] [place] [address] Dr. Avery Pete AUTO DIFFon 64-24-7434FRGW #0.0 103/ulNormal0.0-0.1The [facility] CenterComment on above:Performed By: #### FETIBC, B12FOL, FERR #### [facility] [address] [place] [address] Dr. Avery KhanBasophils/100 WBC (Bld)0.6 %Normal0.2-2.0The [facility] Comment on above:Performed By: #### FETIBC, B12FOL, FERR #### [facility] [address] [place] [address] Dr. Avery Smith #0.3 103/ulNormal0.0-0.7The [facility] CenterComment on above: Performed By: #### FETIBC, B12FOL, FERR #### [facility] [address] [place] [address] Dr. Avery Lujanosinophils/100 WBC (Bld)4.2 %Normal0.9-7.0The [facility] Comment on above:Performed By: #### FETIBC, B12FOL, FERR #### [facility] [address] [place] [address] Dr. Avery Lujanrythrocyte distribution width (RBC) [Ratio]14.3 %Oyskcy77.0-15.0 The [facility] CenterComment on above:Performed By: #### FETIBC, B12FOL, FERR #### [facility] [address] [place] [address] Dr. Avery KhanHematocrit (Bld) [Volume fraction]38.2 %Critically low42.0-54.0 The [facility] CenterComment on above:Performed By: #### FETIBC, B12FOL, FERR #### [facility] [address] [place] [address] Dr. Avery KhanHemoglobin (Bld) [Mass/Vol]12.6 g/dLCritically low14.0-18.0The [facility] CenterComment on above:Performed By: #### FETIBC, B12FOL, FERR #### [facility] [address] [place] [address] Dr. Avery Fields #0.02 10e3/ulNormal0.00-0.03The Center HospitalComment on above:Performed By: #### FETIBC, B12FOL, FERR #### [facility] [address] [place] [address] Dr. Avery Fields %0.3 %Normal0.0-0.5The [facility] CenterComment on above: Performed By: #### FETIBC, B12FOL, FERR #### [facility] [address] [place] [address] Dr. Avery Rodriguez #1.3 103/ulNormal1.2-3.8The [facility] CenterComment on above:Performed By: #### FETIBC, B12FOL, FERR #### [facility] [address] [place] [address] Dr. Avery Alfarohocytes/100 WBC (Bld)20.1 %Critically low20.5-60.0The [facility] CenterCombeaumont hospital on above:Performed By: #### FETIBC, B12FOL, FERR #### [facility] [address] [place] [address] Dr. Avery CampuzanoUAL DIFF REQNONormalThe [facility] CenterComment on above: Performed By: #### FETIBC, B12FOL, FERR #### [facility] [address] [place] [address] Dr. Avery Kim (RBC) [Entitic mass]30.4 zjQnvmlw37.9-34.0The [facility] CenterComment on above:Performed By: #### FETIBC, B12FOL, FERR #### [facility] [address] [place] [address] Dr. Avery Polanco (RBC) [Mass/Vol]33.0 g/rEVggxyc63.9-35.2The [facility] CenterComment on above:Performed By: #### FETIBC, B12FOL, FERR #### [facility] [address] [place] [address] Dr. Avery Polanco (RBC) [Entitic vol]92.3 vRYnmbqa46.0-94.0The Center HospitalComment on above:Performed By: #### FETIBC, B12FOL, FERR #### [facility] [address] [place] [address] Dr. Avery Galaviz #0.5 103/ulNormal0.3-0.8The [facility] CenterComment on above:Performed By: #### FETIBC, B12FOL, FERR #### [facility] [address] [place] [address] Dr. Avery Caputoocytes/100 WBC (Bld)8.7 %Normal1.7-12.0The [facility] Comment on above:Performed By: #### FETIBC, B12FOL, FERR #### [facility] [address] [place] [address] Dr. Avery Briones #4.1 103/ulNormal1.4-6.5The [facility] CenterComment on above:Performed By: #### FETIBC, B12FOL, FERR #### [facility] [address] [place] [address] Dr. Avery Israelutrophils/100 WBC (Bld)66.1 %Ytxenm22.0-75.0The [facility] CenterComment on above:Performed By: #### FETIBC, B12FOL, FERR #### [facility] [address] [place] [address] Dr. Avery Alva mean volume (Bld) [Entitic vol]9.4 fLCritically low 9.5-13.5The [facility] CenterComment on above:Performed By: #### FETIBC, B12FOL, FERR #### [facility] [address] [place] [address] Dr. Avery KhanPLT265 103/xdKbrklj587-821Zig [facility] CenterComment on above: Performed By: #### FETIBC, B12FOL, FERR #### [facility] [address] [place] [address] Dr. Avery KhanRBC4.14 106/ulCritically low4.70-6.10The [facility] CenterComment on above:Performed By: #### FETIBC, B12FOL, FERR #### [facility] [address] [place] [address] Dr. Avery KhanWBC6.2 103/ulNormal4.0-11.0The [facility] CenterCombeaumont hospital on above: Performed By: #### FETIBC, B12FOL, FERR #### [facility] [address] [place] [address] Dr. Avery KhanPROF 14(COMP METB)on 84-42-8423Fdeejrt [Mass/Vol]3.6 g/dLNormal 3.4-5.0The [facility] CenterComment on above:Performed By: #### FETIBC, B12FOL, FERR #### [facility] [address] [place] [address] Dr. Avery KhanAlbumin/Globulin [Mass ratio]1.1 {ratio}NormalThe [facility] CenterCombeaumont hospital on above:Performed By: #### FETIBC, B12FOL, FERR #### [facility] [address] [place] [address] Dr. Avery Shen [Catalytic activity/Vol]80 U/YRwfywh61-616Ejz [facility] CenterCombeaumont hospital on above:Performed By: #### FETIBC, B12FOL, FERR #### [facility] [address] [place] [address] Dr. Avery Merritt [Catalytic activity/Vol]28 U/TZgewim60-11Mjd [facility] CenterComment on above:Performed By: #### FETIBC, B12FOL, FERR #### [facility] [address] [place], [place] [id number] Dr. Avery Moore gap [Moles/Vol]7.7 mmol/LNormalThe [facility] CenterComment on above:Performed By: #### FETIBC, B12FOL, FERR #### [facility] [address] [place] [address] Dr. Avery KhanAST [Catalytic activity/Vol]21 U/YPyuwmt29-77Dyi [facility] CenterComment on above:Performed By: #### FETIBC, B12FOL, FERR #### [facility] [address] [place] [address] Dr. Avery KhanBilirubin [Mass/Vol]0.6 mg/dLNormal0.2-1.0[place] Comment on above:Performed By: #### FETIBC, B12FOL, FERR #### [facility] [address] [place] [address] Dr. Avery KhanCalcium [Mass/Vol]8.4 mg/dLCritically low8.5-10.1The [facility] CenterComment on above:Performed By: #### FETIBC, B12FOL, FERR #### [facility] [address] [place] [address] Dr. Avery KhanChloride [Moles/Vol]106 mmol/VOdqbsk12-095XdnCent[place] Comment on above:Performed By: #### FETIBC, B12FOL, FERR #### [facility] [address] [place] [address] Dr. Avery KhanCO2 [Moles/Vol]30.4 mmol/ZIepsaa84.0-32.0[place] Comment on above:Performed By: #### FETIBC, B12FOL, FERR #### [facility] [address] [place] [address] Dr. Avery KhanCreatinine [Mass/Vol]1.02 mg/dLNormal0.70-1.30The [facility] CenterCombeaumont hospital on above:Performed By: #### FETIBC, B12FOL, FERR #### [facility] [address] [place] [address] Dr. Yilan ChangEGFR-AF NORTHERN IRISH>60Normal>=60The [facility] CenterComment on above:Performed By: #### FETIBC, B12FOL, FERR #### [facility] [address] [place] [address] Dr. Avery Rico-NON AF NORTHERN IRISH>60Normal>=60The [facility] CenterComment on above:Performed By: #### FETIBC, B12FOL, FERR #### [facility] [address] [place] [address] Dr. Avery KhanGlobulin (S) [Mass/Vol]3.4 g/dLNormalThe [facility] CenterComment on above:Performed By: #### FETIBC, B12FOL, FERR #### [facility] [address] [place] [address] Dr. Avery KhanGlucose [Mass/Vol]91 mg/iPFrygtf93-136InfCenterville Comment on above:Performed By: #### FETIBC, B12FOL, FERR #### [facility] [address] [place] [address] Dr. Avery KhanPotassium [Moles/Vol]4.1 mmol/LNormal3.5-5.1[place] Comment on above:Performed By: #### FETIBC, B12FOL, FERR #### [facility] [address] [place] [address] Dr. Avery KhanProtein [Mass/Vol]7.0 g/dLNormal6.4-8.2[place] Comment on above:Performed By: #### FETIBC, B12FOL, FERR #### [facility] [address] [place] [address] Dr. Avery KhanSodium [Moles/Vol]140 mmol/DIlbfkg261-689RjvCenterville Comment on above:Performed By: #### FETIBC, B12FOL, FERR #### [facility] [address] [place] [address] Dr. Avery KhanUrea nitrogen [Mass/Vol]14.0 mg/dLNormal7.0-18.0CentervilleComment on above:Performed By: #### FETIBC, B12FOL, FERR #### [facility] [address] [address] [address] Avery KhanUrea nitrogen/Creatinine [Mass ratio]13.7 mg/mgNoProvidence HospitalComment on above:Performed By: #### FETIBC, B12FOL, FERR #### [facility] [address] [id number] Avery KhanProvider Letteron 81-95-9399Nbhktmvu Letter February 02, 2022 MALCOLM PFEIFFER [address] [place], [place] [id number] MALCOLM PFEIFFER 1945 Dear Mr. Pfeiffer, We have been trying to reach you with no success. You have an appointment with Rachele Jason 02/16/2022 which will need to be rescheduled since she will not be in the Center office that day. Please contact the office at the number listed below to get this appointment rescheduled at your earliest convenience. Thank you for your prompt attention to this matter. Sincerely, [facility] [address], [place] [address] [facility]hyildNkqkmwAv[facility] Vital Signs Date TimeVital SignValuePerforming VmhblnzufPhdxuxnu47-27-2705 08:43-0400Body .26 cmBenjamin Ball DO Work Phone: [facility]10-03-2025 08:43-0400 Body mass index (BMI) [Ratio]22 kg/t9Kcsqxrec Ball DO Work Phone: [facility]10-03-2025 08:43-0400 Body uyhhgm74.75 kgBenjamin Ball DO Work Phone: [facility]10-03-2025 08:43-0400 Diastolic blood xmvlloud05 mm[Hg]Joaquin Ball DO Work Phone: [facility]10-03-2025 08:43-0400 Heart rate52 /minBenjamin Ball DO Work Phone: 1(419)[address] [place], [place] [address]10-03-2025 08:43-0400 Respiratory rate12 /minBenjamin Ball DO Work Phone: 1(419)[address] [place], [place] 4321710-03-2025 08:43-0400 Systolic blood shpjxliu187 mm[Hg]Joaquin Ball DO Work Phone: 1(419)[address] [place], [place] 4321709-25-2025 08:35-0400 Body kbsuzi763.26 cmBenjamin Ball DO Work Phone: 1(419)[address] [place], [place] 432[address]09-25-2025 08:35-0400 Body mass index (BMI) [Ratio]22.1 kg/e4Chcqzozo Ball DO Work Phone: 1(419)[address] [place], [place] [address]09-25-2025 08:35-0400 Body rntugq86.03 kgBenjamin Ball DO Work Phone: 1(419)[address] [place], [place] 4321709-25-2025 08:35-0400 Diastolic blood leocnamk12 mm[Hg]Joaquin Ball DO Work Phone: 1(419)[address] [place], [place] 4321709-25-2025 08:35-0400 Heart rate56 /minBenjamin Ball DO Work Phone: 1(419)[address] [place], [place] 4321709-25-2025 08:35-0400 Respiratory rate12 /minBenjamin Ball DO Work Phone: 1(419)[address] [place], [place] 4321709-25-2025 08:35-0400 Systolic blood dsttyghq596 mm[Hg]Joaquin Ball DO Work Phone: 1(419)[address] [place], [place] 4321703-24-2025 08:31-0400 Body hvnrie994.26 cm[facility]03-24-2025 08:31-0400Body mass index (BMI) [Ratio]22.6 kg/c2EwqbboeewPremier Health [facility]rium Medical Center03-24-2025 08:31-0400Body scssqi97.45 kgPrem[facility]03-24-2025 08:31-0400Diastolic blood fjcfdseq73 mm[Hg][facility] 08-18-2024 08:31-0400Heart rate54 /[facility] 08-18-2024 08:31-0400Respiratory rate12 /[facility] 08-18-2024 08:31-0400Systolic blood yddvgpes599 mm[Hg][facility]11-05-2024 10:10-0500Body mass index (BMI) [Ratio]22.46 kg/m2MIHIR Gonzalez MD Work Phone: [facility]11-05-2024 10:10-0500Body temperature 98.2 [degF]MIHIR Gonzalez MD Work Phone: [facility]11-05-2024 10:10-0500Body kg MIHIR Gonzalez MD Work Phone: [facility]11-05-2024 10:10-0500Diastolic blood pmzfxnny40 mm[Hg]MIHIR Gonzalez MD Work Phone: [facility]11-05-2024 10:10-0500Heart rate53 /min MIHIR Gonzalez MD Work Phone: [facility]11-05-2024 10:10-0500Respiratory rate 16 /AmeyaMIHIR Gonzalez MD Work Phone: [facility]11-05-2024 10:10-1492DuQ6% (BldA) [Mass fraction]97 %MIHIR Gonzalez MD Work Phone: [facility]11-05-2024 10:10-0500Systolic blood gsfsefea877 mm[Hg]MIHIR Gonzalez MD Work Phone: [facility]09-23-2024 08:29-0400Body enqbag977.26 cmPrem[facility]09-23-2024 08:29-0400Body mass index (BMI) [Ratio]22.7 kg/y3BrvvrakvrPremier Health Atrium Medical Center09-23-2024 08:29-0400Body udzbqe07.85 kgPrem[facility] Health [facility]09-23-2024 08:29-0400Diastolic blood mm[Hg][facility]09-23-2024 08:29-0400 Heart rate55 /[facility]09-23-2024 08:29-0375IfA3% (BldA) [Mass fraction]97 %[facility]09-23-2024 08:29-0400 Systolic blood mm[Hg][facility]08-30-2024 14:19-0400Body ppfwuo168.26 cmPrem[facility]08-30-2024 14:19-0400Body mass index (BMI) [Ratio]22.9 kg/c5QywymiizvPremier Health Atrium Medical Center08-30-2024 14:19-0400Body psugfs62.47 kgPrem[facility] 01-25-2024 14:19-0400Diastolic blood tngecefw93 mm[Hg][facility]08-30-2024 14:19-0400Heart rate59 /[facility] 01-25-2024 14:19-0400Respiratory rate12 /[facility] 01-25-2024 14:19-0400Systolic blood yxpumwbp157 mm[Hg][facility]08-23-2024 09:00-0400Body ejvyui206.3 cmGabriela Ramsey MD Work Phone: [facility]08-23-2024 09:00-0400Body mass index (BMI) [Ratio]22.43 kg/m3JnmymbnGabriela Ramsey MD Work Phone: [facility]08-23-2024 09:00-0400Body pbewau99.9 kgGabriela Ramsey MD Work Phone: [facility]08-23-2024 09:00-0400Diastolic blood rrigaqic40 mm[Hg]Gabriela Ramsey MD Work Phone: [facility]08-23-2024 09:00-0400Heart rate54 /min Gabriela Ramsey MD Work Phone: [facility]08-23-2024 09:00-0400Systolic blood zaciwrnw441 mm[Hg]Gabriela Ramsey MD Work Phone: [facility]07-18-2024 09:32-0400Body mass index (BMI) [Ratio]22.68 kg/m2MIHIR Gonzalez MD Work Phone: [facility]07-18-2024 09:32-0400Body temperature 97.5 [degF]MIHIR Gonzalez MD Work Phone: [facility]07-18-2024 09:32-0400Body gogpvo93.7 kgMIHIR Gonzalez MD Work Phone: [facility]07-18-2024 09:32-0400Diastolic blood ficbfiap51 mm[Hg]MIHIR Gonzalez MD Work Phone: [facility]07-18-2024 09:32-0400Heart rate51 /min MIHIR Gonzalez MD Work Phone: [facility]07-18-2024 09:32-0400Respiratory rate 16 /AmeyaMIHIR Gonzalez MD Work Phone: [facility]07-18-2024 09:32-4814CdA7% (BldA) [Mass fraction]99 %MIHIR Gonzalez MD Work Phone: [facility]07-18-2024 09:32-0400Systolic blood acabrrkz706 mm[Hg]MIHIR Gonzalez MD Work Phone: [facility]05-30-2024 10:30-0400Body mass index (BMI) [Ratio]22.94 kg/m2MIHIR Gonzalez MD Work Phone: [facility]05-30-2024 10:30-0400Body temperature 97.59 [degF]MIHIR Gonzalez MD Work Phone: [facility]05-30-2024 10:30-0400Body vuoaqu37.5 kgMIHIR Gonzalez MD Work Phone: [facility]05-30-2024 10:30-0400Diastolic blood lhnmehxx60 mm[Hg]MIHIR Gonzalez MD Work Phone: [facility]05-30-2024 10:30-0400Heart rate52 /min MIHIR Gonzalez MD Work Phone: [facility]05-30-2024 10:30-0400Respiratory rate 16 /AmeyaMIHIR Gonzalez MD Work Phone: [facility]05-30-2024 10:30-8677CjZ1% (BldA) [Mass fraction]97 %MIHIR Gonzalez MD Work Phone: [facility]05-30-2024 10:30-0400Systolic blood hoblhdfg524 mm[Hg]MIHIR Gonzalez MD Work Phone: [facility]03-21-2024 08:32-0400Body veumqv406.26 cmPrem[facility]03-21-2024 08:32-0400Body mass index (BMI) [Ratio]22.9 kg/j3QxkwjmxpnPremier Health [facility] Medical Center03-21-2024 08:32-0400Body .53 kgPrem[facility]03-21-2024 08:32-0400Diastolic blood vpfeacxt34 mm[Hg][facility]03-21-2024 08:32-0400 Heart rate54 /[facility]03-21-2024 08:32-0400 Respiratory rate12 /[facility]03-21-2024 08:32-0400 Systolic blood luhkhzik069 mm[Hg][facility]07-20-2023 08:48-0400Body eefmlhwwdtt37.8 [degF]MIHIR Gonzalez MD Work Phone: [facility]07-20-2023 08:48-0400Body jkqgat31.86 kgMIHIR Gonzalez MD Work Phone: [facility]07-20-2023 08:48-0400Diastolic blood mm[Hg]MIHIR Gonzalez MD Work Phone: [facility]07-20-2023 08:48-0400Heart rate54 /min MIHIR Gonzalez MD Work Phone: [facility]07-20-2023 08:48-0400Respiratory rate 18 /AmeyaMIHIR Gonzalez MD Work Phone: [facility]07-20-2023 08:48-9516JvO2% (BldA) [Mass fraction]97 %MIHIR Gonzalez MD Work Phone: [facility]07-20-2023 08:48-0400Systolic blood ytcmgjgl412 mm[Hg]MIHIR Gonzalez MD Work Phone: [facility]03-06-2023 08:30-0500Body ssejkf683.26 cmBenjamin Ball Other [employer]place Other 03-06-2023 08:30-0500Body mass index (BMI) [Ratio] 23.27 kg/b6Msapkkbb Ball Other [facility] Other 03-06-2023 08:30-0500Body .49 kgBenjamin Ball Other [employer] Other 03-06-2023 08:30-0500Diastolic blood vvsojgpa11 mm[Hg] Joaquin Ball Other [employer] Other 03-06-2023 08:30-0500Respiratory rate12 /minBenjamin Ball Other [facility] Other 03-06-2023 08:30-0500Systolic blood eovjatef981 mm[Hg] Joaquin Ball Other [employer] Other 03-01-2023 11:30-0500Body xhkoyt609.26 cmBenjamin Ball Other [facility] [employer] Other 03-01-2023 11:30-0500Body mass index (BMI) [Ratio] 23.48 kg/s6Ongrqzmr Ball Other [facility] [employer] Other 03-01-2023 11:30-0500Body nohwdh15.12 kgBenjamin Ball Other [facility] [employer] Other 03-01-2023 11:30-0500Diastolic blood gkwopgrp07 mm[Hg] Joaquin Ball Other [facility] [employer] Other 03-01-2023 11:30-0500Respiratory rate12 /minBenjamin Ball Other [facility] [employer] Other 03-01-2023 11:30-0500Systolic blood lczuxhck004 mm[Hg] Joaquin Ball Other [facility] [employer] Other 01-25-2023 13:20-0500Blood Pressure LocationJENNIFER DANIEL [facility]01-25-2023 13:20-0500Diastolic blood vejltwbz37 mm[Hg]ERIKA DANIEL [facility]01-25-2023 13:20-0500Heart rate86 /minJENNIFER DANIEL [facility]01-25-2023 13:20-0500Respiratory rate16 /minJENNIFER DANIEL [facility]01-25-2023 13:20-0500Systolic blood nuirudjy051 mm[Hg]ERIKA DANIEL [facility]07-21-2022 09:02-0400Body .11 [degF]MIHIR Gonzalez MD Work Phone: [facility]07-21-2022 09:02-0400Body .22 kgMIHIR Gonzalez MD Work Phone: [facility]07-21-2022 09:02-0400Diastolic blood tesfqigf76 mm[Hg]MIHIR Gonzalez MD Work Phone: [facility]07-21-2022 09:02-0400Heart rate59 /min MIHIR Gonzalez MD Work Phone: [facility]07-21-2022 09:02-0400Respiratory rate 16 /AmeyaMIHIR Gonzalez MD Work Phone: [facility]07-21-2022 09:02-6460CsZ4% (BldA) [Mass fraction]99 %MIHIR Gonzalez MD Work Phone: [facility]07-21-2022 09:02-0400Systolic blood trkteokd521 mm[Hg]MIHIR Gonzalez MD Work Phone: [facility] Encounters Encounter DateEncounter TypeCare ProviderFacilityStart: 02-27-2025 End: 46-71-4430uveeexivrkEfxnaruh Ball DO Work Phone: [facility] Work Phone: Start: 02-27-2025 End: 38-99-5087Ikbmvul encounter procedureBenjamin Ball DO-[facility] Work Phone: Start: 02-19-2025 End: 18-04-8353wsomclbqjvUtunnuqq Ball DO Work Phone: [facility] Work Phone: Start: 02-19-2025 End: 59-44-0844Tlsiilj encounter procedureBenjamin Ball DO-[facility] Work Phone: Start: 09-23-2024 End: 95-99-4547Qoktaiqcx encounterGabriela Ramsey MD Work Phone: Colorectal SurgeryComment on above:Care Coordination (Follow up colonoscopy with Dr Ramsey)Start: 08-18-2024 End: 97-03-7394zmephhttdsTixnnoufhSelect Medical [facility] Work Phone: Start: 08-18-2024 End: 09-37-2464Wvrqeev encounter procedureCritical Access Hospital Physician [facility] Work Phone: Start: 04-01-2024 End: 51-25-8327bqenfvlgkvC BOB SALDIVARacility:[facility] Start: 04-01-2024 End: 67-01-4682Erevnmj encounter Kale Gonzalez MD Work Phone: Radiation OncologyComment on above:History of prostate cancer (Primary Dx)Start: 02-18-2024 End: 55-84-2770mhevrjgmueZyabknylaSelect Medical Specialty [facility] Work Phone: Start: 02-18-2024 End: 26-00-4912Hirjxlc encounter procedureCritical Access Hospital Physician [facility] Work Phone: Start: 81-43-5556Pmaavjv encounter procedureCleveland Clinic Lutheran Hospitaltart: 01-25-2024 End: 22-50-5112nmbuluxxpnUbopfonneSelect Medical Specialty [facility] Work Phone: Start: 01-25-2024 End: 66-05-7515Iplolzd encounter procedureCritical Access Hospital Physician [facility] Work Phone: Start: 01-18-2024 End: 46-77-6987tdyjnpcvukVVZSNMIM E BALLFacility:[facility]tart: 01-18-2024 End: 64-91-2148Zdqqvow encounter procedureGabriela Ramsey MD Work Phone: Colorectal SurgeryComment on above:Anal or rectal pain (Primary Dx); Rectal stricture; Rectal or anal painStart: 12-13-2023 End: 35-96-5594Yvzhvdh encounter procedureG Bob Gonzalez MD Work Phone: Radiation OncologyComment on above:History of prostate cancer (Primary Dx); Rectal or anal painStart: 12-13-2023 End: 95-60-9700dgdjpfsrwkT PHILLIP ENGELERFacility:[facility] Start: 10-25-2023 End: 93-13-7698eixcaxdkeqRYNWXJVS E BALLFacility:[facility]tart: 10-25-2023 End: 10-02-2414Yvxvhul encounter procedureG Bob Gonzalez MD Work Phone: [facility] OncologyComment on above:History of prostate cancer (Primary Dx)Start: 08-16-2023 End: 91-08-4449izfxwwcxfdJshgsgrasSycamore Medical Center Work Phone: Start: 08-16-2023 End: 19-93-8614Fgxtyyu encounter procedureCritical Access Hospital Physician GroupMorrow [facility] Work Phone: Start: 02-20-2023 End: 71-14-0364rlhzczjrakYiarjgpt Thomas Other [employer] Other Start: 91-55-4679Rqdqzlrnt encounterJoaquin MorganOhioHealth Doctors Hospitaltart: 12-14-2022 End: 30-96-6003Tudpcce encounter procedureG Bob Gonzalez MD Work Phone: [facility] OncologyComment on above:History of prostate cancer (Primary Dx); Proctitis, radiationStart: 12-13-2022 End: 84-54-2871uqcbkqxynmXsswivme Ball Other [employer] Other Start: 94-36-4004Ckgszqkoo encounterBefranchesca MorganOhioHealth Doctors Hospitaltart: 12-11-2022 End: 50-70-6359okgutqakjmZefqgscl Ball Other noM[employer] Other Start: 41-78-8310Hiskinbgt encounterBenalona Morgan Medical ClinicStart: 07-31-2022 End: 42-72-4695eriwqjwukzPderchct Ball Other [employer] Other Start: 85-44-2824Hfnzpx outpatient visit 25 minutes Joaquin [facility] ClinicStart: 07-26-2022 End: 76-93-9793jxsgorbfwwVplypikh Ball Other [employer] Other Start: 14-01-3910Ulovba outpatient visit 15 minutes Joaquin Morgan [facility] ClinicStart: 07-25-2022 End: 17-03-0527sqndhioedhVS SANA MARKER .Facility:V4Ostkj: 07-18-2022 End: 92-48-8926lyvycrleatCyvrnwoz Ball Other noM[employer]afeplace Other Start: 19-37-3012Zgcjhoysu encounterBenalona Morgan Medical ClinicStart: 06-21-2022 End: 31-80-0775gxvttlxrkfHBMBOHPP E PERRYFacility:RBENDEN MitchellueStart: 06-21-2022 End: 18-24-0667Fsdzexh encounter procedureJENNIFER E DANIEL [facility] start: 05-04-2022 End: 13-85-9004twowkqwzdjSJ JOAQUIN MORGANFacility:P0Itirx: 79-88-7983Epgletxiw for general adult medical examination without abnormal findingsDR JOAQUIN MORGAN [facility]ertart: 02-14-2022 End: 19-78-4452wvuritrgdaKO JOAQUIN MORGANFacility:N4Ulbgh: 02-14-2022 End: 81-19-7771Loziqrunp for general adult medical examination without abnormal findingsDR JOAQUIN BALLFacility:C4Tguvb: 12-15-2021 End: 51-87-0197Brxsxij encounter procedureG Bob Gonzalez MD Work Phone: Radiation OncologyComment on above:Malignant neoplasm of prostate (HCC) (Primary Dx)Start: 12-13-2021 End: 31-03-0038kchmyndwszOH PEDRO Majano NINARFacility:H1 Procedures DateProcedureProcedure DetailPerforming ClinicianStart: 05-85-6314YXZ screening Ccf ProviderStart: 18-87-4285TEL screeningCcf ProviderStart: 12-13-2021 End: 80-56-1953VCA screeningCcf ProviderComment on above:Performed By: #### FETIBC, B12FOL, FERR #### [facility] [address] [place] [address] Dr. Varela ChangStart: 72-04-1303Awegu depression screening assessmentMIHIR Gonzalez MD Work Phone: Start: 45-31-5894CezubpcsccodxEKRAHCVO DANIEL Start: 20-10-8805Bfzfmmgihva biopsy of prostate using ultrasound guidanceBright!TaxIFER DANIEL Start: 78-84-5994Wuzdugvilkl biopsy of prostate using ultrasound guidanceikaSystemsNNIFER DANIEL Repair of inguinal herniaWise Data.Media Plan of Treatment DateCare ActivityDetailAuthorStart: 04-01-2025 End: 30-05-4468Wkynwzm encounter wevqauzwl10/05/2025 9:15 AM EST Office Visit Radiation Oncology [address] [place] [address] [place] [address] Lydia Gonzalez MD [address] [place] [address] [place] [address] 1 year follow upRadiation OncologyComment on above:1 year follow upStart: 12-12-2024 End: 50-59-8447Mejdiqfp specific Ag [Mass/volume] in Serum or PlasmaPROSTATE- SPECIFIC ANTIGEN DIAGNOSTIC Lab Routine History of prostate cancer Expected: 12/12/2024, Expires: 03/13/2025[facility] Work Phone: Comment on above:Expected: 12/12/2024, Expires: 03/13/2025Start: 80-03-6036Ehpinwp Directive DiscussionAdvance Directive DiscussionMercy Health Defiance Hospitaltart: 04-01-2024 End: 94-42-9693Ozeuldhb specific Ag [Mass/volume] in Serum or PlasmaPROSTATE- SPECIFIC ANTIGEN DIAGNOSTIC Lab Routine History of prostate cancer Expected: 04/01/2024, Expires: 07/01/2024[facility] Work Phone: Comment on above:Expected: 04/01/2024, Expires: 07/01/2024Start: 03-13-2024 End: 96-84-7196Pkfbtzd encounter /17/2024 9:15 AM EDT Office Visit Radiation Oncology [address] [place] [address] Lydia Gonzalez MD [address] [place] [address] 3 month rvRadiation OncologyComment on above:3 month rvStart: 74-86-1857Qgivb-19 Vaccine ( season)Covid-19 Vaccine ( season)[facility]: 99-02-7015Alvlcwsop vaccinationMercy Health St. [facility] Start: 12-21-2023 End: 38-65-3978Zywarxh encounter teiifczfc33/26/2024 12:30 PM EDT Office Visit Colorectal Surgery [address] [place] [address] [place] [address] [place] [address] new patient, Rectal Pain, colonoscopy was 11/03/15, results scanned into EPICColorectal SurgeryComment on above:new patient, Rectal Pain, colonoscopy was 11/03/15, results scanned into EPICStart: 12-13-2023 End: 77-45-6730Ffkmtnm encounter arnmxpiyt84/18/2024 10:00 AM EDT Office Visit Radiation Oncology [address] [place] [address] Lydia Gonzalez MD [address] [place] [address] 1 Yr Follow Up [facility] done at [facility] Oncology Comment on above:1 [facility]: [facility] Advance Directive DiscussionAdvance Directive DiscussionMercy Health Defiance Hospitaltart: 24-80-6341Xiyglghhxl Health ScreeningBehavioral Health ScreeningMercy Health St. [facility] Start: 94-10-4945Xigpm-19 Vaccine ()Covid-19 Vaccine ()[facility]: 81-93-7828Gzkyufmwe vaccinationINFLUENZA (#1)[facility]: 12-15-2022 End: 83-76-0840Lzzblnqv specific Ag [Mass/volume] in Serum or Plasma PSA/PROSTSPECAG DIAG Lab Routine Malignant neoplasm of prostate (HCC) Expected: 12/15/2022, Expires: 02/14/2023[facility] Work Phone: Comment on above:Expected: 12/15/2022, Expires: 02/14/2023Start: 12-14-2022 End: 83-56-1076Yxrvknjp specific Ag [Mass/volume] in Serum or Plasma PSA/PROSTSPECAG DIAG Lab Routine History of prostate cancer Expected: 12/14/2022, Expires: 02/13/2023[facility] Work Phone: Comment on above:Expected: 12/14/2022, Expires: 02/13/2023Start: 44-88-3281Pheyh depression screening assessmentDEPRESSION SCREENINGMercy Health Defiance Hospitaltart: 30-05-8229GDSQVFE DIRECTIVE DISCUSSIONADVANCE DIRECTIVE DISCUSSIONMercy Health Defiance Hospitaltart: 16-29-8173QZNOJQYQSM ASSESSMENT DEPRESSION ASSESSMENTMercy Health Defiance Hospitaltart: 56-68-8604Aexoxfwhl vaccination INFLUENZA (#1)[facility]: 74-04-1449LXVBH-19 VACCINE (4 - Booster for Moderna series)COVID-19 VACCINE (4 - Booster for Moderna series)[facility]: 79-22-9007GUSHNWJ DIRECTIVE DISCUSSIONADVANCE DIRECTIVE DISCUSSION [facility]: 31-31-4092YKEPB-19 VACCINE (4 - Moderna series)COVID-19 VACCINE (4 - Moderna series)[facility]: 14-32-5935MOC Vaccine (1 - 1- dose 75+ series)RSV Vaccine (1 - 1-dose 75+ series)[facility]: 78-33-6647YFLZULCI VACCINE (2 of 3)SHINGRIX VACCINE (2 of 3)[facility] Start: 91-58-5382Easmmmuduafo Vaccine: 65+ (2 of 2 - PCV)Pneumococcal Vaccine: 65+ (2 of 2 - PCV)[facility]: 89-43-6060UPWPILQUVJEN: 65+ (2 - PCV) PNEUMOCOCCAL: 65+ (2 - PCV)[facility]: 04-10-7378WDY Vaccine (1 - 1- dose 60+ series)RSV Vaccine (1 - 1-dose 60+ series)[facility]: 11-74-0613LYJPGVRN SCREENDIABETES SCREENMercy Health Defiance Hospitaltart: 1990 Diabetes ScreeningDiabetes ScreeningMercy Health Defiance Hospitaltart: 06-17-8245Kdnpg microalbumin profileMercy Health Defiance Hospitaltart: 28-54-9870Brtjnrv ScreeningAnxiety ScreeningMercy Health Defiance Hospitaltart: 55-81-0455Ddibpyhdop ScreeningDepression ScreeningMercy Health Defiance Hospitaltart: 47-79-0022TBBKACSAU C SCREENINGHEPATITIS C SCREENINGMercy Health St. [facility] Warren HospitalComprehensive metabolic 2000 panel - Serum or Plasma [facility] CenterComprehensive metabolic 2000 panel - Serum or PlasmaPremier Health Atrium Medical CenterCT Abdomen and Pelvis WO contrast [facility] End: 98-49-5920Jpgmafme sigmoidoscopy studyCOLONOSCOPY DIAGNOSTIC Endoscopy Routine Rectal stricture 1 Occurrences starting 01/18/2024 until 01/17/2025 [facility] Work Phone: Comment on above:1 Occurrences starting 01/18/2024 until 01/17/2025Patient EducationLow back pain in adultsOur Lady Of [facility] Hospital Work Phone: [facility] Immunizations Immunization DateImmunizationNotesCare AycdljrmRrcteuwi12-55-2780tlhjhpiki, high dose seasonal, preservative-freeBenjamin Ball DO Work Phone: [facility]09-23-2024influenza, high dose seasonal, preservative-freePrem[facility] Health [facility]rium Medical Center09-20-2023 influenza virus vaccine, unspecified formulationPremier Health Atrium Medical Center09-20-2023influenza, high dose seasonal, preservative-freeBenjamin Ball Other E96 Other [id number] (aIIV4) vaccine, age 65+ yr, quadrivalent, PF (FLUAD QUAD)MIHIR Gonzalez MD Work Phone: [facility] HospitalAeuapq27-29-6135rvgkfaelu virus vaccine, split virus (incl. purified surface antigen)Joaquin Morgan Other E[employer] Other [id number] virus vaccine, unspecified formulationJEINSCRIPTION HOUSE HEALTH CENTERRY [facility]10-27-2021SARS-CoV-2 (COVID-19) mRNA-9423 vaccineJENNIFER DANIEL [facility]09-16-2021influenza nasal, unspecified formulationMIHIR Gonzalez MD Work Phone: [facility] HospitalXaamtz53-67-9091srrgljvhg virus vaccine, split virus (incl. purified surface antigen)Joaquin Morgan Other E96 Other [id number] virus vaccine, unspecified formulationJENNIFER DANIEL [facility]09-16-2021Seasonal trivalent influenza vaccine, adjuvanted, preservative Lon Gonzalez MD Work Phone: [facility] HospitalPfczup07-11-2456UWSJC-57, mRNA, LNP-S, PF, 100 mcg or 50 mcg doseJENNIFER DANIEL [facility] HospitalComment on above:Reason for Medication: Other (see comment)[id number]-19, mRNA, LNP-S, PF, 100 mcg or 50 mcg doseJENNIFER DANIEL [facility] HospitalComment on above:Reason for Medication: Other (see comment)27-67-7886gvofsuiwu virus vaccine, split virus (incl. purified surface antigen)Joaquin Morgan Other [place] [employer] Other [id number] virus vaccine, unspecified formulationPremier Health [facility] Center10-11-2019influenza virus vaccine, live, attenuated, for intranasal useJENNIFER DANIEL [facility]09-11-2019influenza nasal, unspecified formulationMIHIR Gonzalez MD Work Phone: [facility] HospitalPasjef41-38-5232dqjsixmpf virus vaccine, unspecified formulationJENNIFER DANIEL [facility]09-11-2019Seasonal trivalent influenza vaccine, adjuvanted, preservative Lon Gonzalez MD Work Phone: [facility] HospitalOigsbu40-40-9482iagundthp nasal, unspecified formulationMIHIR Gonzalez MD Work Phone: [facility] HospitalSfytpi97-80-6793hkllfvftp virus vaccine, split virus (incl. purified surface antigen)Joaquin Morgan Other [facility] [employer] Other 0826619-17-3201czsuzlnum virus vaccine, unspecified formulationJENNIFER DANIEL [facility]09-26-2018Influenza, injectable, Madin [place] Canine Kidney, quadrivalent with preservativeMIHIR Gonzalez MD Work Phone: [facility] HospitalCkfwpo64-10-8584mngyrtfop nasal, unspecified formulationMIHIR Gonzalez MD Work Phone: [facility] HospitalPufmot50-43-7362nbahpxzth virus vaccine, split virus (incl. purified surface antigen)Joaquin Morgan Other [place] [employer] Other 10015138-26-4488dblzvhzxl virus vaccine, unspecified formulationJENNIFER DANIEL [facility]10-02-2017influenza, high dose seasonal, preservative-freeMIHIR Gonzalez MD Work Phone: [facility] HospitalBubhgq17-64-3900cftuhy vaccine, liveMIHIR Gonzalez MD Work Phone: [facility] HospitalZitirx47-64-4579bnubsb vaccine, liveBenalona Morgan Other [facility]11-03-2016influenza nasal, unspecified formulationMIHIR Gonzalez MD Work Phone: [facility] HospitalWrgwki45-45-2754xlweoyzys virus vaccine, unspecified formulationJENNIFER DANIEL [facility]11-03-2016influenza, injectable, quadrivalent, contains preservativeMIHIR Gonzalez MD Work Phone: [facility] HospitalNssmnz76-68-5570srzpeqyld virus vaccine, split virus (incl. purified surface antigen)Joaquin Morgan Other [place] [employer] Other 10806761-19-1266jgwkhsjgt virus vaccine, unspecified formulationPremier Health [facility]rium Medical Center04-07-2016pneumococcal conjugate vaccine, 13 valentBegingeralona Morgan Other [facility]04-18-2013 pneumococcal polysaccharide vaccine, 23 Ken Gonzalez MD Work Phone: [facility] HospitalWcjvrl81-59-6645kmcrheptkmpr polysaccharide vaccine, 23 valWilliamgingeralona Thomas Other [facility] Payers DatePayer CategoryPayerPolicy [id number] (Managed Care)[place] [id number] 2023MedicareDEVOTED MEDICARE [facility] [id number] 2022-Present [phone] [address] [place] [id number] [id number] [id number] Health InsuranceDEVOGUADALUPE [facility]AL [facility] HMO [id number] [facility] MEDICARE SUPPLEMENT [id number] 2016-Present [phone] [address] [place] [address] [id number] 2009MedicareMEDICARE MEDICARE A AND B [id number] 2009-Present [phone] [address] [address] [place], [place] [address] 2-0001 [id number] [id number] Elite [id number] Social History DateTypeDetailFacilityStart: 12-05-2016 End: 64-12-6966Kstbdau smoking status NHISNever smoked tobaccoMercy Health St. [facility] Start: 12-05-2016 End: 77-28-0114Eefzore use and exposureSmokeless tobacco non-userMercy Health Defiance Hospitaltart: 87-01-1345Xow Assigned At [facility] HealthNot on [facility] HospitalTobacco smoking statusNeverExec[facility] Start: 12-14-2022 End: 50-37-8213Eew Assigned At [facility] Hospitaltart: 12-14-2022 End: 01-29-6129Ycixenb of Social functionMercy Health Defiance Hospitaltart: 44-77-4139Tmi Assigned At [facility] Hospitaltart: 29-89-1204TkeYsoi (finding)[facility] Functional Status GydvUpuyvvlmeiFixihdElrtfhhh83-91-4812Ryreirozry StatusN/AExec[facility] of [facility] Clinical Notes 12-05-2016 to 02-19-2025 Note Date & RqalOqofAbpxtaez33-07-9455 Evaluation note* Diagnosis Onset Date Resolution Status Admit Date Cervical spondylosis acuteFebruary 19, 2025 8:18amGERD (gastroesophageal reflux disease)acute February 19, 2025 8:18amHypertensionacuteSept2024 8:18amLumbar spondylosisacuteSept2024 8:18amNephrolithiasisacuteSept2024 8:18amOSA (obstructive sleep apnea)acuteFebruary 19, 2025 8:18amProstate canceracuteSept2024 8:18amRadiation proctitisacuteSept2024 8:18am [facility] Work Phone: [phone] Telephone encounter Note* Telephone Encounter - Jean-Pierre [...] other questions or concerns at this time. [facility]04-29-2025 Miscellaneous Notes* Telephone Encounter - Jean-Pierre [...] concerns at this time. documented in this encounterMercy Health St. [facility]11-05-2024 History of Present illness Narrative* Lydia [...] Rectal discomfort. Currently no pain or bleeding. [place] to have old healed fissure. Continue efforts to avoid constipation.. Signed by: Lydia Gonzalez MD cc: Joaquin Morgan MD ([facility]) [address] [place] [address] * Janene Curran, RN - 04/01/2024 10:12 AM EST AUA=2 documented in [address] encounterMer[facility] [address]. [facility]11-05-2024 NoteHNO ID: [id number] Author: Lydia GONZALEZ MD Service: ? Author [...] Rectal discomfort. Currently no pain or bleeding. [place] to have old healed fissure. Continue efforts to avoid constipation.. Signed by: Lydia Gonzalez MD cc: Joaquin Morgan MD ([facility]) [address] [place] [address] [facility]Mem[facility]11-05-2024 NoteHNO ID: [id number] Author: JANENE CURRAN RN Service: ? Author Type: Registered Nurse Type: Progress Notes Filed: 04/08/2024 15:50 Note Text: [facility]UA=[facility]CMem[facility]08-23-2024 History of Present illness Narrative* Gabriela Ramsey MD - 01/18/2024 9:30 AM EDT COLORECTAL SURGERY January 18, 2024 Malcolm Pfeiffer 78 year old This consult was requested by Dr. Bob Gonzalez and my final recommendations will be communicatedto the requesting health care provider by way of the shared medical record for internal providers or letter via the [employer] for external providers. Chief Complaint: rectal pain/ rectal stricture History of Present Illness: Malcolm Pfeiffer is a 78 year old male presents to the office for evaluation of rectal pain and rectal stricture. He has a history of X3uP0S5 prostate adenocarcinoma. Colonoscopy in 2016 -normal Scan [...] exam Anorectal: External exam reveals: see below Rewinder Operator Helper present: yes Assessment Assessment and Plan: Malcolm [...] Ramsey MD Colorectal Surgery documented in this encounterMer[facility] St. [facility]08-23-2024 NoteHNO ID: [id number] Author: GABRIELA RAMSEY MD Service: ? Author Type: Physician Type: Progress Notes Filed: 01/18/2024 09:49 Note Text: COLORECTAL SURGERY January 18, 2024 Malcolm Pfeiffer 78 year old This consult was requested by Dr. Bob Gonzalez and my final recommendations will be communicated to the requesting health care provider by way of the shared medical record for internal providers or letter via the [employer] for external providers. Chief Complaint: rectal pain/ rectal stricture History of Present Illness: Malcolm Pfeiffer is a 78 year old male presents to the office for evaluation of rectal pain and rectal stricture. He has a history of O9nP3W8 prostate adenocarcinoma. Colonoscopy in 2016 -normal Scan [...] exam Anorectal: External exam reveals: see below Rewinder Operator Helper present: yes Assessment Assessment and Plan: Malcolm [...] with his pcp. Gabriela Ramsey MD [facility] SurgeryC[facility]07-18-2024 History of Present illness Narrative* Lydia Gonzalez [...] Gonzalez MD cc: Joaquin Morgan MD ([facility]) [address] [place] [address] documented in [address]Mer[facility] [address]07-18-2024 NoteHNO ID: [id number] Author: Lydia GONZALEZ MD Service: ? Author [...] Gonzalez MD cc: Joaquin Morgan MD ([facility]) [address] [place] [address] JtowiemquMemorial Hospital07-18-2024 Nurse Note* Nicolasa Faustin LPN - 12/13/2023 9:34 AM EDT AUA= [address] [facility]07-18-2024 Nurse Note* Nicolasa Faustin LPN - 12/13/2023 9:34 AM EDT AUA= 3 documented in [address] encounterMer[address] [facility] [address]. [facility]05-30-2024 History of Present illness Narrative* Lydia [...] Gonzalez MD cc: Joaquin Morgan MD ([facility]) [address] [place] [address] documented in [address]Mer[address] [facility]05-30-2024 NoteHNO ID: [id number] Author: Lydia GONZALEZ MD Service: ? Author Type: Physician Type: Progress Notes Filed: 10/25/2023 11:24 Note Text: radiation Oncology - Follow Up Note PATIENT NAME: Malcolm Pfeiffer PATIENT DIAGNOSIS: Prostate adenocarcinoma, initial PSA 6.63, biopsy Conshohocken score 3 + 3 = 6 (grade [...] Gonzalez MD cc: Joaquin Morgan MD ([facility]) [address] [place] [address] AjevpbkilMemorial Hospital09-26-2023 Evaluation note* Encounter Date Diagnosis Assessment Notes Treatment Notes Treatment Clinical Notes Jan, Mass of soft tissue of shoulder (ICD-10 - M79.89) E96 Other 07-20-2023 History of Present illness Narrative* Lydia Gonzalez MD - 12/14/2022 9:00 AM EDT Radiation Oncology - Follow Up Note PATIENT NAME: Malcolm Pfeiffer PATIENT DIAGNOSIS: 71 year old male with prostate adenocarcinoma, initial PSA 6.63, biopsy Conshohocken score 3 + 3 = 6 (grade [...] Gonzalez MD cc: Joaquin Morgan MD ([facility]) [address] [place] [address] Dr. Swain documented in this encounterMercy Health St. [facility]07-17-2023 Evaluation note* Encounter Date Diagnosis Assessment Notes Treatment Notes Treatment Clinical Notes Nov, Adenocarcinoma of prostate (ICD- 10 - C61) [facility] [employer] Other 04-20-2023 Nurse Note* Wiliam August - 12/14/2022 8:51 AM EDT AUA=2 documented in this encounterMer[facility]. [facility]03-06-2023 Evaluation note* Encounter Date Diagnosis Assessment [...] use, the patient reduces the risk for PR, CVA, HTN, cardiac dysrhythmias and sudden cardiac [...] keep bowel function normal and reduces pain E96 Other 03-01-2023 Evaluation note* Encounter Date Diagnosis [...] prostate (ICD-10 - C61)Stable w/o s/s recurrence. E96 Other 01-25-2023 Hospital Discharge instructions Patient Education 06/21/2022 13:37:37 Testicular Self-Exam, Eksn-qo-Fagz Testicular Self-Exam A self-exam of your testicles [...] 08/10/2009 Document Revised: 09/04/2019 Document Reviewed: 04/09/2017 [employer] Patient Education 2019 [employer] Follow Up Care 02/15/2021 08:56:21 With:DANIEL PAERIKA Vargas, URL Address: [address] [place] [address] When: only if needed [facility] 07-21-2022 History of Present illness Narrative* Lydia [...] Gonzalez MD cc: Joaquin Morgan MD ([facility]) [address] [place] [address] Dr. Swain documented in this encounterMercy Health St. [facility]04-01-2022 Nurse Note* Odilia Swain - 12/15/2021 9:03 AM EDT AUA=1 documented in [address] encounterMer[facility]. [facility]07-11-2017 History of Past illness Narrative* ProblemNoted DateDiagnosed DateResolved DateProstate dmvfdc3512/05/2016 3documented as of this encounter (statuses as of 12/14/2022) [facility] HospitalEvaluation + Plan note No data available for this section [facility] evaluation note* Diagnosis Malignant neoplasm of prostate (HCC)- Primary Malignant neoplasm of prostate documented in this encounter [facility] noteNo InformationNort [employer] Other Evaluation note* Diagnosis History of prostate cancer- Primary Personal history of malignant neoplasm of prostate Proctitis, radiation Other specified disorder of rectum and anus documented in this encounter [facility] note* Diagnosis Onset Date Resolution Status Cervical spondylosis acuteGERD (gastroesophageal reflux disease)acuteHypertensionacuteLumbar spondylosisacuteNephrolithiasisacuteOSA (obstructive sleep apnea)acuteProstate canceracuteRadiation proctitisacute [facility] Work Phone: Evaluation note* Diagnosis History of prostate cancer- Primary Personal history of malignant neoplasm of prostate documented in this encounter [facility] note* Diagnosis History of prostate cancer- Primary Personal history of malignant neoplasm of prostate Rectal or anal pain Anal or rectal pain Anal or rectal pain- Primary documented in this encounter [facility] note* Diagnosis Anal or rectal pain- Primary Rectal stricture Stenosis of rectum and anus Rectal or anal pain Anal or rectal pain documented in this encounter [facility] note* Diagnosis Onset Date Resolution Status History of nephrolithiasis acuteLow back painacuteLumbar spondylosisacute [facility] Work Phone: Evaluation note* Diagnosis Onset Date Resolution Status History of nephrolithiasis acuteLow back painacuteLumbar spondylosisacuteCervical spondylosisacuteGERD (gastroesophageal reflux disease)acuteHypertensionacuteLumbar spondylosisacute Medicare annual wellness visit, subsequentacuteNephrolithiasisacuteOSA (obstructive sleep apnea)acuteProstate canceracuteRadiation proctitisacute [facility] Work Phone: Evaluation note* Diagnosis History of prostate cancer- Primary Personal history of malignant neoplasm of prostate documented in this encounter [facility] note* Diagnosis Onset Date Resolution Status Admit Date Cervical spondylosis acuteMar 2024 8:15amGERD (gastroesophageal reflux disease)acuteMarch 2024 8:15amHypertensionacuteMar 2024 8:15amLumbar spondylosisacute March 2024 8:15amNephrolithiasisacuteMarch 2024 8:15amOSA (obstructive sleep apnea)acuteMar 2024 8:15amProstate canceracuteWhite [facility] 2024 8:15amRadiation proctitisacuteWhite Hospital 2024 8:15am [facility] Work Phone: Evaluation note* Diagnosis Onset Date Resolution Status Admit Date Cervical spondylosis acuteFebruary 19, 2025 8:18amGERD (gastroesophageal reflux disease)acute February 19, 2025 8:18amHypertensionacuteSept2024 8:18amLumbar spondylosisacuteSept2024 8:18amNephrolithiasisacuteSept2024 8:18amOSA (obstructive sleep apnea)acuteFebruary 19, 2025 8:18amProstate canceracuteSept2024 8:18amRadiation proctitisacuteSept2024 8:18am [facility] Work Phone: History general Narrative - Reported* Type Description Date Medical History Rectal bleeding Medical HistoryRectal painMedical HistoryAdenocarcinoma of prostateMedical HistoryAnemiaMedical HistoryHigh risk medication useMedical HistoryRadiation proctitisMedical HistoryLumbar spondylosisMedical HistoryObstructive sleep apnea Medical HistoryEssential hypertensionMedical HistoryEczema, dyshidroticMedical HistoryHistory of nephrolithiasisMedical HistoryFamily history of early CAD Medical HistoryEnlarged prostate with lower urinary tract symptoms (LUTS)Medical HistoryCervical spondylosisSurgical HistoryHERNIA REPAIRSurgical HistoryLEFT RETROGRADE URETEROSCOPY/[id number] SsxmhdeKBBX2275Wzwetfms History DTVCRFUBNOL7438Wthxlwfa YiitygcLNJ4890,2016Surgical BwbtwzgDRNXUJPPOT9342 Surgical HistoryTRUS/BXSurgical AkfzogfUCHQVVLLXJD2776Jipomofebolhegs HistorySEE SURGICAL HX E96 Other Progress note No data available for this section [facility] reason for referral (narrative)* Outpatient Procedure (Routine) - New RequestSpecialtyDiagnoses / ProceduresReferred By Contact Referred To [facility] Diagnoses Rectal stricture Procedures COLONOSCOPY DIAGNOSTIC COLONOSCOPY FLX DX W/COLLJ [place] [address] [place] [address] [facility] [place] [address] [place] [address] Referral IDStatusReasonStart DateExpiration DateVisits RequestedVisits [id number] Request Auto-Generated Referral / [facility] HospitalRekindred hospital for referral (narrative)No reason for referral information availableOur Lady Of Mercy Hospital Work Phone: Summary Purpose Family History [...] pain Procedures CONSULT TO COLO-RECTAL SURGERY OFFICE/OUTPATIENT [facility] 60 MINUTES Lydia Gonzalez MD [address] [place] [address] [place] [address] Referral IDStatusReasonStart DateExpiration DateVisits RequestedVisits [id number] PCP Requested Referral / Additional Source Comments Source Comments (unrecognize d section and content) In the event this informatio n is protected by the Federal Confidentiality of Alcohol and Drug Abuse Patient Records regulations: The Federal rules restrict any use of the information to criminally investigate or prosecute any alcohol or drug abuse patient.[facility] HospitalIn the event this information is protected by the Federal Confidentiality of Alcohol and Drug Abuse Patient Records regulations: The Federal rules restrict any use of the information to criminally investigate or prosecute any alcohol or drug abuse patient.[facility] HospitalIn the event this information is protected by the Federal Confidentiality of Alcohol and Drug Abuse Patient Records regulations: The Federal rules restrict any use of the information to criminally investigate or prosecute any alcohol or drug abuse patient.[facility] HospitalIn the event this information is protected by the Federal Confidentiality of Alcohol and Drug Abuse Patient Records regulations: The Federal rules restrict any use of the information to criminally investigate or prosecute any alcohol or drug abuse patient.[facility] HospitalIn the event this information is protected by the Federal Confidentiality of Alcohol and Drug Abuse Patient Records regulations: The Federal rules restrict any use of the information to criminally investigate or prosecute any alcohol or drug abuse patient.[facility] HospitalIn the event this information is protected by the Federal Confidentiality of Alcohol and Drug Abuse Patient Records regulations: The Federal rules restrict any use of the information to criminally investigate or prosecute any alcohol or drug abuse patient.[facility] HospitalIn the event this information is protected by the Federal Confidentiality of Alcohol and Drug Abuse Patient Records regulations: The Federal rules restrict any use of the information to criminally investigate or prosecute any alcohol or drug abuse patient.[facility] Reason for Visit (unrecogniz ed section and content) ReasonCommentsProstate Cancerfollow upReasonCommentsProstate CancerFollow up ReasonCommentsnew problemReasonCommentsProstate CancerReasonCommentsRectal Pain SpecialtyDiagnoses / ProceduresReferred By ContactReferred To ContactColon and Rectal Surgery Diagnoses Rectal or anal pain Procedures CONSULT TO COLO-RECTAL SURGERY OFFICE/OUTPATIENT [facility] 60 MINUTES Lydia Gonzalez MD [address] [place] [address] [place] [address] Referral IDStatusReasonStart DateExpiration DateVisits RequestedVisits [id number] PCP Requested Referral /[id number] CancerReasonCommentsCare Coordination Follow up colonoscopy with Dr Niurka Barraza (unrecognized sec tion and content) Team MemberRelationshipSpecialtyStart DateEnd Date [facility]11/24/16Team MemberRelationshipSpecialtyStart Date End Date Joaquin Morgan DO PCP - [facility]11/24/16 Team Status: Active Member Role Status Dates Joaquin Morgan DO Primary Care Provider Active Team Status: Inactive Member Role Status Dates Joaquin Morgan DO Primary Care Provide r, Attending Provider Active Start: August 16, 2023 End: August 16, 2023Team MemberRelationshipSpecialtyStart DateEnd Date Joaquin Morgan DO PCP - [facility]11/24/16Team MemberRelationshipSpecialtyStart Date End Date Joaquin Morgan DO PCP - [facility]11/24/16Team MemberRelationshipSpecialtyStart Date End Date Joaquin Morgan DO PCP - [facility]11/24/16 Team Status: Inactive Member Role [...] section and content) DATE CREATED AUTHOR 08/26/2022 [place] DATE CREATED AUTHOR AUTHOR'S ORGANIZ ATION 01/24/2023 [facility] DATE CREATED AUTHOR AUTHOR'S ORGANIZ ATION 09/25/2024 [facility] Goals (unrecognized section and content) Goals [...] BE BASED ON THE PRIMARY CLINICAL RECORDS. [employer] [facility]. provides no warranty or guarantee of the accuracy or completeness of information in this document.
[2025-03-25 10:28] LABS: Prostate Specific Antigen Dx <0.13 ng/mL (<=4.00)
== END 2025-03-25 07:47 | disposition home or self-care (01) ==
PROVIDERS: PCP Internal Medicine; Visit Provider Radiology Radiation Oncology
DX: D64.9 Anemia, unspecified (principal); C61 Malignant neoplasm of prostate; I10 Essential (primary) hypertension; Z85.46 Personal history of malignant neoplasm of prostate
CPT/HCPCS: 36415; 80053; 84153; 85025